=== PATIENT | female | born 1975 | race Caucasian/White ===

== ENCOUNTER 2017-11-01 13:59 | Emergency (ER) | payer SELFPAY ==
[2017-11-01 14:00] VITALS: BP 200/95; PULSE 78; RESP 16; TEMP 36.8; O2SAT 96; BMI 42.5
--- NOTE | 2017-11-01 14:14 | CT_ITS ---
STUDY: CT ABDOMEN AND PELVIS WITHOUT CONTRAST REASON FOR EXAM: Female, 42 years old. Right flank pain RADIATION DOSAGE (If Supplied By Facility): CTDIvol = ( 24.18 ) mGy, DLP = ( 1135.14 ) mGycm TECHNIQUE: Transaxial images were obtained from the dome of the diaphragm to the symphysis pubis without oral contrast, and without intravenous contrast. Sagittal and coronal images were reconstructed. Individualized dose optimization techniques were used for this CT. COMPARISON: None. FINDINGS: The visualized lung bases are unremarkable. The visualized portions of the heart are within normal limits. Normal liver. There is non-visualization of the gallbladder, which may be secondary to either contraction or a prior cholecystectomy. Normal spleen. Normal pancreas. Normal bilateral adrenal glands. Normal left kidney. Right kidney shows hydronephrosis and hydroureter with a minimal amount of periureteral inflammatory stranding. Findings are due to a 8 mm stone in the proximal right ureter just below the UPJ best seen on axial image 91. Normal visualized stomach. Normal small intestine. Normal colon. The appendix is visualized and appears normal. Appendix best seen on coronal recon image 74 Normal abdominal aorta. Normal inferior vena cava. Normal retroperitoneum. Normal urinary bladder. Normal visualized uterus. Normal abdominal wall. Normal osseous structures. CT/Abdomen/Pelvis without Cont IMPRESSION: There is an 8 mm stone in the proximal right ureter causing hydronephrosis and hydroureter. Electronically Signed: Diomedes Jacobs MD at 15:50 EDT , Service support ,
[2017-11-01] MEDS: Ketorolac 30 MG/ML Syringe IV (14:31)
[2017-11-01] MEDS: 0.9% Normal Saline 1,000 ML 250 ML IV (14:31)
[2017-11-01] MEDS: Ondansetron 4 MG/2 ML Vial IV (14:31)
[2017-11-01 14:41] LABS: Bacteria 0 SEEN /hpf (None Seen); Mucous, Urine 0 SEEN /hpf (<or=2+)
[2017-11-01 14:44] LABS: Color, Urine Yellow (Yellow); Glucose, Dipstick Normal (Normal); Ketone-Dipstick Negative (Negative); Leukocyte Esterase-Dipstick 100 /ul (Negative); Nitrite-Dipstick Negative (Negative); Occult Blood-Urine 150 /ul (Negative); Protein-Dipstick 30 mg/dl (Negative); Urine Bilirubin Dipstick Negative (Negative); Urine Clarity Sl. Cloudy (Clear); Urine Urobilinogen Normal (Normal)
[2017-11-01 14:55] LABS: White Blood Cells 0-5 SEEN /hpf (0-5)
[2017-11-01 14:56] LABS: Red Blood Cells-Urine 0-5 SEEN /hpf (0-5); Squamous Epithelial Cells - UA 5-10 SEEN /hpf (5-10)
[2017-11-01 15:05] LABS: Anion Gap 6 (5-15); BUN 11 mg/dL (7-18); BUN/Creat Ratio 13.6 RATIO (10-20); Calcium,Total 9.2 mg/dL (8.5-10.1); Chloride 105 mmol/L (98-107); Creatinine, Serum 0.81 mg/dL (0.55-1.02); EST Glomerular Filtration Rate 82 mL/min (>60); Est Glom Filt Rate - Afr Amer 100 mL/min (>60); Estimated Creatinine Clearance 74.84 ml/min; Glucose 137 mg/dL (74-106); Potassium 3.9 mmol/L (3.5-5.1); Sodium Level 138 mmol/L (136-145)
--- NOTE | 2017-11-01 15:49 | ED.DCSUM_ITS ---
- ER Visit Summary Date of Service: 11/01/17 Chief Complaint: Acute right flank pain radiating anteriorly History of Present Illness: The patient is a 42 F dense with several hour history of acute right flank pain radiating anteriorly. She denies dysuria, frequency, urgency or hematuria. She denies history of renal ureterolithiasis. She is status post cholecystectomy. She states she cannot find a position of comfort. She denies fever, chills or night sweats. She denies any respiratory cardiac symptoms. She has history of depression. She has no medical problems. Please read written note for complete detail. Physical Examination: Patient's blood pressure is 200/95. She appears uncomfortable. She is also heavyset with a BMI of 42.5. Head is atraumatic normocephalic. Pupils are equal round reactive. Extraocular muscles are intact. TMs are pearly white with landmarks noted. Nares patent with no drainage. Posterior pharynx without erythema or exudate. Uvula is midline. There is no dysphonia or dysphasia. Trachea is midline. There is no stridor with auscultation of the neck. Heart is regular without murmur, gallop or rub. S1 and S2 are normal. Lungs are clear to auscultation with good movement of air bilaterally. Abdomen is soft and nontender. There is no guarding or peritoneal findings. There is no palpable pulsatile mass. There is no abdominal bruit. Gomez sign is negative. Negative Rovsing sign. There is no evidence of inguinal or umbilical hernia. There are well-healed scars secondary to and cholecystectomy noted. There is no CVA tenderness noted. She is alert and oriented ?3. Test Results: BMP is marked for glucose 137. Urine is remarkable for leukoesterase and blood but no nitrites. Microscopic reveals 0-5 WBCs, 0-5 RBCs with 5-10 epithelial cells and no bacteria. CT of the abdomen and pelvis without contrast reveals a proximal right ureteral stone with hydronephrosis. Stone measures 7.8 x 4.0 mm. Emergency Department Course and Treatment: Patient's history and physical is consistent with ureterolithiasis. Doubt urinary tract infection or other pathology. Pain urine to evaluate for infection. BMP to assess kidney function. She was medicated with Toradol and Zofran. Treatment Plan: Reevaluated and states her pain is minimal. She was informed of her results. Refer to Dr. Ang Martinez. Disposition: Discharged home in stable improved condition Impression: Right proximal ureteral lithiasis with hydronephrosis This note was generated with [employer] dictation software. It may contain incorrect words, spelling, and punctuation that were not noted in review of the chart prior to signing ED Disposition - Plan for ED Patient: Disposition: Home or Assisted Living Chief Complaint: Flank Pain Instructions: ED Stone Renal W Colic Prescriptions: Oxycodone HCl/Acetaminophen [Percocet 5/325] 1 tab PO Q6H PRN PRN 5 Days #20 tab PRN Reason: flank pain Naproxen [Naprosyn] 500 mg PO BID #14 tab Referrals: Florentin Garay DO [Primary Care Provider] - Rene Martinez MD [STAFF PHYSICIAN] - 1 Week
[2017-11-01 16:00] VITALS: BP 147/70; PULSE 79; RESP 16; O2SAT 95
== END 2017-11-01 16:01 | disposition home or self-care (01) ==
PROVIDERS: Emergency Provider Emergency Medicine; Family Provider Family Medicine; PCP Family Medicine
DX: N13.2 Hydronephrosis with renal and ureteral calculous obstruction (principal); E66.9 Obesity, unspecified; Z68.41 Body mass index [BMI] 40.0-44.9, adult; F32.9 Major depressive disorder, single episode, unspecified; Z90.49 Acquired absence of other specified parts of digestive tract
CPT/HCPCS: 74176; 80048; 81001; 96361; 96374; 96375; 99282; J7030; J2405

== ENCOUNTER 2017-11-14 07:34 | Day surgery (SDC) | payer SELFPAY ==
--- NOTE | 2017-11-14 07:30 | RAD_ITS ---
STUDY: X-RAY - ABDOMEN/PELVIS REASON FOR EXAM: Female, 42 years old. History of right renal calculus. TECHNIQUE: Two AP supine views of the abdomen and pelvis. COMPARISON: None. FINDINGS: There is a moderate amount of colonic fecal material. There is a 7.5 mm calculus in the mid lower pole calyx of the right kidney. Normal soft tissue structures. Normal visualized osseous structures. RAD/Abdomen Single View IMPRESSION: 7.5 mm calculus in the mid lower portion of the right kidney. Electronically Signed: Patrick Mcneill MD at 8:05 EDT Tel [phone], Service support ,
[2017-11-14 08:10] VITALS: BP 145/79; PULSE 72; RESP 14; TEMP 36.5; O2SAT 98; BMI 42.5
[2017-11-14] MEDS: Cefazolin 2 GM in 0.9% Normal Saline 100 ML IV (09:33)
--- NOTE | 2017-11-14 10:22 | PCM.IMDPSTOP ---
Immediate Post-Op Note Date of Procedure: 11/14/17 Primary Surgeon/Physician: Floyd Manuel screw cutter: None Pre-Operative Diagnosis: Right renal lithiasis 8mm Post-Operative Diagnosis: same Surgery/Procedure Performed:: Rt ESWL 3000 @ 5-6 Description of Surgical Findings:: as above Estimated Blood Loss: none Specimen's removed: none Type of Anesthesia:: General - LMA Ila Sandhutershasha - Admit VTE Documentation VTE Present on Admission: No VTE Mechan Device Prophylaxis: SCD's VTE Pharm Prophylaxis ordered?: No
--- NOTE | 2017-11-14 10:24 | PCM.DC.URO ---
Discharge Diet: No Restrictions - ENCOURAGE FLUIDS Discharge Activity: Return to Normal Activity, May Not Drive - UNTIL TOMORROW, May not drive while taking narcotic pain medications., May Shower, - - EXPECT BLOOD IN URINE Call your doctor if you observe: Fever of 101 or Higher, Inability to urinate Allergies/Adverse Reactions: Allergies hydrogen peroxide Allergy (Verified 11/10/17 10:36) Rash Medications to take at Discharge Fluoxetine [Prozac] 60 mg PO DAILY 03/13/15 Naproxen [Naprosyn] 500 mg PO BID #14 tab 11/01/17 Oxycodone HCl/Acetaminophen [Percocet 5/325] 1 tab PO Q6H PRN PRN 5 Days #20 tab 11/01/17 Ascorbic Acid [Vitamin C] 1,000 mg PO DAILY 11/10/17 Primary Care Physician: Florentin Garay DO [Primary Care Provider] - Please Follow Up With: Rene Martinez MD - 3-4 WKS When: CALL [phone] SOON FOR AN APPT IN FEW WKS
--- NOTE | 2017-11-14 10:27 | DCINST_ITS ---
Discharge Diet: No Restrictions - ENCOURAGE FLUIDS Discharge Activity: Return to Normal Activity, May Not Drive - UNTIL TOMORROW, May not drive while taking narcotic pain medications., May Shower, - - EXPECT BLOOD IN URINE Call your doctor if you observe: Fever of 101 or Higher, Inability to urinate Allergies/Adverse Reactions: Allergies hydrogen peroxide Allergy (Verified 11/10/17 10:36) Rash Medications to take at Discharge Fluoxetine [Prozac] 60 mg PO DAILY 03/13/15 Naproxen [Naprosyn] 500 mg PO BID #14 tab 11/01/17 Oxycodone HCl/Acetaminophen [Percocet 5/325] 1 tab PO Q6H PRN PRN 5 Days #20 tab 11/01/17 Ascorbic Acid [Vitamin C] 1,000 mg PO DAILY 11/10/17 Primary Care Physician: Florentin Garay DO [Primary Care Provider] - Please Follow Up With: Rene Martinez MD - 3-4 WKS When: CALL [phone] SOON FOR AN APPT IN FEW WKS
[2017-11-14 10:33] VITALS: BP 131/84; BP 145/79; PULSE 79; RESP 16; TEMP 36.2; O2SAT 96
[2017-11-14 10:45] VITALS: BP 130/71; BP 145/79; PULSE 78; RESP 16; O2SAT 92
[2017-11-14 10:53] VITALS: BP 145/79; BP 154/81; PULSE 71; RESP 16; TEMP 36.8; O2SAT 94
--- NOTE | 2017-11-14 11:17 | PCM.OP.BLANK ---
Operative Report Date of Procedure: 11/14/17 42-year-old female who presented with a proximal 8 mm stone at the right UPJ. 3 times. At this point she has been intermittently pain free and is brought in for ESWL Seizure patient was taken to the operating room and placed under general anesthesia per LMA by Rasta robles and Dr. Sandhu. She had SCUDs in place was preloaded with antibiotics. She was positioned on the table with a stone was easily visible. It appeared to be in the renal pelvis. Subsequently no stent was placed. ESWL was performed patient had 3000 shocks most between 4-5 6. At 2500 shocks the stone was essentially absent a little saul pattern but went to 3000 shocks total. She was awakened and taken to recovery in good condition. That is on this dictation
[2017-11-14 11:50] VITALS: BP 145/79
== END 2017-11-14 11:53 | disposition home or self-care (01) ==
LOC: SDC 07:34 → AC 07:46
PROVIDERS: Family Provider Family Medicine; PCP Family Medicine; Visit Provider Urology
PROC: (CPT 50590; principal; 2017-11-14 09:20)
DX: N20.0 Calculus of kidney (principal); F32.9 Major depressive disorder, single episode, unspecified; G47.30 Sleep apnea, unspecified; E66.9 Obesity, unspecified; Z68.41 Body mass index [BMI] 40.0-44.9, adult
CPT/HCPCS: 74018; J7120; J2405

== ENCOUNTER → 2018-07-23 12:52 | Outpatient (CLI) | payer SELFPAY ==
--- NOTE | 2018-07-23 12:57 | VDLE_ITS ---
Reason For Study: csalf tenderness RIGHT LEFT GSV is normal. CFV is compressible, spontaneous, phasic, CFV is compressible, spontaneous, phasic, competent, and demonstrates normal competent and demonstrates normal augmentation. augmentation. FV is compressible, spontaneous, phasic, competent and demonstrates normal augmentation. POP V is compressible, spontaneous, phasic, competent and demonstrates normal augmentation. T/P Trunk is compressible. PTV is compressible. RT PerV is compressible. Procedure Exam performed in department. The exam was diagnostic. A preliminary report was called and/or faxed to Dr. Garay. Interpretation Summary Deep veins of the right lower extremity are patent and compressible segmentally. There is no evidence of right lower extremity deep vein thrombosis. Valvular competence appears intact within the proximal deep venous system on the right . The right greater saphenous vein appears patent and compressible segmentally. Ordering Physician: Florentin Garay Performed By: Av Howard RVT
--- OUTSIDE RECORDS SUMMARY | 2018-09-08 08:26 | XMS RPT_ITS ---
:1975 Author Organization OHIP Care Team Providers Name Role Phone Tanisha Florentin Attending Unavailable Florentin Garay Referring Unavailable Florentin Garay Primary Care Unavailable Florentin Garay Attending Unavailable Florentin Garay Referring Unavailable Florentin Garay Primary Care Unavailable Florentin Garay Primary Care Unavailable Jarred Zeng Attending Unavailable Flody Manuel Attending Unavailable Florentin Garay Primary Care Unavailable Floyd Manuel Referring Unavailable PROBLEMS PROBLEMS DATE TYPE CONDITION / CODE ATTENDING STATUS SOURCE 07/24/2018 Unknown M79.661 - Pain Florentin Garay Active [facility] M79.661(ICD-10) Repository 07/24/2018 Unknown M79.89 - Other Florentin Garay Active [facility] specified [facility] / M79.89(ICD-10) Repository 11/01/2017 Unknown N20.1 - Calculus Zeng, Jarred Active [facility] Community N20.1(ICD-10) Hospital Repository PROCEDURES PROCEDURES No Procedure Records FoundRESULTS RESULTS VENOUS DUPLEX LOWER Observed: 07/25/2018 Status: F Source: [place] EXTREMITY 1:43 PM [facility] REPOSITORY [facility] Cardiovascular Services [address] [place] [address] Venous Duplex US, Unilateral 07/23/18 1303 MR#: [id number] Acct: [id number] Name: CHARISMA JUDGE Rep #: [id number] : 1975 43 From: Edinson Orantes MD Attending Dr: Florentin Garay DO Status: REG CLI Ordering Dr: Florentin Garay DO Date: 07/23/18 Location: CVS Sex: F C Admitted: Reason For Study: csalf tenderness RIGHT LEFT GSV is normal. CFV is compressible, spontaneous, phasic, CFV is compressible, spontaneous, phasic, competent, and demonstrates normal competent and demonstrates normal augmentation. augmentation. FV is compressible, spontaneous, phasic, competent and demonstrates normal augmentation. POP V is compressible, spontaneous, phasic, competent and demonstrates normal augmentation. T/P Trunk is compressible. PTV is compressible. RT PerV is compressible. Procedure Exam performed in department. The exam was diagnostic. A preliminary report was called and/or faxed to Dr. Garay. Interpretation Summary Deep veins of the right lower extremity are patent and compressible segmentally. There is no evidence of right lower extremity deep vein thrombosis. Valvular competence appears intact within the proximal deep venous system on the right . The right greater saphenous vein appears patent and compressible segmentally. Ordering Physician: Florentin Garay Performed By: Av Howard RVT 07/25/18 1342 Date Edinson Orantes MD CC: Florentin Garay DO Date Dictated: 07/23/18 1303 Date Transcribed: 07/25/18 1342 Gear Tester: Signed EXT NON VASC Observed: 07/24/2018 Status: F Source: [place] LIMITED/SOFT TISS 1:46 PM [facility] REPOSITORY [facility] Imaging Services [address] [place] [address] Ext Non Vasc Limited/Soft Tiss MR#: [id number] Acct: [id number] Name: CHARISMA JUDGE Rep #: [id number] : 1975 F 43 From: Rajendra Preston MD PCP: Florentin Garay DO Status: REG CLI Study: Ext Non Vasc Limited/Soft Tiss Date of Exam: 07/24/18 Exam# [id number] Ordering Dr: Florentin Garay DO STUDY: SUPERFICIAL ULTRASOUND - RIGHT CALF REASON FOR EXAM: Female, 43 years old. PAIN AND SWELLING OF THE RIGHT CALF TECHNIQUE: A superficial ultrasound was performed with real- time and static flores-scale imaging. COMPARISON: None. FINDINGS: Soft tissue planes are preserved without evidence of focal fluid collection or solid mass. There is slight thickening of the right subcutaneous tissues as compared to the left compatible with history of right calf swelling. US/Ext Non Vasc Limited/Soft Tiss IMPRESSION: 1. No focal fluid collection or solid mass. 2. Mild, nonspecific right subcutaneous thickening. Electronically Signed: Rajendra Preston MD at 23:10 EST , Service support , CC: Florentin Garay DO Gear Tester: Signed GROUP A STREP BY Collected: 06/09/2018 Status: F Source: [place] PCR 11:10 AM [facility] REPOSITORY TYPE CODE TESTS RESULT OUT OF RANGE REFERENCE UNITS LAB GASSRC Throat Swab GAS Specimen Source LAB PCRGAS Positive for Abnormal Group A Strep Group A Alert PCR Streptococcus by PCR. Result Comment: This test was developed and its performance characteristics determined by [facility] [place] ([facility]). It has not been cleared or approved by the FDA. [facility] is regulated under CLIA as qualified to perform high-complexity testing. This test is used for clinical purposes. It should not be regarded as inv estigational or for research. Performed By: #### GASPCR #### [facility] [address] [place], [place] [address] PROGRESS Observed: 06/09/2018 Status: COMPLETED Source: [place] 10:57 AM [facility] REPOSITORY HNO ID: [id number] Author: Mesha (Chitra) Service: (none) Author Type: Nurse Practitioner Type: Progress Notes Filed: 06/09/2018 11:10 AM Note Text: Subjective HPI HPI Charisma Judge is a 43 year old female who presents today for CC of sore throat, runny nose. This started 2 days ago. Has tried otc medication. Symptoms are worsened by nothing. Risk factors sick exposures at home. .Patient presents with: ST, runny nose, congestion: x 2 days PAST MEDICAL HISTORY Diagnosis Date - Abdominal pain, epigastric - Absence of menstruation - Adjustment disorder with depressed mood 04/17/2005 - Alopecia, unspecified - Anxiety - Calculus of gallbladder without mention of cholecystitis or obstruction - Depression - Family history of diabetes mellitus - WITH CHRONIC HEP C 07/28/2007 LFT's, Hep Panel negative 07/17 - Irregular menstrual cycle Irregular periods - Obesity - OCD (obsessive compulsive disorder) - Oligomenorrhea 10/30/2011 PAST SURGICAL HISTORY Procedure Laterality Date - DELIVERY ONLY 1992 , low cervical - COLONOSCOP W/ OR W/O [facility] SPEC 12/22/2013 Colonoscopy - EGD W/O [facility] SPECIMEN W/BX 05/11/10 - ENDOMETRIAL BIOPSY 09/10/2013 - PAST SURGICAL HISTORY OF 06/15/10 Lap [facility], intra-op cholangiogram -- Dr. Chin - PAST SURGICAL HISTORY OF lumbar injections - REDUCTION OF LARGE BREAST [place] - REMOVAL OF HEEL SPUR LIGAMENT CUT; [facility] ALLERGIES Patient has no known allergies. MEDICATIONS FLUoxetine (PROZAC) 20 mg capsule 20mg + 40mg =60mg daily FLUoxetine HCl (PROZAC) 40 mg capsule 20mg + 40mg =60mg daily CPAP UTO CPAP DEVICE, chin strap, humidity. Lifetime supplies.Please Autopap 4-20 cmH2O with download in 2 weeks faxed to [phone] /Pt without insurance FAMILY HISTORY Problem Relation Age of Onset - Diabetes Maternal Grandfather - Stroke Maternal Grandmother CVA - Stroke Paternal Grandfather CVA - Heart Maternal Grandfather age 60's - Heart Paternal Grandfather age 60's - None Father - Breast Cancer Other Mat Great Grandmother only - None Mother - Colon Cancer Other none - Diabetes Maternal Aunt - Diabetes Maternal Aunt - Diabetes Paternal Grandfather - Arthritis Maternal Grandmother - other (molina [Other]) Paternal Aunt Social History Substance Use Topics - Smoking status: Never Smoker - Smokeless tobacco: Never Used - Alcohol use No Review of Systems Constitutional: Negative for chills, fever and weight loss. HENT: Positive for congestion and sore throat. Negative for ear pain and nosebleeds. Respiratory: Negative for cough, shortness of breath and wheezing. Musculoskeletal: Negative for neck pain. Skin: Negative for itching and rash. Objective Blood pressure 148/90, pulse 72, temperature 36.8 ?C (98.3 ?F), temperature source Tympanic, resp. rate 16, weight 109.8 kg (242 lb), SpO2 98 %. Physical Exam Constitutional: She is oriented to person, place, and time and well-developed, well-nourished, and in no distress. Non-toxic appearance. She does not have a sickly appearance. No distress. HENT: Head: Normocephalic and atraumatic. Right Ear: Hearing, tympanic membrane, external ear and ear canal normal. Left Ear: Hearing, tympanic membrane, external ear and ear canal normal. Nose: Nose normal. Mouth/Throat: Uvula is midline and mucous membranes are normal. Posterior oropharyngeal erythema present. No oropharyngeal exudate, posterior oropharyngeal edema or tonsillar abscesses. Eyes: Pupils are equal, round, and reactive to light. Conjunctivae and lids are normal. Right eye exhibits no discharge. Left eye exhibits no discharge. No scleral icterus. Neck: Trachea normal and normal range of motion. Neck supple. Cardiovascular: Normal rate, regular rhythm and normal heart sounds. Pulmonary/Chest: Effort normal and breath sounds normal. Lymphadenopathy: She has no cervical adenopathy. Neurological: She is alert and oriented to person, place, and time. Skin: No rash noted. She is not diaphoretic. ASSESSMENT/PLAN: 1. URI, acute - ICD9: 465.9, ICD10: J06.9 (primary diagnosis) - Discussed viral etiology and rationale for treatment. - Rapid strep negative in office today - Symptomatic treatment with prn analgesia - Supportive care with fluids and rest - Follow up in 3-5 days if symptoms persist or sooner if worsening of symptoms 2. Sore throat - ICD9: 462, ICD10: J02.9 - suspect viral - Rapid Strep negative in the office today and Throat culture pending - Discussed supportive care treatment with fluids, rest and analgesia. - The patient should follow up in 3-5 days if symptoms persist or worsen - Call back if drooling, increased temperature, symptoms of dehydration and/or still sick in one week - RAPID STREP TEST B/O - GROUP A STREPTOCOCCUS BY PCR Prescription instructions reviewed with patient as applicable. Patient advised if symptoms do not improve or if symptoms worsen sooner, to contact the office for further evaluation by their primary care physician. Potential red flag symptoms discussed with the patient. Reviewed appropriate action plan to take if red flag symptoms occur. Patient agreeable to treatment plan. Mesha Munson APRN.CHITRA CNOV Observed: 06/09/2018 Status: COMPLETED Source: [place] 10:45 AM [facility] REPOSITORY Office Visit ([facility]STR) CHARISMA JUDGE ([id number]) 1975 F Date Time Provider Department 06/09/18 10:45 AM MESHA MUNSON (CHITRA) [facility] During your visit today, we recorded the following information about you: Temperature Pulse Respiration Blood pressure 98.3 degrees 72/minute 16/minute 148/90 Weight 109.8 kg Mesha Munson APRN.CNP 06/09/2018 11:10 AM Signed Subjective HPI HPI Charisma Judge is a 43 year old female who presents today for CC of sore throat, runny nose. This started 2 days ago. Has tried otc medication. Symptoms are worsened by nothing. Risk factors sick exposures at home. .Patient presents with: ST, runny nose, congestion: x 2 days PAST MEDICAL HISTORY Diagnosis Date - Abdominal pain, epigastric - Absence of menstruation - Adjustment disorder with depressed mood 04/17/2005 - Alopecia, unspecified - Anxiety - Calculus of gallbladder without mention of cholecystitis or obstruction - Depression - Family history of diabetes mellitus - WITH CHRONIC HEP C 07/28/2007 LFT's, Hep Panel negative 07/17 - Irregular menstrual cycle Irregular periods - Obesity - OCD (obsessive compulsive disorder) - Oligomenorrhea 10/30/2011 PAST SURGICAL HISTORY Procedure Laterality Date - DELIVERY ONLY 1992 , low cervical - COLONOSCOP W/ OR W/O [facility] SPEC 12/22/2013 Colonoscopy - EGD W/O [facility] SPECIMEN W/BX 05/11/10 - ENDOMETRIAL BIOPSY 09/10/2013 - PAST SURGICAL HISTORY OF 06/15/10 Lap [facility]ra, intra-op cholangiogram -- Dr. Chin - PAST SURGICAL HISTORY OF lumbar injections - REDUCTION OF LARGE BREAST 2001 [place] - REMOVAL OF HEEL SPUR LIGAMENT CUT; Foot/Ankle Clinic ALLERGIES Patient has no known allergies. MEDICATIONS FLUoxetine (PROZAC) 20 mg capsule 20mg + 40mg =60mg daily FLUoxetine HCl (PROZAC) 40 mg capsule 20mg + 40mg =60mg daily CPAP UTO CPAP DEVICE, chin strap, humidity. Lifetime supplies.Please Autopap 4-20 cmH2O with download in 2 weeks faxed to [phone] /Pt without insurance FAMILY HISTORY Problem Relation Age of Onset - Diabetes Maternal Grandfather - Stroke Maternal Grandmother CVA - Stroke Paternal Grandfather CVA - Heart Maternal Grandfather age 60's - Heart Paternal Grandfather age 60's - None Father - Breast Cancer Other Mat Great Grandmother only - None Mother - Colon Cancer Other none - Diabetes Maternal Aunt - Diabetes Maternal Aunt - Diabetes Paternal Grandfather - Arthritis Maternal Grandmother - other (molina [Other]) Paternal Aunt Social History Substance Use Topics - Smoking status: Never Smoker - Smokeless tobacco: Never Used - Alcohol use No Review of Systems Constitutional: Negative for chills, fever and weight loss. HENT: Positive for congestion and sore throat. Negative for ear pain and nosebleeds. Respiratory: Negative for cough, shortness of breath and wheezing. Musculoskeletal: Negative for neck pain. Skin: Negative for itching and rash. Objective Blood pressure 148/90, pulse 72, temperature 36.8 ?C (98.3 ?F), temperature source Tympanic, resp. rate 16, weight 109.8 kg (242 lb), SpO2 98 %. Physical Exam Constitutional: She is oriented to person, place, and time and well-developed, well-nourished, and in no distress. Non-toxic appearance. She does not have a sickly appearance. No distress. HENT: Head: Normocephalic and atraumatic. Right Ear: Hearing, tympanic membrane, external ear and ear canal normal. Left Ear: Hearing, tympanic membrane, external ear and ear canal normal. Nose: Nose normal. Mouth/Throat: Uvula is midline and mucous membranes are normal. Posterior oropharyngeal erythema present. No oropharyngeal exudate, posterior oropharyngeal edema or tonsillar abscesses. Eyes: Pupils are equal, round, and reactive to light. Conjunctivae and lids are normal. Right eye exhibits no discharge. Left eye exhibits no discharge. No scleral icterus. Neck: Trachea normal and normal range of motion. Neck supple. Cardiovascular: Normal rate, regular rhythm and normal heart sounds. Pulmonary/Chest: Effort normal and breath sounds normal. Lymphadenopathy: She has no cervical adenopathy. Neurological: She is alert and oriented to person, place, and time. Skin: No rash noted. She is not diaphoretic. ASSESSMENT/PLAN: 1. URI, acute - ICD9: 465.9, ICD10: J06.9 (primary diagnosis) - Discussed viral etiology and rationale for treatment. - Rapid strep negative in office today - Symptomatic treatment with prn analgesia - Supportive care with fluids and rest - Follow up in 3-5 days if symptoms persist or sooner if worsening of symptoms 2. Sore throat - ICD9: 462, ICD10: J02.9 - suspect viral - Rapid Strep negative in the office today and Throat culture pending - Discussed supportive care treatment with fluids, rest and analgesia. - The patient should follow up in 3-5 days if symptoms persist or worsen - Call back if drooling, increased temperature, symptoms of dehydration and/or still sick in one week - RAPID STREP TEST B/O - GROUP A STREPTOCOCCUS BY PCR Prescription instructions reviewed with patient as applicable. Patient advised if symptoms do not improve or if symptoms worsen sooner, to contact the office for further evaluation by their primary care physician. Potential red flag symptoms discussed with the patient. Reviewed appropriate action plan to take if red flag symptoms occur. Patient agreeable to treatment plan. Mesha Munson APRN.CHITRA Munson APRN.CNP 06/09/2018 11:03 AM Signed RESPIRATORY INFECTION GENERAL INFORMATION: An upper respiratory tract infection, or cold, is a viral infection of the airway passages. It can be caused by any one of almost 200 different viruses. Common symptoms include a runny or stuffy nose, sneezing, watery eyes, sore throat, cough, and slight fever. Colds are contagious, especially during the first 3 or 4 days and cannot be cured by antibiotics. They are spread by coughs, sneezes, and direct contact, especially [id number]. A respiratory tract infection usually clears up in a few days, but some people may be sick for a week or two. INSTRUCTIONS: 1. Be careful not to blow your nose too hard because this may cause a nosebleed. 2. Use a cool-mist humidifier (vaporizer) to increase air moisture. This will make it easier for you to breathe. Do not use hot steam. 3. Rest as much as possible and get plenty of sleep. 4. Wash your hands often, especially after you blow your nose. Cover your mouth and nose with a tissue when you sneeze or cough. 5. Drink plenty of clear fluids (8 glasses a day) such as water, fruit juice, tea, clear soups, and carbonated beverages. CONTACT YOUR DOCTOR IF : 1. Your fever lasts more than 3 days. 2. You have a sore throat that gets worse or you see white or yellow spots in your throat. 3. Your cough gets worse or lasts more than 10 days. 4. You develop a rash anywhere on your skin. 5. You have an earache or a headache. 6. You have thick greenish or yellowish discharge from your nose. RETURN IMMEDIATELY IF: 1. You cough up thick yellow, green, flores, or bloody sputum. 2. You have difficulty breathing, pain in your chest, or your skin or nails look flores or blue. 3. You have shaking chills or a temperature over 102 F (39 C). ASSESSMENT/PLAN: 1. Sore throat - ICD9: 462, ICD10: J02.9 - suspect viral - Rapid Strep negative in the office today and Throat culture pending - Discussed supportive care treatment with fluids, rest and analgesia. - The patient should follow up in 3-5 days if symptoms persist or worsen - Call back if drooling, increased temperature, symptoms of dehydration and/or still sick in one week - RAPID STREP TEST B/O - GROUP A STREPTOCOCCUS BY PCR Referring Provider: SELF [200] Allergies As of Date: 06/09/2018 (No Known Allergies) Date Reviewed: 06/09/2018 Reviewed by: Mesha ([facility]) - Fully Assessed Reason for Visit: ST, runny nose, congestion [Other] Cmt: x 2 days Primary Visit Diagnosis:URI, acute [J06.9] Other Visit Diagnosis:Sore throat [J02.9] Order(s):RAPID STREP TEST B/O [0390731] Order #: [id number] GROUP A STREPTOCOCCUS BY PCR [SQGASPCR] Order #: [id number] Prescriptions as of 06/09/2018 Sig: FLUOXETINE 20 MG CAPSULE 20mg + 40mg =60mg daily FLUOXETINE 40 MG CAPSULE 20mg + 40mg =60mg daily CPAP UTO CPAP DEVICE, chin strap, * More... Problem List As Of Date 06/09/2018 Noted Resolved Adjustment disorder with depressed mood [F43.21]INVALID FOR* Priority: A Other and unspecified ovarian cyst [N83.209] INVALID FOR*10/30/2011 WITH CHRONIC HEP C [Z77.21] INVALID FOR* Priority: C More... Abdominal pain, epigastric [R10.13] INVALID FOR*10/30/2011 Menometrorrhagia [N92.1] INVALID FOR*09/10/2013 Oligomenorrhea [N91.5] INVALID FOR* Priority: C Lumbar disc herniation with radiculopathy [M51.*INVALID FOR* Priority: D Alopecia, unspecified [L65.9] Priority: B Morbid (severe) obesity due to excess calories * Priority: C More... Depression [F32.9] Priority: A OCD (obsessive compulsive disorder) [F42.9] Priority: A Seborrheic dermatitis [L21.9] INVALID FOR* Priority: D Irregular periods [N92.6] INVALID FOR*09/10/2013 Simple endometrial hyperplasia without atypia [*INVALID FOR* Priority: C Right kidney stone [N20.0] INVALID FOR* Right flank pain [R10.9] INVALID FOR* Hematuria [R31.9] INVALID FOR* Routine gynecological examination [Z01.419] INVALID FOR* More... Other instructions from your clinician: RESPIRATORY INFECTION GENERAL INFORMATION: An upper respiratory tract infection, or cold, is a viral infection of the airway passages. It can be caused by any one of almost 200 different viruses. Common symptoms include a runny or stuffy nose, sneezing, watery eyes, sore throat, cough, and slight fever. Colds are contagious, especially during the first 3 or 4 days and cannot be cured by antibiotics. They are spread by coughs, sneezes, and direct contact, especially [id number]. A respiratory tract infection usually clears up in a few days, but some people may be sick for a week or two. INSTRUCTIONS: 1. Be careful not to blow your nose too hard because this may cause a nosebleed. 2. Use a cool-mist humidifier (vaporizer) to increase air moisture. This will make it easier for you to breathe. Do not use hot steam. 3. Rest as much as possible and get plenty of sleep. 4. Wash your hands often, especially after you blow your nose. Cover your mouth and nose with a tissue when you sneeze or cough. 5. Drink plenty of clear fluids (8 glasses a day) such as water, fruit juice, tea, clear soups, and carbonated beverages. CONTACT YOUR DOCTOR IF : 1. Your fever lasts more than 3 days. 2. You have a sore throat that gets worse or you see white or yellow spots in your throat. 3. Your cough gets worse or lasts more than 10 days. 4. You develop a rash anywhere on your skin. 5. You have an earache or a headache. 6. You have thick greenish or yellowish discharge from your nose. RETURN IMMEDIATELY IF: 1. You cough up thick yellow, green, flores, or bloody sputum. 2. You have difficulty breathing, pain in your chest, or your skin or nails look flores or blue. 3. You have shaking chills or a temperature over 102 F (39 C). ASSESSMENT/PLAN: 1. Sore throat - ICD9: 462, ICD10: J02.9 - suspect viral - Rapid Strep negative in the office today and Throat culture pending - Discussed supportive care treatment with fluids, rest and analgesia. - The patient should follow up in 3-5 days if symptoms persist or worsen - Call back if drooling, increased temperature, symptoms of dehydration and/or still sick in one week - RAPID STREP TEST B/O - GROUP A STREPTOCOCCUS BY PCR Letter Text [facility] Department of Urgent Care Mesha Munson CNP [address], [place] [address] 06/09/2018 Charisma Judge [facility]# [id number] [address] [place], [place] [id number] TO WHOM IT MAY CONCERN: This is to confirm that Charisma Judge had an appointment and was seen at the [facility] in the Department of Urgent Care by Mesha Munson CNP on 06/09/2018. Sincerely yours, Mesha Munson CNP Encounter Status:Closed by MESHA MUNSON CNP on 06/09/18 OPERATIVE REPORT Observed: 11/14/2017 Status: F Source: [place] 11:19 AM [facility] REPOSITORY [facility] Medical Records Department [address] [place], [place] [id number] Operative Report 11/14/17 1117 MR#: [id number] Acct: [id number] Name: CHARISMA JUDGE JO Rep #: [id number] : 1975 42 From: Floyd Manuel MD PCP: Florentin Garay DO Status: REG [facility] Y Location: [place] [address] Operative Report Date of Procedure: 11/14/17 42-year-old female who presented with a proximal 8 mm stone at the right UPJ. 3 times. At this point she has been intermittently pain free and is brought in for ESWL Seizure patient was taken to the operating room and placed under general anesthesia per LMA by Rasta robles and Dr. Sandhu. She had SCUDs in place was preloaded with antibiotics. She was positioned on the table with a stone was easily visible. It appeared to be in the renal pelvis. Subsequently no stent was placed. ESWL was performed patient had 3000 shocks most between 4-5 6. At 2500 shocks the stone was essentially absent a little saul pattern but went to 3000 shocks total. She was awakened and taken to recovery in good condition. That is on this dictation 11/14/17 1119 <Electronically signed by Floyd Manuel MD> Date Floyd Manuel MD CC: Florentin Garay DO; Floyd Manuel MD Signed DISCHARGE INSTRUCTION Observed: 11/14/2017 Status: F Source: [place] 10:27 AM [facility] REPOSITORY [facility] Medical Records Department [address] [place] [id number] Instructions for Home/Discharge Instructions 11/14/17 1024 MR#: [id number] Acct: [id number] Name: CHARISMA JUDGE Rep #: [id number] : 1975 42 From: Floyd Manuel MD PCP: Florentin Garay DO Status: REG [facility] Discharge Diet: No Restrictions - ENCOURAGE FLUIDS Discharge Activity: Return to Normal Activity, May Not Drive - UNTIL TOMORROW, May not drive while taking narcotic pain medications., May Shower, - - EXPECT BLOOD IN URINE Call your doctor if you observe: Fever of 101 or Higher, Inability to urinate Allergies/Adverse Reactions: Allergies hydrogen peroxide Allergy (Verified 11/10/17 10:36) Rash Medications to take at Discharge Fluoxetine [Prozac] 60 mg PO DAILY 03/13/15 Naproxen [Naprosyn] 500 mg PO BID #14 tab 11/01/17 Oxycodone HCl/Acetaminophen [Percocet 5/325] 1 tab PO Q6H PRN PRN 5 Days #20 tab 11/01/17 Ascorbic Acid [Vitamin C] 1,000 mg PO DAILY 11/10/17 Primary Care Physician: Florentin Garay DO [Primary Care Provider] - Please Follow Up With: Rene Martinez MD - 3-4 WKS When: CALL [phone] SOON FOR AN APPT IN FEW WKS 11/14/17 1027 <Electronically signed by Floyd Manuel MD> Date Floyd Manuel MD CC: Florentin Garay DO ABDOMEN SINGLE VIEW Observed: 11/14/2017 Status: F Source: BAGGS 12:00 AM [facility] Imaging Services [address] [place] [id number] Abdomen Single View MR#: [id number] Acct: [id number] Name: CHARISMA JUDGE JO Rep #: [id number] : 1975 F 42 From: Patrick Mcneill MD PCP: Florentin Garay DO Status: REG [facility] [place] Study: Abdomen Single View Date of Exam: 11/14/17 Exam# [id number] Ordering Dr: Floyd Manuel MD STUDY: X-RAY - ABDOMEN/PELVIS REASON FOR EXAM: Female, 42 years old. History of right renal calculus. TECHNIQUE: Two AP supine views of the abdomen and pelvis. COMPARISON: None. FINDINGS: There is a moderate amount of colonic fecal material. There is a 7.5 mm calculus in the mid lower pole calyx of the right kidney. Normal soft tissue structures. Normal visualized osseous structures. RAD/Abdomen Single View IMPRESSION: 7.5 mm calculus in the mid lower portion of the right kidney. Electronically Signed: Patrick Mcneill MD at 8:05 EDT Tel [phone], Service support , CC: Florentin Garay DO; Floyd Manuel MD Gear Tester: Signed EMERGENCY DEPARTMENT Observed: 11/01/2017 Status: F Source: BAGGS SUMMARY 3:49 PM [facility] Medical Records Department [address] [place] [address] Emergency Department Summary 11/01/17 1543 MR#: [id number] Acct: [id number] Name: CHARISMA JUDGE Rep #: [id number] : 1975 42 From: Jarred Zeng MD PCP: Florentin Garay DO Status: REG ER - ER Visit Summary Date of Service: 11/01/17 Chief Complaint: Acute right flank pain radiating anteriorly History of Present Illness: The patient is a 42 F dense with several hour history of acute right flank pain radiating anteriorly. She denies dysuria, frequency, urgency or hematuria. She denies history of renal ureterolithiasis. She is status post cholecystectomy. She states she cannot find a position of comfort. She denies fever, chills or night sweats. She denies any respiratory cardiac symptoms. She has history of depression. She has no medical problems. Please read written note for complete detail. Physical Examination: Patient's blood pressure is 200/95. She appears uncomfortable. She is also heavyset with a BMI of 42.5. Head is atraumatic normocephalic. Pupils are equal round reactive. Extraocular muscles are intact. TMs are pearly white with landmarks noted. Nares patent with no drainage. Posterior pharynx without erythema or exudate. Uvula is midline. There is no dysphonia or dysphasia. Trachea is midline. There is no stridor with auscultation of the neck. Heart is regular without murmur, gallop or rub. S1 and S2 are normal. Lungs are clear to auscultation with good movement of air bilaterally. Abdomen is soft and nontender. There is no guarding or peritoneal findings. There is no palpable pulsatile mass. There is no abdominal bruit. Gomez sign is negative. Negative Rovsing sign. There is no evidence of inguinal or umbilical hernia. There are well-healed scars secondary to and cholecystectomy noted. There is no CVA tenderness noted. She is alert and oriented 3. Test Results: BMP is marked for glucose 137. Urine is remarkable for leukoesterase and blood but no nitrites. Microscopic reveals 0-5 WBCs, 0-5 RBCs with 5-10 epithelial cells and no bacteria. CT of the abdomen and pelvis without contrast reveals a proximal right ureteral stone with hydronephrosis. Stone measures 7.8 x 4.0 mm. Emergency Department Course and Treatment: Patient's history and physical is consistent with ureterolithiasis. Doubt urinary tract infection or other pathology. Pain urine to evaluate for infection. BMP to assess kidney function. She was medicated with Toradol and Zofran. Treatment Plan: Reevaluated and states her pain is minimal. She was informed of her results. Refer to Dr. Ang Martinez. Disposition: Discharged home in stable improved condition Impression: Right proximal ureteral lithiasis with hydronephrosis This note was generated with [employer] dictation software. It may contain incorrect words, spelling, and punctuation that were not noted in review of the chart prior to signing ED Disposition - Plan for ED Patient: Disposition: Home or Assisted Living Chief Complaint: Flank Pain Instructions: ED Stone Renal W Colic Prescriptions: Oxycodone HCl/Acetaminophen [Percocet 5/325] 1 tab PO Q6H PRN PRN 5 Days #20 tab PRN Reason: flank pain Naproxen [Naprosyn] 500 mg PO BID #14 tab Referrals: Florentin Garay DO [Primary Care Provider] - Rene Martinez MD [STAFF PHYSICIAN] - 1 Week What to do if you have Problems For any increased pain, shortness of breath, bleeding, nausea or vomiting, chest pain, or any unexpected problems, contact your Primary Care Provider. Call [facility] ([phone]) or report to the closest Emergency Room. Call 911 if necessary. 11/01/17 9523 <Electronically signed by Jarred Zeng MD> Date Jarred Zeng MD Cosigner Signature (If Indicated): Date CC: Rene Martinez MD; Florentin Garay DO URINALYSIS, COMPLETE Collected: 11/01/2017 Status: F Source: LOGAN 2:35 PM [facility] Order Comment: Order Date: 11/01/17 Has pt arrived? Y How was Urine Obtained? CLEAN CATCH TYPE CODE TESTS RESULT OUT OF RANGE REFERENCE UNITS LAB L400.3000 Yellow COLOR Normal Yellow LAB L400.3050 Clear Normal CLARITY Sl. Cloudy LAB L400.3200 Normal mg/dl Normal GLUCOSE, UR Normal LAB L400.3300 Negative mg/dL Normal BILIRUBIN URINE Negative LAB L400.3400 Negative mg/dl Normal KETONE UR Negative LAB L400.3465 1.002-1.030 Normal SP.GR. DIPSTX 1.020 LAB L400.3550 5.0 - 8.0 pH UR Normal 6.0 LAB L400.3600 Negative mg/dl High PROT 30 DIPSTX LAB L400.3700 Normal mg/dl Normal UROBILI Normal LAB L400.3750 Negative Normal NITRITE UR Negative LAB L400.3780 Negative /ul High OCCULT BLOOD-UR 150 LAB L400.3800 Negative /ul High LEUK ESTERASE 100 LAB L400.4050 0-5 /hpf WBC Normal 0-5 SEEN LAB L400.4100 0-5 /hpf Normal RBC-UA 0-5 SEEN LAB L400.4150 5-10 /hpf SQUAM Normal EPI 5-10 SEEN LAB L400.4300 None Seen /hpf 0 Normal BACTERIA SEEN LAB L400.4350 <or=2+ /hpf 0 Normal MUCUS, URINE SEEN Performed By: #### L400.0001 #### [facility] [address] [place], [address] BASIC METABOLIC Collected: 11/01/2017 Status: F Source: LOGAN PROFILE (BMP) 2:30 PM [facility] TYPE CODE TESTS RESULT OUT OF RANGE REFERENCE UNITS LAB L501.0100 74-106 mg/dL High GLU 137 Result Comment: Fasting Glucose result greater than or equal to 126 mg/dL suggests DIABETES MELLITUS per A.D.A. criteria. Please note revised GLUCOSE reference range effective 2017. LAB L501.1000 7-18 mg/dL Normal BUN 11 LAB L501.1100 0.55-1.02 mg/dL Normal CREAT,SERUM 0.81 Result Comment: The validity of the calculated GFR AND GFRAA in patients over 70 years has not been determined. Clinical correlation is essential. LAB L501.1110 >60 mL/min Normal EST GFR 82 Result Comment: Non- GFR Calc LAB L501.1115 >60 mL/min Normal EST GFR - AA 100 Result Comment: GFR Calc LAB L501.1255 ml/min Normal Estimated CRCL 74.84 LAB L501.1300 10-20 RATIO Normal BUN/CRE 13.6 LAB L501.2200 8.5-10 mg/dL Normal .1 CA 9.2 LAB L501.5300 136-14 mmol/L Normal 5 NA 138 LAB L501.5600 3.5-5. mmol/L Normal 1 K 3.9 LAB L501.5900 98-107 mmol/L Normal CL 105 LAB L501.6100 21.0-3 mmol/L Normal 2.0 CO2 27.0 LAB L501.6200 5-15 Normal GAP 6 Performed By: #### L500.2500 #### [facility] [address] [facility] [place], [address] ABDOMEN/PELVIS WITHOUT Observed: 11/01/2017 Status: F Source: BAGGS CONT 2:15 PM [facility] Imaging Services [address] [place] [address] Abdomen/Pelvis without Cont MR#: [id number] Acct: [id number] Name: CHARISMA JUDGE JO Rep #: [id number] : 1975 F 42 From: Michael Jacobs MD PCP: Florentin Garay DO Status: REG ER Study: Abdomen/Pelvis without Cont Date of Exam: 11/01/17 Exam# [id number] Ordering Dr: Jarred Zeng MD STUDY: CT ABDOMEN AND PELVIS WITHOUT CONTRAST REASON FOR EXAM: Female, 42 years old. Right flank pain RADIATION DOSAGE (If Supplied By Facility): CTDIvol = ( 24.18 ) mGy, DLP = ( 1135.14 ) mGycm TECHNIQUE: Transaxial images were obtained from the dome of the diaphragm to the symphysis pubis without oral contrast, and without intravenous contrast. Sagittal and coronal images were reconstructed. Individualized dose optimization techniques were used for this CT. COMPARISON: None. FINDINGS: The visualized lung bases are unremarkable. The visualized portions of the heart are within normal limits. Normal liver. There is non-visualization of the gallbladder, which may be secondary to either contraction or a prior cholecystectomy. Normal spleen. Normal pancreas. Normal bilateral adrenal glands. Normal left kidney. Right kidney shows hydronephrosis and hydroureter with a minimal amount of periureteral inflammatory stranding. Findings are due to a 8 mm stone in the proximal right ureter just below the UPJ best seen on axial image 91. Normal visualized stomach. Normal small intestine. Normal colon. The appendix is visualized and appears normal. Appendix best seen on coronal recon image 74 Normal abdominal aorta. Normal inferior vena cava. Normal retroperitoneum. Normal urinary bladder. Normal visualized uterus. Normal abdominal wall. Normal osseous structures. CT/Abdomen/Pelvis without Cont IMPRESSION: There is an 8 mm stone in the proximal right ureter causing hydronephrosis and hydroureter. Electronically Signed: Diomedes Jacobs MD at 15:50 EDT , Service support , CC: Florentin Zeng MD Gear Tester: Signed ALLERGIES ALLERGIES DATE TYPE / CODE NAME / CODE REACTION SEVERITY SOURCE 11/10/2017 Drug hydrogen Rash Unknown [facility] Allergy/416 peroxide/[id number] [facility] 453118(SNOM 157(RXNORM) Repository ED CT) Drug NO KNOWN [facility] Class/24817 ALLERGIES [facility] [place] 1003(SNOMED Repository CT) ENCOUNTERS ENCOUNTERS ADMIT/DISCHARGE ACCOUNT ADMITTING ENCOUNTER LOCATION SOURCE NUMBER CLASS 07/24/2018 [id number] Ambulatory [facility] ing:US Repository 07/23/2018 [id number] Ambulatory [facility] ing:[facility] Repository 06/09/2018/06/10/20 [id number] Ambulatory [address] Repository 11/14/2017/11/15/19 [id number] Ambulatory [address] ing:[facility]C Repository 11/01/2017/11/02/19 [id number] Emergency [address] ing:ED Repository PAYERS PAYERS ENCOUNTER GUARANTOR PAYER SUBSCRIBER SOURCE 07/24/2018 OLEG [id number] Primary NOT GIVENUNK [place] [employer] [employer] Insurance:SELF PAY [facility] [address]Yek: ([phone]) Number: Effective Repository [phone] () Date:2018-07-24 07/23/2018 OLEG [id number] Primary Insurance:[facility] LOVE [place] [employer] PACKAGE PLANPolicy BALASDOB: [place], [place] Number: [id number] [address]Xli: (129) [id number] Repository [phone] () Date:2018-07-23 07/23/2018 Secondary NOT GIVENUNK [facility] Insurance:SELF PAY [facility] Number: Effective Repository Date:2018-07-23 11/14/2017 Oleg [id number] Primary NOT GIVENUNK [place] Insurance:SELF PAY [facility] [address]Wid: [phone]) Number: Effective Repository [phone] () Date:2017-11-04 11/01/2017 Oleg [id number] Primary NOT GIVENUNK [place] Insurance:SELF PAY [facility] [id number]: (304) Number: Effective Repository [phone] () Date:2017-11-01
== END ==
PROVIDERS: Family Provider Family Medicine; PCP Family Medicine; Referring Provider Family Medicine; Visit Provider Family Medicine
DX: M79.661 Pain in right lower leg (principal); M79.89 Other specified soft tissue disorders
CPT/HCPCS: 93971

== ENCOUNTER → 2018-07-24 13:39 | Outpatient (CLI) | payer SELFPAY ==
--- NOTE | 2018-07-24 13:46 | US_ITS ---
STUDY: SUPERFICIAL ULTRASOUND - RIGHT CALF REASON FOR EXAM: Female, 43 years old. PAIN AND SWELLING OF THE RIGHT CALF TECHNIQUE: A superficial ultrasound was performed with real-time and static flores-scale imaging. COMPARISON: None. FINDINGS: Soft tissue planes are preserved without evidence of focal fluid collection or solid mass. There is slight thickening of the right subcutaneous tissues as compared to the left compatible with history of right calf swelling. US/Ext Non Vasc Limited/Soft Tiss IMPRESSION: 1. No focal fluid collection or solid mass. 2. Mild, nonspecific right subcutaneous thickening. Electronically Signed: Rajendra Preston MD at 23:10 EST , Service support ,
--- OUTSIDE RECORDS SUMMARY | 2018-10-28 04:12 | XMS RPT_ITS ---
:1975 Author Organization OHIP Care Team Providers Name Role Phone Florentin Garay Attending Unavailable Florentin Garay Referring Unavailable Florentin Garay Primary Care Unavailable Floyd Manuel Attending Unavailable Florentin Garay Primary Care Unavailable Floyd Manuel Referring Unavailable Florentin Garay Primary Care Unavailable Jarred Zeng Attending Unavailable Florentin Garay Attending Unavailable Florentin Garay Referring Unavailable Florentin Garay Primary Care Unavailable PROBLEMS PROBLEMS DATE TYPE CONDITION / CODE ATTENDING STATUS SOURCE 07/24/2018 Unknown M79.661 - Pain Florentin Garay Active [facility] lower [facility] leg [facility] M79.661(ICD-10) Repository 07/24/2018 Unknown M79.89 - Other Florentin Garay Active [facility] specified soft [facility] tissue disorders [facility] / M79.89(ICD-10) Repository 11/01/2017 Unknown N20.1 - Calculus Zeng, Jarred Active [facility] N20.1(ICD-10) Hospital Repository PROCEDURES PROCEDURES No Procedure Records FoundRESULTS RESULTS VENOUS DUPLEX LOWER Observed: 07/25/2018 Status: F Source: [place] EXTREMITY 1:43 PM [facility] HOSPITAL REPOSITORY [facility] Cardiovascular Services [address] [place] [address] Venous Duplex US, Unilateral 07/23/18 1303 MR#: [id number] Acct: [id number] Name: CHARISMA JUDGE Rep #: [id number] : 1975 43 From: Edinson Orantes MD [...] segmentally. Ordering Physician: Florentin Garay Performed By: vA Howard RVT 07/25/18 1342 Date Edinson Orantes MD CC: Florentin Garay DO Date Dictated: 07/23/18 1303 Date Transcribed: 07/25/18 1342 Associate Research Scientist: Signed EXT NON VASC Observed: 07/24/2018 Status: F Source: [place] LIMITED/SOFT TISS 1:46 PM [facility] REPOSITORY [facility] Imaging Services [address] [place] [address] Ext Non Vasc Limited/Soft Tiss MR#: [id number] Acct: [id number] Name: CHARISMA JUDGE Rep #: [id number] : 1975 F 43 From: Rajendra Preston MD PCP: Florentin Garay DO Status: REG CLI Study: Ext Non Vasc Limited/Soft Tiss Date of Exam: 07/24/18 Exam# [id number] Ordering Dr: Florentin Garay DO STUDY: SUPERFICIAL [...] Service support , CC: Florentin Garay DO Associate Research Scientist: Signed GROUP A STREP BY Collected: 06/09/2018 Status: F Source: [place] PCR 11:10 AM [facility] REPOSITORY TYPE CODE TESTS RESULT OUT OF RANGE REFERENCE UNITS LAB GASSRC Throat Swab GAS Specimen Source LAB PCRGAS Positive for Abnormal Group A Strep Group A Alert PCR Streptococcus by PCR. Result Comment: This test was developed and its performance characteristics determined by [facility]'s [facility] ([facility]). It has not been cleared or approved by the FDA. [facility] is regulated under CLIA as qualified to perform high-complexity testing. This test is used for clinical purposes. It should not be regarded as inv estigational or for research. Performed By: #### GASPCR #### [facility] [address] [place], [place] [address] PROGRESS Observed: 06/09/2018 Status: COMPLETED Source: [place] 10:57 AM [facility] REPOSITORY HNO ID: [id number] Author: Mesha (Chitra) Service: (none) Author Type: [...] injections - REDUCTION OF LARGE BREAST [address] - REMOVAL OF HEEL SPUR LIGAMENT CUT; Foot/Ankle Clinic ALLERGIES Patient has no known allergies. MEDICATIONS FLUoxetine (PROZAC) 20 mg capsule 20mg + 40mg =60mg daily FLUoxetine HCl (PROZAC) 40 mg capsule 20mg + 40mg =60mg daily CPAP UTO CPAP DEVICE, chin strap, humidity. Lifetime supplies.Please Autopap 4-20 cmH2O with download in 2 weeks faxed to [phone] /Pt without insurance FAMILY HISTORY Problem Relation [...] APRN.CHITRA CNOV Observed: 06/09/2018 Status: COMPLETED Source: [place] 10:45 AM [facility] REPOSITORY Office Visit (WSTR) CHARISMA JUDGE ([id number]) 1975 F Date Time Provider Department 06/09/18 [...] low cervical - COLONOSCOP W/ OR W/O [facility] SPEC 12/22/2013 Colonoscopy - EGD W/O [facility] SPECIMEN W/BX 05/11/10 - ENDOMETRIAL BIOPSY 09/10/2013 - PAST SURGICAL HISTORY OF 06/15/10 Lap [facility], intra-op cholangiogram -- Dr. Chin - PAST SURGICAL HISTORY OF lumbar injections - REDUCTION OF LARGE BREAST [address] - REMOVAL OF HEEL SPUR LIGAMENT CUT; Foot/Ankle Clinic ALLERGIES Patient has no known allergies. MEDICATIONS FLUoxetine (PROZAC) 20 mg capsule 20mg + 40mg =60mg daily FLUoxetine HCl (PROZAC) 40 mg capsule 20mg + 40mg =60mg daily CPAP UTO CPAP DEVICE, chin strap, humidity. Lifetime supplies.Please Autopap 4-20 cmH2O with download in 2 weeks faxed to [phone] /Pt without insurance FAMILY HISTORY Problem Relation [...] by coughs, sneezes, and direct contact, especially [id number]. A respiratory tract infection usually clears up [...] Allergies) Date Reviewed: 06/09/2018 Reviewed by: Mesha ([facility]) - Fully Assessed Reason for Visit: ST, runny nose, congestion [Other] Cmt: x 2 days Primary Visit Diagnosis:URI, acute [J06.9] Other Visit Diagnosis:Sore throat [J02.9] Order(s):RAPID STREP TEST B/O [1744051] Order #: [id number] GROUP A STREPTOCOCCUS BY PCR [SQGASPCR] Order #: [id number] Prescriptions as of 06/09/2018 Sig: FLUOXETINE 20 [...] by coughs, sneezes, and direct contact, especially [id number]. A respiratory tract infection usually clears up [...] GROUP A STREPTOCOCCUS BY PCR Letter Text [facility] Department of Urgent Care Mesha Munson CNP [address] [place], [place] [address] 06/09/2018 Charisma Judge CCF# [id number] [address] [place], [place] [id number] TO WHOM IT MAY CONCERN: This is to confirm that Charisma Judge had an appointment and was seen at the [facility] in the Department of Urgent Care by Mesha Munson CNP on 06/09/2018. Sincerely yours, Mesha Munson CNP Encounter Status:Closed by MESHA MUNSON CNP on 06/09/18 OPERATIVE REPORT Observed: 11/14/2017 Status: F Source: [place] 11:19 AM [facility] REPOSITORY [facility] Medical Records Department [address] [place], [place] [id number] Operative Report 11/14/17 1117 MR#: [id number] Acct: [id number] Name: CHARISMA JUDGE JO Rep #: [id number] : 1975 42 From: Floyd Manuel MD PCP: Florentin Garay DO Status: REG [facility] Y Location: [place] [address] Operative Report Date of Procedure: 11/14/17 42-year-old [...] DISCHARGE INSTRUCTION Observed: 11/14/2017 Status: F Source: [place] 10:27 AM [facility] REPOSITORY [facility] Medical Records Department [address] [place] [address] Instructions for Home/Discharge Instructions 11/14/17 1024 MR#: [id number] Acct: [id number] Name: CHARISMA JUDGE Rep #: [id number] : 1975 42 From: Floyd Manuel MD PCP: Florentin Garay DO Status: REG HIC Discharge Diet: No Restrictions - ENCOURAGE FLUIDS [...] Martinez MD - 3-4 WKS When: CALL [phone] SOON FOR AN APPT IN FEW WKS 11/14/17 1027 <Electronically signed by Flyod Manuel MD> Date Floyd Manuel MD CC: Florentin Garay DO ABDOMEN SINGLE VIEW Observed: 11/14/2017 Status: F Source: [place] 12:00 AM [facility] REPOSITORY [facility] Imaging Services [address] [place] [address] Abdomen Single View MR#: [id number] Acct: [id number] Name: CHARISMA JUDGE JO Rep #: [id number] : 1975 F 42 From: Patrick Mcneill MD PCP: Florentin Garay DO Status: REG [facility] Study: Abdomen Single View Date of Exam: 11/14/17 Exam# [id number] Ordering Dr: Floyd Manuel MD STUDY: X-RAY [...] Patrick Mcneill MD at 8:05 EDT Tel [phone], Service support , CC: Florentin Garay DO; Floyd Manuel MD Associate Research Scientist: Signed EMERGENCY DEPARTMENT Observed: 11/01/2017 Status: F Source: [place] SUMMARY 3:49 PM [facility] REPOSITORY [facility] Medical Records Department [address] [place] [address] Emergency Department Summary 11/01/17 1543 MR#: [id number] Acct: [id number] Name: CHARISMA JUDGE Rep #: [id number] : 1975 42 From: Jarred Zeng MD [...] with hydronephrosis This note was generated with [employer] dictation software. It may contain incorrect words, [...] your Primary Care Provider. Call [facility] ([phone]) or report to the closest Emergency Room. Call 911 if necessary. 11/01/17 8032 <Electronically signed by Jarred Zeng MD> Date Jarred Zeng MD Cosigner Signature (If Indicated): Date CC: Rene Martinez MD; Florentin Garay DO URINALYSIS, COMPLETE Collected: 11/01/2017 Status: F Source: [place] 2:35 PM [facility] REPOSITORY Order Comment: Order Date: 11/01/17 Has [...] URINE SEEN Performed By: #### L400.0001 #### [facility] [address] [place], [address] BASIC METABOLIC Collected: 11/01/2017 Status: F Source: [place] PROFILE (BMP) 2:30 PM [facility] REPOSITORY TYPE CODE TESTS RESULT OUT OF [...] GAP 6 Performed By: #### L500.2500 #### [facility] [address] [facility] [place], [address] ABDOMEN/PELVIS WITHOUT Observed: 11/01/2017 Status: F Source: [place] CONT 2:15 PM [facility] REPOSITORY [facility] Imaging Services [address] [place] [address] Abdomen/Pelvis without Cont MR#: [id number] Acct: [id number] Name: CHARISMA JUDGE JO Rep #: [id number] : 1975 F 42 From: Michael Jacobs MD PCP: Florentin Garay DO Status: REG ER Study: Abdomen/Pelvis without Cont Date of Exam: 11/01/17 Exam# [id number] Ordering Dr: Jarred Zeng MD STUDY: CT [...] Service support , CC: Florentin Zeng MD Associate Research Scientist: Signed ALLERGIES ALLERGIES DATE TYPE / CODE NAME / CODE REACTION SEVERITY SOURCE 11/10/2017 Drug hydrogen Rash Unknown [facility] Allergy/416 peroxide/[id number] Hospital 902338(SNOM 157(RXNORM) Repository ED CT) Drug NO KNOWN [facility] Class/[address]2319 ALLERGIES [place] 1003(SNOMED Repository CT) ENCOUNTERS ENCOUNTERS ADMIT/DISCHARGE ACCOUNT ADMITTING ENCOUNTER LOCATION SOURCE NUMBER CLASS 07/24/[id number] [facility] ing:US Repository 07/23/[id number] [facility] ing:[facility] Repository 06/09/2018/06/10/20 [id number] Ambulatory [address] Repository 11/14/2017/11/15/19 [id number] Ambulatory [address] ing:[facility]C Repository 11/01/2017/11/02/19 [id number] Emergency [address] ing:ED Repository PAYERS PAYERS ENCOUNTER GUARANTOR PAYER SUBSCRIBER SOURCE 07/24/2018 OLEG [id number] Primary NOT GIVENUNK [facility] [place] Insurance:SELF PAY [facility] [address]Cby: (330) Number: Effective Repository [phone] () Date:2018-07-24 07/23/2018 OLEG [id number] Primary Insurance:[employer] [facility] [employer] PACKAGE PLANPolicy [place]ASDOB: [place], [place] Number: [id number] [address]Eny: (679) [id number] Repository [phone] () Date:2018-07-23 07/23/2018 Secondary NOT GIVENUNK [facility] Insurance:SELF PAY [facility] Number: Effective Repository Date:2018-07-23 11/14/2017 Oleg [id number] Primary NOT GIVENUNK [facility] [place] Insurance:SELF PAY [facility] [id number]: [phone]) Number: Effective Repository [phone] () Date:2017-11-04 11/01/2017 Oleg [id number] Primary NOT GIVENUNK [facility] [place] Insurance:SELF PAY [facility] [address]Kwv: (668) Number: Effective Repository [phone] () Date:2017-11-01
== END ==
PROVIDERS: Family Provider Family Medicine; PCP Family Medicine; Referring Provider Family Medicine; Visit Provider Family Medicine
DX: M79.661 Pain in right lower leg (principal); M79.89 Other specified soft tissue disorders
CPT/HCPCS: 76882

== ENCOUNTER → 2018-09-09 11:55 | Outpatient (CLI) | payer SELFPAY ==
--- NOTE | 2018-09-09 12:07 | RAD_ITS ---
STUDY: X-RAY - LUMBOSACRAL SPINE REASON FOR EXAM: Female, 43 years old. Fall. Lower back pain. TECHNIQUE: 7 view(s) of the lumbosacral spine were obtained. COMPARISON: None FINDINGS: 6 lumbar type vertebral bodies. 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 Normal lumbar lordosis. There is no substantial scoliosis. There is normal alignment of the vertebrae. Normal vertebral bodies and endplates. Moderately pronounced L5-S1 disc space height narrowing. The remaining lumbar disc space heights are normal. Normal bilateral sacral ala, sacroiliac joints, and visualized sacrum. Normal visualized soft tissue structures. RAD/L/S Spine Comp/w Bending Views IMPRESSION: 1. No acute fracture or malalignment of the lumbar spine. 2. 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 3. Moderately pronounced L5-S1 disc space height narrowing with degenerative vacuum phenomenon. 4. No subluxation following lateral flexion and extension positioning. Electronically Signed: Terrance Pool MD at 10:55 EST , Service support ,
== END ==
PROVIDERS: Family Provider Family Medicine; PCP Family Medicine; Referring Provider Family Medicine; Visit Provider Family Medicine
DX: M54.9 Dorsalgia, unspecified (principal)
CPT/HCPCS: 72114

== ENCOUNTER 2019-09-08 15:28 | Emergency (ER) | payer SELFPAY ==
[2019-09-08 15:29] VITALS: BP 194/80; PULSE 89; RESP 19; TEMP 36.8; O2SAT 99; BMI 41.7
--- NOTE | 2019-09-08 15:39 | EKG12_ITS ---
Test Reason : CP Blood Pressure : / mmHG Vent. Rate : 084 BPM Atrial Rate : 084 BPM P-R Int : 134 ms QRS Dur : 110 ms QT Int : 386 ms P-R-T Axes : 096 008 023 degrees QTc Int : 456 ms Normal sinus rhythm Moderate voltage criteria for LVH, may be normal variant Borderline ECG Confirmed by TIKA SANCHEZ, PATTI ([id number]), social media editor SELENE ENGEL ([id number]) on 09/10/2019 1:14:07 PM Referred By: CASE Confirmed By:DIANE VILLELA MD
--- NOTE | 2019-09-08 15:41 | ED.VIS.GEN ---
History of Present Illness Chief Complaint: Chest Pain Informant: Patient Onset: Today Context: Sudden Onset Timing: Intermittent Quality: Sharp stabbing twisting Location: Central chest Current Severity: - - Resolved Maximum Severity: Severe Worsened by: Nothing Relieved by: Nothing Associated Symptoms: Hurts to breathe when asked to clarify she states the pain took her breath Narrative: Patient is a 44-year-old woman who presents because of severe stabbing twisting midsternal chest pain that lasted 8 minutes. Onset during rest. This has occurred in the past. She never sought medical attention. She sought medical attention today because her mother made her come to the emergency department. She has no history of GERD or peptic ulcer disease. She denies black or maroon stool. She denies radiation or associated symptoms. There is family history of coronary disease maternal grandfather at the age of 63 and paternal side greater than the age of 55. She does not smoke or drink. She has no history of PE or DVT. She has no risk factors. Presently she has no pain. Mother asked if this could represent a panic attack. The patient has no history of panic attack. - Past Medical History (1) History of OCD (obsessive compulsive disorder) Status: Acute (2) History of depression Status: Acute Past Medical History - Allergies and Home Meds Allergies/Adverse Reactions: Allergies hydrogen peroxide Allergy (Verified 09/08/19 15:31) Rash Primary Care Physician: Florentin Garay DO [Primary Care Provider] - Prior records reviewed: Yes Surgical History: cholecystectomy Lives: Alone Smoking Status: Never smoker Alcohol: None Drugs: None Review of Systems General: Denies: Chills, Fever, Sweats Eyes: Denies: Visual changes - bilaterally, Blurred Vision - bilaterally ENT: Denies: Rhinorrhea, Sore throat Cardiovascular: Reports: Chest pain. Denies: Palpitations, Heart racing Respiratory: Denies: Dyspnea, Cough, Dyspnea on exertion Gastrointestinal: Denies: Abdominal pain, Nausea, Vomiting, Diarrhea, Melena, Hematochezia Genitourinary: Denies: Dysuria, Hematuria, Frequency Musculoskeletal: Denies: Myalgias, Arthralgias, Neck pain, Back pain, Swelling, Extremity Pain Skin: Denies: Rash, Wounds Neurological: Denies: Headache, Weakness, Numbness Hematologic: Denies: Easy bruising, Easy bleeding Physical Exam Vital Signs/Narrative: Vital Signs Temp Pulse Resp BP Pulse Ox 01/29/20 15:29 98.3 F 89 19 H 194/80 H 99 Inital Vital Signs reviewed: Yes General: Well nourished, Well developed, Obese, No Acute Distress Head: Normocephalic, Atraumatic Eyes: Perrl, EOMI. Negative for: Pale conjunctiva ENT: Moist mucous membranes, No rhinorrhea, TM's clear Neck: Supple, Nontender Cardiovascular: Regular rate, Regular rhythm, No murmurs, Normal S1, Normal S2 Respiratory: No distress, CTA bilaterally, Chest nontender Abdomen: Soft, Nontender, Nondistended, Normal bowel sounds Back: Nontender, Normal Inspection Extremities: Nontender, No edema Skin: Normal color, No rash Neurological: Alert, Oriented x3, Cranial nerves II-XII grossly intact, Normal Strength, Normal Sensation Psychological: Normal affect, Normal Mood Diagnostic/Tx/Re-eval Chest X-Ray - ED: 2 View, Read by ED Physician, Normal, Heart, Lungs, Mediastinum, Bony Structures, No Acute Disease, - - The x-ray was unremarkable per my interpretation at 1635. 09/08/19 16:15 Chest PA and Lateral [RAD] Stat Laboratory Results 09/08/19 09/08/19 09/08/19 15:33 15:33 15:49 WBC 9.4 RBC 4.08 L Hgb 12.1 Hct 36.8 L MCV 90.2 MCH 29.7 MCHC 32.9 RDW Std Deviation 40.6 RDW Coeff of Noel 12.4 Plt Count 288 MPV 9.7 Sodium 140 Potassium 3.4 L Chloride 107 Carbon Dioxide 28.0 Anion Gap 5 BUN 18 Creatinine 1.04 H Estim Creat Clear Calc 57.10 Est GFR (MDRD) Af Amer 74 Est GFR (MDRD) Non-Af 61 BUN/Creatinine Ratio 17.3 Glucose 115 H Calcium 9.2 Troponin I < 0.015 Urine Color Yellow Urine Clarity Sl. Cloudy Urine pH 6.0 Ur Specific [place] 1.025 Urine Protein Negative Urine Glucose (UA) Normal Urine Ketones 5 H Urine Occult Blood 50 H Urine Nitrite Negative Urine Bilirubin Negative Urine Urobilinogen Normal Ur Leukocyte Esterase Negative Urine RBC 0-5 SEEN Urine WBC 0-5 SEEN Ur Squamous Epith Cells 0-5 SEEN Urine Bacteria 0 SEEN Urine Mucus 0 SEEN Laboratory work-up reveals no evidence of endorgan injury. Recent blood pressure is 168/89. Will start patient on lisinopril. - EKG Initial EKG Interpretation: Sinus Rhythm - Sinus rhythm with a ventricular rate 84. MO interval is 134 ms. QS duration 110 ms. QT duration 386 ms. [place] is normal. QRS prominent in lead I and aVL suggestive of LVH. - Medical Decision Making Presents with atypical chest pain. What is of concern is that her blood pressure is elevated. She denies history of hypertension. She has not seen her primary care physician in 8 to 9 months. EKG was obtained per protocol. Blood work was obtained to assess for endorgan injury. ED Disposition - Plan for ED Patient: Disposition: Home or Assisted Living Diagnosis: Chest pain, Hypertension Instructions: CHEST PAIN, NonCardiac, HYPERTENSION, New (Begin Treatment) Prescriptions: Lisinopril 5 mg PO DAILY #30 tab Transmission Status: Pending to [id number] Referrals: Florentin Garay DO [Primary Care Provider] - 1-2 Weeks
--- NOTE | 2019-09-08 15:41 | ED.RN ---
pt denies pain at this time. states that it last 7-8 minutes, sternal pain.
[2019-09-08 15:54] LABS: Bacteria 0 SEEN /hpf (None Seen); Mucous, Urine 0 SEEN /hpf (<or=2+)
[2019-09-08 15:56] LABS: Hematocrit 36.8 % (37-47); Hemoglobin 12.1 g/dL (12.0-15.0); Mean Corp Hgb Conc 32.9 g/dL (32-36); Mean Corpuscular Hgb 29.7 pg (27.0-32.0); Mean Corpuscular Volume 90.2 fL (81-99); Mean Platelet Vol. 9.7 fl (6.2-12.0); Platelet Count 288 K/mm3 (150-450); RBC Distribution Width CV 12.4 % (11.6-14.6); RBC Distribution Width SD 40.6 fl (35.1-43.9); Red Blood Count 4.08 M/mm3 (4.2-5.4); White Blood Count 9.4 K/mm3 (4.4-11.0)
[2019-09-08 16:04] LABS: Anion Gap 5 (5-15); BUN 18 mg/dL (7-18); BUN/Creat Ratio 17.3 RATIO (10-20); Calcium,Total 9.2 mg/dL (8.5-10.1); Chloride 107 mmol/L (98-107); Creatinine, Serum 1.04 mg/dL (0.55-1.02); EST Glomerular Filtration Rate 61 mL/min (>60); Est Glom Filt Rate - Afr Amer 74 mL/min (>60); Glucose 115 mg/dL (74-106); Potassium 3.4 mmol/L (3.5-5.1); Sodium Level 140 mmol/L (136-145)
[2019-09-08 16:09] LABS: Color, Urine Yellow (Yellow); Glucose, Dipstick Normal (Normal); Ketone-Dipstick 5 mg/dl (Negative); Leukocyte Esterase-Dipstick Negative /ul (Negative); Nitrite-Dipstick Negative (Negative); Occult Blood-Urine 50 /ul (Negative); Protein-Dipstick Negative (Negative); Specific Gravity, Urine 1.025 (1.002-1.030); Urine Bilirubin Dipstick Negative (Negative); Urine Clarity Sl. Cloudy (Clear); Urine Urobilinogen Normal (Normal)
--- NOTE | 2019-09-08 16:15 | RAD_ITS ---
STUDY: X-RAY CHEST REASON FOR EXAM: Female, 44 years old. chest pain, felt like she was having a heart attack TECHNIQUE: PA and lateral views of the chest. COMPARISON: September 04, 2015 FINDINGS: There are monitoring devices. The lungs are clear and expanded. There is no demonstrated pleural abnormality. Normal size heart. Normal mediastinum and keri. Normal visualized pulmonary arteries. Normal visualized aortic arch and descending thoracic aorta. There are degenerative changes of the thoracic spine. Normal visualized ribs, clavicles, and shoulders. There is no demonstrated abnormality of the visualized soft tissue structures of the upper abdomen. RAD/Chest PA and Lateral IMPRESSION: No acute cardiopulmonary disease. Electronically Signed: Didier Leroy MD at 16:41 EST , Service support ,
[2019-09-08 16:20] LABS: Red Blood Cells-Urine 0-5 SEEN /hpf (0-5); Squamous Epithelial Cells - UA 0-5 SEEN /hpf (5-10); White Blood Cells 0-5 SEEN /hpf (0-5)
[2019-09-08 17:02] VITALS: BP 161/83; PULSE 76; RESP 14; O2SAT 97
== END 2019-09-08 17:04 | disposition home or self-care (01) ==
PROVIDERS: Emergency Provider Emergency Medicine; PCP Family Medicine
DX: R07.89 Other chest pain (principal); I10 Essential (primary) hypertension; F32.9 Major depressive disorder, single episode, unspecified; F42.9 Obsessive-compulsive disorder, unspecified; Z82.49 Family history of ischemic heart disease and other diseases of the circulatory system; Z90.49 Acquired absence of other specified parts of digestive tract
CPT/HCPCS: 71046; 80048; 81001; 84484; 85027; 93005; 99284; A4216

== ENCOUNTER → 2019-10-28 20:05 | Outpatient (CLI) | payer MEDICAID, SELFPAY | PROVIDERS: PCP Family Medicine; Referring Provider Family Medicine; Visit Provider Family Medicine | DX: G47.33 Obstructive sleep apnea (adult) (pediatric) (principal); G47.10 Hypersomnia, unspecified | CPT/HCPCS: 95811 ==

== ENCOUNTER → 2020-03-02 15:21 | Outpatient (CLI) | payer MEDICAID, SELFPAY ==
[2020-03-02 17:10] LABS: Erythrocyte Sedimentation Rate 13 mm/hr (0-20)
[2020-03-02 17:45] LABS: CRP 4.54 mg/L (0.0-3.0); Rheumatoid Factor < 10.0 IU/mL (<15)
[2020-03-06 11:34] LABS: CCP IgG Antibodies 5 units (0-19)
[2020-03-06 15:26] LABS: ANTINUCLEAR ANTIBODIES DIRECT Negative (Negative)
== END ==
PROVIDERS: PCP Family Medicine; Visit Provider Family Medicine
DX: M25.50 Pain in unspecified joint (principal); M79.10 Myalgia, unspecified site
CPT/HCPCS: 36415; 85652; 86038; 86140; 86200; 86431

== ENCOUNTER → 2020-03-10 12:39 | Outpatient (CLI) | payer MEDICAID, SELFPAY ==
--- NOTE | 2020-03-10 12:43 | RAD_ITS ---
STUDY: X-RAY - LEFT KNEE REASON FOR EXAM: Female, 44 years old. Knee pain TECHNIQUE: 4 view(s) of the knee. COMPARISON: None. FINDINGS: Normal visualized distal femur. Normal visualized proximal tibia and fibula. Normal proximal tibiofibular articulation. Normal medial femorotibial compartment. Normal lateral femorotibial compartment. Normal patellofemoral articulation. The soft tissue structures are unremarkable. RAD/Knee 4 or More Views IMPRESSION: Normal x-ray examination of the knee. Electronically Signed: Patrick Mcneill, at 15:23 EDT , Service support ,
--- NOTE | 2020-03-10 12:43 | RAD_ITS ---
STUDY: X-RAY - LUMBAR SPINE REASON FOR EXAM: Female, 44 years old. Chronic low back pain TECHNIQUE: 3 view(s) of the lumbar spine were obtained. COMPARISON: None FINDINGS: There is straightening of the normal lumbar lordosis. There is no substantial scoliosis. There is a normal alignment of the vertebrae. Anterior spondylosis with disc space narrowing at the L2-L3 and L5-S1 levels. The soft tissue structures are unremarkable. RAD/Lumbar Spine 2 or 3 Views IMPRESSION: Degenerative changes of the spine, as detailed above. Electronically Signed: Patrick Mcneill, at 15:24 EDT , Service support ,
--- NOTE | 2020-03-10 12:43 | RAD_ITS ---
STUDY: X-RAY - RIGHT KNEE REASON FOR EXAM: Female, 44 years old. Knee pain TECHNIQUE: 4 view(s) of the knee. COMPARISON: None. FINDINGS: Normal visualized distal femur. Normal visualized proximal tibia and fibula. Normal proximal tibiofibular articulation. Normal medial femorotibial compartment. Normal lateral femorotibial compartment. Normal patellofemoral articulation. The soft tissue structures are unremarkable. RAD/Knee 4 or More Views IMPRESSION: Normal x-ray examination of the knee. Electronically Signed: Patrick Mcneill, at 15:25 EDT , Service support ,
== END ==
PROVIDERS: PCP Family Medicine; Referring Provider Family Medicine; Visit Provider Family Medicine
DX: M51.37 Other intervertebral disc degeneration, lumbosacral region (principal); M25.551 Pain in right hip; M25.562 Pain in left knee
CPT/HCPCS: 72100; 73564

== ENCOUNTER → 2021-06-15 07:41 | Outpatient (CLI) | payer MEDICAID, SELFPAY ==
--- NOTE | 2021-06-15 08:01 | BI_ITS ---
MAMMOGRAPHY - BILATERAL SCREENING REASON FOR EXAM: Female, 46 years old. Routine annual screening examination. PERTINENT HISTORY: Non-contributory. History of prior bilateral breast reduction surgery. TECHNIQUE: Digital bilateral breast alicia (3D mammographic acquisition) in the CC and MLO projections. 2-D mediolateral oblique (MLO) and craniocaudad (CC) views of both breasts were obtained. CAD: Full Field Digital Mammography with Computer Added Detection was performed. COMPARISON: None. Baseline examination. FINDINGS: Breast Composition: The breasts are heterogeneously dense, which may obscure small masses. There are no dominant masses or suspicious calcifications. No other significant abnormalities are identified. BI/SCRN MAMM (CAD)W/ALICIA BILAT IMPRESSION: Negative screening mammogram. Yearly followup mammogram recommended. (A) ASSESSMENT CATEGORY: BIRADS Category 1: Negative. A letter regarding these results will be sent to the patient by the facility within 30 days. Approximately 10% of breast cancers are not detected by mammography. A normal mammogram should not delay biopsy of a clinically suspicious abnormality. [id number] Electronically Signed: Patrick Mcneill MD at 8:53 EDT , Service support ,
== END ==
PROVIDERS: PCP Family Medicine; Referring Provider Family Medicine; Visit Provider Family Medicine
DX: Z12.31 Encounter for screening mammogram for malignant neoplasm of breast (principal)
CPT/HCPCS: 77063; 77067

== ENCOUNTER → 2021-06-18 20:04 | Outpatient (CLI) | payer MEDICAID, SELFPAY | PROVIDERS: PCP Family Medicine; Referring Provider Family Medicine; Visit Provider Family Medicine | DX: G47.33 Obstructive sleep apnea (adult) (pediatric) (principal); Z98.84 Bariatric surgery status | CPT/HCPCS: 95810 ==

== ENCOUNTER → 2022-01-11 | Outpatient (CLI) | payer MEDICAID, SELFPAY ==
--- NOTE | 2022-01-11 10:35 | RAD_ITS ---
STUDY: X-RAY - RIGHT KNEE REASON FOR EXAM: Female, 46 years old. Knee pain. TECHNIQUE: 4 view(s) of the knee. COMPARISON: 03/10/2020. FINDINGS: Normal visualized distal femur. Ossification of the tibial tubercle. Normal proximal tibiofibular articulation. Mild medial compartmental arthrosis. Normal lateral femorotibial compartment. Normal patellofemoral articulation. The soft tissue structures are unremarkable. RAD/Knee 4 or More Views IMPRESSION: Stable mild medial compartmental arthrosis. No acute abnormality, chondrocalcinosis, erosive changes or periostitis. Electronically Signed: Mariano Mendes MD at 10:57 EDT ,
--- NOTE | 2022-01-11 10:35 | RAD_ITS ---
STUDY: X-RAY - LEFT KNEE REASON FOR EXAM: Female, 46 years old. Knee pain. TECHNIQUE: 4 view(s) of the knee. COMPARISON: 03/10/2020. FINDINGS: Normal visualized distal femur. Normal visualized proximal tibia and fibula. Normal proximal tibiofibular articulation. Normal medial femorotibial compartment. Normal lateral femorotibial compartment. Slight lateral tilt of the patella on the sunrise view. The soft tissue structures are unremarkable. RAD/Knee 4 or More Views IMPRESSION: Slight lateral tilt of the patella on the sunrise view. No other abnormality present. Electronically Signed: Mariano Mendes MD at 10:56 EDT ,
== END | disposition home or self-care (01) ==
LOC: MTRAD 10:33
PROVIDERS: PCP Family Medicine; Referring Provider Family Medicine; Visit Provider Family Medicine
DX: M25.561 Pain in right knee (principal); M25.562 Pain in left knee
CPT/HCPCS: 73564

== ENCOUNTER 2022-02-16 17:29 | Emergency (ER) | payer MEDICAID, SELFPAY ==
[2022-02-16 17:29] VITALS: BP 165/70; PULSE 77; RESP 14; TEMP 36.6; O2SAT 99; BMI 25.8
--- NOTE | 2022-02-16 17:41 | CT_ITS ---
EXAM: CT ABDOMEN AND PELVIS WITHOUT INTRAVENOUS CONTRAST CLINICAL INDICATION: Kidney Stone TECHNIQUE: Helically acquired images were obtained of the abdomen and pelvis without intravenous contrast. This CT exam was performed using one or more of the following dose reduction techniques: automated exposure control, adjustment of the mA and/or kV according to patient size, and/or use of iterative reconstruction technique. This report was created using [employer] report generation technology. RADIATION DOSE: CTDIvol = 6.43 mGy, DLP = 318.13 mGy-cm COMPARISON: None. FINDINGS: LOWER THORAX: Unremarkable. Lung bases are clear. No cardiomegaly. No significant pericardial effusion. ABDOMEN: LIVER: Unremarkable. Homogeneous. GALLBLADDER AND BILE DUCTS: Cholecystectomy. No intra- or extrahepatic biliary ductal dilation. PANCREAS: Unremarkable. No focal cystic mass. SPLEEN: Unremarkable. Normal size without focal cystic or solid mass. ADRENALS: Unremarkable. No nodules. KIDNEYS AND URETERS: 3 mm calculus of the distal right ureter adjacent to the UVJ with mild right hydronephrosis and hydroureter. Punctate calculi of the right kidney. Mild right perinephric stranding. Normal renal size and position. STOMACH AND BOWEL: Gastric bypass/bariatric surgery. No stomach or bowel distention. No focal inflammatory change. PELVIS: APPENDIX: Nonvisualized appendix but no secondary signs of appendicitis. BLADDER: Poorly distended. REPRODUCTIVE: Unremarkable as visualized. No mass. ABDOMEN and PELVIS: INTRAPERITONEAL SPACE: Unremarkable. No ascites or other fluid collection. No free air. BONES/JOINTS: Degenerative changes at L5-S1 with acquired canal and foraminal stenosis. No suspicious lytic or blastic abnormality. SOFT TISSUES: Unremarkable. No discrete abdominal or pelvic wall hernia. VASCULATURE: Unremarkable. Abdominal aorta is non-dilated. LYMPH NODES: Unremarkable. No enlarged lymph nodes. CT/Abdomen/Pelvis without Cont IMPRESSION: 3 mm calculus of the distal right ureter adjacent to the UVJ with mild right hydronephrosis and hydroureter. Electronically Signed: Rajendra Preston MD ([place]) at 18:36 EDT Reading Location ID and State: [facility] / [place] , Service support ,
[2022-02-16 17:47] LABS: Mucous, Urine 0 SEEN /hpf (<or=2+)
[2022-02-16] MEDS: Morphine 4 MG/ML Syringe IV ×2 (17:47→18:54)
[2022-02-16] MEDS: Ondansetron 4 MG/2 ML Vial IV (17:47)
[2022-02-16] MEDS: Ketorolac 30 MG/ML Syringe IV (17:47)
[2022-02-16] MEDS: 0.9% Normal Saline 1,000 ML 250 ML IV (17:47)
[2022-02-16 17:48] LABS: Absolute Lymphocyte Count 1.21 X10^3/uL (0.83-4.51); Absolute Neutrophil Count 15.1 X10^3/uL (2.0-7.7); Basophil# 0.04 X10^3/uL; Basophil% 0.2 % (0-1); Eosinophil# 0.05 X10^3/uL; Eosinophils% 0.3 % (0-5); Hematocrit 35.6 % (37-47); Hemoglobin 11.2 g/dL (12.0-15.0); Lymphocyte # 1.21 X10^3/ul (0.83-4.51); Mean Corp Hgb Conc 31.5 g/dL (32-36); Mean Corpuscular Hgb 28.1 pg (27.0-32.0); Mean Corpuscular Volume 89.4 fL (81-99); Monocyte# 0.81 X10^3/uL; Monocyte% 4.7 % (0-10); NRBC Flagged by Analyzer 0 % (0-5); Neutrophil # 15.06 X10^3/uL (2.7-7.7); Neutrophil % 87.4 % (47-70); Platelet Count 230 K/mm3 (150-450); RBC Distribution Width CV 12.9 % (11.6-14.6); RBC Distribution Width SD 42.4 fl (35.1-43.9); Red Blood Count 3.98 M/mm3 (4.2-5.4); White Blood Count 17.2 K/mm3 (4.4-11.0)
[2022-02-16 17:51] LABS: Glucose, Dipstick Normal (Normal); Ketone-Dipstick 50 mg/dl (Negative); Leukocyte Esterase-Dipstick 25 /ul (Negative); Nitrite-Dipstick Negative (Negative); Occult Blood-Urine 25 /ul (Negative); Protein-Dipstick Negative (Negative); Specific Gravity, Urine 1.025 (1.002-1.030); Urine Bilirubin Dipstick Negative (Negative); Urine Urobilinogen Normal (Normal)
[2022-02-16 17:52] LABS: Color, Urine Yellow (Yellow); Urine Clarity Clear (Clear)
[2022-02-16 18:01] LABS: Anion Gap 6 (5-15); BUN 16 mg/dL (7-18); BUN/Creat Ratio 17.4 RATIO (10-20); Bacteria RARE /hpf (None Seen); Calcium Oxalate Crystals Ur 1+ /hpf (<or=2+); Calcium,Total 8.9 mg/dL (8.5-10.1); Chloride 106 mmol/L (98-107); Creatinine, Serum 0.92 mg/dL (0.55-1.02); EST Glomerular Filtration Rate 70 mL/min (>60); Est Glom Filt Rate - Afr Amer 84 mL/min (>60); Estimated Creatinine Clearance 63.21 ml/min; Glucose 135 mg/dL (74-106); Potassium 3.4 mmol/L (3.5-5.1); Red Blood Cells-Urine 0-5 SEEN /hpf (0-5); Sodium Level 139 mmol/L (136-145); Squamous Epithelial Cells - UA 0-5 SEEN /hpf (5-10); White Blood Cells 0-5 SEEN /hpf (0-5)
[2022-02-16 18:02] LABS: Internal QC Validated? YES +Cl - CLEAR BKGD; Pregnancy, Serum, hCG Quali. NEGATIVE Negative
--- NOTE | 2022-02-16 18:51 | EX.ED.DYSGE1 ---
HPI History of Present Illness Chief Complaint: Flank Pain Informant: patient and spouse/S.O. Narrative Narrative: 46-year-old female presenting to the emergency room with right flank pain. Symptoms began last night and have been constant. She notes now she is feeling it towards the front of her abdomen. She has had prior kidney stones and states that this feels similar. No fever. No dysuria or hematuria noted. Normal bowel movements. She has required lithotripsy once in the past. Patient has tried Tylenol and Percocet at home without relief [facility] Medical History (Updated 02/16/22 @ 18:[address] Korey Pollock DO) Hypertension Ureterolithiasis Home Medications fluoxetine 20 mg capsule 60 mg PO DAILY 03/13/15 [History Last Taken Unknown] naproxen 500 mg tablet 500 mg PO BID #14 tabs 11/01/17 [Rx Last Taken Unknown] ascorbic acid (vitamin C) 1,000 mg tablet (Vitamin C) 1,000 mg PO DAILY SUPPLEMENT 11/10/17 [History Last Taken Unknown] lisinopril 5 mg tablet 5 mg PO DAILY #30 tabs 09/08/19 [Rx Last Taken Unknown] oxycodone-acetaminophen 5 mg-325 mg tablet 1 tab PO Q6H PRN PRN pain 5 days #20 TABLETS 02/16/22 [Rx Last Taken Unknown] tamsulosin 0.4 mg capsule 0.4 mg PO QHS #7 CAPSULES 02/16/22 [Rx Last Taken Unknown] Allergy/AdvReac Type Severity Reaction Status Date / Time hydrogen peroxide Allergy Rash Verified 02/16/22 17:31 Surgical History (Updated 02/16/22 @ 17:50 by Esther Jacob) H/O gastric bypass History of Social History (Updated 02/16/22 @ 18:[address] Korey Pollock DO) current gender identity: female Smoking Status: Never smoker ROS ROS ED Constitutional Constitutional ED: Denies chills or weight loss Eyes Eyes: Denies change in vision or diplopia ENT ENT ED: Denies ear pain, rhinorrhea or sore throat Cardiovascular Cardiovascular: Denies chest pain, orthopnea, palpitations or racing heartbeat Respiratory/Chest Respiratory/Chest: Denies cough, dyspnea or orthopnea Gastrointestinal Gastrointestinal: Reports abdominal pain; Denies diarrhea, nausea or vomiting Genitourinary Genitourinary ED: Reports other Details: Right flank pain ; Denies dysuria, hematuria or urinary frequency Musculoskeletal Musculoskeletal: Denies arthralgias or myalgias Integumentary Denies abscess or rash Neurologic Neurologic: Denies headache(s) or weakness Psychiatric Psychiatric: Denies anxiety, depression, suicidal ideation or suicidal thoughts Endocrine Endocrinology: Denies polydipsia, polyphagia or polyuria Allergic/Immunologic Allergic/Immunologic ED: Denies mouth swelling, tongue swelling or urticaria EXAM Physical Exam Narrative Exam Narrative: Patient appears in pain writhing on the bed holding her flank and abdomen Const Vital Signs: 02/16/22 17:29 Temperature 97.9 F Temperature Source Temporal Pulse Rate 77 Respiratory Rate 14 Blood Pressure 165/70 H Blood Pressure Mean 101 Pulse Ox 99 Oxygen Delivery Method Room Air Positive well nourished and well developed General Appearance ED: well developed HEENT Reports normocephalic, head/scalp atraumatic and moist mucous membranes Eyes PERRL and EOMs intact bilaterally Neck no lymphadenopathy, supple and no JVD Resp normal respiratory effort and clear to auscultation bilaterally Cardio regular rate, regular rhythm and no murmurs GI normal to inspection, nondistended, normoactive bowel sounds and non-tender Palpation: soft Back/Spine no CVA tenderness and normal ROM Extremity normal to inspection General Extremety ED: Negative for edema General Extremity: Negative for edema Neuro oriented x3 and CN's II-XII intact bilaterally Sensorium / Orientation: alert Motor Exam: strength 5/5 throughout Psych mental status grossly normal Mood & Affect: Negative for depressed or tearful Skin no rashes or lesions noted and no wounds MDM MDM MDM Narrative Medical decision making narrative: Patient has a leukocytosis at 17 which I believe is reactive. Hemoglobin is 11.2. Creatinine normal at 0.92 urinalysis shows calcium oxalate crystals but no hematuria or infection. CT of the abdomen pelvis with kidney stone protocol shows a distal 3 mm ureteral stone. Patient received morphine Toradol and fluids as well as Zofran. I will write for her to have Percocet at home. Return if worsening or concerns Lab Data Attestation: I reviewed the patient's lab results. Labs: Laboratory Results - last 24 hr 02/16/22 02/16/22 02/16/22 17:42 17:42 17:42 WBC 17.2 H RBC 3.98 L Hgb 11.2 L Hct 35.6 L MCV 89.4 MCH 28.1 MCHC 31.5 L RDW Std Deviation 42.4 RDW Coeff of Noel 12.9 Plt Count 230 MPV 10.0 Immature Gran % (Auto) 0.400 Neut % (Auto) 87.4 H Lymph % (Auto) 7.0 L [place] % (Auto) 4.7 Eos % (Auto) 0.3 Baso % (Auto) 0.2 Absolute Neuts (auto) 15.1 H Absolute Lymphs (auto) 1.21 Nucleated RBC % 0 Sodium 139 Potassium 3.4 L Chloride 106 Carbon Dioxide 27.0 Anion Gap 6 BUN 16 Creatinine 0.92 Estim Creat Clear Calc 63.21 Est GFR (MDRD) Af Amer 84 Est GFR (MDRD) Non-Af 70 BUN/Creatinine Ratio 17.4 Glucose 135 H Calcium 8.9 Serum , Qual Urine Color Yellow Urine Clarity Clear Urine pH 5.0 Ur Specific [place] 1.025 Urine Protein Negative Urine Glucose (UA) Normal Urine Ketones 50 H Urine Occult Blood 25 H Urine Nitrite Negative Urine Bilirubin Negative Urine Urobilinogen Normal Ur Leukocyte Esterase 25 H Urine RBC 0-5 SEEN Urine WBC 0-5 SEEN Ur Squamous Epith Cells 0-5 SEEN Calcium Oxalate Crystal 1+ Urine Bacteria RARE Urine Mucus 0 SEEN 02/16/22 17:45 WBC RBC Hgb Hct MCV MCH MCHC RDW Std Deviation RDW Coeff of Noel Plt Count MPV Immature Gran % (Auto) Neut % (Auto) Lymph % (Auto) [place] % (Auto) Eos % (Auto) Baso % (Auto) Absolute Neuts (auto) Absolute Lymphs (auto) Nucleated RBC % Sodium Potassium Chloride Carbon Dioxide Anion Gap BUN Creatinine Estim Creat Clear Calc Est GFR (MDRD) Af Amer Est GFR (MDRD) Non-Af BUN/Creatinine Ratio Glucose Calcium Serum , Qual NEGATIVE Urine Color Urine Clarity Urine pH Ur Specific [place] Urine Protein Urine Glucose (UA) Urine Ketones Urine Occult Blood Urine Nitrite Urine Bilirubin Urine Urobilinogen Ur Leukocyte Esterase Urine RBC Urine WBC Ur Squamous Epith Cells Calcium Oxalate Crystal Urine Bacteria Urine Mucus Radiography Diagnostic Testing: Clinical Impression(s) from Imaging Studies Abdomen/Pelvis CT 02/16/22 17:41 IMPRESSION: 3 mm calculus of the distal right ureter adjacent to the UVJ with mild right hydronephrosis and hydroureter. Electronically Signed: Rajendra Preston MD ([place]) at 18:36 EDT , Discharge Plan Triage Chief Complaint: Flank Pain ED Provider: Korey Pollock Dx/Rx/DC Orders Clinical Impression: Renal colic on right side, Ureterolithiasis Instructions: ED Kidney Stone w/ Colic Prescriptions: New oxycodone-acetaminophen [oxycodone-acetaminophen] 5-325 mg tablet 1 tab PO Q6H PRN PRN (Reason: pain) 5 Days Qty: 20 0RF tamsulosin [tamsulosin] 0.4 mg capsule 0.4 mg PO QHS Qty: 7 0RF No Action fluoxetine 20 MG capsule 60 mg PO DAILY Label Comments: OCD naproxen 500 MG tablet 500 mg PO BID Qty: 14 0RF ascorbic acid (vitamin C) [Vitamin C] 1,000 MG tablet 1,000 mg PO DAILY lisinopril 5 MG tablet 5 mg PO DAILY Qty: 30 0RF Primary Care Provider: Florentin Garay Referrals: Teodora Simons MD [STAFF PHYSICIAN] - As Needed (For urology) Florentin Garay DO [Primary Care Provider] - As Needed Disposition Disposition: Home, Self Care
[2022-02-16 18:56] VITALS: BP 130/82; PULSE 80; RESP 17
== END 2022-02-16 18:57 | disposition home or self-care (01) ==
PROVIDERS: Emergency Provider Emergency Medicine; PCP Family Medicine; Visit Provider Emergency Medicine
DX: N13.6 Pyonephrosis (principal); I10 Essential (primary) hypertension; Z79.899 Other long term (current) drug therapy
CPT/HCPCS: 74176; 80048; 81001; 84703; 85025; 96361; 96374; 96375; 96376; 99283; J7030; A4216; J2405

== ENCOUNTER 2022-02-18 10:10 | Observation (INO) | payer MEDICAID, SELFPAY ==
[2022-02-18] VITALS (10 sets, daily range): BP systolic 96–136; BP diastolic 65–81; PULSE 64–114; RESP 14–16; TEMP 36.2–37.2; O2SAT 98–100; BMI 25.8
--- NOTE | 2022-02-18 10:37 | EDS_ITS ---
HPI HPI - GI History of Present Illness Chief Complaint: Flank Pain Informant: patient Abdominal Pain/Flank Pain Onset: Days (3) Context: Gradual Onset Timing: Continuous Quality: Aching Location: Right Flank (Radiating into right groin) Current Severity: Severe Maximum Severity: Severe Worsened by: Nothing Relieved by: - (Medications temporarily) Nausea/Vomiting/Emesis GI Symptom: Positive for Nausea and Vomiting Diarrhea/Melena/Hematochezia GI Symptom: Negative for Diarrhea, Melena or Hematochezia Associated Symptoms Associated Symptoms: Negative for Dysuria, Frequency, Hematuria or Urgency Narrative Narrative: Patient diagnosed with a kidney stone that was 3 mm at the right UVJ several days ago here at this ER, prescribed Percocet which she has been taking as prescribed every 6 hours, it only helps for 1.5 hours, she has been in a lot of pain and states she has developed fevers that she is treating with additional Tylenol every so often. She has no other new symptoms, no urinary symptoms, the pain is in the same location that it has been, her right low back and into the right groin, she has not yet called urology or anyone else. [facility] Medical History Hypertension Ureterolithiasis Home Medications ascorbic acid (vitamin C) 1,000 mg tablet (Vitamin C) 1,000 mg PO DAILY SUPPLEMENT 11/10/17 [History Last Taken Unknown] oxycodone-acetaminophen 5 mg-325 mg tablet 1 tab PO Q6H PRN PRN pain 5 days #20 TABLETS 02/16/22 [Rx Last Taken Unknown] tamsulosin 0.4 mg capsule 0.4 mg PO QHS #7 CAPSULES 02/16/22 [Rx Last Taken Unknown] duloxetine 30 mg capsule,delayed release 1 cap PO DAILY 02/18/22 [History Last Taken Unknown] Allergy/AdvReac Type Severity Reaction Status Date / Time hydrogen peroxide Allergy Rash Verified 02/18/22 10:12 Surgical History H/O gastric bypass History of Social History Smoking Status: Never smoker ROS ROS ED Constitutional Constitutional ED: Reports chills and fever(s) Eyes Eyes: Denies change in vision or diplopia ENT ENT ED: Denies rhinorrhea or sore throat Cardiovascular Cardiovascular: Denies chest pain or palpitations Respiratory/Chest Respiratory/Chest: Denies cough or dyspnea Gastrointestinal Gastrointestinal: Reports abdominal pain, nausea and vomiting; Denies diarrhea Genitourinary Genitourinary ED: Reports flank pain; Denies dysuria or hematuria Musculoskeletal Musculoskeletal: Reports back pain; Denies neck pain Integumentary Denies abscess or rash Neurologic Neurologic: Denies headache(s), paresthesias or weakness Psychiatric Psychiatric: Denies anxiety or suicidal thoughts EXAM Physical Exam Const Vital Signs: 02/18/22 10:10 Temperature 97.7 F L Temperature Source Temporal Pulse Rate 114 H Respiratory Rate 16 Blood Pressure 113/74 Blood Pressure Mean 87 Pulse Ox 99 Oxygen Delivery Method Room Air Positive well nourished and well developed General Appearance ED: well developed and NAD HEENT Reports moist mucous membranes normocephalic and atraumatic Eyes PERRL and EOMs intact bilaterally Neck full ROM and supple Resp normal respiratory effort and clear to auscultation bilaterally Cardio regular rate, regular rhythm and no murmurs GI non-tender and non-distended Auscultation: normoactive bowel sounds Palpation: soft Back/Spine General Back: CVA tenderness right and other FROM Extremity normal to inspection General Extremety ED: Negative for edema, pulses abnormal or tenderness General Extremity: Negative for edema or pulses abnormal Neuro oriented x3, CN's II-XII intact bilaterally and no sensory deficits noted Sensorium / Orientation: awake and alert Motor Exam: strength 5/5 throughout Skin no rashes or lesions noted and no wounds MDM MDM MDM Narrative Medical decision making narrative: I redid the patient's labs and obtained a new urinalysis, it appears to show signs of infection, and she has a 19.8 white blood count with a leftward shift including 8% bands, as well as FANI which is new compared with several days ago. Given all of this, she was cultured and given Rocephin and I discussed with urology Dr. Simons who agrees to admit her with plans for stenting today. After giving the patient morphine, Toradol, Zofran she is feeling much better and clinically appears very well, her vital signs are normal. Lab Data Attestation: I reviewed the patient's lab results. Labs: Laboratory Results - last 24 hr 02/18/22 02/18/22 02/18/22 10:40 10:40 11:05 WBC 19.8 H RBC 4.01 L Hgb 11.3 L Hct 34.4 L MCV 85.8 MCH 28.2 MCHC 32.8 RDW Std Deviation 41.5 RDW Coeff of Noel 13.4 Plt Count MPV 12.1 H Neut % (Auto) Not Reportable Absolute Neuts (auto) 17.8 H Absolute Lymphs (auto) 0.91 Total Counted 100 Neutrophils % (Manual) 82 H Band Neutrophils % 8 H Lymphocytes % (Manual) 1 L Monocytes % (Manual) 5 Metamyelocytes % 4 H Myelocytes % 4 H Diff Path Review May foll Platelet Estimate SLT DEC RBC Morphology NORM C+C Sodium 133 L Potassium 4.2 Chloride 101 Carbon Dioxide 25.0 Anion Gap 7 BUN 28 H Creatinine 1.73 H Estim Creat Clear Calc 33.61 Est GFR (MDRD) Af Amer 41 L Est GFR (MDRD) Non-Af 34 L BUN/Creatinine Ratio 16.2 Glucose 140 H Calcium 8.9 Urine Color Yellow Urine Clarity Sl. Cloudy Urine pH 6.0 Ur Specific [place] 1.020 Urine Protein 500 H Urine Glucose (UA) Normal Urine Ketones 5 H Urine Occult Blood 150 H Urine Nitrite Negative Urine Bilirubin Negative Urine Urobilinogen Normal Ur Leukocyte Esterase 100 H Urine RBC 10-25 SEEN Urine WBC 10-25 SEEN Ur Squamous Epith Cells 0-5 SEEN Urine Bacteria 2+ Urine Mucus 0 SEEN Discharge Plan Triage Chief Complaint: Flank Pain ED Provider: Didier Garcia Dx/Rx/DC Orders Clinical Impression: Ureterolithiasis, Complicated UTI (urinary tract infection), FANI (acute kidney injury) Prescriptions: No Action ascorbic acid (vitamin C) [Vitamin C] 1,000 MG tablet 1,000 mg PO DAILY oxycodone-acetaminophen [oxycodone-acetaminophen] 5-325 mg tablet 1 tab PO Q6H PRN PRN (Reason: pain) 5 Days Qty: 20 0RF tamsulosin [tamsulosin] 0.4 mg capsule 0.4 mg PO QHS Qty: 7 0RF duloxetine 30 mg capsule,delayed release(DR/EC) 1 cap PO DAILY Primary Care Provider: Florentin Garay Referrals: Florentin Garay DO [Primary Care Provider] - Disposition Disposition: Acute Care Hospital [facility]
[2022-02-18] MEDS: Morphine 4 MG/ML Syringe IV (10:47)
[2022-02-18] MEDS: Ketorolac 30 MG/ML Syringe IV (10:47)
[2022-02-18] MEDS: Ondansetron 4 MG/2 ML Vial IV (10:47)
[2022-02-18 10:49] LABS: Hematocrit 34.4 % (37-47); Hemoglobin 11.3 g/dL (12.0-15.0); Mean Corp Hgb Conc 32.8 g/dL (32-36); Mean Corpuscular Hgb 28.2 pg (27.0-32.0); Mean Corpuscular Volume 85.8 fL (81-99); Mean Platelet Vol. 12.1 fl (6.2-12.0); POSITIVE COUNT YES; POSITIVE DIFFERENTIAL YES; POSITIVE MORPHOLOGY YES; RBC Distribution Width CV 13.4 % (11.6-14.6); RBC Distribution Width SD 41.5 fl (35.1-43.9); Red Blood Count 4.01 M/mm3 (4.2-5.4); White Blood Count 19.8 K/mm3 (4.4-11.0)
[2022-02-18 10:53] LABS: Differential Indicated MANUAL DIFF
[2022-02-18 11:02] LABS: Anion Gap 7 (5-15); BUN 28 mg/dL (7-18); BUN/Creat Ratio 16.2 RATIO (10-20); Calcium,Total 8.9 mg/dL (8.5-10.1); Chloride 101 mmol/L (98-107); Creatinine, Serum 1.73 mg/dL (0.55-1.02); EST Glomerular Filtration Rate 34 mL/min (>60); Est Glom Filt Rate - Afr Amer 41 mL/min (>60); Estimated Creatinine Clearance 33.61 ml/min; Glucose 140 mg/dL (74-106); Potassium 4.2 mmol/L (3.5-5.1); Sodium Level 133 mmol/L (136-145)
[2022-02-18 11:11] LABS: Mucous, Urine 0 SEEN /hpf (<or=2+)
[2022-02-18 11:13] LABS: Color, Urine Yellow (Yellow); Glucose, Dipstick Normal (Normal); Ketone-Dipstick 5 mg/dl (Negative); Leukocyte Esterase-Dipstick 100 /ul (Negative); Nitrite-Dipstick Negative (Negative); Occult Blood-Urine 150 /ul (Negative); Protein-Dipstick 500 mg/dl (Negative); Urine Bilirubin Dipstick Negative (Negative); Urine Clarity Sl. Cloudy (Clear); Urine Urobilinogen Normal (Normal)
[2022-02-18 11:16] LABS: Lymphocyte 1 % (19-41); Metamyelocyte 4 % (0-1); Monocyte 5 % (0-10); Neutrophil-Band 8 % (0-5); Neutrophil-Segmented 82 % (47-70); Total Cells Counted 100 (MANUAL DIFF)
[2022-02-18 11:17] LABS: Platelet Estimate SLT DEC (ADEQ)
[2022-02-18 11:18] LABS: Red Cell Morphology NORM C+C NORMAL (NORM C&C)
[2022-02-18 11:19] LABS: Absolute Lymphocyte Count 0.91 X10^3/uL (0.83-4.51); Absolute Neutrophil Count 17.8 X10^3/uL (2.0-7.7); Lymphocyte # 0.91 X10^3/ul (0.83-4.51); Myelocyte 4 % (0-0); Neutrophil # 17.82 X10^3/uL (2.7-7.7)
[2022-02-18 11:20] LABS: Bacteria 2+ /hpf (None Seen); Red Blood Cells-Urine 10-25 SEEN /hpf (0-5); Squamous Epithelial Cells - UA 0-5 SEEN /hpf (5-10); White Blood Cells 10-25 SEEN /hpf (0-5)
[2022-02-18] MEDS: Ceftriaxone 1 GM/50 ML BAG IV (12:21)
--- NOTE | 2022-02-18 12:33 | PCM.HP.STD ---
[facility] - General General Date of Admission: 02/18/22 Chief Complaint: flank pain, nausea and vomiting HPI Narrative GALI PEGUERO, is a 46 F who presents as a bounce back to the ER for uncontrolled flank pain, nausea and vomiting due to a right ureteral calculus with obstruction. For 2 days at home she has had a fever to 103 ?F. Her pain is right lower quadrant and right flank pain. She has no urgency, frequency, dysuria or hematuria. She had a gastric bypass procedure 1 year ago. We discussed that she is going to need aggressive prevention and evaluation with 24-hour urinalysis after the stone is managed. [facility] Medical History (Updated 02/18/22 @ 13:[address] Teodora Simons MD) Hydronephrosis Hypertension Ureterolithiasis Home Medications ascorbic acid (vitamin C) 1,000 mg tablet (Vitamin C) 1,000 mg PO DAILY SUPPLEMENT 11/10/17 [History Last Taken Unknown] oxycodone-acetaminophen 5 mg-325 mg tablet 1 tab PO Q6H PRN PRN pain 5 days #20 TABLETS 02/16/22 [Rx Last Taken Unknown] tamsulosin 0.4 mg capsule 0.4 mg PO QHS #7 CAPSULES 02/16/22 [Rx Last Taken Unknown] duloxetine 30 mg capsule,delayed release 1 cap PO DAILY 02/18/22 [History Last Taken Unknown] Allergy/AdvReac Type Severity Reaction Status Date / Time hydrogen peroxide Allergy Rash Verified 02/18/22 10:12 Surgical History H/O gastric bypass History of Social History Smoking Status: Never smoker ROS Constitutional Constitutional: Reports fever(s) and poor appetite Eyes Eyes: Reports systems reviewed and no addt'l complaints, except as documented ENT HEENT: Reports systems reviewed and no addt'l complaints, except as documented Cardiovascular Cardiovascular: Reports abdominal pain and fatigue; Denies chest pain or dyspnea Respiratory/Chest Respiratory/Chest: Denies cough, dyspnea or hoarseness Gastrointestinal Gastrointestinal: Reports abdominal pain, nausea and vomiting Genitourinary Genitourinary: Reports abdominal discomfort and flank pain Musculoskeletal Musculoskeletal: Reports systems reviewed and no addt'l complaints, except as documented Integumentary Integumentary: Reports systems reviewed and no addt'l complaints, except as documented Neurologic Neurologic: Reports systems reviewed and no addt'l complaints, except as documented Psychiatric Psychiatric: Reports systems reviewed and no addt'l complaints, except as documented Endocrine Endocrinology: Reports systems reviewed and no addt'l complaints, except as documented Hematologic/Lymphatic Hematologic/Lymphatic: Reports systems reviewed and no addt'l complaints, except as documented Allergic/Immunologic Allergic/Immunologic: Reports systems reviewed and no addt'l complaints, except as documented Vital Signs Vital Signs Vital Signs: 02/18/22 10:10 02/18/22 12:23 02/18/22 12:23 Temperature 97.7 F L 97.6 F L 97.6 F L Temperature Source Temporal Oral Oral Pulse Rate 114 H 81 81 Respiratory Rate 16 16 Blood Pressure 113/74 124/68 H 124/68 H Blood Pressure Mean 87 86 86 Pulse Ox 99 Oxygen Delivery Method Room Air Weight Weight: 66.224 kg Body Mass Index (BMI) 25.8 Physical Exam Const alert, oriented x3 and no apparent distress General Appearance: cooperative and comfortable HEENT normocephalic, head/scalp atraumatic, hearing grossly normal bilaterally, external ears normal and external nose normal Eyes conjunctivae normal General Eye: normal appearance of both eyes Neck supple General: trachea midline Lymph Lymphatic: no lymphedema noted Chest Chest: symmetrical chest wall rise Resp normal respiratory effort, normal air movement, no retractions and no use of accessory muscles Effort and Inspection: able to speak in complete sentences Cardio regular rate and regular rhythm GI soft to palpation and non-distended Bladder / Kidney Exam: CVA tenderness right Back/Spine General Back: CVA tenderness right Extremity normal to inspection Skin no rashes or lesions noted, no wounds, skin turgor normal, no jaundice, no petechiae and no mottling Neuro oriented x3, CN's II-XII intact bilaterally and moves all extremities Psych mental status grossly normal, thought process normal, cooperative and affect normal Results Lab / Micro Data Result Diagrams: 02/18/22 10:40 02/18/22 10:40 Labs: Laboratory Results - last 24 hr 02/18/22 10:40: WBC 19.8 H, RBC 4.01 L, Hgb 11.3 L, Hct 34.4 L, MCV 85.8, MCH 28.2, MCHC 32.8, RDW Std Deviation 41.5, RDW Coeff of Noel 13.4, Plt Count , MPV 12.1 H, Neut % (Auto) Not Reportable, Absolute Neuts (auto) 17.8 H, Absolute Lymphs (auto) 0.91, Total Counted 100, Neutrophils % (Manual) 82 H, Band Neutrophils % 8 H, Lymphocytes % (Manual) 1 L, Monocytes % (Manual) 5, Metamyelocytes % 4 H, Myelocytes % 4 H, Diff Path Review December, Platelet Estimate SLT DEC, RBC Morphology NORM C+C 02/18/22 10:40: Sodium 133 L, Potassium 4.2, Chloride 101, Carbon Dioxide 25.0, Anion Gap 7, BUN 28 H, Creatinine 1.73 H, Estim Creat Clear Calc 33.61, Est GFR (MDRD) Af Amer 41 L, Est GFR (MDRD) Non-Af 34 L, BUN/Creatinine Ratio 16.2, Glucose 140 H, Calcium 8.9 02/18/22 11:05: Urine Color Yellow, Urine Clarity Sl. Cloudy, Urine pH 6.0, Ur Specific [place] 1.020, Urine Protein 500 H, Urine Glucose (UA) Normal, Urine Ketones 5 H, Urine Occult Blood 150 H, Urine Nitrite Negative, Urine Bilirubin Negative, Urine Urobilinogen Normal, Ur Leukocyte Esterase 100 H, Urine RBC 10-25 SEEN, Urine WBC 10-25 SEEN, Ur Squamous Epith Cells 0-5 SEEN, Urine Bacteria 2+, Urine Mucus 0 SEEN Assessment & Plan Assessment/Plan (1) Ureterolithiasis: (2) FANI (acute kidney injury): (3) Complicated UTI (urinary tract infection): (4) Hydronephrosis: PLAN: Plan to the operating room for cystoscopy and ureteral stent insertion antibiotics, fluids, pain control urine culture informed consent was obtained
--- NOTE | 2022-02-18 13:06 | OP.PCM_ITS ---
Problems Associated Problem List Diagnoses (1) Ureterolithiasis: (2) Hydronephrosis: (3) Complicated UTI (urinary tract infection): (4) FANI (acute kidney injury): Report of Operation Date of Procedure: 02/18/22 Pre-Operative Diagnosis: right ureteral calculus with infection, hydronephrosis and renal insufficiency Post-Operative Diagnosis: Same Surgery/Procedure Performed:: Cystoscopy with right ureteral stent insertion Surgeon: Teodora Simons Type of Anesthesia: MAC Specimen's removed: Urine for culture Description of Procedure: The patient is a 46-year-old female with a right distal ureteral calculus with obstruction, infection and renal insufficiency who presents for surgical intervention. Informed consent has been obtained. The patient was taken the operating room placed on the operating room table. Anesthesia monitored the head, neck, airway, IV access and vital signs throughout the case. Once an esthesia was appropriate ministered the patient was placed into dorsal lithotomy position was prepped and draped in usual sterile fashion. Under direct visualization, the cystoscope was inserted through the urethra into the urinary bladder. The bladder mucosa was visualized and found to be without any mass. The right ureteral orifice was gently intubated with a 0.035 Glidewire and was seen under fluoroscopy in the right renal pelvis. A 6 x 24 JJ stent was then inserted over the wire into the renal pelvis with good curling in the kidney as well as the urinary bladder. The patient's bladder was emptied and the urine was sent for culture. She was awakened and taken to the recovery room in good condition. There were no complications during this procedure. Grafts/Implants Used: 6 x 24 JJ stent Complications None Admit VTE Documentation VTE Present on Admission: Yes VTE Mechan Device Prophylaxis: SCD's VTE Pharm Prophylaxis ordered?: No Reason prophylaxis not ordered:: Treatment Not Indicated
[2022-02-18 13:36] LABS: Internal QC Validated? YES +Cl - CLEAR BKGD; Pregnancy, Urine Negative Negative
[2022-02-18] MEDS: Lactated Ringers 1,000 ML 30 ML IV (14:00)
[2022-02-18] MEDS: Cefazolin 1 GM/50 ML BAG IV ×2 (15:04→22:50)
[2022-02-18] MEDS: Dextrose 5%-Lactated Ringers 1,000 ML 125 ML IV (15:10)
[2022-02-18] MEDS: HYDROcodone Bitartrate/Apap 5/325 Tablet PO (21:12)
[2022-02-18] MEDS: Docusate Sodium 100 MG Capsule PO (21:12)
[2022-02-18] MEDS: Tamsulosin HCl 0.4 MG Capsule PO (21:13)
[2022-02-18] MEDS: 0.9% Saline Lock 10 ML Syringe IV (22:50)
[2022-02-19 01:19] VITALS: BP 132/76; PULSE 69; RESP 18; TEMP 36.5; O2SAT 100
[2022-02-19] MEDS: Dextrose 5%-Lactated Ringers 1,000 ML 125 ML IV ×2 (01:23→10:30)
[2022-02-19] MEDS: Morphine 4 MG/ML Syringe 2 MG IV ×2 (03:08→08:20)
[2022-02-19] MEDS: 0.9% Saline Lock 10 ML Syringe IV ×2 (03:14→10:31)
[2022-02-19] MEDS: HYDROcodone Bitartrate/Apap 5/325 Tablet PO ×2 (04:40→14:19)
[2022-02-19 04:48] VITALS: BP 114/74; PULSE 82; RESP 20; TEMP 36.4; O2SAT 98
[2022-02-19] MEDS: Cefazolin 1 GM/50 ML BAG IV ×2 (06:47→14:19)
[2022-02-19 08:14] VITALS: BP 144/94; PULSE 101; RESP 18; TEMP 37.2; O2SAT 100
[2022-02-19] MEDS: DULoxetine Hcl 30 MG Capsule PO (08:18)
[2022-02-19] MEDS: Docusate Sodium 100 MG Capsule PO (08:18)
[2022-02-19 09:34] LABS: Hematocrit 31.3 % (37-47); Hemoglobin 9.8 g/dL (12.0-15.0); Mean Corp Hgb Conc 31.3 g/dL (32-36); Mean Corpuscular Hgb 27.9 pg (27.0-32.0); Mean Corpuscular Volume 89.2 fL (81-99); Mean Platelet Vol. 10.9 fl (6.2-12.0); POSITIVE COUNT YES; POSITIVE DIFFERENTIAL YES; POSITIVE MORPHOLOGY YES; Platelet Count 136 K/mm3 (150-450); RBC Distribution Width CV 13.7 % (11.6-14.6); RBC Distribution Width SD 44.3 fl (35.1-43.9); Red Blood Count 3.51 M/mm3 (4.2-5.4); White Blood Count 11.3 K/mm3 (4.4-11.0)
[2022-02-19 09:36] LABS: Differential Indicated MANUAL DIFF
[2022-02-19 10:04] LABS: Anion Gap 9 (5-15); BUN 26 mg/dL (7-18); BUN/Creat Ratio 18.2 RATIO (10-20); Calcium,Total 8.7 mg/dL (8.5-10.1); Chloride 106 mmol/L (98-107); Creatinine, Serum 1.43 mg/dL (0.55-1.02); EST Glomerular Filtration Rate 42 mL/min (>60); Est Glom Filt Rate - Afr Amer 51 mL/min (>60); Estimated Creatinine Clearance 40.66 ml/min; Glucose 199 mg/dL (74-106); Potassium 3.8 mmol/L (3.5-5.1); Sodium Level 135 mmol/L (136-145)
[2022-02-19] MEDS: Ketorolac 15 MG/ML Vial IV (10:30)
[2022-02-19 10:33] LABS: Lymphocyte 7 % (19-41); Monocyte 3 % (0-10); Neutrophil-Segmented 90 % (47-70)
[2022-02-19 10:34] LABS: Hypochromasia 2+; Platelet Estimate ADEQUATE (ADEQ); Red Cell Morphology N CYTIC NORMAL (NORM C&C); Total Cells Counted 100 (MANUAL DIFF)
[2022-02-19 10:35] LABS: Absolute Lymphocyte Count 0.79 X10^3/uL (0.83-4.51); Absolute Neutrophil Count 10.2 X10^3/uL (2.0-7.7); Lymphocyte # 0.79 X10^3/ul (0.83-4.51); Neutrophil # 10.16 X10^3/uL (2.7-7.7)
[2022-02-19 14:24] VITALS: BP 134/80; PULSE 110; RESP 18; TEMP 37.3; O2SAT 97
--- NOTE | 2022-02-19 15:44 | CHAPLAIN ---
Type of Pastoral Visit _x__ Initial Visit ___ Follow-up Visit ___ On-call Visit ___ General Patient Visit ___ Spiritual Assessment ___ Family Conference ___ Bereavement ___ Rapid Response ___ Code Blue ___ Other (describe below) Pastoral Care Referral From _x__ Patient ___ Family ___ Nurse ___ Physician ___ Merchandise Flow Associate ___ Enrolled Agent ___ Other (describe below) Sacrament/Intervention _x__ Active listening ___ Anointing ___ Samaritan ___ Bereavement ___ Communion _x__ Roxana exploration ___ _x__ Life review _x__ Prayer ___ Reconciliation ___ Sacrament of Sick _x__ Supportive presence ___ Wedding ___ Other (describe below) Pastoral Comments patient is very welcoming of spiritual support, very willing to talk about self, health, and family, and eager for prayer; pt reports what needs to happen about her health; pt gives details about her personal roxana; pt seeks prayer for her healing and better days ahead;
--- NOTE | 2022-02-19 15:58 | DCINST_ITS ---
Discharge Instructions Diet Discharge Diet: No restrictions Activity Discharge Activity: May Drive (when not taking narcotics) and May Shower Dressing / Incision Call your doctor if you observe: Fever of 101 or Higher, Inability to urinate and Inability to have a bowel movement Follow Up Care Please Follow Up With: Teodora Simons MD When: call office for appt. Test Results: Test results from this visit will be discussed in further detail at your follow- up appointment, if applicable. Discharge Plan Admission Admit Date/Time: 02/18/22 13:09 Attending Provider: Teodora Simons Primary Care Provider: Florentin Garay Discharge Orders/Prescriptions Prescriptions: New ondansetron HCl [ondansetron HCl] 8 mg tablet 8 mg PO Q8H PRN PRN (Reason: Nausea) 7 Days Qty: 20 0RF phenazopyridine [Pyridium] 200 mg tablet 200 mg PO TID PRN PRN (Reason: Bladder Spasms) 7 Days Qty: 30 0RF amoxicillin-pot clavulanate [Augmentin] 500-125 mg tablet 1 tab PO BID 7 Days Qty: 14 0RF Continued ascorbic acid (vitamin C) [Vitamin C] 1,000 MG tablet 1,000 mg PO DAILY duloxetine 30 mg capsule,delayed release(DR/EC) 1 cap PO DAILY oxycodone-acetaminophen [oxycodone-acetaminophen] 5-325 mg tablet 1 tab PO Q6H PRN PRN (Reason: pain) 5 Days Qty: 20 0RF No Action tamsulosin [tamsulosin] 0.4 mg capsule 0.4 mg PO QHS Qty: 7 0RF Referrals / Follow Up: Florentin Garay DO [Primary Care Provider] - Disposition Disposition (needs filled in before D/C Order can be placed): Home, Self Care
[2022-02-19] MEDS: Phenazopyridine 95 MG Tablet 190 MG PO (16:26)
[2022-02-20 07:24] LABS: Pathologist Review Reviewed
[2022-02-20 12:41] LABS: Pathologist Review Reviewed
== END 2022-02-19 17:13 | disposition home or self-care (01) ==
LOC: ED 12:26 → MS3 21:55
PROVIDERS: Admitting Provider Urology; Emergency Provider Emergency Medicine; PCP Family Medicine; Visit Provider Urology
PROC: (CPT 52332; principal; 2022-02-18 12:40)
DX: N13.6 Pyonephrosis (principal); N17.9 Acute kidney failure, unspecified; I10 Essential (primary) hypertension; Z79.899 Other long term (current) drug therapy; Z98.84 Bariatric surgery status
CPT/HCPCS: 52332; 00910; C2617; 76000; 80048; 81001; 81025; 85025; 87086; 87088; 96361; 96365; 96366; 96375; 96376; 99218; 99285; J7030; J7040; J7120; A4216; G0378; J2405

== ENCOUNTER 2022-02-21 04:22 | Emergency (ER) | payer MEDICAID, SELFPAY ==
[2022-02-21 04:23] VITALS: BP 152/88; PULSE 107; RESP 18; TEMP 37.1; O2SAT 97; BMI 28.5
[2022-02-21 04:27] VITALS: BP 152/88; PULSE 104; RESP 18; TEMP 37.1; O2SAT 96
--- NOTE | 2022-02-21 04:38 | EKG12_ITS ---
Test Reason : FEVER Blood Pressure : / mmHG Vent. Rate : 099 BPM Atrial Rate : 099 BPM P-R Int : 138 ms QRS Dur : 100 ms QT Int : 330 ms P-R-T Axes : 037 -04 015 degrees QTc Int : 423 ms Sinus rhythm with occasional Premature ventricular complexes Otherwise normal ECG Confirmed by TIKA SANCHEZ, PATTI ([id number]), dictionary editor WENDY LAZO ([id number]) on 02/22/2022 10:33:44 A M Referred By: ALEXSANDRA Confirmed By:DIANE VILLELA MD
[2022-02-21 05:00] VITALS: BP 163/92; PULSE 102
[2022-02-21 05:04] LABS: Absolute Lymphocyte Count 0.91 X10^3/uL (0.83-4.51); Basophil# 0.02 X10^3/uL; Basophil% 0.2 % (0-1); Eosinophil# 0.07 X10^3/uL; Eosinophils% 0.8 % (0-5); Hematocrit 29.2 % (37-47); Hemoglobin 9.6 g/dL (12.0-15.0); Lymphocyte # 0.91 X10^3/ul (0.83-4.51); Lymphocyte % 10.9 % (19-41); Mean Corp Hgb Conc 32.9 g/dL (32-36); Mean Corpuscular Hgb 27.7 pg (27.0-32.0); Mean Corpuscular Volume 84.4 fL (81-99); Mean Platelet Vol. 10.5 fl (6.2-12.0); Monocyte# 1.27 X10^3/uL; Monocyte% 15.3 % (0-10); NRBC Flagged by Analyzer 0 % (0-5); Neutrophil # 5.99 X10^3/uL (2.7-7.7); Neutrophil % 72.1 % (47-70); POSITIVE MORPHOLOGY YES; Platelet Count 153 K/mm3 (150-450); RBC Distribution Width CV 13.8 % (11.6-14.6); RBC Distribution Width SD 42.3 fl (35.1-43.9); Red Blood Count 3.46 M/mm3 (4.2-5.4); White Blood Count 8.3 K/mm3 (4.4-11.0)
[2022-02-21 05:05] LABS: Mucous, Urine 0 SEEN /hpf (<or=2+)
[2022-02-21 05:07] LABS: Color, Urine Yellow (Yellow); Glucose, Dipstick Normal (Normal); Ketone-Dipstick Negative (Negative); Leukocyte Esterase-Dipstick 500 /ul (Negative); Nitrite-Dipstick Positive (Negative); Occult Blood-Urine 250 /ul (Negative); Protein-Dipstick 100 mg/dl (Negative); Urine Clarity Clear (Clear); Urine Urobilinogen 4 mg/dl (Normal); Urine pH 6.5 (5.0 - 8.0)
[2022-02-21 05:09] LABS: Urine Bilirubin Dipstick 3 mg/dL (Negative)
[2022-02-21 05:13] LABS: Differential Indicated SCAN CRITERIA MET
[2022-02-21 05:16] LABS: Amorphous Sediment 1+; Bacteria 3+ /hpf (None Seen); Red Blood Cells-Urine 10-25 SEEN /hpf (0-5); Squamous Epithelial Cells - UA 0-5 SEEN /hpf (5-10); White Blood Cells 5-10 SEEN /hpf (0-5)
[2022-02-21 05:20] LABS: International Normalized Ratio 1.2; Prothrombin Time (Protime)PT. 15.3 SECONDS (11.7-14.9)
[2022-02-21 05:21] LABS: Partial Thromboplast Time 27.7 Seconds (24.1-36.2)
[2022-02-21 05:25] LABS: ALB/GLOB Ratio 0.6 RATIO (0.9-2.4); AST(SGOT) 13 U/L (15-37); Alanine Aminotransfer ALT/SGPT 19 U/L (13-56); Albumin, Serum 2.4 g/dL (3.2-5.0); Alkaline Phosphatase 79 U/L (45-117); Anion Gap 6 (5-15); BUN 14 mg/dL (7-18); BUN/Creat Ratio 12.1 RATIO (10-20); Calcium,Total 8.9 mg/dL (8.5-10.1); Chloride 103 mmol/L (98-107); Creatinine, Serum 1.16 mg/dL (0.55-1.02); EST Glomerular Filtration Rate 53 mL/min (>60); Est Glom Filt Rate - Afr Amer 64 mL/min (>60); Estimated Creatinine Clearance 50.13 ml/min; Globulin 4.2 g/dL (2.2-4.2); Glucose 114 mg/dL (74-106); Potassium 3.3 mmol/L (3.5-5.1); Protein, Total 6.6 g/dL (6.4-8.2); Sodium Level 135 mmol/L (136-145)
[2022-02-21 05:33] LABS: Lactic Acid 0.6 mmol/L (0.4-1.9)
[2022-02-21] MEDS: 0.9% Normal Saline 1,000 ML 999 ML IV (05:49)
--- NOTE | 2022-02-21 05:53 | EDS_ITS ---
HPI History of Present Illness Chief Complaint: Fever Narrative Narrative: Patient presenting with reported fever of 101.9 at home. Patient recently admitted to the hospital for right-sided ureteral stone. She had a UTI and was treated for this. She had acute kidney injury and was given IV fluids. Dr. Quiroz put in a ureteral stent on the right. Patient previously had a leukocytosis and some bands as well as a left shift. After being treated in the hospital her lab work was improving. Patient states that her pain is about the same. She has had some intermittent low-grade fevers. She reports that she was told to come to the emergency room if her temperature went over 101. Tonight it did and she took Tylenol for this. She is afebrile on arrival. She does not have any nausea currently. She does not feel systemically ill at the moment. [facility] Medical History Hydronephrosis Hypertension Ureterolithiasis Home Medications ascorbic acid (vitamin C) 1,000 mg tablet (Vitamin C) 1,000 mg PO DAILY SUPPLEMENT 11/10/17 [History Last Taken Unknown] tamsulosin 0.4 mg capsule 0.4 mg PO QHS #7 CAPSULES 02/16/22 [Rx Last Taken Unknown] duloxetine 30 mg capsule,delayed release 1 cap PO DAILY 02/18/22 [History Last Taken Unknown] amoxicillin 500 mg-potassium clavulanate 125 mg tablet (Augmentin) 1 tab PO BID 7 days #14 tabs 02/19/22 [Rx Last Taken Unknown] ondansetron HCl 8 mg tablet 8 mg PO Q8H PRN PRN Nausea 7 days #20 TABLETS 02/19/22 [Rx Last Taken Unknown] oxycodone-acetaminophen 5 mg-325 mg tablet 1 tab PO Q6H PRN PRN pain 5 days #20 TABLETS 02/19/22 [Rx Last Taken Unknown] phenazopyridine 200 mg tablet (Pyridium) 200 mg PO TID PRN PRN Bladder Spasms 7 days #30 tabs 02/19/22 [Rx Last Taken Unknown] Allergy/AdvReac Type Severity Reaction Status Date / Time hydrogen peroxide Allergy Rash Verified 02/18/22 10:12 Surgical History H/O gastric bypass History of History of cholecystectomy Hx of breast reduction, elective Social History Smoking Status: Never smoker ROS ROS ED Constitutional Constitutional ED: Reports chills and fever(s) Eyes Eyes: Denies change in vision or diplopia ENT ENT ED: Denies rhinorrhea or sore throat Cardiovascular Cardiovascular: Denies chest pain Respiratory/Chest Respiratory/Chest: Denies cough or dyspnea Gastrointestinal Gastrointestinal: Reports abdominal pain, constipation and nausea Genitourinary Genitourinary ED: Reports dysuria and hematuria Musculoskeletal Musculoskeletal: Reports myalgias; Denies arthralgias Integumentary Denies abscess Neurologic Neurologic: Denies headache(s) or paresthesias Psychiatric Psychiatric: Denies anxiety or depression EXAM Physical Exam Const Vital Signs: 02/21/22 04:23 02/21/22 04:27 02/21/22 05:00 Temperature 98.8 F 98.8 F Temperature Source Oral Oral Pulse Rate 107 H 104 H 102 H Respiratory Rate 18 18 Blood Pressure 152/88 H 152/88 H 163/92 H Blood Pressure Mean 109 109 115 Pulse Ox 97 96 Oxygen Delivery Method Room Air Room Air 02/21/22 05:00 02/21/22 05:56 02/21/22 06:08 Temperature 98.2 F Temperature Source Oral Pulse Rate 98 Respiratory Rate 17 Blood Pressure 172/85 H Blood Pressure Mean 114 Pulse Ox 98 Oxygen Delivery Method Room Air Room Air Positive well nourished General Appearance ED: NAD; Negative for pallor HEENT Reports moist mucous membranes Eyes PERRL and EOMs intact bilaterally General Eye ED: Negative for pale conjunctiva or scleral icterus Chest Wall inspection of chest normal and palpation of chest normal Resp normal respiratory effort and clear to auscultation bilaterally Cardio regular rhythm Rate: tachycardic Back/Spine General Back: CVA tenderness right Neuro oriented x3 and CN's II-XII intact bilaterally Sensorium / Orientation: alert Psych mental status grossly normal Skin no rashes or lesions noted General Skin Exam: Negative for jaundice or pallor MDM MDM MDM Narrative Medical decision making narrative: Patient presenting after having a fever. Her temperature is now improved. She feels okay at the moment but does request something for pain. She is given morphine and Zofran. She was also given IV fluids. EKG was performed which shows a sinus rhythm with a ventricular rate of 99 bpm on my interpretation. There is occasional PVCs. Her CBC does not show a leukocytosis and her white count is 8.3. Hemoglobin is stable at 9.6 which is similar to what it was on her last lab draw. Coagulation studies are unremarkable. Creatinine is improved from 1.73-1.16. GFR is now 53. Potassium slightly low at 3.3. Lactic acid is 0.6. Urinalysis consistent with infection with positive nitrites, 500 leukocyte esterase, 3+ bacteria. Given patient's previous work-up I did get blood cultures and urine culture. These are pending. I spoke with Dr. Simons who wanted to get a KUB to make sure that the stent was in good position and she also wanted to change the patient to Cipro and continue to wait for the urine culture. Patient was amenable to this. She also did state that the patient may have some intermittent fevers throughout having pyelonephritis and she should treat these appropriately. She is to call the office if her fever gets above 101 Fahrenheit. I did obtain a KUB and on my interpretation this shows appropriate placement of the ureteral stent there is no other acute findings. Radiologist does agree. Impression 1. 3 mm right ureteral stone 2. Febrile illness 3. Pyelonephritis Lab Data Attestation: I reviewed the patient's lab results. Labs: Laboratory Results - last 24 hr 02/21/22 02/21/22 02/21/22 04:30 04:50 04:50 WBC 8.3 RBC 3.46 L Hgb 9.6 L Hct 29.2 L MCV 84.4 D MCH 27.7 MCHC 32.9 D RDW Std Deviation 42.3 RDW Coeff of Noel 13.8 Plt Count 153 MPV 10.5 Immature Gran % (Auto) 0.700 Neut % (Auto) 72.1 H Lymph % (Auto) 10.9 L Emanuel % (Auto) 15.3 H Eos % (Auto) 0.8 Baso % (Auto) 0.2 Absolute Neuts (auto) 6.0 Absolute Lymphs (auto) 0.91 Nucleated RBC % 0 PT 15.3 H INR 1.2 APTT 27.7 Sodium Potassium Chloride Carbon Dioxide Anion Gap BUN Creatinine Estim Creat Clear Calc Est GFR (MDRD) Af Amer Est GFR (MDRD) Non-Af BUN/Creatinine Ratio Glucose Lactic Acid Calcium Total Bilirubin AST ALT Alkaline Phosphatase Total Protein Albumin Globulin Albumin/Globulin Ratio Urine Color Yellow Urine Clarity Clear Urine pH 6.5 Ur Specific [place] 1.010 Urine Protein 100 H Urine Glucose (UA) Normal Urine Ketones Negative Urine Occult Blood 250 H Urine Nitrite Positive H Urine Bilirubin 3 H Urine Urobilinogen 4 H Ur Leukocyte Esterase 500 H Urine RBC 10-25 SEEN Urine WBC 5-10 SEEN Ur Squamous Epith Cells 0-5 SEEN Amorphous Sediment 1+ Urine Bacteria 3+ Urine Mucus 0 SEEN 02/21/22 02/21/22 04:50 04:50 WBC RBC Hgb Hct MCV MCH MCHC RDW Std Deviation RDW Coeff of Noel Plt Count MPV Immature Gran % (Auto) Neut % (Auto) Lymph % (Auto) Emanuel % (Auto) Eos % (Auto) Baso % (Auto) Absolute Neuts (auto) Absolute Lymphs (auto) Nucleated RBC % PT INR APTT Sodium 135 L Potassium 3.3 L Chloride 103 Carbon Dioxide 26.0 Anion Gap 6 BUN 14 Creatinine 1.16 H Estim Creat Clear Calc 50.13 Est GFR (MDRD) Af Amer 64 Est GFR (MDRD) Non-Af 53 L BUN/Creatinine Ratio 12.1 Glucose 114 H Lactic Acid 0.6 Calcium 8.9 Total Bilirubin 0.70 AST 13 L ALT 19 Alkaline Phosphatase 79 Total Protein 6.6 Albumin 2.4 L Globulin 4.2 Albumin/Globulin Ratio 0.6 L Urine Color Urine Clarity Urine pH Ur Specific [place] Urine Protein Urine Glucose (UA) Urine Ketones Urine Occult Blood Urine Nitrite Urine Bilirubin Urine Urobilinogen Ur Leukocyte Esterase Urine RBC Urine WBC Ur Squamous Epith Cells Amorphous Sediment Urine Bacteria Urine Mucus Radiography Diagnostic Testing: Clinical Impression(s) from Imaging Studies KUB X-Ray 02/21/22 05:59 IMPRESSION: Right ureteral stent. Electronically Signed: Yu Brothers MD at 6:30 EDT , Discharge Plan Triage Chief Complaint: Fever Other Complaint: Complaint ED Provider: Eleazar Magana Dx/Rx/DC Orders Prescriptions: No Action ascorbic acid (vitamin C) [Vitamin C] 1,000 MG tablet 1,000 mg PO DAILY tamsulosin [tamsulosin] 0.4 mg capsule 0.4 mg PO QHS Qty: 7 0RF duloxetine 30 mg capsule,delayed release(DR/EC) 1 cap PO DAILY ondansetron HCl [ondansetron HCl] 8 mg tablet 8 mg PO Q8H PRN PRN (Reason: Nausea) 7 Days Qty: 20 0RF phenazopyridine [Pyridium] 200 mg tablet 200 mg PO TID PRN PRN (Reason: Bladder Spasms) 7 Days Qty: 30 0RF amoxicillin-pot clavulanate [Augmentin] 500-125 mg tablet 1 tab PO BID 7 Days Qty: 14 0RF oxycodone-acetaminophen [oxycodone-acetaminophen] 5-325 mg tablet 1 tab PO Q6H PRN PRN (Reason: pain) 5 Days Qty: 20 0RF Primary Care Provider: Florentin Garay Referrals: Florentin Garay DO [Primary Care Provider] -
[2022-02-21 05:56] VITALS: TEMP 36.8
--- NOTE | 2022-02-21 05:59 | RAD_ITS ---
STUDY: X-RAY - ABDOMEN/PELVIS REASON FOR EXAM: Female, 46 years old. renal stent TECHNIQUE: AP portable supine view. COMPARISON: CT abdomen pelvis 02/16/2022. FINDINGS: Right ureteral stent proximal end overlying the expected region of the right renal pelvis, distal end over the bladder. This was not present on the prior CT. Surgical clips in the left mid abdomen. The bowel gas pattern is normal. Moderate stool in the colon. No bowel obstruction. The lung bases were not included. RAD/Abdomen Single View (Portable) IMPRESSION: Right ureteral stent. Electronically Signed: Yu Brothers MD at 6:30 EDT ,
[2022-02-21] MEDS: Ondansetron 4 MG/2 ML Vial IV (06:00)
[2022-02-21] MEDS: Morphine 4 MG/ML Syringe IV (06:01)
[2022-02-21] MEDS: Ciprofloxacin 500 MG Tablet PO (06:06)
[2022-02-21 06:08] VITALS: BP 172/85; PULSE 98; RESP 17; O2SAT 98
[2022-02-21 06:48] VITALS: BP 172/85; PULSE 93; RESP 16; TEMP 37.2; O2SAT 94
== END 2022-02-21 07:04 | disposition home or self-care (01) ==
PROVIDERS: Emergency Provider Student in an Organized Health Care Education/Training Program; PCP Family Medicine; Visit Provider Student in an Organized Health Care Education/Training Program
DX: N12 Tubulo-interstitial nephritis, not specified as acute or chronic (principal); I10 Essential (primary) hypertension; I49.3 Ventricular premature depolarization; N20.1 Calculus of ureter; R50.9 Fever, unspecified
CPT/HCPCS: 74018; 80053; 81001; 83605; 85025; 85610; 85730; 87040; 87077; 87086; 87186; 87811; 93005; 96361; 96374; 96375; 99285; J7030; A4216; J2405

== ENCOUNTER 2022-03-07 10:45 | Day surgery (SDC) | payer MEDICAID, SELFPAY ==
[2022-03-07] VITALS (9 sets, daily range): BP systolic 114–124; BP diastolic 62–84; PULSE 69–82; RESP 16–18; TEMP 36.4–37.6; O2SAT 97–100; BMI 25.0
[2022-03-07] MEDS: Lactated Ringers 1,000 ML 15 ML IV (11:00)
[2022-03-07 11:15] LABS: Internal QC Validated? YES +Cl - CLEAR BKGD; Pregnancy, Urine Negative Negative
--- NOTE | 2022-03-07 12:17 | PCM.OPRPT ---
Problems Associated Problem List Diagnoses (1) Ureterolithiasis: Report of Operation Date of Procedure: 03/07/22 Pre-Operative Diagnosis: right Ureteral calculus Post-Operative Diagnosis: Same Surgery/Procedure Performed:: Cystoscopy, right ureteral stent removal, right retrograde pyelogram, right diagnostic ureteroscopy Surgeon: Teodora Simons Type of Anesthesia: General Description of Procedure: The patient is a 46-year-old female who was admitted and had a right ureteral stent insertion approximately 2 weeks ago for a distal right obstructing stone with pyelonephritis. She now presents for ureteroscopy and stone management. Informed consent has been obtained. The patient was taken to the operating room and placed on the operating room table. Anesthesia monitored the head, neck, airway, IV access and vital signs throughout the case. Once anesthesia was appropriately administered, the patient was placed into dorsal lithotomy position was prepped and draped in usual sterile fashion. The cystoscope was inserted through the urethra under direct visualization into the urinary bladder. The right ureteral stent was observed, grasped and removed without difficulty. Two 0.035 Glidewires were passed through the ureter and into the renal pelvis without difficulty. The flexible ureteroscope was then placed over the Glidewire and advanced into the right renal pelvis without difficulty. Each calyx in the renal pelvis was directly visualized and there were no stones identified. The proximal and mid ureter were visualized directly and once into the distal ureter there was significant peristalsis. The ureter was directly visualized but just to ensure that I did not miss anything, 5 cc of contrast was injected in retrograde fashion through the ureteroscope and confirmed that there were no filling defects. At this time the Glidewire's were removed and the patient was awakened and taken to the recovery room in good condition. There were no complications during this procedure. Grafts/Implants Used: none Complications None Admit VTE Documentation VTE Present on Admission: Yes VTE Mechan Device Prophylaxis: SCD's VTE Pharm Prophylaxis ordered?: No Reason prophylaxis not ordered:: Treatment Not Indicated
--- NOTE | 2022-03-07 12:19 | DCINST_ITS ---
Discharge Instructions Diet Discharge Diet: No restrictions Activity Discharge Activity: Return to Normal Activity and May Drive (When not taking narcotics) May resume sexual activity in: No Restrictions Dressing / Incision Call your doctor if you observe: Fever of 101 or Higher, Inability to urinate and Inability to have a bowel movement Follow Up Care Please Follow Up With: Teodora Simons MD When: Call the office for appointment Test Results: Test results from this visit will be discussed in further detail at your follow- up appointment, if applicable. Discharge Plan Admission Attending Provider: Teodora Simons Primary Care Provider: Florentin Garay Discharge Orders/Prescriptions Prescriptions: New oxycodone-acetaminophen [Percocet] 5-325 mg tablet 1 tab PO Q8H PRN (Reason: pain) 2 Days Qty: 6 0RF cephalexin [cephalexin] 500 mg capsule 500 mg PO Q12 3 Days Qty: 6 0RF phenazopyridine [Pyridium] 200 mg tablet 200 mg PO TID PRN PRN (Reason: Bladder Spasms) 7 Days Qty: 30 0RF Continued ascorbic acid (vitamin C) [Vitamin C] 1,000 MG tablet 1,000 mg PO DAILY tamsulosin 0.4 mg capsule 0.4 mg PO QHS Qty: 7 0RF duloxetine 30 mg capsule,delayed release(DR/EC) 1 cap PO DAILY phenazopyridine [Pyridium] 200 mg tablet 200 mg PO TID PRN PRN (Reason: Bladder Spasms) 7 Days Qty: 30 0RF oxycodone-acetaminophen 5-325 mg tablet 1 tab PO Q6H PRN PRN (Reason: pain) 5 Days Qty: 20 0RF ciprofloxacin HCl [Cipro] 500 mg tablet 500 mg PO BID Qty: 24 0RF Referrals / Follow Up: Florentin Garay DO [Primary Care Provider] - Disposition Disposition (needs filled in before D/C Order can be placed): Home, Self Care
[2022-03-07] MEDS: Cefazolin 2 GM in 0.9% Normal Saline 100 ML IV (12:40)
== END 2022-03-07 15:03 | disposition home or self-care (01) ==
LOC: SDC 10:46 → AC 10:47
PROVIDERS: Anesthesiology; PCP Family Medicine; Referring Provider Urology; Visit Provider Urology
PROC: 0TJ98ZZ Inspection of Ureter, Via Natural or Artificial Opening Endoscopic (ICD-10-PCS; CPT 52352; principal; 2022-03-07 14:55)
DX: N20.1 Calculus of ureter (principal); I10 Essential (primary) hypertension; Z79.899 Other long term (current) drug therapy; Z98.84 Bariatric surgery status
CPT/HCPCS: 52310; 76000; 81025; J7120; J2405

== ENCOUNTER → 2022-11-18 | Outpatient (CLI) | payer MEDICAID, SELFPAY ==
--- NOTE | 2022-11-18 07:22 | BI_ITS ---
MAMMOGRAPHY - BILATERAL SCREENING 3-D TOMOSYNTHESIS REASON FOR EXAM: Female, 47 years old. Routine screening PERTINENT HISTORY: No significant family history. History of previous reduction surgery TECHNIQUE: 2-D mammograms and 3-D Tomosynthesis of the breast (s) were performed. CAD was performed. COMPARISON: 06/15/2021 FINDINGS: The breast composition is composed of scattered fibroglandular density. Scattered benign calcifications are seen. No dense spiculated masses or suspicious microcalcifications are identified. No architectural distortion is identified. There is no skin thickening or retraction. There has been no significant change since the prior study. BI/SCRN MAMM (CAD)W/ALICIA BILAT IMPRESSION: No mammographic signs of malignancy. Routine yearly mammograms recommended. ASSESSMENT CATEGORY: BIRADS Category 2: Benign. A letter regarding these results will be sent to the patient by the facility within 30 days. FOLLOW UP RECOMMENDATION: Yearly follow up mammogram recommended. (A) Approximately 10% of breast cancers are not detected by mammography. A normal mammogram should not delay biopsy of a clinically suspicious abnormality. Electronically Signed: Diomedes Jacobs MD at 8:02 EDT ,
== END | disposition home or self-care (01) ==
LOC: OPBI 07:20
PROVIDERS: PCP Family Medicine; Visit Provider Family Medicine
DX: Z12.31 Encounter for screening mammogram for malignant neoplasm of breast (principal)
CPT/HCPCS: 77063; 77067

== ENCOUNTER → 2022-11-28 | Outpatient (CLI) | payer MEDICAID, SELFPAY ==
[2022-11-28 17:48] LABS: Absolute Lymphocyte Count 3.25 X10^3/uL (0.83-4.51); Absolute Neutrophil Count 5.8 X10^3/uL (2.0-7.7); Basophil# 0.05 X10^3/uL; Basophil% 0.5 % (0-1); Eosinophil# 0.22 X10^3/uL; Eosinophils% 2.2 % (0-5); Hemoglobin 8.1 g/dL (12.0-15.0); Lymphocyte # 3.25 X10^3/ul (0.83-4.51); Lymphocyte % 32.8 % (19-41); Mean Corp Hgb Conc 28.9 g/dL (32-36); Mean Corpuscular Hgb 22.2 pg (27.0-32.0); Mean Corpuscular Volume 76.7 fL (81-99); Mean Platelet Vol. 10.3 fl (6.2-12.0); Monocyte# 0.55 X10^3/uL; Monocyte% 5.5 % (0-10); NRBC Flagged by Analyzer 0 % (0-5); Neutrophil # 5.82 X10^3/uL (2.7-7.7); Neutrophil % 58.7 % (47-70); Platelet Count 357 K/mm3 (150-450); RBC Distribution Width CV 16.6 % (11.6-14.6); RBC Distribution Width SD 45.9 fl (35.1-43.9); Red Blood Count 3.65 M/mm3 (4.2-5.4); White Blood Count 9.9 K/mm3 (4.4-11.0)
[2022-11-28 17:59] LABS: Ferritin 3 ng/mL (8-252); Iron 11 ug/dL (50-170)
== END | disposition home or self-care (01) ==
LOC: MFPLAB 16:17
PROVIDERS: PCP Family Medicine; Referring Provider Family Medicine; Visit Provider Family Medicine
DX: D64.9 Anemia, unspecified (principal)
CPT/HCPCS: 36415; 82728; 83540; 85025

== ENCOUNTER 2022-12-16 12:53 | Outpatient (CLI) | payer MEDICAID, SELFPAY ==
[2022-12-16 13:15] VITALS: BP 168/82; PULSE 71; RESP 16; TEMP 36.4; O2SAT 100; BMI 28.0
[2022-12-16] MEDS: 0.9% NaCl Peripheral Flush Adult/Peds IV (13:26)
[2022-12-16] MEDS: 0.9% NaCl IVPB Med Flush (250 mL) 15 ML IV (13:26)
[2022-12-16 16:13] VITALS: BP 167/83; PULSE 90; RESP 16; TEMP 36.5; O2SAT 100
== END 2022-12-16 12:54 | disposition home or self-care (01) ==
LOC: MEDOUTP 12:54
PROVIDERS: PCP Family Medicine; Referring Provider Family Medicine; Visit Provider Family Medicine
DX: D50.9 Iron deficiency anemia, unspecified (principal)
CPT/HCPCS: 96365; 96366; J7050; A4216; J2916

== ENCOUNTER 2022-12-30 13:15 | Outpatient (CLI) | payer MEDICAID, SELFPAY ==
[2022-12-30] MEDS: 0.9% NaCl Peripheral Flush Adult/Peds IV (13:38)
[2022-12-30 13:49] VITALS: BP 160/75; PULSE 91; RESP 14; TEMP 35.3; O2SAT 99; BMI 28.0
[2022-12-30] MEDS: 0.9% NaCl IVPB Med Flush (250 mL) 15 ML IV (13:53)
[2022-12-30 16:30] VITALS: BP 155/87; PULSE 76; RESP 16; TEMP 36.2; O2SAT 100
== END 2022-12-30 13:16 | disposition home or self-care (01) ==
LOC: MEDOUTP 13:15
PROVIDERS: PCP Family Medicine; Referring Provider Family Medicine; Visit Provider Family Medicine
DX: D50.9 Iron deficiency anemia, unspecified (principal)
CPT/HCPCS: 96365; 96366; J7050; A4216; J2916

== ENCOUNTER 2023-01-13 12:50 | Outpatient (CLI) | payer MEDICAID, SELFPAY ==
[2023-01-13 13:02] VITALS: BP 189/83; PULSE 62; RESP 16; O2SAT 100; BMI 28.0
[2023-01-13] MEDS: 0.9% NaCl Peripheral Flush Adult/Peds IV (13:48)
[2023-01-13] MEDS: 0.9% NaCl IVPB Med Flush (250 mL) 15 ML IV (13:48)
[2023-01-13 16:07] VITALS: BP 153/90; RESP 16
== END 2023-01-13 12:51 | disposition home or self-care (01) ==
PROVIDERS: PCP Family Medicine; Referring Provider Family Medicine; Visit Provider Family Medicine
DX: D50.9 Iron deficiency anemia, unspecified (principal)
CPT/HCPCS: 96365; 96366; J7050; A4216; J2916

== ENCOUNTER 2023-01-27 12:48 | Outpatient (CLI) | payer MEDICAID, SELFPAY ==
[2023-01-27] MEDS: 0.9% NaCl IVPB Med Flush (250 mL) 15 ML IV (13:04)
[2023-01-27] MEDS: 0.9% NaCl Peripheral Flush Adult/Peds IV (13:04)
[2023-01-27 13:12] VITALS: BP 149/76; PULSE 69; RESP 16; TEMP 36.4; O2SAT 100; BMI 28.0
[2023-01-27 15:31] VITALS: BP 156/77; PULSE 64
== END 2023-01-27 12:49 | disposition home or self-care (01) ==
PROVIDERS: PCP Family Medicine; Referring Provider Family Medicine; Visit Provider Family Medicine
DX: D50.9 Iron deficiency anemia, unspecified (principal)
CPT/HCPCS: 96365; 96366 ×2; J7050; A4216; J2916

== ENCOUNTER 2023-02-10 12:46 | Outpatient (CLI) | payer MEDICAID, SELFPAY ==
[2023-02-10 13:07] VITALS: BP 163/87; PULSE 72; RESP 16; O2SAT 99
[2023-02-10] MEDS: 0.9% NaCl Peripheral Flush Adult/Peds IV ×2 (13:11→13:44)
[2023-02-10] MEDS: 0.9% NaCl IVPB Med Flush (250 mL) 15 ML IV (13:45)
[2023-02-10 16:14] VITALS: BP 163/84; PULSE 75; RESP 16
== END 2023-02-10 12:47 | disposition home or self-care (01) ==
PROVIDERS: PCP Family Medicine; Referring Provider Internal Medicine Gastroenterology; Visit Provider Internal Medicine Gastroenterology
DX: D50.9 Iron deficiency anemia, unspecified (principal)
CPT/HCPCS: 96365; 96366; J7050; A4216; J2916

== ENCOUNTER → 2023-03-11 | Outpatient (CLI) | payer MEDICAID, SELFPAY ==
[2023-03-11 10:02] LABS: Absolute Lymphocyte Count 2.62 X10^3/uL (0.83-4.51); Basophil# 0.04 X10^3/uL; Basophil% 0.6 % (0-1); Eosinophil# 0.21 X10^3/uL; Eosinophils% 2.9 % (0-5); Hematocrit 39.2 % (37-47); Hemoglobin 12.4 g/dL (12.0-15.0); Lymphocyte # 2.62 X10^3/ul (0.83-4.51); Lymphocyte % 36.7 % (19-41); Mean Corp Hgb Conc 31.6 g/dL (32-36); Mean Corpuscular Volume 91.8 fL (81-99); Mean Platelet Vol. 9.8 fl (6.2-12.0); Monocyte# 0.28 X10^3/uL; Monocyte% 3.9 % (0-10); NRBC Flagged by Analyzer 0 % (0-5); Neutrophil # 3.96 X10^3/uL (2.7-7.7); Neutrophil % 55.5 % (47-70); Platelet Count 287 K/mm3 (150-450); RBC Distribution Width CV 16.7 % (11.6-14.6); RBC Distribution Width SD 56.2 fl (35.1-43.9); Red Blood Count 4.27 M/mm3 (4.2-5.4); White Blood Count 7.1 K/mm3 (4.4-11.0)
[2023-03-11 10:27] LABS: Ferritin 56 ng/mL (8-252); Iron 85 ug/dL (50-170)
== END | disposition home or self-care (01) ==
LOC: MFPLAB 08:40
PROVIDERS: PCP Family Medicine; Visit Provider Family Medicine
DX: D50.9 Iron deficiency anemia, unspecified (principal)
CPT/HCPCS: 36415; 82728; 83540; 85025

== ENCOUNTER → 2023-10-28 | Outpatient (CLI) | payer OTHER, SELFPAY ==
[2023-10-28 10:09] LABS: COTININE Drug Screen Negative (<200 ng/mL)
[2023-10-28 10:19] LABS: Absolute Lymphocyte Count 1.82 X10^3/uL (0.83-4.51); Absolute Neutrophil Count 3.7 X10^3/uL (2.0-7.7); Basophil# 0.03 X10^3/uL; Basophil% 0.5 % (0-1); Eosinophil# 0.14 X10^3/uL; Eosinophils% 2.3 % (0-5); Hematocrit 35.8 % (37-47); Hemoglobin 11.7 g/dL (12.0-15.0); Lymphocyte # 1.82 X10^3/ul (0.83-4.51); Mean Corp Hgb Conc 32.7 g/dL (32-36); Mean Corpuscular Volume 91.8 fL (81-99); Mean Platelet Vol. 10.2 fl (6.2-12.0); Monocyte# 0.41 X10^3/uL; Monocyte% 6.8 % (0-10); NRBC Flagged by Analyzer 0 % (0-5); Neutrophil # 3.65 X10^3/uL (2.7-7.7); Neutrophil % 60.2 % (47-70); Platelet Count 302 K/mm3 (150-450); RBC Distribution Width CV 12.5 % (11.6-14.6); RBC Distribution Width SD 41.7 fl (35.1-43.9); White Blood Count 6.1 K/mm3 (4.4-11.0)
[2023-10-28 10:31] LABS: ALB/GLOB Ratio 1.1 RATIO (0.9-2.4); AST(SGOT) 19 U/L (15-37); Alanine Aminotransfer ALT/SGPT 19 U/L (13-56); Albumin, Serum 3.7 g/dL (3.2-5.0); Alkaline Phosphatase 66 U/L (45-117); Anion Gap 6 (5-15); BUN 11 mg/dL (7-18); BUN/Creat Ratio 11.5 RATIO (10-20); Calcium,Total 8.7 mg/dL (8.5-10.1); Chloride 109 mmol/L (98-107); Cholesterol 129 mg/dL (200); Creatinine, Serum 0.96 mg/dL (0.55-1.02); EST Glomerular Filtration Rate 66 mL/min (>60); Est Glom Filt Rate - Afr Amer 80 mL/min (>60); Ferritin 12 ng/mL (8-252); Globulin 3.3 g/dL (2.2-4.2); Glucose 87 mg/dL (74-106); High Density Lipoprotein 44 mg/dL; Iron 85 ug/dL (50-170); Potassium 3.4 mmol/L (3.5-5.1); Sodium Level 140 mmol/L (136-145); Triglycerides 85 mg/dL; Very Low Density Lipoprotein 17 mg/dL (5-40)
== END | disposition home or self-care (01) ==
PROVIDERS: PCP Family Medicine; Referring Provider Family Medicine; Visit Provider Family Medicine
DX: Z00.00 Encounter for general adult medical examination without abnormal findings (principal); Z98.84 Bariatric surgery status
CPT/HCPCS: 36415; 80053; 80061; 80307; 82728; 83540; 85025

== ENCOUNTER → 2023-11-21 | Outpatient (CLI) | payer OTHER, SELFPAY ==
--- NOTE | 2023-11-21 10:20 | BI_ITS ---
MAMMOGRAPHY - BILATERAL SCREENING REASON FOR EXAM: Female, 48 years old. Routine annual screening examination. PERTINENT HISTORY: Grandmother with breast cancer. History of prior bilateral breast reduction surgery. TECHNIQUE: Digital bilateral breast ailcia (3D mammographic acquisition) in the CC and MLO projections. 2-D mediolateral oblique (MLO) and craniocaudad (CC) views of both breasts were obtained. CAD: Full Field Digital Mammography with Computer Added Detection was performed. COMPARISON: Comparison is made with prior study of November 18, 2022 and June 15, 2021. FINDINGS: Breast Composition: There are scattered areas of fibroglandular density. There are no dominant masses or suspicious calcifications. No other significant abnormalities are identified. There has been no significant change since the prior study. BI/SCRN MAMM (CAD)W/ALICIA BILAT IMPRESSION: Stable bilateral screening mammogram. Yearly follow-up mammogram recommended. (A) ASSESSMENT CATEGORY: BIRADS Category 1: Negative. A letter regarding these results will be sent to the patient by the facility within 30 days. Approximately 10% of breast cancers are not detected by mammography. A normal mammogram should not delay biopsy of a clinically suspicious abnormality. [id number] Electronically Signed: Patrick Mcneill MD at 11:11 EDT ,
== END | disposition home or self-care (01) ==
PROVIDERS: PCP Family Medicine; Referring Provider Family Medicine; Visit Provider Family Medicine
DX: Z12.31 Encounter for screening mammogram for malignant neoplasm of breast (principal)
CPT/HCPCS: 77063; 77067

== ENCOUNTER → 2024-02-24 | Outpatient (CLI) | payer OTHER, SELFPAY | END | disposition home or self-care (01) | LOC: BFHLAB 13:51 → LABSPEC 13:52 | PROVIDERS: PCP Family Medicine; Referring Provider Family Medicine; Visit Provider Family Medicine | DX: R82.90 Unspecified abnormal findings in urine (principal) | CPT/HCPCS: 87086; 87088; 87186 ==

== ENCOUNTER → 2024-05-07 | Outpatient (CLI) | payer OTHER, SELFPAY ==
[2024-05-11 19:07] LABS: QNTFERON TB Mitogen Value > 10.00 IU/mL (.); QNTFERON TB Nil Value 0.01 IU/mL (.); QNTFERON TB1+ Ag Value 0.01 IU/mL (.); QNTFERON TB2+ Ag Value 0.01 IU/mL (.); QNTIFERON TB Positive Criteria Negative (Negative)
== END | disposition home or self-care (01) ==
LOC: MTLAB 14:09
PROVIDERS: PCP Family Medicine; Referring Provider Physician Assistant; Visit Provider Physician Assistant
DX: L40.0 Psoriasis vulgaris (principal)
CPT/HCPCS: 36415; 86480

== ENCOUNTER → 2025-01-21 | Outpatient (CLI) | payer OTHER, SELFPAY ==
[2025-01-21 10:42] LABS: Absolute Lymphocyte Count 1.93 X10^3/uL (0.83-4.51); Absolute Neutrophil Count 6.3 X10^3/uL (2.0-7.7); Basophil# 0.03 X10^3/uL; Basophil% 0.3 % (0-1); Eosinophils% 1.1 % (0-5); Hematocrit 37.6 % (37-47); Hemoglobin 12.6 g/dL (12.0-15.0); Lymphocyte # 1.93 X10^3/ul (0.83-4.51); Lymphocyte % 21.8 % (19-41); Mean Corp Hgb Conc 33.5 g/dL (32-36); Mean Corpuscular Volume 92.4 fL (81-99); Monocyte# 0.48 X10^3/uL; Monocyte% 5.4 % (0-10); NRBC Flagged by Analyzer 0 % (0-5); Neutrophil # 6.25 X10^3/uL (2.7-7.7); Neutrophil % 70.8 % (47-70); Platelet Count 327 K/mm3 (150-450); RBC Distribution Width CV 12.2 % (11.6-14.6); RBC Distribution Width SD 41.1 fl (35.1-43.9); Red Blood Count 4.07 M/mm3 (4.2-5.4); White Blood Count 8.8 K/mm3 (4.4-11.0)
[2025-01-21 10:50] LABS: Hemoglobin A1c 5.6 % (<=5.6)
[2025-01-21 14:44] LABS: Cholesterol 114 mg/dL (<=200); Ferritin 37 ng/mL (22-378); High Density Lipoprotein 52 mg/dL; Low Density Lipoprotein Calc. 51 mg/dL; Triglycerides 54 mg/dL; Very Low Density Lipoprotein 11 mg/dL (5-40); Vitamin B12 308 pg/mL (180-914); cholesterol:hdl ratio screen 2.19
[2025-01-21 15:12] LABS: Iron 127 ug/dL (50-170)
[2025-01-21 15:54] LABS: ALB/GLOB Ratio 1.6 RATIO (0.9-2.4); AST(SGOT) 22 U/L (<=31); Alanine Aminotransfer ALT/SGPT 18 U/L (<=34); Albumin, Serum 4.4 g/dL (3.5-5.0); Alkaline Phosphatase 78 U/L (35-104); Anion Gap 12 (5-15); BUN 13 mg/dL (4-19); BUN/Creat Ratio 14.8 RATIO (10-20); Calcium,Total 9.2 mg/dL (7.6-11.0); Carbon Dioxide 25.8 mmol/L (21.0-32.0); Chloride 100 mmol/L (98-108); Creatinine, Serum 0.89 mg/dL (0.70-1.20); EST Glomerular Filtration Rate 80 (>60); Globulin 2.7 g/dL (2.2-4.2); Glucose 170 mg/dL (70-99); Potassium 4.2 mmol/L (3.3-5.1); Protein, Total 7.1 g/dL (5.9-8.4); Sodium Level 137 mmol/L (133-145); Total Bilirubin 0.32 mg/dL (0.00-1.30)
[2025-01-27 13:08] LABS: Cotinine Screen Blood <1.0 ng/mL (.); Nicotine Blood <1.0 ng/mL (.)
== END | disposition home or self-care (01) ==
LOC: LAB 09:18
PROVIDERS: PCP Family Medicine; Referring Provider Family Medicine; Visit Provider Family Medicine
DX: Z00.00 Encounter for general adult medical examination without abnormal findings (principal); D50.9 Iron deficiency anemia, unspecified; Z98.84 Bariatric surgery status
CPT/HCPCS: 36415; 80053; 80061; 80323; 82607; 82728; 83036; 83540; 84443; 85025; G0480

== ENCOUNTER 2025-04-08 07:02 | Day surgery (SDC) | payer OTHER, SELFPAY ==
[2025-04-08] VITALS (9 sets, daily range): BP systolic 93–134; BP diastolic 60–112; PULSE 57–67; RESP 16–18; TEMP 36.2–36.5; O2SAT 99–100; BMI 29.3
--- NOTE | 2025-04-08 07:19 | PRE.ANES_ITS ---
ASA Classification* ASA Classification ASA Classification: 2 Assessment & Plan Anesthesia* Anesthesia Assessment Anesthesia Assessment: Discussed sedation and/or anesthesia options, risks, benefits, and alternatives with patient/parents/legal guardian/POA. Questions invited. The patient/parents/legal guardian/POA seems to understand and agrees to proceed with anesthesia plan. Reviewed the physical assessment, medical history, allergy history and patient home medications list prior to surgery/procedure/anesthetic and documented any changes. Performed airway and anesthesia risk assessments. Anesthesia Type Anesthesia Type: MAC Anesthesia Focused Assessment* Airway Assessment Mouth opens: >3 cm Mallampati Score: II Labs Anesthesia Preop lab: CBC WBC 8.8 K/mm3 (4.4-11.0) 01/21/25 09:01/21/25 RBC 4.07 M/mm3 (4.2-5.4) L 01/21/25 09:23 01/21/25 Hgb 12.6 g/dL (12.0-15.0) 01/21/25 09:01/21/25 Hct 37.6 % (37-47) 01/21/25 09:23 01/21/25 Plt Count 327 K/mm3 (150-450) 01/21/25 09:23 01/21/25 CHEMISTRY Potassium 4.2 mmol/L (3.3-5.1) 01/21/25 09:23 01/21/25 Sodium 137 mmol/L (133-145) 01/21/25 09:23 01/21/25 BUN 13 mg/dL (4-19) 01/21/25 09:01/21/25 Creatinine 0.89 mg/dL (0.70-1.20) 01/21/25 09:23 01/21/25 Glucose 170 mg/dL (70-99) H 01/21/25 09:23 01/21/25 TSH 3.080 uIU/mL (0.300-4.200) 01/21/25 09:23 01/09 11/02 COAG PT 15.3 SECONDS (11.7-14.9) H 02/21/22 04:50 02/08 11/30 Urine Test Negative Negative 03/07/22 11:00 03/07/22 Pre-Assessment Diagnosis/Proposed Procedure Planned Operative Procedure(s): COLONOSCOPY-OA Anesthesia History 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 When Was Last Pacemaker Check QUESTION #4 FULL TEXT: You/Your Family Experience fever (hyperthermia) with Anesthesia Last Oral Intake Last Oral intake: Last Oral Intake NPO since Meds taken in AM with sips of water? Meds patient instructed to take am of surgery PONV PONV - junior mechanical engineer: PONV - junior mechanical engineer Female Yes 04/04/25 15:59 HX of Motion Sickness No 04/04/25 15:59 HX of N/V After Surgery No 04/04/25 15:59 Non-Smoker Yes 04/04/25 15:59 Duration of Surgery greater No 04/04/25 15:59 than 60 minutes Number of Risk Factors 2 04/04/25 15:59 PONV Score Moderate Risk 04/04/25 15:59 Height & Weight Height & Weight: Anesthesia: Height & Weight Height 5 ft 3 in 02/10/23 13:07 Respiratory Assessment Respiratory Assessment - junior mechanical engineer: Respiratory Tract Infection Hx - junior mechanical engineer Hx Respiratory Tract Infection No 04/04/25 15:59 STOP Sleep Apnea STOP Sleep Apnea - junior mechanical engineer: STOP Sleep Apnea - junior mechanical engineer Hx Hypertension No 04/04/25 15:59 Hx Sleep Apnea No 04/04/25 15:59 CPAP No 04/04/25 15:59 BIPAP No 04/04/25 15:59 Do you snore loudly (louder No 04/04/25 15:59 than talking or can be heard Do you often feel tired/ No 04/04/25 15:59 fatigued/ sleepy during daytime? Has anyone observed you stop No 04/04/25 15:59 breathing during sleep? STOP Results Negative 04/04/25 15:59 QUESTION #5 FULL TEXT : Do you snore loudly (louder than talking or can be heard through closed doors)? Tobacco Use History Tobacco Use History - junior mechanical engineer: Tobacco Use History - junior mechanical engineer Tobacco Use Smoking Status Never smoker 04/04/25 15:59 Hx Tobacco Use No 04/04/25 15:59 Years Smoking Packs Smoked per Day Smoking Cessation Date was within the last 15 years Hx Smoking Cessation Date Hx Smoking Cessation Counseling Hematologic Medial History Hematologic Hx - junior mechanical engineer: Hematologic Medical Hx - opto mechanical technician Hx of Blood Transfusion No 04/04/25 15:59 Hx of Transfusion in last 3 No 04/04/25 15:59 Months Date of Last Transfusion (if within last 3 months) Ever experience any problems No 04/04/25 15:59 with transfusion(s)? Specify any problems Hx of Preganancy in last 3 No 04/04/25 15:59 Months Nurse Filling Out Transfusion VCHRISTIN 04/04/25 15:59 & Questions: Date: 04/04/25 04/04/25 15:59 Time: 16:01 04/04/25 15:59 Patient unable to answer at this time (ie. confused, unrespo /Reproduction History /Reproductive History - junior mechanical engineer: /Reproductive Hx- junior mechanical engineer Hx Now No 04/04/25 15:59 Gestational Age (in weeks): EDC: Hx Hx Para Hx Section SAB No 04/04/25 15:59 Active Medications Active Medications: Current Medications Generic Name Dose Route Start Last Admin Trade Name Freq PRN Reason Stop Dose Admin Lactated Ringer's 1,000 mls @ 15 mls/hr 04/08/25 07:15 IV .Q48H MALACHI PFSH Medical History Rheumatoid arthritis Kidney stones Back pain Wears contact lenses Wears glasses Arthritis Non-smoker Leg cramps History of edema Cardiology follow-up encounter Hydronephrosis Hypertension Ureterolithiasis Home Medications ?Medication ?Instructions ?Recorded ?Last Taken ?Type ascorbic acid (vitamin C) 1,000 mg 1,000 mg PO DAILY S UPPLEMENT 11/10/17 Unknown History tablet (Vitamin C) duloxetine 30 mg capsule,delayed 1 cap PO DAILY Unknown History release amlodipine 10 mg tablet 10 mg PO DAILY 04/04/25 Unkn own History [id number] 320 mg/2 mL 320 mg subcut .Q4 WEEKS 0 04/04/25 Unknown History subcutaneous auto-injector (Bimzelx Autoinjector) cholecalciferol (vitamin D3) 25 25 mcg PO DAILY Unknown History mcg (1,000 unit) capsule (Vitamin D3) cyanocobalamin (vitamin B-12) 1,000 mcg PO DAILY 04/04 Unknown History 1,000 mcg tablet (Vitamin B-12) ferrous gluconate 324 mg (38 mg 324 mg PO BID 04/04/25 03/30/25 History iron) tablet levonorgestrel 0.15 mg-ethinyl 1 tab PO DAILY 04/04/25 Unknown History estradiol 0.03 mg tablet (Mitzio (28)) losartan 50 mg-hydrochlorothiazide 1 tab PO BID Unknown History 12.5 mg tablet phentermine 37.5 mg tablet 37.5 mg PO DAILY 04/04/25 0 03/30/25 History topiramate 25 mg tablet 25 mg PO DAILY 04/04/25 08/2 History tramadol 50 mg tablet 50 - 100 mg PO Q8H PRN PRN p ain 04/04/25 Unknown History Allergy/AdvReac Type Severity Reaction Status Date / Time hydrogen peroxide Allergy Rash Verified 04/04/25 15:44 Surgical History (Updated 04/04/25 @ 15:59 by Ella Couch) History of cystoscopy Hx of breast reduction, elective History of cholecystectomy History of H/O gastric bypass Social History Smoking Status: Never smoker Review of Systems (Anesthesia) ROS Narrative System reviewed and no additional complaints, except as documented.
--- OUTSIDE RECORDS SUMMARY | 2025-04-08 07:24 | XMS RPT_ITS | CCD ---
Author Organization [facility] Care Team Providers Care Bookmobile Clerk Name Role Phone Scooby Garay Primary Care Provider SCOOBY GARAY Primary Care Unavailable VERONICA CAMPOS Attending Unavailable Dr. Scooby Garay DO Primary Care Provider Dr. Scooby Gaary DO Attending Provider Dr. Scooby Garay DO Referring Provider Scooby Garay Referring Unavailable Bowen Cramer Attending Unavailable Scooby Garay Primary Care Unavailable Scooby Garay Primary Care Unavailable Catrina Palm Attending Unavailable Catrina Palm Referring Unavailable Scooby Garay Primary Care Unavailable Scooby Garay Attending Unavailable Scooby Garay Referring Unavailable Allergies Allergy Classification Reported Allergen(s) Allergy Type Date of Onset Reaction(s) Facility Hydrogen Peroxide (4 sources) Hydrogen Peroxide Drug Allergy 03-22-2020 Dermatitis [facility] (20 sources) Hydrogen Peroxide Drug Allergy 09-08-2019 Dermatitis [place], [place] (1 source) Hydrogen Peroxide Drug Allergy 04-04-2025 [facility] Repository Medications Current Medications Medication Drug Class(es) Dates Sig (Normalized) Sig (Original) acetaminophen 325 mg / oxyCODONE hydrochloride 5 mg oral tablet (18 sources) Opioid Agonist Start: 03-07-2022 take 1 tablet by mouth every eight hours Oxycodone-Acetami nophen (Percocet) 5-325 mg tablet Active 1 TABLET PO Q8H 6 2 March 07, 2022 Start: 02-16-2022 End: 02-19-2022 Oxycodone-Acetaminophen 5-32 5 mg tablet Discontinued 1 {tbl} PO EVERY 6 HOURS NEEDED as needed for pain 28 12February 16, 2022 February 19, 2022 4:09pm Start: 02-16-2022 End: 02-19-2022 take 1 tablet by mouth every six hours as needed Oxycodone-Acetaminophen Discontinued 1 TABLET PO EVERY 6 HOURS NEEDED 28 12February 16, 2022 February 19, 2022 4:09pm Start: 11-29-2020 oxyCODONE-acet aminophen (PERCOCET) 5-325 MG per tablet 1 tablet Start: 11-28-2020 End: 12-05-2020 oxyCODONE-acetaminophen (PER COCET) 5-325 MG per tablet Indications: S/P gastric bypass Take 1 tablet by mouth every 6 hours as needed for Pain for up to 7 days. Intended supply: 7 days. Take lowest dose possible to manage pain 28 tablet 0 11/28/2020 12/05/2020 Active 0.8 ml adalimumab 50 mg/ml prefilled syringe (8 sources) Tumor Necrosis Factor Lucy Start: 12-16-2022 adalimumab (Humira) 40 MG/0.8ML Prefilled Syringe Kit prefilled syringe 40 mg. 0 12/16/2022 Active Start: 12-16-2022 Adalimumab (Hu alex) 40 mg/0.8 mL Syringe Kit Active 40 mg SC EVERY WEEK December 16, 2022 12:00am albuterol 0.83 mg/ml inhalation solution (2 sources) beta2-Adrenergic Agonist Start: 11-30-2020 albut lady (PROVENTIL) nebulizer solution 2.5 mg Start: 11-28-2020 End: 11-30-2020 2.5 mg, Nebulization, EVERY 4 HOURS WHILE AWAKE, First dose on Fri11/28/20 at 1600, Post-op amLODIPine 10 mg oral tablet (20 sources) Dihydropyridine Calcium Channel Lucy Start: 11-29-2020 amLODIPine (NORVASC) tablet 10 mg amoxicillin 500 mg / clavulanate 125 mg oral tablet (1 source) Penicillin-class Antibacterial Start: 02-19-2022 take 1 tablet by mouth twice daily Amoxicillin-Pot Clavulanate (Augmentin) 500-125 mg tablet Active 1 TABLET PO TWICE A DAY 14 February 19, 2022 4:15pm ascorbic acid 1000 mg oral tablet (16 sources) Vitamin C Start: 11-10-2017 take 1 tablet by mouth once daily Ascorbic Acid (Vitamin C) (Vitamin C) 1,000 MG tablet Active 1000 mg PO DAILY November 10, 2017 12:00am take 3 doses by mouth once daily Ascorbic Acid (VITAMIN C ADULT GUMMIES PO) Take 3 each by mouth daily 0 Active biotin 5 mg oral capsule (12 sources) biotin 5 MG caps ule Take 1 capsule by mouth. 0 Active take 1 capsule by mouth once ryan ly Biotin 5000 MCG CAPS Take 1 capsule by mouth daily supplement 0 Active calcium carbonate 500 mg chewable tablet (4 sources) Start: 12-06-2020 take 1 tablet by mouth three times daily calcium carbonate (TUMS) 500 MG chewable tablet Take 1 tablet by mouth 3 times daily supplement 0 12/06/2020 Active calcium citrate 500 mg oral tablet (2 sources) Start: 06-05-2021 take 500 mg by mouth three times daily CALCIUM CITRATE PO Take 500 mg by mouth 3 times daily 0 06/05/2021 Active Calcium Citrate / Vitamin D (2 sources) Start: 06-05-2021 take 500 mg by mouth once Calcium Citrate-Vitamin D (CALCIUM CITRATE + PO) Take 500 mg by mouth. 0 06/05/2021 Active cephalexin 500 mg oral capsule (2 sources) Cephalosporin Antibacterial Start: 03-07-2022 take 500 mg by mouth every twelve hours Cephalexin Active 500 MG PO EVERY 12 HOURS 6 March 07, 2022 12:00am Cholecalciferol (4 sources) Vitamin D take 3 doses by mouth once daily Cholecalciferol (VITAMIN D3 GUMMIES PO) Take 3 each by mouth daily 0 Active ciprofloxacin 500 mg oral tablet (3 sources) Quinolone Antimicrobial Start: 02-21-2022 take 1 tablet by mouth twice daily Ciprofloxacin Hcl (Cipro) 500 mg tablet Active 500 MG PO TWICE A DAY February 21, 2022 12:00am CPAP Machine MISC (20 sources) CPAP Machine MIS C Indications: Sleep Apnea 10 cm by Does not apply route nightly Indications: Sleep Apnea DORA 0 Active CPAP Machine MIS C Indications: Sleep Apnea by Does not apply route Indications: Sleep Apnea 10cm DORA 0 Active CPAP Machine MIS C Indications: Sleep Apnea by Does not apply route Indications: Sleep Apnea 0 Active DULoxetine 30 mg delayed release oral capsule (12 sources) Serotonin and Norepinephrine Reuptake Inhibitor Start: 02-18-2022 DULoxetine (Cymbalta) [address] capsule Take by mouth. 0 02/18/2022 Active Start: 02-18-2022 Duloxetine 30 mg capsule,delayed release(DR/EC) Active 1 NMA PO DAILY February 18, 2022 12:00am 0.3 ml enoxaparin sodium 100 mg/ml prefilled syringe (1 source) Low Molecular Weight Heparin Start: 11-28-2020 inject 1 dose by subcutaneous injection twice daily 30 mg, Subcutaneous, EVERY 12 HOURS SCHEDULED (2 times per day), First dose on Fri11/28/20 at 2100 40mg every 12 hours, subcutaneous, if 300 - 400 lbs. Post-op ethinyl estradiol 0.03 mg / levonorgestrel 0.15 mg oral tablet (2 sources) Progestin, Estrogen, Progestin-contai alejandro Intrauterine Device Start: 02-07-2023 Clara-28 0.15-30 MG-MCG tablet famotidine 20 mg oral tablet (2 sources) Histamine-2 Receptor Antagonist Start: 11-29-2020 famotidine (PEPCID) tablet 20 mg Start: 11-28-2020 End: 11-28-2020 famotidine (PEPCID) tablet 2 0 mg ferrous gluconate 324 mg oral tablet (2 sources) Start: 01-29-2023 ferrous glucon ate (Fergon) 324 (38 Fe) MG tablet FLUoxetine 20 mg oral capsule (20 sources) Serotonin Reuptake Inhibitor Start: 11-29-2020 FLUoxetine (PROZAC) capsule 40 mg Start: 03-13-2015 take 60 mg by mouth once daily Fluoxetine Active 60 MG PO DAILY March 13, 2015 7:23pm take 1 capsule by [facility] once daily FLUoxetine (PROZAC) 40 MG capsule Take 40 mg by mouth daily 0 Active gabapentin 600 mg oral tablet (20 sources) Anti-epileptic Agent Start: 12-16-2022 take 1 tablet by mouth at bedtime Gabapentin 600 mg Tablet Active 600 mg PO AT BEDTIME December 16, 2022 12:00am Start: 11-29-2020 gabapentin (NE URONTIN) capsule 300 mg Start: 11-28-2020 gabapentin (NE URONTIN) capsule 100 mg glucagon (rdna) 1 mg injection (1 source) Antihypoglycemic Agent Start: 11-29-2020 glucago n (rDNA) injection 1 mg 150 ml glucose 50 mg/ml injection (3 sources) Start: 11-29-2020 dextrose 5 % s olution Start: 11-29-2020 glucose (GLUTO SE) 40 % oral gel 15 g Start: 11-29-2020 dextrose 50 % IV solution hydroCHLOROthiazide 25 mg oral tablet (19 sources) Thiazide Diuretic take 1 tablet by mouth once daily hydroCHLOROthiazide (HYDRODIURIL) 25 MG tablet Indications: BP/water retention Take 25 mg by mouth daily Indications: BP/water retention 0 Active HYDROmorphone (DILAUDID) injection 0.25 mg (1 source) Start : 11-28 HYDROmorphone (DILAUDID) injection 0.25 mg 1 ml ketorolac tromethamine 15 mg/ml cartridge (1 source) Nonsteroidal Anti-inflammatory Drug, Cyclooxygenase Inhibitor Start : 11-28 End: 12-03 15 mg, Intravenous, EVERY 6 HOURS, First dose on Fri11/28/20 at 1300, For 5 days Do not administer for more than 5 days. lisinopril 5 mg oral tablet (2 sources) Angiotensin Converting Enzyme Inhibitor Start : 09-08 take 5 mg by mouth once daily Lisinopril Active 5 MG PO DAILY September 08, 2019 5:41pm Multiple Vitamins-Iron (MULTIVITAMIN PLUS IRON ADULT PO) (2 sources) Start : 11-27 Multiple Vitamins-Iron (MULTIVITAMIN PLUS IRON ADULT PO) Take 2 Doses by mouth daily 0 11/27/2021 Active Start: 06-05-2021 take 1 dose by mouth once daily Multiple Vitamins-Iron (MULTIVITAMIN PLUS IRON ADULT PO) Take 1 Dose by mouth daily 0 06/05/2021 Active multivitamin with minerals (Cerovite) 18-400 mg-mcg tablet tablet (2 sources) Start: 11-27-2021 multivitamin with minerals (Cerovite) 18-400 mg-mcg tablet tablet Take 2 Doses by mouth. 0 11/27/2021 Active naproxen 500 mg oral tablet (2 sources) Nonsteroidal Anti-inflammatory Drug Start: 11-01-2017 take 500 mg by mouth twice daily Naproxen Active 500 MG PO TWICE A DAY November 01, 2017 3:46pm omeprazole 20 mg delayed release oral capsule (8 sources) Proton Pump Inhibitor Start: 11-15-2020 End: 05-14-2021 take 1 capsule by mouth once daily omeprazole (PRILOSEC) 20 MG delayed release capsule Take 1 capsule by mouth daily 30 capsule 5 11/15/2020 Active ondansetron 8 mg oral tablet (4 sources) Serotonin-3 Receptor Antagonist Start: 02-19-2022 take 8 mg by mouth every eight hours as needed Ondansetron Hcl Active 8 MG PO EVERY 8 HOURS NEEDED 27 02February 19, 2022 12:00am Start: 11-28-2020 take 1 tablet by davey th once daily as needed for nausea ondansetron (ZOFRAN) 4 MG tablet Take 1 tablet by mouth daily as needed for Nausea or Vomiting 30 tablet 0 11/28/2020 Active Start: 11-28-2020 4 mg, Intraven ous, EVERY 6 HOURS PRN, Nausea, Starting Fri11/28/20 at 1236, Post-op Pediatric Multivitamins-Iron (CHILDRENS MULTIVITAMIN/IRON PO) (4 sources) Start: 12-06-2020 Pediatric Mult ivitamins-Iron (CHILDRENS MULTIVITAMIN/IRON PO) Take 2 Doses by mouth daily Supplement 0 12/06/2020 Active Start: 12-06-2020 Pediatric Mult ivitamins-Iron (CHILDRENS MULTIVITAMIN/IRON PO) Take 2 Doses by mouth daily 0 12/06/2020 Active perflutren lipid microspheres (DEFINITY) injection 1.65 mg (1 source) Start: 08-21-2020 End: 08-24-2020 perflutren lipid microspheres (DEFINITY) injection 1.65 mg phenazopyridine hydrochloride 200 mg oral tablet (5 sources) Start: 02-19-2022 take 1 tablet by mouth three times daily as needed Phenazopyridine (Pyridium) 200 mg tablet Active 200 MG PO 3 TIMES DAILY NEEDED 09 03March 07, 2022 12:00am 1000 ml potassium chloride 0.02 meq/ml / sodium chloride 4.5 mg/ml injection (1 source) Start: 11-29-2020 0.45 % NaCl wi th KCl 20 mEq infusion Semaglutide-Weight Management (Wegovy) 0.25 MG/0.5ML solution auto-injector (2 sources) Start: 02-26-2023 End: 03-28-2023 Semaglutide-Weight Management (Wegovy) 0.25 MG/0.5ML solution auto-injector Indications: Overweight (BMI 25.0-29.9) , BMI 29.0-29.9,adult Inject 0.5 mL (0.25 mg) under the skin every 7 days. 2 mL 0 02/26/2023 03/28/2023 Active 3 ml sodium chloride 9 mg/ml injection (5 sources) Start: 11-28-2020 10 mL, Intrave nous, EVERY 12 HOURS SCHEDULED (2 times per day), First dose on Fri11/28/20 at 2100, Post-op Start: 11-28-2020 take 10 mL intravenously once 10 mL, Intravenous, PRN, Line Care, Starting Fri11/28/20 at 1236 After every IV line use Post-op Start: 11-28-2020 take 25 mL intraveno usly every hour as needed 25 mL, Intravenous, at 100 mL/hr, PRN, If patient receiving piggyback infusions without ordered maintenance IV fluids or with frequent/long duration piggyback infusions, Starting Fri11/28/20 at 1236 Administer at the same rate as the piggyback being infused. Post-op Start: 08-21-2020 End: 08-24-2020 sodium chloride flush 0.9 % injection 10 mL Start: 07-03-2020 0.9 % sodium c hloride infusion tamsulosin hydrochloride 0.4 mg oral capsule (5 sources) alpha-Adrenergic Lucy Start: 02-16-2022 take 0.4 mg by mouth at bedtime Tamsulosin Active 0.4 MG PO AT BEDTIME February 16, 2022 12:00am topiramate 25 mg oral tablet (8 sources) take 1 tablet by mouth twice daily topiramate (TOPAMAX) 25 MG tablet Take 25 mg by mouth 2 times daily Weight loss 0 Active vitamin b12 0.5 mg sublingual tablet (6 sources) Vitamin B12 Start: 12-06-2020 Cyanocobalamin (VITAMIN B-12) [address] 1 Dose under the tongue daily Supplement 0 12/06/2020 Active VITAMIN D, CHOLECALCIFEROL, PO (6 sources) Start: 12-06-2020 VITAMIN D, CHOLECALCIFEROL, PO Take 4,000 Int'l Units by mouth daily Supplement 0 12/06/2020 Active Start: 12-06-2020 VITAMIN D, CHO LECALCIFEROL, PO Take 4,000 Int'l Units by mouth daily 0 12/06/2020 Active Completed/Discontinued Medications Medication Drug Class(es) Dates Sig (Normalized) Sig (Original) acetaminophen 500 mg oral tablet (7 sources) Start: 11-28-2020 End: 11-28-2020 acetaminophen (TYLENOL) tablet 1,000 mg acetaminophen (T YLENOL) 500 MG tablet Take 1,000 mg by mouth as needed for Pain 0 Active ALPRAZolam 0.25 mg disintegrating oral tablet (1 source) Benzodiazepine Start: 11-28-2020 End: 11-28-2020 ALPRAZolam (NIRAVAM) dissolvable tablet 0.25 mg calcium chloride 0.0014 meq/ml / potassium chloride 0.004 meq/ml / sodium chloride 0.103 meq/ml / sodium lactate 0.028 meq/ml injectable solution (1 source) Start: 11-28-2020 End: 11-28-2020 lactated ringers infusion ceFAZolin 2000 mg injection (1 source) Cephalosporin Antibacterial Start: 11-28-2020 End: 11-28-2020 ceFAZolin (ANCEF) 2000 mg in dextrose 4 % 100 mL IVPB (premix) celecoxib 400 mg oral capsule (1 source) Nonsteroidal Anti-inflammatory Drug Start: 11-28-2020 End: 11-28-2020 celecoxib (CELEBREX) capsule 400 mg Start: 11-28-2020 End: 11-28-2020 celecoxib (CELEBREX) capsule 400 mg 500 ml glucose 50 mg/ml / potassium chloride 0.02 meq/ml / sodium chloride 4.5 mg/ml injection (1 source) Start: 11-28-2020 End: 11-29-2020 Intravenous, at 100 mL/hr, CONTINUOUS, Starting Fri11/28/20 at 1300, Post-op 1 ml heparin sodium, porcine 5000 unt/ml prefilled syringe (1 source) Unfractionated Heparin, Anti-coagulant Start: 11-28-2020 End: 11-28-2020 heparin (porcine) injection 5,000 Units Start: 11-28-2020 End: 11-28-2020 heparin (porcine) injection 5,000 Units 1 ml HYDROmorphone hydrochloride 1 mg/ml cartridge (1 source) Opioid Agonist Start: 11-28-2020 End: 11-28-2020 HYDROmorphone (DILAUDID) injection 0.5 mg insulin lispro 100 unt/ml injectable solution (1 source) Insulin Analog Start: 11-29-2020 End: 11-30-2020 insulin lispro (HUMALOG) injection vial 0-6 Units 1 ml LORazepam 2 mg/ml injection (2 sources) Benzodiazepine Start: 11-28-2020 End: 11-28-2020 LORazepam (ATIVAN) 2 MG/ML injection Start: 11-28-2020 End: 11-28-2020 LORazepam (ATIVAN) injection 0.5 mg 100 ml potassium chloride 0. 1 meq/ml injection (1 source) Start: 11-30-2020 End: 11-30-2020 potassium chloride 10 mEq/10 0 mL IVPB (Peripheral Line) Problems Active Problems Problem Classification Problem Date Documented Da te Episodic/Chronic Acute and unspecified renal failure (13 sources) Injury of kidney; Translations: [Acute kidney failure, unspecified] Episodic Calculus of urinary tract (20 sources) Ureteric stone; Translations: [Calculus of ureter] Episodic Diabetes mellitus without complication (1 source) Prediabetes; Translations: [Prediabetes] Episodic Essential hypertension (20 sources) Hypertensive disorder; Translations: [Essential hypertension] Onset: 11-28-2020 03-22-2020 Chronic Nonspecific chest pain (12 sources) Chest pain; Translations: [Chest pain, unspecified] 09-09-2019 Episodic Nutritional deficiencies (15 sources) Deficiency of multiple nutrient elements; Translations: [Deficiency of multiple nutrient elements] Onset: 12-04-2020 Episodic Other diseases of kidney and ureters (9 sources) Hydronephrosis; Translations: [Unspecified hydronephrosis] 02-24-2022 Episodic Other diseases of kidney and ureters (2 sources) Unspecified hydronephrosis; Translations: [Hydronephrosis] Episodic Other gastrointestinal disorders (11 sources) Intestinal malabsorption; Translations: [Intestinal malabsorption, unspecified] Onset: 12-04-2020 Chronic Other gastrointestinal disorders (2 sources) Malabsorption syndrome; Translations: [Other intestinal malabsorption] 02-26-2023 Chronic Other gastrointestinal disorders (2 sources) Other intestinal malabsorption; Translations: [Other intestinal malabsorption] Onset: 05-23-2022 Chronic Other gastrointestinal disorders (2 sources) History of bariatric surgical procedure; Translations: [Bariatric surgery status] 02-26-2023 Episodic Other gastrointestinal disorders (2 sources) Bariatric surgery status; Translations: [Bariatric surgery status] Onset: 02-26-2023 Episodic Other inflammatory condition of skin (1 source) Psoriasis vulgaris; Translations: [Psoriasis vulgaris] Onset: 06-04-2024 Chronic Other nutritional; endocrine; and metabolic disorders (20 sources) Morbid obesity; Translations: [Morbid (severe) obesity due to excess calories] Onset: 03-21-2020 03-21-2020 Chronic Other nutritional; endocrine; and metabolic disorders (3 sources) Obesity; Translations: [Morbid (severe) obesity due to excess calories] Chronic Other nutritional; endocrine; and metabolic disorders (2 sources) Body mass index 25-29 - overweight; Translations: [Overweight] 02-26-2023 Episodic Other nutritional; endocrine; and metabolic disorders (2 sources) Overweight in adulthood with body mass index of 25 or more but less than 30; Translations: [Body mass index (BMI) 29.0-29.9, adult] 02-26-2023 Episodic Other nutritional; endocrine; and metabolic disorders (2 sources) Weight gain; Translations: [Abnormal weight gain] 02-26-2023 Episodic Other screening for suspected conditions (not mental disorders or infectious disease) (1 source) Viral screening status; Translations: [Screening for viral disease] Episodic Residual codes; unclassified (5 sources) Obstructive sleep apnea syndrome; Translations: [Obstructive sleep apnea (adult) (pediatric)] Chronic Residual codes; unclassified (1 source) Difficult venous access; Translations: [Other specified health status] Episodic Screening and history of mental health and substance abuse codes (20 sources) H/O: psychiatric disorder; Translations: [Personal history of other mental and behavioral disorders] 09-08-2019 Episodic Unclassified (1 source) Patient encounter status; Translations: [Preop cardiovascular exam] Unclassified (3 sources) Delayed recovery from general anesthesia; Translations: [Delayed emergence from anesthesia] 11-15-2020 Unclassified (1 source) Preprocedural examination done; Translations: [Pre-operative exam] Urinary tract infections (13 sources) Urinary tract infectious disease; Translations: [Urinary tract infection, site not specified] Episodic Past or Other Problems Problem Classification Problem Date Documented Da te Episodic/Chronic Complications of surgical procedures or medical care (10 sources) Delayed recovery from general anesthesia; Translations: [Other complications of anesthesia, initial encounter] Onset: 11-28-2020 Episodic Other disorders of stomach and duodenum (18 sources) Indigestion; Translations: [Epigastric pain] Onset: 11-28-2020 07-03-2020 Episodic Other gastrointestinal disorders (10 sources) History of bypass of stomach; Translations: [Bariatric surgery status] Onset: 11-28-2020 Episodic Spondylosis; intervertebral disc disorders; other back problems (20 sources) Backache; Translations: [Dorsalgia, unspecified] Onset: 11-28-2020 03-22-2020 Episodic Results Test Name Value Interpretation Reference Range Facility Nicotine Screen Bloodon 01-09 COTININE BLOOD <1.0 Normal . [facility] Comment on above: Result Comment: This test was developed and its performance characteristics determined by [employer]. It has not been cleared or approved by the Food and Drug Administration. Cotinine levels greater than 20.0 are consistent with the use of tobacco or tobacco cessation products. Performed at: [address] [id number] Quantitative Associate: Francheska Lorenzo MD, Phone: [phone] Performed By: #### L [id number], [id number], L500.4100, L100.0100, L500.4050, L3600.3400, L503.6150, L503.0106, L503.6550 #### [facility] [address] [place], [place], [address] NICOTINE BLOOD <1.0 Normal . [facility] Comment on above: Result Comment: This test was developed and its performance characteristics determined by [employer]. It has not been cleared or approved by the Food and Drug Administration. Nicotine levels greater than 2.0 are consistent with the use of tobacco or tobacco cessation products. Performed By: #### L [id number], [id number], L500.4100, L100.0100, L500.4050, L3600.3400, L503.6150, L503.0106, L503.6550 #### [facility] [address] [place], [place], [id number] Absolute lymphocyte countOrd ered By: Scooby Garay on 01-21-2025 Lymphocytes Auto (Unsp spec) [#/Vol] 1.93 10*3/uL 0.83-4.51 [facility] Absolute neutrophil countOrd ered By: Scooby Garay on 01-21-2025 Neutrophils (Bld) [#/Vol] 6.3 10*3/uL 2.0-7.7 [facility] Anion gap in Serum or Plasma Ordered By: Scooby Garay on 01-21-2025 Anion gap [Moles/Vol] 12 mmol/L 5-15 [facility] Automated lymphocyte count a s percentage of total leukocytesOrdered By: Scooby Garay on 01-21-2025 Lymphocytes/100 WBC Auto (Unsp spec) 21.8 % - [facility] BUN/creatinine ratioOrdered By: Scooby Garay on 01-21-2025 Urea nitrogen/Creatinine [Mass ratio] 14.8 mg/mg 10- [facility] Basophil percentageOrdered B y: Scooby Garay on 01-21-2025 Basophils/100 WBC (Bld) 0.3 % 0- [facility] Bilirubin, totalOrdered By: Scooby Garay on 01-21-2025 Bilirubin [Mass/Vol] 0.32 mg/dL 0.00-1.30 [facility] CBC W/Diff, Automatedon 01-09 Absolute Lymph 1.93 X10 3/uL Normal 0.83-4.51 [facility] Comment on above: Performed By: #### L [id number], [id number], L500.4100, L100.0100, L500.4050, L3600.3400, L503.6150, L503.0106, L503.6550 #### [facility] [address] [place], [address] Absolute Neut 6.3 X10 3/uL Normal 2.0-7.7 [facility] Comment on above: Performed By: #### L [id number], [id number], L500.4100, L100.0100, L500.4050, L3600.3400, L503.6150, L503.0106, L503.6550 #### [facility] [address] [place], [address] Basophils/100 WBC (Bld) 0.3 % Normal 0-1 [facility] Comment on above: Performed By: #### L [id number], [id number], L500.4100, L100.0100, L500.4050, L3600.3400, L503.6150, L503.0106, L503.6550 #### [facility] [address] [place], [address] Eosinophils/100 WBC (Bld) 1.1 % Normal 0-5 [facility] Comment on above: Performed By: #### L [id number], [id number], L500.4100, L100.0100, L500.4050, L3600.3400, L503.6150, L503.0106, L503.6550 #### [facility] [address] [facility] [place], [address] Erythrocyte distribution width (RBC) [Ratio] 12.2 % Normal 11.6-14.6 [facility] Comment on above: Performed By: #### L [id number], [id number], L500.4100, L100.0100, L500.4050, L3600.3400, L503.6150, L503.0106, L503.6550 #### [facility] [address] [facility] [place], [address] Hematocrit (Bld) [Volume fraction] 37.6 % Normal 37-47 [facility] Comment on above: Performed By: #### L [id number], [id number], L500.4100, L100.0100, L500.4050, L3600.3400, L503.6150, L503.0106, L503.6550 #### [facility] [address] [place], [address] Hemoglobin (Bld) [Mass/Vol] 12.6 g/dL Normal 12.0-15.0 [facility] Comment on above: Performed By: #### L [id number], L501.9985, L500.4100, L100.0100, L500.4050, L3600.3400, L503.6150, L503.0106, L503.6550 #### [facility] [address] [place], [address] IG% 0.600 Normal 0.0-0.9 [facility] Comment on above: Result Comment: IG% - Immature Granulocytes (promyelocytes, myelocytes and metamyelocytes) > 1% indicates that a LEFT SHIFT is Present. Performed By: #### L 501.9520, L501.9985, L500.4100, L100.0100, L500.4050, L3600.3400, L503.6150, L503.0106, L503.6550 #### [facility] [address] [place], [address] Lymphocytes/100 WBC (Bld) 21.8 % Normal 19-41 [facility] Comment on above: Performed By: #### L 501.9520, L501.9985, L500.4100, L100.0100, L500.4050, L3600.3400, L503.6150, L503.0106, L503.6550 #### [facility] [address] [place], [address] MCH (RBC) [Entitic mass] 31.0 pg Normal 27.0-32.0 [facility] Comment on above: Performed By: #### L 501.9520, L501.9985, L500.4100, L100.0100, L500.4050, L3600.3400, L503.6150, L503.0106, L503.6550 #### [facility] [address] [place], [address] MCHC (RBC) [Mass/Vol] 33.5 g/dL Normal 32-36 [facility] Comment on above: Performed By: #### L 501.9520, L501.9985, L500.4100, L100.0100, L500.4050, L3600.3400, L503.6150, L503.0106, L503.6550 #### [facility] [address] [place], [address] MCV (RBC) [Entitic vol] 92.4 fL Normal 81-99 [facility] Comment on above: Performed By: #### L 501.9520, L501.9985, L500.4100, L100.0100, L500.4050, L3600.3400, L503.6150, L503.0106, L503.6550 #### [facility] [address] [place], [address] Monocytes/100 WBC (Bld) 5.4 % Normal 0-10 [facility] Comment on above: Performed By: #### L 501.9520, L501.9985, L500.4100, L100.0100, L500.4050, L3600.3400, L503.6150, L503.0106, L503.6550 #### [facility] [address] [place], [address] Neutrophils/100 WBC (Bld) 70.8 % High 47-70 [facility] Comment on above: Performed By: #### L 501.9520, L501.9985, L500.4100, L100.0100, L500.4050, L3600.3400, L503.6150, L503.0106, L503.6550 #### [facility] [address] [place], [address] Nucleated RBC (Bld) [#/Vol] 0 10*3/uL Normal 0-5 [facility] Comment on above: Performed By: #### L 501.9520, L501.9985, L500.4100, L100.0100, L500.4050, L3600.3400, L503.6150, L503.0106, L503.6550 #### [facility] [address] [place], [address] Platelet mean volume (Bld) [Entitic vol] 10.0 fL Normal 6.2-12.0 [facility] Comment on above: Performed By: #### L 501.9520, L501.9985, L500.4100, L100.0100, L500.4050, L3600.3400, L503.6150, L503.0106, L503.6550 #### [facility] [address] [place], [address] Platelets (Bld) [#/Vol] 327 10*3/uL Normal 150-450 [facility] Comment on above: Performed By: #### L 501.9520, L501.9985, L500.4100, L100.0100, L500.4050, L3600.3400, L503.6150, L503.0106, L503.6550 #### [facility] [address] [place], [address] RBC (Bld) [#/Vol] 4.07 10*6/uL Low 4.2-5.4 [facility] Comment on above: Performed By: #### L 501.9520, L501.9985, L500.4100, L100.0100, L500.4050, L3600.3400, L503.6150, L503.0106, L503.6550 #### [facility] [address] [place], [place], [phone] RDW SD 41.1 fl Normal 35.1-43.9 [facility] Comment on above: Performed By: #### L 501.9520, L501.9985, L500.4100, L100.0100, L500.4050, L3600.3400, L503.6150, L503.0106, L503.6550 #### [facility] [address] [place], [place], [phone] WBC (Bld) [#/Vol] 8.8 10*3/uL Normal 4.4-11.0 [facility] Comment on above: Performed By: #### L 501.9520, L501.9985, L500.4100, L100.0100, L500.4050, L3600.3400, L503.6150, L503.0106, L503.6550 #### [facility] [address] [place], [place], [phone] Calculated very low density lipoprotein (VLDL) cholesterol measurementOrdered By: Scooby Garay on 01-21-2025 Calculated very low density lipoprotein (VLDL) cholesterol measurement 11 mg/dL 5-40 [facility] Carbon dioxide, total [Moles /volume] in Central venous bloodOrdered By: Scooby Garay on 01-21-2025 CO2 [Moles/Vol] 25.8 mmol/L 21.0-32.0 [facility] Chloride assayOrdered By: Penelope Garay on 01-21-2025 Chloride [Moles/Vol] 100 mmol/L 98-108 [facility] Comprehensive Metabolic Prof ilon 01-21-2025 Albumin [Mass/Vol] 4.4 g/dL Normal 3.5-5.0 [facility] Comment on above: Performed By: #### L 501.9520, L501.9985, L500.4100, L100.0100, L500.4050, L3600.3400, L503.6150, L503.0106, L503.6550 #### [facility] [address] [place], [place], [phone] Albumin/Globulin [Mass ratio] 1.6 {ratio} Normal 0.9-2.4 [facility] Comment on above: Performed By: #### L 501.9520, L501.9985, L500.4100, L100.0100, L500.4050, L3600.3400, L503.6150, L503.0106, L503.6550 #### [facility] [address] [place], [place], [phone] ALK PHOS 78 U/L Normal 35-104 [facility] Comment on above: Performed By: #### L 501.9520, L501.9985, L500.4100, L100.0100, L500.4050, L3600.3400, L503.6150, L503.0106, L503.6550 #### [facility] [address] [place], [place], [phone]) ALT [Catalytic activity/Vol] 18 U/L Normal <=34 [facility] Comment on above: Performed By: #### L 501.9520, L501.9985, L500.4100, L100.0100, L500.4050, L3600.3400, L503.6150, L503.0106, L503.6550 #### [facility] [address] [place], [place], [phone] ([phone]) AST [Catalytic activity/Vol] 22 U/L Normal <=31 [facility] Comment on above: Performed By: #### L 501.9520, L501.9985, L500.4100, L100.0100, L500.4050, L3600.3400, L503.6150, L503.0106, L503.6550 #### [facility] [address] [place], [place], [phone] ([phone]) Bilirubin [Mass/Vol] 0.32 mg/dL Normal 0.00-1.30 [facility] Comment on above: Performed By: #### L 501.9520, L501.9985, L500.4100, L100.0100, L500.4050, L3600.3400, L503.6150, L503.0106, L503.6550 #### [facility] [address] [place], [address] BUN/CRE 14.8 RATIO Normal 10-20 [facility] Comment on above: Performed By: #### L 501.9520, L501.9985, L500.4100, L100.0100, L500.4050, L3600.3400, L503.6150, L503.0106, L503.6550 #### [facility] [address] [place], [address] Calcium [Mass/Vol] 9.2 mg/dL Normal 7.6-11.0 [facility] Comment on above: Performed By: #### L 501.9520, L501.9985, L500.4100, L100.0100, L500.4050, L3600.3400, L503.6150, L503.0106, L503.6550 #### [facility] [address] [place], [address] Chloride [Moles/Vol] 100 mmol/L Normal 98-108 [facility] Comment on above: Performed By: #### L 501.9520, L501.9985, L500.4100, L100.0100, L500.4050, L3600.3400, L503.6150, L503.0106, L503.6550 #### [facility] [address] [place], [address] CO2 [Moles/Vol] 25.8 mmol/L Normal 21.0-32.0 [facility] Comment on above: Performed By: #### L 501.9520, L501.9985, L500.4100, L100.0100, L500.4050, L3600.3400, L503.6150, L503.0106, L503.6550 #### [facility] [address] [place], [place], [phone] ([phone] Creatinine [Mass/Vol] 0.89 mg/dL Normal 0.70-1.20 [facility] Comment on above: Performed By: #### L 501.9520, L501.9985, L500.4100, L100.0100, L500.4050, L3600.3400, L503.6150, L503.0106, L503.6550 #### [facility] [address] [place], [address] GAP 12 Normal 5-15 [facility] Comment on above: Performed By: #### L 501.9520, L501.9985, L500.4100, L100.0100, L500.4050, L3600.3400, L503.6150, L503.0106, L503.6550 #### [facility] [address] [place], [address] GFR/1.73 sq M.predicted among non-blacks MDRD (S/P/Bld) [Vol rate/Area] 80 mL/min/{1.73_m2} Normal >60 [facility] Comment on above: Result Comment: mL/m in/1.73m2 CKD-EPI Creatinine Equation (2020) Performed By: #### L 501.9520, L501.9985, L500.4100, L100.0100, L500.4050, L3600.3400, L503.6150, L503.0106, L503.6550 #### [facility] [address] [place], [place], [phone] ([phone]) Globulin (S) [Mass/Vol] 2.7 g/dL Normal 2.2-4.2 [facility] Comment on above: Performed By: #### L 501.9520, L501.9985, L500.4100, L100.0100, L500.4050, L3600.3400, L503.6150, L503.0106, L503.6550 #### [facility] [address] [place], [address] Glucose [Mass/Vol] 170 mg/dL High 70-99 [facility] Comment on above: Performed By: #### L 501.9520, L501.9985, L500.4100, L100.0100, L500.4050, L3600.3400, L503.6150, L503.0106, L503.6550 #### [facility] [address] [place], [address] Potassium [Moles/Vol] 4.2 mmol/L Normal 3.3-5.1 [facility] Comment on above: Result Comment: Hemo lysis present, Results??could be affected. ?? Performed By: #### L 501.9520, L501.9985, L500.4100, L100.0100, L500.4050, L3600.3400, L503.6150, L503.0106, L503.6550 #### [facility] [address] [place], [address] Sodium [Moles/Vol] 137 mmol/L Normal 133-145 [facility] Comment on above: Performed By: #### L 501.9520, L501.9985, L500.4100, L100.0100, L500.4050, L3600.3400, L503.6150, L503.0106, L503.6550 #### [facility] [address] [place], [address] T PROT 7.1 g/dL Normal 5.9-8.4 [facility] Comment on above: Performed By: #### L 501.9520, L501.9985, L500.4100, L100.0100, L500.4050, L3600.3400, L503.6150, L503.0106, L503.6550 #### [facility] [address] [place], [address] Urea nitrogen [Mass/Vol] 13 mg/dL Normal 4-19 [facility] Comment on above: Performed By: #### L 501.9520, L501.9985, L500.4100, L100.0100, L500.4050, L3600.3400, L503.6150, L503.0106, L503.6550 #### [facility] [address] [place], [address] Eosinophil percentageOrdered By: Scooby Garay on 01-21-2025 Eosinophils/100 WBC (Bld) 1.1 % 0-5 [facility] Erythrocyte distribution wid th ratioOrdered By: Scooby Garay on 01-21-2025 Erythrocyte distribution width (RBC) [Ratio] 12.2 % 11.6-14.6 [facility] Erythrocyte distribution wid th standard deviationOrdered By: Scooby Garay on 01-21-2025 Erythrocyte distribution width (RBC) [Ratio] 41.1 fl 35.1-43.9 [facility] Ferritinon 01-21-2025 Ferritin [Mass/Vol] 37 ng/mL Normal 22-378 [facility] Comment on above: Performed By: #### L 501.9520, L501.9985, L500.4100, L100.0100, L500.4050, L3600.3400, L503.6150, L503.0106, L503.6550 #### [facility] [address] [place], [address] Glomerular filtration rate ( GFR) estimation/1.73 sq m using serum, plasma, or whole bOrdered By: Scooby Garay on 01-21-2025 GFR/1.73 sq M.predicted among non-blacks MDRD (S/P/Bld) [Vol rate/Area] 80 mL/min/{1.73_m2} >60 [facility] Comment on above: mL/min/1.73m2 CKD-EP I Creatinine Equation (2020) Hematocrit Auto (Bld) [Volum e fraction]Ordered By: Scooby Garay on 01-21-2025 Hematocrit (Bld) [Volume fraction] 37.6 % 37-47 [facility] Hemoglobin A1con 01-21-2025 HbA1c (Bld) [Mass fraction] 5.6 % Normal <=5.6 [facility] Comment on above: Result Comment: Norm al < 5.7 % Prediabetic 5.7 - 6.4 % Diabetic >or= 6.5 % Please note range changes. Performed By: #### L 501.9520, L501.9985, L500.4100, L100.0100, L500.4050, L3600.3400, L503.6150, L503.0106, L503.6550 #### [facility] Laboratory [address] [place] [address]. [place], [place], [phone] Hemoglobin A1c percentageOrd ered By: Scooby Garay on 01-21-2025 HbA1c (Bld) [Mass fraction] 5.6 % <5.7 [facility] Comment on above: Normal < 5.7 % Predi abetic 5.7 - 6.4 % Diabetic >or= 6.5 % Please note range changes. Hemoglobin measurementOrdere d By: Scooby Garay on 01-21-2025 Hemoglobin (Bld) [Mass/Vol] 12.6 g/dL 12.0-15.0 [facility] Immature granulocytes/100 WB C Auto (Bld)Ordered By: Scooby Garay on 01-21-2025 Immature granulocytes/100 WBC (Bld) 0.600 % 0.0-0.9 [facility] Comment on above: IG% - Immature Granu locytes (promyelocytes, myelocytes and metamyelocytes) > 1% indicates that a LEFT SHIFT is Present. Ironon 01-21-2025 Iron [Mass/Vol] 127 ug/dL Normal 50-170 [facility] Comment on above: Performed By: #### L 501.9520, L501.9985, L500.4100, L100.0100, L500.4050, L3600.3400, L503.6150, L503.0106, L503.6550 #### [facility] [address] [place], [place], [phone] Iron measurement (mass/mass) Ordered By: Scooby Garay on 01-21-2025 Iron (Unsp spec) [Mass/Mass] 127 ug/dL 50-170 [facility] LDL calc ser/plasOrdered By: Scooby Garay on 01-21-2025 Cholesterol in LDL [Mass/Vol] 51 mg/dL [facility] Comment on above: Oredkgtnup=907-481 m g/dL & Higher Wofn=403 mg/dL or greater Laboratory - Chemistry and C hemistry - challengeOrdered By: Scooby Garay on 01-21-2025 AST [Catalytic activity/Vol] 22 U/L <32 [facility] Lipid Profileon 01-21-2025 CHOL:HDL 2.19 Normal [facility] Comment on above: Performed By: #### L 501.9520, L501.9985, L500.4100, L100.0100, L500.4050, L3600.3400, L503.6150, L503.0106, L503.6550 #### [facility] [address] [place], [address] Cholesterol [Mass/Vol] 114 mg/dL Normal <=200 [facility] Comment on above: Result Comment: Chol esterol level, Desirable <200 mg/dL Borderline high cholesterol 200-239 mg/dL High cholesterol >=240 mg/dL Recommendations of the NCEP Adult Treatment Panel for the following risk-cutoff thresholds for the [place] population. Performed By: #### L 501.9520, L501.9985, L500.4100, L100.0100, L500.4050, L3600.3400, L503.6150, L503.0106, L503.6550 #### [facility] [address] [place], [address] ( Cholesterol in HDL [Mass/Vol] 52 mg/dL Normal [facility] Comment on above: Result Comment: Autumn onal Cholesterol Education Program (NCEP) guidelines: <40 mg/dL: Low HDL-cholesterol (major risk factor for CHD) >= 60 mg/dL: High HDL-cholesterol (negative risk factor for CHD) HDL-cholesterol is affected by a number of factors, e.g. smoking, exercise, hormones, sex and age. Performed By: #### L 501.9520, L501.9985, L500.4100, L100.0100, L500.4050, L3600.3400, L503.6150, L503.0106, L503.6550 #### [facility] [address] [place], [address] Cholesterol in LDL [Mass/Vol] 51 mg/dL Normal [facility] Comment on above: Result Comment: Bord yldbxg=701-873 mg/dL Higher Jzuy=512 mg/dL or greater Performed By: #### L 501.9520, L501.9985, L500.4100, L100.0100, L500.4050, L3600.3400, L503.6150, L503.0106, L503.6550 #### [facility] [address] [place], [address] Cholesterol in VLDL [Mass/Vol] 11 mg/dL Normal 5-40 [facility] Comment on above: Performed By: #### L 501.9520, L501.9985, L500.4100, L100.0100, L500.4050, L3600.3400, L503.6150, L503.0106, L503.6550 #### [facility] [address] [place], [address] Triglyceride [Mass/Vol] 54 mg/dL Normal [facility] Comment on above: Result Comment: The drugs N-Acetylcysteine and Metamizole may falsely depress this assay. Normal range: <150 mg/dL Borderline High: 150-199 mg/dL High: 200-499 mg/dL Very High: >500 mg/dL Performed By: #### L 501.9520, L501.9985, L500.4100, L100.0100, L500.4050, L3600.3400, L503.6150, L503.0106, L503.6550 #### [facility] [place], [address] MCV (mean corpuscular volume ) determinationOrdered By: Scooby Garay on 01-21-2025 MCV (RBC) [Entitic vol] 92.4 fL 81-99 [facility] Mean corpuscular hemoglobin (MCH) determinationOrdered By: Scooby Garay on 01-21-2025 MCH (RBC) [Entitic mass] 31.0 pg 27.0-32.0 [facility] Mean corpuscular hemoglobin concentration (MCHC) determinationOrdered By: Scooby Garay on 01-21-2025 MCHC (RBC) [Mass/Vol] 33.5 g/dL 32-36 [facility] Mean platelet volume determi nationOrdered By: Scooby Garay on 01-21-2025 Platelet mean volume (Bld) [Entitic vol] 10.0 fL 6.2-12.0 [facility] Monocyte percentageOrdered B y: Scooby Garay on 01-21-2025 Monocytes/100 WBC (Bld) 5.4 % 0-10 [facility] Neutrophil percentageOrdered By: Scooby Garay on 01-21-2025 Neutrophils/100 WBC (Bld) 70.8 % High 47-70 [facility] Nucleated red blood cell per centageOrdered By: Scooby Garay on 01-21-2025 Nucleated RBC/100 WBC (Bld) [Ratio] 0 % 0-5 [facility] Platelet countOrdered By: Penelope Garay on 01-21-2025 Platelets (Bld) [#/Vol] 327 10*3/uL 150-450 [facility] Potassium measurement (mass/ volume)Ordered By: Scooby Garay on 01-21-2025 Potassium (Unsp spec) [Mass/Vol] 4.2 mmol/L 3.3-5.1 [facility] Comment on above: Hemolysis present, R esults could be affected. RBC Auto (Bld) [#/Vol]Ordere d By: Scooby Garay on 01-21-2025 RBC (Bld) [#/Vol] 4.07 10*6/uL Low 4.2-5.4 [facility] Screening total cholesterol/ high density lipoprotein (HDL) cholesterol ratioOrdered By: Scooby Garay on 01-21-2025 Cholesterol.total/Choles terol in HDL [Mass ratio] 2.19 {ratio} [facility] Serum creatinine measurement (mass/volume)Ordered By: Scooby Garay on 01-21-2025 Creatinine [Mass/Vol] 0.89 mg/dL 0.70-1.20 [facility] Serum globulin measurementOr dered By: Scooby Garay on 01-21-2025 Globulin (S) [Mass/Vol] 2.7 g/dL 2.2-4.2 [facility] Serum glucose measurement (m ass/volume)Ordered By: Scooby Garay on 01-21-2025 Glucose [Mass/Vol] 170 mg/dL High 70-99 [facility] Serum or plasma alanine nunez otransferase (ALT) measurementOrdered By: Scooby Garay on 01-21-2025 ALT [Catalytic activity/Vol] 18 U/L <35 [facility] Serum or plasma albumin naa urement (mass/volume)Ordered By: Scooby Garay on 01-21-2025 Albumin [Mass/Vol] 4.4 g/dL 3.5-5.0 [facility] Serum or plasma albumin/glob ulin mass ratioOrdered By: Scooby Garay on 01-21-2025 Albumin/Globulin [Mass ratio] 1.6 {ratio} 0.9-2.4 [facility] Serum or plasma alkaline castillo sphatase measurementOrdered By: Scooby Garay on 01-21-2025 ALP [Catalytic activity/Vol] 78 U/L 35-104 [facility] Serum or plasma calcium naa urement (mass/volume)Ordered By: Scooby Garay on 01-21-2025 Calcium [Mass/Vol] 9.2 mg/dL 7.6-11.0 [facility] Serum or plasma cholesterol in HDL measurement (mass/volume)Ordered By: Scooby Garay on 01-21-2025 Cholesterol in HDL [Mass/Vol] 52 mg/dL >40 [facility] Comment on above: National Cholesterol Education Program (NCEP) guidelines:<40 mg/dL: Low HDL-cholesterol (major risk factor for CHD)>= 60 mg/dL: High HDL-cholesterol (negative risk factor for CHD)HDL-cholesterol is affected by a number of factors, e.g. smoking, exercise, hormones, sex and age. Serum or plasma cholesterol measurement (mass/volume)Ordered By: Scooby Garay on 01-21-2025 Cholesterol [Mass/Vol] 114 mg/dL <201 [facility] Comment on above: Cholesterol level, D esirable <200 mg/dLBorderline high cholesterol 200-239 mg/dLHigh cholesterol >=240 mg/dLRecommendations of the NCEP Adult Treatment Panel for the following risk-cutoff thresholds for the [place] population. Serum or plasma ferritin jerel surement (mass/volume)Ordered By: Scooby Garay on 01-21-2025 Ferritin [Mass/Vol] 37 ng/mL 22-378 [facility] Serum or plasma urea nitroge n measurement (mass/volume)Ordered By: Scooby Garay on 01-21-2025 Urea nitrogen [Mass/Vol] 13 mg/dL 4-19 [facility] Sodium levelOrdered By: Scooby Garay on 01-21-2025 Sodium [Moles/Vol] 137 mmol/L 133-145 [facility] TSH DL <= 0.005 mIU/L QnOrde red By: Scooby Garay on 01-21-2025 TSH Qn 3.080 uIU/mL 0.300-4.200 [facility] Thyroid Stim Hormone (TSH)on 01-21-2025 TSH 3.080 uIU/mL Normal 0.300-4.200 [facility] Comment on above: Performed By: #### L 501.9520, L501.9985, L500.4100, L100.0100, L500.4050, L3600.3400, L503.6150, L503.0106, L503.6550 #### [facility] [employer] [place], [place], [phone] Total proteinOrdered By: Katya Garay on 01-21-2025 Protein [Mass/Vol] 7.1 g/dL 5.9-8.4 [facility] Triglycerides measurementOrd ered By: Scooby Garay on 01-21-2025 Triglyceride [Mass/Vol] 54 mg/dL <199 [facility] Comment on above: The drugs N-Acetylcy steine and Metamizole may falsely depress this assay. Normal range: <150 mg/dLBorderline High: 150-199 mg/dLHigh: 200-499 mg/dLVery High: >500 mg/dL Vitamin B12on 01-21-2025 Cobalamin (Vitamin B12) [Mass/Vol] 308 pg/mL Normal 180- [facility] Comment on above: Performed By: #### L 501.9520, L501.9985, L500.4100, L100.0100, L500.4050, L3600.3400, L503.6150, L503.0106, L503.6550 #### [facility] [address] [place], [address] Vitamin B12 ser/plasOrdered By: Scooby Garay on 01-21-2025 Cobalamin (Vitamin B12) [Mass/Vol] 308 pg/mL 180 [facility] White blood cell (WBC) count Ordered By: Scooby Garay on 01-21-2025 WBC (Bld) [#/Vol] 8.8 10*3/uL 4.4-11.0 [facility] Quantiferon TB-Gold+on 05-11 QFT MITOGEN LOTUS > 10.00 Normal . [facility] Comment on above: Performed By: #### L 3400.8000 #### [facility] [address] [place], [address] QFT NIL VALUE 0.01 IU/mL Normal . [facility] Comment on above: Performed By: #### L 3400.8000 #### [facility] [address] [place], [place], [id number] QFT TB GOLD+ Comment Normal . [facility] Comment on above: Result Comment: Yariel tiFERON-TB Gold Plus is a qualitative indirect test for M tuberculosis infection (including disease) and is intended for use in conjunction with risk assessment, radiography, and other medical and diagnostic evaluations. The QuantiFERON-TB Gold Plus result is determined by subtracting the Nil value from either TB antigen (Ag) value. The Mitogen tube serves as a control for the test. Performed By: #### L 3400.8000 #### [facility] [address] [place], [place], [id number] QFT TB POS CRIT Negative Normal Negative [facility] Comment on above: Result Comment: No r esponse to M tuberculosis antigens detected. Infection with M tuberculosis is unlikely, but high risk individuals should be considered for additional testing (ATS/IDSA/CDC Clinical Practice Guidelines, 2017). The reference range is an Antigen minus Nil result of <0.35 IU/mL. The specimen received for QuantiFERON testing was incubated by the ordering institution. Specific procedures outlined in our Directory of Services and in the package insert for the QuantiFERON Gold (In Tube) test must be followed to enable for proper stimulation of cells for the production of interferon gamma. Chemiluminescence immunoassay methodology Performed at: [employer] [id number] Quantitative Associate: Justo Olivas PhD, Phone: [phone] Performed By: #### L 3400.8000 #### [facility] [address] [place], [address] QFT TB1+ AG LOTUS 0.01 IU/mL Normal . [facility] Comment on above: Performed By: #### L 3400.8000 #### [facility] [address] [place], [address] QFT TB2+ AG LOTUS 0.01 IU/mL Normal . [facility] Comment on above: Performed By: #### L 3400.8000 #### [facility] [address] [place], [address] Absolute lymphocyte countOrd ered By: Scooby Garay on 10-28-2023 Lymphocytes Auto (Unsp spec) [#/Vol] 1.82 10*3/uL 0.83-4.51 [facility] Automated lymphocyte count a s percentage of total leukocytesOrdered By: Scooby Garay on 10-28-2023 Lymphocytes/100 WBC Auto (Unsp spec) 30.0 % 19-41 [facility] Basophil percentageOrdered B y: Scooby Garay on 10-28-2023 Basophils/100 WBC (Bld) 0.5 % 0-1 [facility] Bilirubin [Mass/Vol] 0.40 mg/dL 0.20-1.00 [facility] Comment on above: For patients on eltr ombopag therapy, use of Dimension [place] TBIL is not recommended. Chloride [Moles/Vol] 109 mmol/L 98-107 [facility] Cholesterol [Mass/Vol] 129 mg/dL <200 [facility] Comment on above: <200 mg/dL Desirable 200-240 mg/dL Borderline >240 mg/dL High Risk Eosinophils/100 WBC (Bld) 2.3 % 0-5 [facility] Glucose [Mass/Vol] 87 mg/dL 74-106 [facility] Hemoglobin (Bld) [Mass/Vol] 11.7 g/dL 12.0-15.0 [facility] Monocytes/100 WBC (Bld) 6.8 % 0-10 [facility] Neutrophils (Bld) [#/Vol] 3.7 10*3/uL 2.0-7.7 [facility] Neutrophils/100 WBC (Bld) 60.2 % 47-70 [facility] Potassium [Moles/Vol] 3.4 mmol/L 3.5-5.1 [facility] Protein [Mass/Vol] 7.0 g/dL 6.4-8.2 [facility] Sodium [Moles/Vol] 140 mmol/L 136-145 [facility] Triglyceride [Mass/Vol] 85 mg/dL <199 [facility] Comment on above: The drugs N-Acetylcy steine and Metamizole may falsely depress this assay.Serum Triglycerides Reference Interval Normal <150 mg/dL Borderline high 150 - 199 mg/dL High 200 - 499 mg/dL Very High > or = 500 mg/dL WBC (Bld) [#/Vol] 6.1 10*3/uL 4.4-11.0 [facility] Determination of erythrocyte mean corpuscular volume (MCV)Ordered By: Scooby Garay on 10-28-2023 MCV (RBC) [Entitic vol] 91.8 fL 81-99 [facility] Erythrocyte distribution wid th ratioOrdered By: Scooby Gaary on 10-28-2023 Erythrocyte distribution width (RBC) [Ratio] 12.5 % 11.6-14.6 [facility] Erythrocyte distribution wid th standard deviationOrdered By: Scooby Garay on 10-28-2023 Erythrocyte distribution width (RBC) [Entitic vol] 41.7 fL 35.1-43.9 [facility] Hematocrit Auto (Bld) [Volum e fraction]Ordered By: Scooby Garay on 10-28-2023 Hematocrit (Bld) [Volume fraction] 35.8 % 37-47 [facility] Immature granulocytes/100 WB C Auto (Bld)Ordered By: Scooby Garay on 10-28-2023 Immature granulocytes/100 WBC (Bld) 0.200 % 0.0-0.9 [facility] Comment on above: IG% - Immature Granu locytes (promyelocytes, myelocytes and metamyelocytes) > 1% indicates that a LEFT SHIFT is Present. Iron measurement (mass/mass) Ordered By: Scooby Garay on 10-28-2023 Iron (Unsp spec) [Mass/Mass] 85 ug/dL 50-170 [facility] - Chemistry and C hemistry - challengeOrdered By: Scooby Garay on 10-28-2023 Albumin/Globulin [Mass ratio] 1.1 {ratio} 0.9-2.4 [facility] ALP [Catalytic activity/Vol] 66 U/L 45-117 [facility] ALT [Catalytic activity/Vol] 19 U/L 13-56 [facility] Cholesterol in HDL [Mass/Vol] 44 mg/dL >40 [facility] Comment on above: The drugs N-Acetylcy steine and Metamizole may falsely depress this assay. Reference Range HDL <40 mg/dL Low HDL Cholesterol HDL >or= 60 mg/dL High HDL Cholesterol Cholesterol in LDL [Mass/Vol] 68 mg/dL 0-130 [facility] CO2 [Moles/Vol] 25.0 mmol/L 21.0-32.0 [facility] Ferritin [Mass/Vol] 12 ng/mL 8-252 [facility] Globulin (S) [Mass/Vol] 3.3 g/dL 2.2-4.2 [facility] Urea nitrogen/Creatinine [Mass ratio] 11.5 mg/mg 10-20 [facility] - Hematology and Cell countsOrdered By: Scooby Garay on 10-28-2023 MCH (RBC) [Entitic mass] 30.0 pg 27.0-32.0 [facility] MCHC (RBC) [Mass/Vol] 32.7 g/dL 32-36 [facility] Nucleated RBC/100 WBC (Bld) [Ratio] 0 % 0-5 [facility] Platelet mean volume (Bld) [Entitic vol] 10.2 fL 6.2-12.0 [facility] Platelets (Bld) [#/Vol] 302 10*3/uL 150-450 [facility] No Panel InformationOrdered By: Scooby Garay on 10-28-2023 Estimated GFR (MDRD) Amer 80 mL/min >60 [facility] Comment on above: GFR Calc Estimated GFR (MDRD) Non-Af Amer 66 mL/min >60 [facility] Comment on above: Non- GFR Calc Urine Cotinine Screen Negative <200 ng/mL [facility] Comment on above: Cotinine is the firs t-stage metabolite of Nicotine. VLDL Cholesterol 17 mg/dL 5-40 [facility] RBC Auto (Bld) [#/Vol]Ordere d By: Scooby Garay on 10-28-2023 RBC (Bld) [#/Vol] 3.90 10*6/uL 4.2-5.4 [facility] Serum or plasma calcium naa urement (mass/volume)Ordered By: Scooby Garay on 10-28-2023 Calcium [Mass/Vol] 8.7 mg/dL 8.5-10.1 [facility] Serum or plasma creatinine m easurement (mass/volume)Ordered By: Scooby Garay on 10-28-2023 Creatinine [Mass/Vol] 0.96 mg/dL 0.55-1.02 [facility] Comment on above: The validity of the calculated GFR & GFRAA in patients over 70 years has not been determined. Clinical correlation is essential. Serum or plasma urea nitroge n measurement (mass/volume)Ordered By: Scooby Garay on 10-28-2023 Urea nitrogen [Mass/Vol] 11 mg/dL 7-18 [facility] Thin prep Papanicolaou smear with manual screeningOrdered By: Scooby Garay on 10-28-2023 Thin prep Papanicolaou smear with manual screening 3.7 g/dL 3.2-5.0 [facility] Thin prep Papanicolaou smear with manual screening 19 U/L 15-37 [facility] Thin prep Papanicolaou smear with manual screening 6 5-15 [facility] 36on 03-27-2023 36 LVM for pt that Saxenda was called into her pharmacy and PA started in CMM Normal [facility] 36on 03-14-2023 36 Pt notified that PA was denied. Normal [facility] Absolute lymphocyte countOrd ered By: Scooby Garay on 03-11-2023 Lymphocytes Auto (Unsp spec) [#/Vol] 2.62 10*3/uL 0.83-4.51 [facility] Basophil percentageOrdered B y: Scooby Garay on 03-11-2023 Basophils/100 WBC (Bld) 0.6 % 0-1 [facility] Eosinophils/100 WBC (Bld) 2.9 % 0-5 [facility] Neutrophils (Bld) [#/Vol] 4.0 10*3/uL 2.0-7.7 [facility] Neutrophils/100 WBC (Bld) 55.5 % 47-70 [facility] WBC (Bld) [#/Vol] 7.1 10*3/uL 4.4-11.0 [facility] Blood erythrocytes count (nu mber/volume)Ordered By: Scooby Garay on 03-11-2023 RBC (Bld) [#/Vol] 4.27 10*6/uL 4.2-5.4 [facility] Blood hemoglobin measurement (mass/volume)Ordered By: Scooby Garay on 08-01-2023 Hemoglobin (Bld) [Mass/Vol] 12.4 g/dL 12.0-15.0 [facility] Blood lymphocytes/100 leukoc ytesOrdered By: Scooby Garay on 03-11-2023 Lymphocytes/100 WBC (Bld) 36.7 % 19-41 [facility] Blood monocytes/100 leukocyt esOrdered By: Scooby Garay on 03-11-2023 Monocytes/100 WBC (Bld) 3.9 % 0-10 [facility] Blood platelet mean volumeOr dered By: Scooby Garay on 03-11-2023 Platelet mean volume (Bld) [Entitic vol] 9.8 fL 6.2-12.0 [facility] Determination of erythrocyte mean corpuscular volume (MCV)Ordered By: Scooby Garay on 03-11-2023 MCV (RBC) [Entitic vol] 91.8 fL 81-99 [facility] Hematocrit Auto (Bld) [Volum e fraction]Ordered By: Scooby Garay on 03-11-2023 Hematocrit (Bld) [Volume fraction] 39.2 % 37-47 [facility] Iron measurement (mass/mass) Ordered By: Scooby Garay on 03-11-2023 Iron (Unsp spec) [Mass/Mass] 85 ug/dL 50-170 [facility] - Hematology and Cell countsOrdered By: Scooby Garay on 03-11-2023 Erythrocyte distribution width (RBC) [Entitic vol] 56.2 fL 35.1-43.9 [facility] Erythrocyte distribution width (RBC) [Ratio] 16.7 % 11.6-14.6 [facility] Immature granulocytes/100 WBC (Bld) 0.400 % 0.0-0.9 [facility] Comment on above: IG% - Immature Granu locytes (promyelocytes, myelocytes and metamyelocytes) > 1% indicates that a LEFT SHIFT is Present. MCH (RBC) [Entitic mass] 29.0 pg 27.0-32.0 [facility] Nucleated RBC/100 WBC (Bld) [Ratio] 0 % 0-5 [facility] MCHC Auto (RBC) [Mass/Vol]Or dered By: Scooby Garay on 03-11-2023 MCHC (RBC) [Mass/Vol] 31.6 g/dL 32-36 [facility] Platelets bldOrdered By: Katya Garay on 03-11-2023 Platelets (Bld) [#/Vol] 287 10*3/uL 150-450 [facility] Serum or plasma ferritin jerel surement (mass/volume)Ordered By: Scooby Garay on 03-11-2023 Ferritin [Mass/Vol] 56 ng/mL 8-252 [facility] 36on 02-27-2023 36 PRIOR AUTH SENT THROUGH [employer] [facility] 36 ----- Message from Veronica Campos MD sent at 02/26/2023 4:16 PM EDT ----- Please alexis for wegovy Thank you [facility] Office Visiton 02-26-2023 Follow-up visit [id number] Charisma Judge 1975 F Date Provider Department Center 02/26/2023 [id number] CAMPOS [facility] None Family History Problem Relation Age of Onset Diabetes Mother's Sister Diabetes Mother's Sister Dementia Maternal Grandmother Depression Neg Hx Multiple sclerosis Mother's Sister Other Mother Comments: Fibromyalgia Heart disease Maternal Grandfather Other Father Comments: ALS Diabetes Maternal Grandfather Heart disease Paternal Grandfather Dementia Paternal Grandmother Family Status - Relation Status Age at Mother's Sister Mother's Sister Maternal Grandmother Neg Hx Mother Alive Maternal Grandfather Father Paternal Grandfather Paternal Grandmother Level of Service:05857 [place] OFFICE/OUTPATIENT ESTABLISHED MOD MDM 30-39 MIN Reason for Visit and Comments: Weight Loss [622570] - 18m POP [facility] 36on 02-21-2023 36 I called patient wit h no answer. I left a voicemail and call back number to schedule with DR. Campos [facility] Absolute lymphocyte countOrd ered By: Dr. Garay on 11-28-2022 Lymphocytes Auto (Unsp spec) [#/Vol] 3.25 10*3/uL 0.83-4.51 [facility] Basophil percentageOrdered B y: Dr. Garay on 11-28-2022 Basophils/100 WBC (Bld) 0.5 % 0-1 [facility] Eosinophils/100 WBC (Bld) 2.2 % 0-5 [facility] Neutrophils (Bld) [#/Vol] 5.8 10*3/uL 2.0-7.7 [facility] Neutrophils/100 WBC (Bld) 58.7 % 47-70 [facility] WBC (Bld) [#/Vol] 9.9 10*3/uL 4.4-11.0 [facility] Blood erythrocytes count (nu mber/volume)Ordered By: Dr. Garay on 11-28-2022 RBC (Bld) [#/Vol] 3.65 10*6/uL 4.2-5.4 [facility] Blood hemoglobin measurement (mass/volume)Ordered By: Dr. Garay on 11-28-2022 Hemoglobin (Bld) [Mass/Vol] 8.1 g/dL 12.0-15.0 [facility] Blood lymphocytes/100 leukoc ytesOrdered By: Dr. Garay on 11-28-2022 Lymphocytes/100 WBC (Bld) 32.8 % 19-41 [facility] Blood monocytes/100 leukocyt esOrdered By: Dr. Garay on 11-28-2022 Monocytes/100 WBC (Bld) 5.5 % 0-10 [facility] Blood platelet mean volumeOr dered By: Dr. Garay on 11-28-2022 Platelet mean volume (Bld) [Entitic vol] 10.3 fL 6.2-12.0 [facility] Determination of erythrocyte mean corpuscular volume (MCV)Ordered By: Dr. Garay on 11-28-2022 MCV (RBC) [Entitic vol] 76.7 fL 81-99 [facility] Hematocrit Auto (Bld) [Volum e fraction]Ordered By: Dr. Garay on 11-28-2022 Hematocrit (Bld) [Volume fraction] 28.0 % 37-47 [facility] Iron measurement (mass/mass) Ordered By: Dr. Garay on 11-28-2022 Iron (Unsp spec) [Mass/Mass] 11 ug/dL 50-170 [facility] - Hematology and Cell countsOrdered By: Dr. Garay on 11-28-2022 Erythrocyte distribution width (RBC) [Entitic vol] 45.9 fL 35.1-43.9 [facility] Erythrocyte distribution width (RBC) [Ratio] 16.6 % 11.6-14.6 [facility] Immature granulocytes/100 WBC (Bld) 0.300 % 0.0-0.9 [facility] Comment on above: IG% - Immature Granu locytes (promyelocytes, myelocytes and metamyelocytes) > 1% indicates that a LEFT SHIFT is Present. MCH (RBC) [Entitic mass] 22.2 pg 27.0-32.0 [facility] Nucleated RBC/100 WBC (Bld) [Ratio] 0 % 0-5 [facility] MCHC Auto (RBC) [Mass/Vol]Or dered By: Dr. Garay on 11-28-2022 MCHC (RBC) [Mass/Vol] 28.9 g/dL 32-36 [facility] Platelets bldOrdered By: Dr. Garay on 11-28-2022 Platelets (Bld) [#/Vol] 357 10*3/uL 150-450 [facility] Serum or plasma ferritin jerel surement (mass/volume)Ordered By: Dr. Garay on 11-28-2022 Ferritin [Mass/Vol] 3 ng/mL 8-252 [facility] 36on 09-17-2022 36 OV note faxed to number provided. Normal [facility] 36 Printed Normal [facility] 36 Pt last seen November 2021 I dont have updated medical history, but she may take the Otela as relates to her Rodo en y. Ok to just send this note, no letter. Normal [facility] 36 LRYGB 11/28/20 AD. Last OV-11/28/21 with AD. Pt was to have appt with NK on 06/12/22 and cancelled with no r/s noted. Will route to PROGRAM EVALUATION CONSULTANT for review of med. Normal [facility] 36 Post op patient of Kennedy Carter states she has psoriasis on the scalp. Patient states the hygiene coordinator prescribed a pill called Otezla which she will take once a day. Patient states hygiene coordinator thinks its fine for her to take, but said to be safe and get cleared by us as well since she had gastric bypass surgery which will be 2 years ago in November. The hygiene coordinator is asking for something in writing from us that it's ok for her to take this medication. Catrina Alaniz, [place] in [place], . Patient is asking for a call back when this is completed. Normal [facility] - Chemistry and C hemistry - challengeon 03-07-2022 HCG ( test) Ql (U) Negative [facility] Work Phone: Comment on above: Very dilute urine sp ecimens, as indicated by a low specificgravity, may not contain b2b outside sales representative levels of hCG. If is still suspected, a first morning urinespecimen should be collected 48 hours later and tested. Absolute lymphocyte counton 02-21-2022 Lymphocytes Auto (Unsp spec) [#/Vol] 0.91 10*3/uL 0.83-4.51 [facility] Work Phone: Amorphous sediment detection in urine sediment by light microscopyon 02-21-2022 Amorphous sediment LM Ql (Urine sed) 1+ [facility] Work Phone: Basophil percentageon 2021 Basophils/100 WBC (Bld) 0.2 % 0-1 [facility] Work Phone: Bilirubin [Mass/Vol] 0.70 mg/dL 0.20-1.00 [facility] Work Phone: Comment on above: For patients on eltr ombopag therapy, use of Dimension [place] TBIL is not recommended. Chloride [Moles/Vol] 103 mmol/L 98-107 [facility] Work Phone: Eosinophils/100 WBC (Bld) 0.8 % 0-5 [facility] Work Phone: Glucose [Mass/Vol] 114 mg/dL 74-106 [facility] Work Phone: Comment on above: Fasting Glucose resu lt from 100 to 125 mg/dL suggests IMPAIRED HOMEOSTASIS per A.D.A. criteria. Lactate [Moles/Vol] 0.6 mmol/L 0.4-2.0 [facility] Work Phone: Neutrophils (Bld) [#/Vol] 6.0 10*3/uL 2.0-7.7 [facility] Work Phone: Neutrophils/100 WBC (Bld) 72.1 % 47-70 [facility] Work Phone: Potassium [Moles/Vol] 3.3 mmol/L 3.5-5.1 [facility]: Protein [Mass/Vol] 6.6 g/dL 6.4-8.2 [facility] Work Phone: Sodium [Moles/Vol] 135 mmol/L 136-145 [facility] Work Phone: WBC (Bld) [#/Vol] 8.3 10*3/uL 4.4-11.0 [facility] Work Phone: Basophil percentage 5-10 SEEN /hpf 0-5 [facility] Work Phone: Bilirubin Test strip Ql (U)o n 02-21-2022 Bilirubin Ql (U) 3 mg/dL Negative [facility] Work Phone: Comment on above: COLOR OF URINE MAY A FFECT DIPSTICK RESULTS. Blood erythrocytes count (nu mber/volume)on 02-21-2022 RBC (Bld) [#/Vol] 3.46 10*6/uL 4.2-5.4 [facility]: Blood hemoglobin measurement (mass/volume)on 02-21-2022 Hemoglobin (Bld) [Mass/Vol] 9.6 g/dL 12.0-15.0 [facility] Work Phone: Blood lymphocytes/100 leukoc yteson 02-21-2022 Lymphocytes/100 WBC (Bld) 10.9 % 19-41 [facility] Work Phone: Blood monocytes/100 leukocyt eson 02-21-2022 Monocytes/100 WBC (Bld) 15.3 % 0-10 [facility] Work Phone: Blood platelet mean volumeon 02-21-2022 Platelet mean volume (Bld) [Entitic vol] 10.5 fL 6.2-12.0 [facility] Work Phone: Determination of erythrocyte mean corpuscular volume (MCV)on 02-21-2022 MCV (RBC) [Entitic vol] 84.4 fL 81-99 [facility] Work Phone: Comment on above: Delta: 89.2 on 02/19 Hematocrit Auto (Bld) [Volum e fraction]on 02-21-2022 Hematocrit (Bld) [Volume fraction] 29.2 % 37-47 [facility] Work Phone: INR in Blood by Coagulation assayon 02-21-2022 INR Coag (Bld) [Relative time] 1.2 {INR} [facility] Work Phone: Ketones Test strip Ql (U)on 02-21-2022 Ketones Ql (U) Negative Negative [facility] Work Phone: Laboratory - Chemistry and C hemistry - challengeon 02-21-2022 ALP [Catalytic activity/Vol] 79 U/L 45-117 [facility] Work Phone: ALT [Catalytic activity/Vol] 19 U/L 13-56 [facility] Work Phone: CO2 [Moles/Vol] 26.0 mmol/L 21.0-32.0 [facility] Work Phone: Globulin (S) [Mass/Vol] 4.2 g/dL 2.2-4.2 [facility] Work Phone: Urea nitrogen/Creatinine [Mass ratio] 12.1 mg/mg 10-20 [facility] Work Phone: Laboratory - Coagulationon 0 02-21-2022 aPTT Coag (Bld) [Time] 27.7 s 24.1-36.2 [facility] Work Phone: PT Coag (PPP) [Time] 15.3 s 11.7-14.9 [facility] Work Phone: [phone] Laboratory - Hematology and Cell countson 02-21-2022 Erythrocyte distribution width (RBC) [Entitic vol] 42.3 fL 35.1-43.9 [facility] Work Phone: [phone] Erythrocyte distribution width (RBC) [Ratio] 13.8 % 11.6-14.6 [facility] Work Phone: [phone] Immature granulocytes/100 WBC (Bld) 0.700 % 0.0-0.9 [facility] Work Phone: [phone] Comment on above: IG% - Immature Granu locytes (promyelocytes, myelocytes and metamyelocytes) > 1% indicates that a LEFT SHIFT is Present. MCH (RBC) [Entitic mass] 27.7 pg 27.0-32.0 [facility] Work Phone: Nucleated RBC/100 WBC (Bld) [Ratio] 0 % 0-5 [facility] Work Phone: [phone] MCHC Auto (RBC) [Mass/Vol]on 02-21-2022 MCHC (RBC) [Mass/Vol] 32.9 g/dL 32-36 [facility] Work Phone: [phone] Comment on above: Delta: 31.3 on 02/19 Mucus LM Ql (Urine sed)on Mucus Ql (Urine sed) 0 SEEN /hpf [facility] Work Phone: [phone] Nitrite Test strip Ql (U)on 02-21-2022 Nitrite Ql (U) Positive Negative [facility] Work Phone: [phone] No Panel Informationon 02-21 Estimated Creatinine Clearance Calc 50.13 ml/min [facility] Work Phone: [phone] Estimated GFR (MDRD) Amer 64 mL/min >60 [facility] Work Phone: [phone] Comment on above: GFR Calc Estimated GFR (MDRD) Non-Af Amer 53 mL/min >60 [facility] Work Phone: [phone] Comment on above: Non- GFR Calc Platelets bldon 02-21-2022 Platelets (Bld) [#/Vol] 153 10*3/uL 150-450 [facility] Work Phone: Protein Test strip Ql (U)on 02-21-2022 Protein Ql (U) 100 mg/dl Negative [facility] Work Phone: [phone] Serum or plasma albumin naa urement (mass/volume)on 02-21-2022 Albumin [Mass/Vol] 2.4 g/dL 3.2-5.0 [facility] Work Phone: Serum or plasma albumin/glob ulin mass ratioon 02-21-2022 Albumin/Globulin [Mass ratio] 0.6 {ratio} 0.9-2.4 [facility] Work Phone: [phone] Serum or plasma calcium naa urement (mass/volume)on 02-21-2022 Calcium [Mass/Vol] 8.9 mg/dL 8.5-10.1 [facility] Work Phone: [phone] Serum or plasma creatinine m easurement (mass/volume)on 02-21-2022 Creatinine [Mass/Vol] 1.16 mg/dL 0.55-1.02 [facility] Work Phone: Comment on above: The validity of the calculated GFR & GFRAA in patients over 70 years has not been determined. Clinical correlation is essential. Serum or plasma urea nitroge n measurement (mass/volume)on 02-21-2022 Urea nitrogen [Mass/Vol] 14 mg/dL 7-18 [facility] Work Phone: [phone] Squamous epithelial cells de tection in urine sediment by light microscopyon 02-21-2022 Epithelial cells.squamous LM Ql (Urine sed) 0-5 SEEN /hpf 5-10 [facility] Work Phone: [phone] Thin prep Papanicolaou smear with manual screeningon 02-21-2022 Thin prep Papanicolaou smear with manual screening 13 U/L 15-37 [facility] Work Phone: [phone] Thin prep Papanicolaou smear with manual screening 6 5-15 [facility] Work Phone: Urine blood detectionon 02-08 RBC Ql (U) 250 /ul Negative [facility] Work Phone: RBC Ql (U) 10-25 SEEN /hpf 0-5 [facility] Work Phone: Urine clarityon 02-21-2022 Clarity (U) Clear Clear [facility] Work Phone: Urine color determinationon 02-21-2022 Color (U) Yellow Yellow [facility] Work Phone: Urine glucose detectionon Glucose Ql (U) Normal mg/dl Normal [facility] Work Phone: Urine leukocyte esterase det ection by dipstickon 02-21-2022 Leukocyte esterase Test strip Ql (U) 500 /ul Negative [facility] Work Phone: Urine pHon 02-21-2022 pH (U) 6.5 [pH] 5.0 - 8.0 [facility] Work Phone: Urine sediment bacteria coun t by microscopy (number/high power field)on 02-21-2022 Bacteria LM.HPF (Urine sed) [#/Area] 3 /[HPF] None Seen [facility] Work Phone: Urine specific gravity measu rementon 02-21-2022 Specific gravity (U) [Rel density] 1.010 1.002-1.030 [facility] Work Phone: Urobilinogen Auto test strip Ql (U)on 02-21-2022 Urobilinogen Ql (U) 4 mg/dl Normal [facility] Work Phone: Absolute lymphocyte counton 02-19-2022 Lymphocytes Auto (Unsp spec) [#/Vol] 0.79 10*3/uL 0.83-4.51 [facility] Work Phone: Basophil percentageon 2021 Basophil percentage Not Reportable [facility] Work Phone: Chloride [Moles/Vol] 106 mmol/L 98-107 [facility] Work Phone: Glucose [Mass/Vol] 199 mg/dL 74-106 [facility] Work Phone: Comment on above: Fasting Glucose resu lt greater than or equal to 126 mg/dL suggests DIABETES MELLITUS per A.D.A. criteria. Neutrophils (Bld) [#/Vol] 10.2 10*3/uL 2.0-7.7 [facility] Work Phone: Potassium [Moles/Vol] 3.8 mmol/L 3.5-5.1 [facility] Work Phone: Sodium [Moles/Vol] 135 mmol/L 136-145 [facility] Work Phone: WBC (Bld) [#/Vol] 11.3 10*3/uL 4.4-11.0 [facility] Work Phone: Blood erythrocytes count (nu mber/volume)on 02-19-2022 RBC (Bld) [#/Vol] 3.51 10*6/uL 4.2-5.4 [facility] Work Phone: Blood hemoglobin measurement (mass/volume)on 02-19-2022 Hemoglobin (Bld) [Mass/Vol] 9.8 g/dL 12.0-15.0 [facility] Work Phone: Blood lymphocytes/100 leukoc yteson 02-19-2022 Lymphocytes/100 WBC (Bld) 7 % 19-41 [facility] Work Phone: Blood monocytes/100 leukocyt eson 02-19-2022 Monocytes/100 WBC (Bld) 3 % 0-10 [facility] Work Phone: Blood platelet adequacy dete ction by light microscopyon 02-19-2022 Platelets LM Ql (Bld) ADEQUATE ADEQ [facility] Work Phone: Blood platelet mean volumeon 02-19-2022 Platelet mean volume (Bld) [Entitic vol] 10.9 fL 6.2-12.0 [facility] Work Phone: Blood segmented neutrophils/ 100 leukocyteson 02-19-2022 Segmented neutrophils/100 WBC (Bld) 90 % 47-70 [facility] Work Phone: Determination of erythrocyte mean corpuscular volume (MCV)on 02-19-2022 MCV (RBC) [Entitic vol] 89.2 fL 81-99 [facility] Work Phone: Hematocrit Auto (Bld) [Volum e fraction]on 02-19-2022 Hematocrit (Bld) [Volume fraction] 31.3 % 37-47 [facility] Work Phone: Hypochromatic red blood cell detectionon 02-19-2022 [facility]ochromia [facility]l (Bld) [facility] - Chemistry and C hemistry - challengeon 02-19-2022 CO2 [Moles/Vol] 20.0 mmol/L 21.0-32.0 [facility] Work Phone: Urea nitrogen/Creatinine [Mass ratio] 18.2 mg/mg 10-20 [facility] Work Phone: Laboratory - Hematology and Cell countson 02-19-2022 Erythrocyte distribution width (RBC) [Entitic vol] 44.3 fL 35.1-43.9 [facility] Work Phone: Erythrocyte distribution width (RBC) [Ratio] 13.7 % 11.6-14.6 [facility] Work Phone: MCH (RBC) [Entitic mass] 27.9 pg 27.0-32.0 [facility] Work Phone: MCHC Auto (RBC) [Mass/Vol]on 02-19-2022 MCHC (RBC) [Mass/Vol] 31.3 g/dL 32-36 [facility] Work Phone: No Panel Informationon 02-19 Estimated Creatinine Clearance Calc 40.66 ml/min [facility] Work Phone: Estimated GFR (MDRD) Amer 51 mL/min >60 [facility] Work Phone: Comment on above: GFR Calc Estimated GFR (MDRD) Non-Af Amer 42 mL/min >60 [facility] Work Phone: Comment on above: Non- GFR Calc Platelets bldon 02-19-2022 Platelets (Bld) [#/Vol] 136 10*3/uL 150-450 [facility] Work Phone: RBC morphologyon 02-19-2022 RBC morphology finding Nom (Bld) N CYTIC NORMAL NORM C&C [facility] Work Phone: Review by pathologiston 02-08 Pathologist review Benoit (Unsp spec) [Interp] Reviewed [facility] Work Phone: Comment on above: Previous reported re sult: Flory hernandez Edited by: RGOJASON on 02/20/22:1241Neutrophilic leukocytosis.Normocytic anemia.Mild Thrombocytopenia.Clinical correlation necessary.Devaughn Denney M.D. 02/20/22 AMENDED REPORT 02/20/22 1241 PATH REV previously reported as: Flory hernandez Serum or plasma calcium naa urement (mass/volume)on 02-19-2022 Calcium [Mass/Vol] 8.7 mg/dL 8.5-10.1 [facility] Work Phone: Serum or plasma creatinine m easurement (mass/volume)on 02-19-2022 Creatinine [Mass/Vol] 1.43 mg/dL 0.55-1.02 [facility] Work Phone: Comment on above: The validity of the calculated GFR & GFRAA in patients over 70 years has not been determined. Clinical correlation is essential. Serum or plasma urea nitroge n measurement (mass/volume)on 02-19-2022 Urea nitrogen [Mass/Vol] 26 mg/dL 7-18 [facility] Work Phone: Thin prep Papanicolaou smear with manual screeningon 02-19-2022 Thin prep Papanicolaou smear with manual screening 9 5-15 [facility] Work Phone: Total cell counton 2 Cells counted Molgen (Bld/Tiss) [#] 100 MANUAL DIFF [facility] Work Phone: Comment on above: Previous reported re sult: 100 Edited by: ALLAN on 02/19/22:1034 AMENDED REPORT 02/19/22 1034 CELLS COUNTED previously reported as: 100 Absolute lymphocyte counton 02-18-2022 Lymphocytes Auto (Unsp spec) [#/Vol] 0.91 10*3/uL 0.83-4.51 [facility] Work Phone: Basophil percentageon 2021 Basophil percentage 10-25 SEEN /hpf 0-5 [facility] Work Phone: Basophil percentage Not Reportable [facility] Work Phone: Chloride [Moles/Vol] 101 mmol/L 98-107 [facility] Work Phone: Glucose [Mass/Vol] 140 mg/dL 74-106 [facility] Work Phone: Comment on above: Fasting Glucose resu lt greater than or equal to 126 mg/dL suggests DIABETES MELLITUS per A.D.A. criteria. Neutrophils (Bld) [#/Vol] 17.8 10*3/uL 2.0-7.7 [facility] Work Phone: Potassium [Moles/Vol] 4.2 mmol/L 3.5-5.1 [facility] Work Phone: Comment on above: Moderate Hemolysis, Result may be falsely increased. Sodium [Moles/Vol] 133 mmol/L 136-145 [facility] Work Phone: WBC (Bld) [#/Vol] 19.8 10*3/uL 4.4-11.0 [facility] Work Phone: Bilirubin Test strip Ql (U)o n 02-18-2022 Bilirubin Ql (U) Negative Negative [facility] Work Phone: Blood band neutrophil count as percentage of total leukocyteson 02-18-2022 Band form neutrophils/100 WBC (Bld) 8 % 0-5 [facility] Work Phone: Blood erythrocytes count (nu mber/volume)on 02-18-2022 RBC (Bld) [#/Vol] 4.01 10*6/uL 4.2-5.4 [facility] Work Phone: Blood hemoglobin measurement (mass/volume)on 02-18-2022 Hemoglobin (Bld) [Mass/Vol] 11.3 g/dL 12.0-15.0 [facility] Work Phone: Blood lymphocytes/100 leukoc yteson 02-18-2022 Lymphocytes/100 WBC (Bld) 1 % 19-41 [facility] Work Phone: Blood metamyelocytes/100 ying kocyteson 02-18-2022 Metamyelocytes/100 WBC (Bld) 4 % 0-1 [facility] Work Phone: Blood monocytes/100 leukocyt eson 02-18-2022 Monocytes/100 WBC (Bld) 5 % 0-10 [facility] Work Phone: Blood platelet adequacy dete ction by light microscopyon 02-18-2022 Platelets LM Ql (Bld) SLT DEC ADEQ [facility] Work Phone: Blood platelet mean volumeon 02-18-2022 Platelet mean volume (Bld) [Entitic vol] 12.1 fL 6.2-12.0 [facility] Work Phone: Blood segmented neutrophils/ 100 leukocyteson 02-18-2022 Segmented neutrophils/100 WBC (Bld) 82 % 47-70 [facility] Work Phone: Determination of erythrocyte mean corpuscular volume (MCV)on 02-18-2022 MCV (RBC) [Entitic vol] 85.8 fL 81-99 [facility] Work Phone: Hematocrit Auto (Bld) [Volum e fraction]on 02-18-2022 Hematocrit (Bld) [Volume fraction] 34.4 % 37-47 [facility] Work Phone: Ketones Test strip Ql (U)on 02-18-2022 Ketones Ql (U) 5 mg/dl Negative [facility] Work Phone: [phone] Laboratory - Chemistry and C hemistry - challengeon 02-18-2022 HCG ( test) Ql (U) Negative [facility] Work Phone: Comment on above: Very dilute urine sp ecimens, as indicated by a low specificgravity, may not contain b2b outside sales representative levels of hCG. If is still suspected, a first morning urinespecimen should be collected 48 hours later and tested. CO2 [Moles/Vol] 25.0 mmol/L 21.0-32.0 [facility] Work Phone: Urea nitrogen/Creatinine [Mass ratio] 16.2 mg/mg 10-20 [facility] Work Phone: [phone] Laboratory - Hematology and Cell countson 02-18-2022 Erythrocyte distribution width (RBC) [Entitic vol] 41.5 fL 35.1-43.9 [facility] Work Phone: [phone] Erythrocyte distribution width (RBC) [Ratio] 13.4 % 11.6-14.6 [facility] Work Phone: [phone] MCH (RBC) [Entitic mass] 28.2 pg 27.0-32.0 [facility] Work Phone: Myelocytes/100 WBC (Bld) 4 % 0-0 [facility] Work Phone: MCHC Auto (RBC) [Mass/Vol]on 02-18-2022 MCHC (RBC) [Mass/Vol] 32.8 g/dL 32-36 [facility] Work Phone: Mucus LM Ql (Urine sed)on Mucus Ql (Urine sed) 0 SEEN /hpf [facility] Work Phone: [phone] Nitrite Test strip Ql (U)on 02-18-2022 Nitrite Ql (U) Negative Negative [facility] Work Phone: [phone] No Panel Informationon 02-18 Estimated Creatinine Clearance Calc 33.61 ml/min [facility] Work Phone: Estimated GFR (MDRD) Amer 41 mL/min >60 [facility] Work Phone: Comment on above: GFR Calc Estimated GFR (MDRD) Non-Af Amer 34 mL/min >60 [facility] Work Phone: Comment on above: Non- GFR Calc Platelets bldon 02-18-2022 Platelets (Bld) [#/Vol] See comment 150-450 [facility] Work Phone: Comment on above: Please note: For thi s sample, a platelet estimate is provided rather than a platelet count due to platelet clumping. Other parameters associated with this sample are not affected by platelet clumping. If a more accurate platelet count is required, a redraw of the patient will be necessary.Previous reported result: 127 [id number] by: JASON on 02/18/22:1117 AMENDED REPORT 02/18/22 1117 PLT previously reported as: 127 L K/mm3 Protein Test strip Ql (U)on 02-18-2022 Protein Ql (U) 500 mg/dl Negative [facility] Work Phone: RBC morphologyon 02-18-2022 RBC morphology finding Nom (Bld) NORM C+C NORMAL NORM C&C [facility] Work Phone: Review by pathologiston 02-08 Pathologist review Benoit (Unsp spec) [Interp] Flory hernandez [facility] Work Phone: Serum or plasma calcium naa urement (mass/volume)on 02-18-2022 Calcium [Mass/Vol] 8.9 mg/dL 8.5-10.1 [facility] Work Phone: [phone] Serum or plasma creatinine m easurement (mass/volume)on 02-18-2022 Creatinine [Mass/Vol] 1.73 mg/dL 0.55-1.02 [facility]: Comment on above: The validity of the calculated GFR & GFRAA in patients over 70 years has not been determined. Clinical correlation is essential. Serum or plasma urea nitroge n measurement (mass/volume)on 02-18-2022 Urea nitrogen [Mass/Vol] 28 mg/dL 7-18 [facility] Work Phone: Squamous epithelial cells de tection in urine sediment by light microscopyon 02-18-2022 Epithelial cells.squamous LM Ql (Urine sed) 0-5 SEEN /hpf 5-10 [facility] Work Phone: [phone] Thin prep Papanicolaou smear with manual screeningon 02-18-2022 Thin prep Papanicolaou smear with manual screening 7 5-15 [facility] Work Phone: [phone] Total cell counton 2 Cells counted Molgen (Bld/Tiss) [#] 100 MANUAL DIFF [facility] Work Phone: Urine blood detectionon 02-08 RBC Ql (U) 150 /ul Negative [facility] Work Phone: RBC Ql (U) 10-25 SEEN /hpf 0-5 [facility] Work Phone: Urine clarityon 02-18-2022 Clarity (U) Sl. Cloudy Clear [facility] Work Phone: Urine color determinationon 02-18-2022 Color (U) Yellow Yellow [facility] Work Phone: Urine glucose detectionon Glucose Ql (U) Normal mg/dl Normal [facility] Work Phone: Urine leukocyte esterase det ection by dipstickon 02-18-2022 Leukocyte esterase Test strip Ql (U) 100 /ul Negative [facility] Work Phone: Urine pHon 02-18-2022 pH (U) 6.0 [pH] 5.0 - 8.0 [facility] Work Phone: Urine sediment bacteria coun t by microscopy (number/high power field)on 02-18-2022 Bacteria LM.HPF (Urine sed) [#/Area] 2 /[HPF] None Seen [facility] Work Phone: Urine specific gravity measu rementon 02-18-2022 Specific gravity (U) [Rel density] 1.020 1.002-1.030 [facility] Work Phone: Urobilinogen Auto test strip Ql (U)on 02-18-2022 Urobilinogen Ql (U) Normal mg/dl Normal [facility] Work Phone: Absolute lymphocyte counton 02-16-2022 Lymphocytes Auto (Unsp spec) [#/Vol] 1.21 10*3/uL 0.83-4.51 [facility] Work Phone: Basophil percentageon 2021 Basophil percentage 0-5 SEEN /hpf 0-5 [facility] Work Phone: Basophils/100 WBC (Bld) 0.2 % 0-1 [facility] Work Phone: Chloride [Moles/Vol] 106 mmol/L 98-107 [facility] Work Phone: Eosinophils/100 WBC (Bld) 0.3 % 0-5 [facility] Work Phone: Glucose [Mass/Vol] 135 mg/dL 74-106 [facility] Work Phone: Comment on above: Fasting Glucose resu lt greater than or equal to 126 mg/dL suggests DIABETES MELLITUS per A.D.A. criteria. Neutrophils (Bld) [#/Vol] 15.1 10*3/uL 2.0-7.7 [facility] Work Phone: Neutrophils/100 WBC (Bld) 87.4 % 47-70 [facility] Work Phone: Potassium [Moles/Vol] 3.4 mmol/L 3.5-5.1 [facility] Work Phone: Sodium [Moles/Vol] 139 mmol/L 136-145 [facility] Work Phone: WBC (Bld) [#/Vol] 17.2 10*3/uL 4.4-11.0 [facility] Work Phone: Beta hCG serum qualon 2021 Beta HCG ( test) Ql Negative [facility] Work Phone: Bilirubin Test strip Ql (U)o n 02-16-2022 Bilirubin Ql (U) Negative Negative [facility] Work Phone: Blood erythrocytes count (nu mber/volume)on 02-16-2022 RBC (Bld) [#/Vol] 3.98 10*6/uL 4.2-5.4 [facility] Work Phone: Blood hemoglobin measurement (mass/volume)on 02-16-2022 Hemoglobin (Bld) [Mass/Vol] 11.2 g/dL 12.0-15.0 [facility] Work Phone: Blood lymphocytes/100 leukoc yteson 02-16-2022 Lymphocytes/100 WBC (Bld) 7.0 % 19-41 [facility] Work Phone: Blood monocytes/100 leukocyt eson 02-16-2022 Monocytes/100 WBC (Bld) 4.7 % 0-10 [facility] Work Phone: Blood platelet mean volumeon 02-16-2022 Platelet mean volume (Bld) [Entitic vol] 10.0 fL 6.2-12.0 [facility] Work Phone: Calcium oxalate crystals det ection in urine sediment by light microscopyon 02-16-2022 Calcium oxalate crystals LM Ql (Urine sed) 1+ /hpf [facility] Work Phone: Determination of erythrocyte mean corpuscular volume (MCV)on 02-16-2022 MCV (RBC) [Entitic vol] 89.4 fL 81-99 [facility] Work Phone: Hematocrit Auto (Bld) [Volum e fraction]on 02-16-2022 Hematocrit (Bld) [Volume fraction] 35.6 % 37-47 [facility] Work Phone: Ketones Test strip Ql (U)on 02-16-2022 Ketones Ql (U) 50 mg/dl Negative [facility] Work Phone: [phone] Laboratory - Chemistry and C hemistry - challengeon 02-16-2022 CO2 [Moles/Vol] 27.0 mmol/L 21.0-32.0 [facility] Work Phone: [phone] Urea nitrogen/Creatinine [Mass ratio] 17.4 mg/mg 10-20 [facility] Work Phone: [phone] Laboratory - Hematology and Cell countson 02-16-2022 Erythrocyte distribution width (RBC) [Entitic vol] 42.4 fL 35.1-43.9 [facility] Work Phone: [phone] Erythrocyte distribution width (RBC) [Ratio] 12.9 % 11.6-14.6 [facility] Work Phone: [phone] Immature granulocytes/100 WBC (Bld) 0.400 % 0.0-0.9 [facility] Work Phone: [phone] Comment on above: IG% - Immature Granu locytes (promyelocytes, myelocytes and metamyelocytes) > 1% indicates that a LEFT SHIFT is Present. MCH (RBC) [Entitic mass] 28.1 pg 27.0-32.0 [facility] Work Phone: [phone] Nucleated RBC/100 WBC (Bld) [Ratio] 0 % 0-5 [facility] Work Phone: [phone] MCHC Auto (RBC) [Mass/Vol]on 02-16-2022 MCHC (RBC) [Mass/Vol] 31.5 g/dL 32-36 [facility] Work Phone: [phone] Mucus LM Ql (Urine sed)on Mucus Ql (Urine sed) 0 SEEN /hpf [facility] Work Phone: [phone] Nitrite Test strip Ql (U)on 02-16-2022 Nitrite Ql (U) Negative Negative [facility] Work Phone: [phone] No Panel Informationon 02-16 Estimated Creatinine Clearance Calc 63.21 ml/min [facility] Work Phone: [phone] Estimated GFR (MDRD) Amer 84 mL/min >60 [facility] Work Phone: Comment on above: GFR Calc Estimated GFR (MDRD) Non-Af Amer 70 mL/min >60 [facility] Work Phone: Comment on above: Non- GFR Calc Platelets bldon 02-16-2022 Platelets (Bld) [#/Vol] 230 10*3/uL 150-450 [facility] Work Phone: Protein Test strip Ql (U)on 02-16-2022 Protein Ql (U) Negative Negative [facility] Work Phone: Serum or plasma calcium naa urement (mass/volume)on 02-16-2022 Calcium [Mass/Vol] 8.9 mg/dL 8.5-10.1 [facility] Work Phone: Serum or plasma creatinine m easurement (mass/volume)on 02-16-2022 Creatinine [Mass/Vol] 0.92 mg/dL 0.55-1.02 [facility] Work Phone: Comment on above: The validity of the calculated GFR & GFRAA in patients over 70 years has not been determined. Clinical correlation is essential. Serum or plasma urea nitroge n measurement (mass/volume)on 02-16-2022 Urea nitrogen [Mass/Vol] 16 mg/dL 7-18 [facility] Work Phone: Squamous epithelial cells de tection in urine sediment by light microscopyon 02-16-2022 Epithelial cells.squamous LM Ql (Urine sed) 0-5 SEEN /hpf 5-10 [facility] Work Phone: Thin prep Papanicolaou smear with manual screeningon 02-16-2022 Thin prep Papanicolaou smear with manual screening 6 5-15 [facility] Work Phone: Urine blood detectionon RBC Ql (U) 25 /ul Negative [facility] Work Phone: [phone] RBC Ql (U) 0-5 SEEN /hpf 0-5 [facility] Work Phone: [phone] Urine clarityon 02-16-2022 Clarity (U) Clear Clear [facility] Work Phone: Urine color determinationon 02-16-2022 Color (U) Yellow Yellow [facility] Work Phone: Urine glucose detectionon Glucose Ql (U) Normal mg/dl Normal [facility] Work Phone: Urine leukocyte esterase det ection by dipstickon 02-16-2022 Leukocyte esterase Test strip Ql (U) 25 /ul Negative [facility] Work Phone: Urine pHon 02-16-2022 pH (U) 5.0 [pH] 5.0 - 8.0 [facility] Work Phone: Urine sediment bacteria coun t by microscopy (number/high power field)on 02-16-2022 Bacteria LM.HPF (Urine sed) [#/Area] RARE /hpf None Seen [facility] Work Phone: Urine specific gravity measu rementon 02-16-2022 Specific gravity (U) [Rel density] 1.025 1.002-1.030 [facility] [facility] Work Phone: Urobilinogen Auto test strip Ql (U)on 02-16-2022 Urobilinogen Ql (U) Normal mg/dl Normal [facility] Work Phone: Zinc, Serumon 11-27-2021 Zinc, Serum 53.3 ug/dL Low 60.0-120.0 [facility] Comment on above: Result Comment: INTE RPRETIVE INFORMATION: Zinc, Serum or Plasma Elevated results may be due to skin or collection-related contamination, including the use of a noncertified metal-free collection/transport tube. If contamination concerns exist due to elevated levels of serum/plasma zinc, confirmation with a second specimen collected in a certified metal-free tube is recommended. Circulating zinc concentrations are dependent on albumin status and are depressed with malnutrition. Zinc may also be lowered with infection, inflammation, stress, oral contraceptives, and . Zinc may be elevated with zinc supplementation or fasting. Elevated zinc concentrations may interfere with copper absorption. This test was developed and its performance characteristics determined by [facility]. It has not been cleared or approved by the US Food and Drug Administration. This test was performed in a CLIA certified laboratory and is intended for clinical purposes. Performed By: [facility] [address] [place] [id number] Account Development Specialist: Briseyda Meier MD Performed By: #### B 12, HEMOG, FOLT3, FERR3, MG3, IRON3, CMP3 #### [facility] [address] [place] [address] #### ZINC2 #### The performing lab is in the report. Vitamin B1,Whole Bloodon Vitamin B1,Whole Blood 102 nmol/L Normal 70-180 [facility] Comment on above: Result Comment: INTE RPRETIVE INFORMATION: Vitamin B1, Whole Blood This assay measures the concentration of thiamine diphosphate (TDP), the primary active form of vitamin B1. Approximately 90 percent of vitamin B1 present in whole blood is TDP. Thiamine and thiamine monophosphate, which comprise the remaining 10 percent, are not measured. This test was developed and its performance characteristics determined by [facility]. It has not been cleared or approved by the US Food and Drug Administration. This test was performed in a CLIA certified laboratory and is intended for clinical purposes. Performed By: [facility] [address] [place] [id number] Account Development Specialist: Briseyda Meier MD Performed By: #### B 12, HEMOG, FOLT3, FERR3, MG3, IRON3, CMP3 #### [facility] [address] [place] [address] #### ZINC2 #### The performing lab is in the report. Vit D 25-OH, Totalon 022 Vit D 25-OH, Total 72 ng/mL Normal 30-100 [facility] Comment on above: Result Comment: Ther apy is based on measurement of Total 25-OHD with the following classification levels: Less than 20 ng/mL: Indicative of Vit D deficiency 20-30 ng/mL: Suggests Vit D insufficiency Optimal: Greater than or equal to 30 ng/mL Test performed by [employer] Immunoassay, measuring Total Vitamin D, not individual fractions. Performed By: #### B 12, HEMOG, FOLT3, FERR3, MG3, IRON3, CMP3 #### [facility] [address] [place] [address] #### ZINC2 #### The performing lab is in the report. Comp Metabolic Panelon 11-22 ALP [Catalytic activity/Vol] 94 U/L Normal 38-126 [facility] Comment on above: Performed By: #### B 12, HEMOG, FOLT3, FERR3, MG3, IRON3, CMP3 #### [address] [place] [address] #### ZINC2 #### The performing lab is in the report. ALT [Catalytic activity/Vol] 27 U/L Normal 0-34 [facility] Comment on above: Result Comment: The ALT test is performed by an updated assay method. Please note that the reference intervals have been changed and are now sex specific. Performed By: #### B 12, HEMOG, FOLT3, FERR3, MG3, IRON3, CMP3 #### [address] [place] [address] #### ZINC2 #### The performing lab is in the report. Calcium [Mass/Vol] 9.4 mg/dL Normal 8.4-10.4 [facility] Comment on above: Performed By: #### B 12, HEMOG, FOLT3, FERR3, MG3, IRON3, CMP3 #### [address] [place] [address] #### ZINC2 #### The performing lab is in the report. Glucose [Mass/Vol] 90 mg/dL Normal 70-100 [facility] Comment on above: Performed By: #### B 12, HEMOG, FOLT3, FERR3, MG3, IRON3, CMP3 #### [address] [place] [address] #### ZINC2 #### The performing lab is in the report. Anion gap [Moles/Vol] 10 mmol/L Normal 3-13 [facility] Comment on above: Performed By: #### B 12, HEMOG, FOLT3, FERR3, MG3, IRON3, CMP3 #### [address] [place] [address] #### ZINC2 #### The performing lab is in the report. AST [Catalytic activity/Vol] 32 U/L Normal 15-46 [facility] Comment on above: Performed By: #### B 12, HEMOG, FOLT3, FERR3, MG3, IRON3, CMP3 #### [address] [place] [address] #### ZINC2 #### The performing lab is in the report. Bilirubin [Mass/Vol] 0.5 mg/dL Normal 0.2-1.3 [facility] Comment on above: Performed By: #### B 12, HEMOG, FOLT3, FERR3, MG3, IRON3, CMP3 #### [address] [place] [address] #### ZINC2 #### The performing lab is in the report. CO2 [Moles/Vol] 26 mmol/L Normal 22-30 [facility] Comment on above: Performed By: #### B 12, HEMOG, FOLT3, FERR3, MG3, IRON3, CMP3 #### [address] [place] [address] #### ZINC2 #### The performing lab is in the report. Creatinine [Mass/Vol] 0.60 mg/dL Normal 0.52-1.25 [facility] Comment on above: Performed By: #### B 12, HEMOG, FOLT3, FERR3, MG3, IRON3, CMP3 #### [address] [place] [address] #### ZINC2 #### The performing lab is in the report. eGFR OTHER > 90.0 Normal >60 [facility] Comment on above: Result Comment: KDIG O guidelines provide the following GFR categories: Stage GFR(ml/min/1.73 m2) Terms G1 >=90 Normal or high G2 60-89 Mildly decreased* G3a 45-59 Mildly to moderately decreased G3b 30-44 Moderately to severely decreased G4 15-29 Severely decreased G5 <15 Kidney failure *Relative to young adult level. In the absence of evidence of kidney damage, neither GFR category G1 nor G2 fulfill the criteria for CKD. The CKD-EPI equation is validated in individuals 18 years of age and older. Currently the best equation for estimating glomerular filtration rate (GFR) from serum creatinine in children is the Bedside Bean equation. It is less accurate in patients with extremes of muscle mass, restriction of dietary protein, ingestion of creatine, extra-renal metabolism of creatinine, or treatment with medications that affect renal tubular creatinine secretion. Performed By: #### B 12, HEMOG, FOLT3, FERR3, MG3, IRON3, CMP3 #### [address] [place] [address] #### ZINC2 #### The performing lab is in the report. GFR/1.73 sq M.predicted among blacks MDRD (S/P/Bld) [Vol rate/Area] mL/min/{1.73_m2} Normal >60 [facility] Comment on above: Performed By: #### B 12, HEMOG, FOLT3, FERR3, MG3, IRON3, CMP3 #### [address] [place] [address] #### ZINC2 #### The performing lab is in the report. Protein [Mass/Vol] 7.4 g/dL Normal 6.3-8.2 [facility] Comment on above: Performed By: #### B 12, HEMOG, FOLT3, FERR3, MG3, IRON3, CMP3 #### [address] [place] [address] #### ZINC2 #### The performing lab is in the report. Urea nitrogen [Mass/Vol] 16 mg/dL Normal 9-20 [facility] Comment on above: Performed By: #### B 12, HEMOG, FOLT3, FERR3, MG3, IRON3, CMP3 #### [place] [address] #### ZINC2 #### The performing lab is in the report. Potassium [Moles/Vol] 3.7 mmol/L Normal 3.5-5.1 [facility] Comment on above: Performed By: #### B 12, HEMOG, FOLT3, FERR3, MG3, IRON3, CMP3 #### [address] [place] [address] #### ZINC2 #### The performing lab is in the report. Sodium [Moles/Vol] 138 mmol/L Normal 135-145 [facility] Comment on above: Performed By: #### B 12, HEMOG, FOLT3, FERR3, MG3, IRON3, CMP3 #### [facility] [address] [place] [address] #### ZINC2 #### The performing lab is in the report. Albumin [Mass/Vol] 4.5 g/dL Normal 3.5-5.0 [facility] Comment on above: Performed By: #### B 12, HEMOG, FOLT3, FERR3, MG3, IRON3, CMP3 #### [address] [place] [address] #### ZINC2 #### The performing lab is in the report. Chloride [Moles/Vol] 103 mmol/L Normal 98-107 [facility] Comment on above: Performed By: #### B 12, HEMOG, FOLT3, FERR3, MG3, IRON3, CMP3 #### [address] [place] [address] #### ZINC2 #### The performing lab is in the report. Ferritinon 11-22-2021 Ferritin [Mass/Vol] 9 ng/mL Normal 6-137 [facility] Comment on above: Performed By: #### B 12, HEMOG, FOLT3, FERR3, MG3, IRON3, CMP3 #### [address] [place] [address] #### ZINC2 #### The performing lab is in the report. Folateon 11-22-2021 Folate 18.9 ng/mL Normal [facility] Comment on above: Result Comment: >2.8 Performed By: #### B 12, HEMOG, FOLT3, FERR3, MG3, IRON3, CMP3 #### [address] [place] [address] #### ZINC2 #### The performing lab is in the report. Hemogramon 11-22-2021 Erythrocyte distribution width (RBC) [Ratio] 12.4 % Normal 11.5-14.5 [facility] Comment on above: Performed By: #### B 12, HEMOG, FOLT3, FERR3, MG3, IRON3, CMP3 #### [facility] [address] [place] [address] #### ZINC2 #### The performing lab is in the report. Hematocrit (Bld) [Volume fraction] 32.9 % Low 35.0-47.0 [facility] Comment on above: Performed By: #### B 12, HEMOG, FOLT3, FERR3, MG3, IRON3, CMP3 #### [address] [place] [address] #### ZINC2 #### The performing lab is in the report. Hemoglobin (Bld) [Mass/Vol] 11.1 g/dL Low 11.7-16.0 [facility] Comment on above: Performed By: #### B 12, HEMOG, FOLT3, FERR3, MG3, IRON3, CMP3 #### [address] [place] [address] #### ZINC2 #### The performing lab is in the report. MCH (RBC) [Entitic mass] 29.2 pg Normal 26.0-34.0 [facility] Comment on above: Performed By: #### B 12, HEMOG, FOLT3, FERR3, MG3, IRON3, CMP3 #### [address] [place] [address] #### ZINC2 #### The performing lab is in the report. MCHC 33.6 % Normal 32.0-36.0 [facility] Comment on above: Performed By: #### B 12, HEMOG, FOLT3, FERR3, MG3, IRON3, CMP3 #### [address] [place] [address] #### ZINC2 #### The performing lab is in the report. MCV (RBC) [Entitic vol] 87.0 fL Normal 79.0-98.0 [facility] Comment on above: Performed By: #### B 12, HEMOG, FOLT3, FERR3, MG3, IRON3, CMP3 #### [facility] [address] [place] [address] #### ZINC2 #### The performing lab is in the report. Platelet mean volume (Bld) [Entitic vol] 7.9 fL Normal 7.4-10.4 [facility] Comment on above: Performed By: #### B 12, HEMOG, FOLT3, FERR3, MG3, IRON3, CMP3 #### [address] [place] [address] #### ZINC2 #### The performing lab is in the report. Platelets (Bld) [#/Vol] 281 10*3/uL Normal 140-440 [facility] Comment on above: Performed By: #### B 12, HEMOG, FOLT3, FERR3, MG3, IRON3, CMP3 #### [address] [place] [address] #### ZINC2 #### The performing lab is in the report. RBC (Bld) [#/Vol] 3.79 10*6/uL Low 3.80-5.20 [facility] Comment on above: Performed By: #### B 12, HEMOG, FOLT3, FERR3, MG3, IRON3, CMP3 #### [facility] [address] [place] [address] #### ZINC2 #### The performing lab is in the report. WBC (Bld) [#/Vol] 8.1 10*3/uL Normal 3.6-10.7 [facility] Comment on above: Performed By: #### B 12, HEMOG, FOLT3, FERR3, MG3, IRON3, CMP3 #### [facility] [address] [place] [address] #### ZINC2 #### The performing lab is in the report. Iron, Totalon 11-22-2021 Iron, Total 54 ug/dL Normal 37-170 [facility] Comment on above: Performed By: #### B 12, HEMOG, FOLT3, FERR3, MG3, IRON3, CMP3 #### [facility] [address] [place] [address] #### ZINC2 #### The performing lab is in the report. Lipid Panelon 11-22-2021 Chol/HDL 2 Normal [facility] Comment on above: Result Comment: Ref Range: < 3 Low Risk for CHD 3-6 Mod Risk for CHD > 6 High Risk for CHD Performed By: #### B 12, HEMOG, FOLT3, FERR3, MG3, IRON3, CMP3 #### [address] [place] [address] #### ZINC2 #### The performing lab is in the report. Cholesterol in HDL [Mass/Vol] 51 mg/dL Normal 40-60 [facility] Comment on above: Performed By: #### B 12, HEMOG, FOLT3, FERR3, MG3, IRON3, CMP3 #### [address] [place] [address] #### ZINC2 #### The performing lab is in the report. Low Density Lipoprotein 44 mg/dL Normal <100 [facility] Comment on above: Performed By: #### B 12, HEMOG, FOLT3, FERR3, MG3, IRON3, CMP3 #### [address] [place] [address] #### ZINC2 #### The performing lab is in the report. Triglyceride [Mass/Vol] 84 mg/dL Normal <150 [facility] Comment on above: Performed By: #### B 12, HEMOG, FOLT3, FERR3, MG3, IRON3, CMP3 #### [address] [place] [address] #### ZINC2 #### The performing lab is in the report. Cholesterol [Mass/Vol] 112 mg/dL Normal < 200 [facility] Comment on above: Performed By: #### B 12, HEMOG, FOLT3, FERR3, MG3, IRON3, CMP3 #### [facility] [address] [place] [address] #### ZINC2 #### The performing lab is in the report. Magnesiumon 11-22-2021 Magnesium [Mass/Vol] 1.7 mg/dL Normal 1.6-2.3 [facility] Comment on above: Performed By: #### B 12, HEMOG, FOLT3, FERR3, MG3, IRON3, CMP3 #### [facility] [address] [place] [address] #### ZINC2 #### The performing lab is in the report. Vitamin B12on 11-22-2021 Cobalamin (Vitamin B12) [Mass/Vol] 839 pg/mL Normal 239-931 [facility] Comment on above: Performed By: #### B 12, HEMOG, FOLT3, FERR3, MG3, IRON3, CMP3 #### [address] [place] [address] #### ZINC2 #### The performing lab is in the report. CNOVon 11-18-2021 CNOV Office Visit (UCTR ) CHARISMA JUDGE ([id number]) 1975 F Date Time Provider Department 11/18/21 3:15 PM NETTIE LANG [facility] During your visit today, we recorded the following information about you: Temperature Pulse Respiration Blood pressure 99.8 degrees 85/minute 16/minute 122/82 Weight 69.4 kg Nettie Lang APRN.CNP 11/20/2021 5:56 PM Signed This note was created using NoteWriter. Subjective Charisma Braun Nu is a 46 year old female. 46 year old female with PMH gastric bypass (1 year ago) presents with complaints of possible strep throat. Acute onset 2 days ago +sore throat +cough Denies accompanying URI sx. Denies fever or chills. Denies cough. Denies SOB or CP. Utilized x2 tylenol and cold She works at [employer]. The history is provided by the patient. No educational sign language interpreter was used. Sore Throat This is a new problem. Episode onset: 2 days ago. The problem has been unchanged. Neither side of throat is experiencing more pain than the other. There has been no fever. The pain is at a severity of 5/10. The pain is moderate. Associated symptoms include coughing. Pertinent negatives include no abdominal pain, congestion, diarrhea, drooling, ear discharge, ear pain, headaches, hoarse voice, plugged ear sensation, neck pain, shortness of breath, stridor, swollen glands, trouble swallowing or vomiting. She has had no exposure to strep or mono. She has tried acetaminophen for the symptoms. The treatment provided no relief. PAST MEDICAL HISTORY Diagnosis Date - Abdominal [...] low cervical - COLONOSCOP W/ OR W/O [facility] SPEC 12/22/2013 Colonoscopy - EGD W/O [facility] SPECIMEN W/BX 05/11/10 - ENDOMETRIAL BIOPSY 09/10/2013 - PAST SURGICAL HISTORY OF 06/15/10 Lap [facility], intra-op cholangiogram -- Dr. Chin - PAST SURGICAL HISTORY OF lumbar injections - REDUCTION OF LARGE BREAST 2001 [place] - REMOVAL OF HEEL SPUR LIGAMENT CUT; Foot/Ankle Clinic ALLERGIES Patient has no known allergies. MEDICATIONS FLUoxetine (PROZAC) 20 mg capsule 20mg + 40mg =60mg daily FLUoxetine HCl (PROZAC) 40 mg capsule 20mg + 40mg =60mg daily CPAP UTO CPAP DEVICE, chin strap, humidity. Lifetime supplies.Please Autopap 4-20 cmH2O with download in 2 weeks faxed to [phone] /Pt without insurance FAMILY HISTORY Problem Relation [...] Grandfather - Arthritis Maternal Grandmother - other (dora [Other]) Paternal Aunt Social History Tobacco Use - Smoking status: Never Smoker - Smokeless tobacco: Never Used Substance Use Topics - Alcohol use: No - Drug use: No Review of Systems Constitutional: Negative for chills, diaphoresis, fatigue and fever. HENT: Positive for sore throat. Negative for congestion, drooling, ear discharge, ear pain, hoarse voice, postnasal drip, rhinorrhea, sinus pain and trouble swallowing. Eyes: Negative for photophobia, pain, discharge, redness, itching and visual disturbance. Respiratory: Positive for cough. Negative for apnea, choking, chest tightness, shortness of breath and stridor. Cardiovascular: Negative for chest pain, palpitations and leg swelling. Gastrointestinal: Negative for abdominal pain, diarrhea, nausea and vomiting. Musculoskeletal: Negative for arthralgias, back pain, gait problem and neck pain. Skin: Negative for color change, pallor, rash and wound. Allergic/Immunologic: Negative for environmental allergies, food allergies and immunocompromised state. Neurological: Negative for dizziness, facial asymmetry, light-headedness, numbness and headaches. Hematological: Negative for adenopathy. Does not bruise/bleed easily. Psychiatric/Behavioral : Negative for agitation and behavioral problems. Objective BP 122/82 Pulse 85 Temp 37.7 ?C (99.8 ?F) Resp 16 Wt 69.4 kg (153 lb) LMP 09/27/2014 SpO2 98% BMI 27.10 kg/m? Physical Exam Vitals and nursing note reviewed. Constitutional: General: She is not in ac (more content not included)... Normal [facility] Zinc, Serumon 06-04-2021 Zinc, Serum 78.9 ug/dL Normal 60.0-120.0 [facility] Comment on above: Result Comment: INTE RPRETIVE INFORMATION: Zinc, Serum or Plasma Elevated results may be due to skin or collection-related contamination, including the use of a noncertified metal-free collection/transport tube. If contamination concerns exist due to elevated levels of serum/plasma zinc, confirmation with a second specimen collected in a certified metal-free tube is recommended. Circulating zinc concentrations are dependent on albumin status and are depressed with malnutrition. Zinc may also be lowered with infection, inflammation, stress, oral contraceptives, and . Zinc may be elevated with zinc supplementation or fasting. Elevated zinc concentrations may interfere with copper absorption. This test was developed and its performance characteristics determined by [employer]. It has not been cleared or approved by the US Food and Drug Administration. This test was performed in a CLIA certified laboratory and is intended for clinical purposes. Performed By: [facility] [address] [place] [address] Account Development Specialist: Briseyda Meier MD Performed By: #### B 12, HEMOG, FOLT3, FERR3, MG3, IRON3, CMP3 #### [facility] [employer] [facility] [address] [place] [address] #### ZINC2 #### The performing lab is in the report. CBCOrdered By: Nicky Marr on 05-31-2021 Hematocrit (Bld) [Volume fraction] 37.5 % 35.0 - 47.0 % [facility] Work Phone: [phone] Hemoglobin.gastrointesti nal spec 1 Ql (Stl) 12.5 g/dL 11.7 - 16.0 g/dL [facility] Work Phone: [phone] MCH (RBC) [Entitic mass] 30.2 pg 26. 0 - 34.0 pg [facility] Work Phone: [phone] MCHC (RBC) [Mass/Vol] 33.3 % 32.0 - 36.0 % [facility] Work Phone: [phone] MCV (RBC) [Entitic vol] 90.8 fL 79.0 - 98.0 fL [facility] Work Phone: [phone] Platelet distribution width (Bld) [Ratio] 13.5 % 11.5 - 14.5 % [facility] Work Phone: [phone] Platelet mean volume (Bld) [Entitic vol] 8.3 fL 7.4 - 10.4 fL [facility] Work Phone: 1 Platelets (Bld) [#/Vol] 245 10*3/uL 140 - 440 10*3/uL [facility] Work Phone: 1 RBC (Bld) [#/Vol] 4.13 10*6/uL 3.80 - 5.2 0 10*6/uL [facility] Work Phone: 1 WBC (Bld) [#/Vol] 7.8 10*3/uL 3.6 - 10.7 10*3/uL [facility] Work Phone: 1 Test Performed by [facility], [address] [address] [facility] Work Phone: 1 [facility] Work Phone: 1 Comp Metabolic Panelon 05-31 ALT [Catalytic activity/Vol] 17 U/L Normal 0-34 [facility] Comment on above: Result Comment: The ALT test is performed by an updated assay method. Please note that the reference intervals have been changed and are now sex specific. Performed By: #### B 12, MG3, CMP3, HEMOG, FOLT3, FERR3, IRON3, LIPD2 #### [facility] [address] [place] [address] #### ZINC2 #### The performing lab is in the report. #### VD25H #### [facility] [address] [place] [address] Calcium [Mass/Vol] 9.5 mg/dL Normal 8.4-10.4 [facility] Comment on above: Performed By: #### B 12, MG3, CMP3, HEMOG, FOLT3, FERR3, IRON3, LIPD2 #### [facility] [address] [place] [address] #### ZINC2 #### The performing lab is in the report. #### VD25H #### [facility] [address] [place] [address] ALP [Catalytic activity/Vol] 80 U/L Normal 38-126 [facility] Comment on above: Performed By: #### B 12, MG3, CMP3, HEMOG, FOLT3, FERR3, IRON3, LIPD2 #### [facility] [address] [place] [address] #### ZINC2 #### The performing lab is in the report. #### VD25H #### [facility] [address] [place] [address] Anion gap [Moles/Vol] 3 mmol/L Normal 3-13 [facility] Comment on above: Performed By: #### B 12, MG3, CMP3, HEMOG, FOLT3, FERR3, IRON3, LIPD2 #### [facility] [address] [place] [address] #### ZINC2 #### The performing lab is in the report. #### VD25H #### [facility] [address] [facility] [place] [address] AST [Catalytic activity/Vol] 24 U/L Normal 15-46 [facility] Comment on above: Performed By: #### B 12, MG3, CMP3, HEMOG, FOLT3, FERR3, IRON3, LIPD2 #### [facility] [address] [place] [address] #### ZINC2 #### The performing lab is in the report. #### VD25H #### [facility] [address] [place] [address] Bilirubin [Mass/Vol] 0.4 mg/dL Normal 0.2-1.3 [facility] Comment on above: Performed By: #### B 12, MG3, CMP3, HEMOG, FOLT3, FERR3, IRON3, LIPD2 #### [facility] [address] [place] [address] #### ZINC2 #### The performing lab is in the report. #### VD25H #### [facility] [address] [place] [address] CO2 [Moles/Vol] 28 mmol/L Normal 22-30 [facility] Comment on above: Performed By: #### B 12, MG3, CMP3, HEMOG, FOLT3, FERR3, IRON3, LIPD2 #### [facility] [address] [place] [address] #### ZINC2 #### The performing lab is in the report. #### VD25H #### [facility] [address] [place] [address] Creatinine [Mass/Vol] 0.64 mg/dL Normal 0.52-1.25 [facility] Comment on above: Performed By: #### B 12, MG3, CMP3, HEMOG, FOLT3, FERR3, IRON3, LIPD2 #### [facility] [address] [place] [address] #### ZINC2 #### The performing lab is in the report. #### VD25H #### [facility] [address] [place] [address] eGFR OTHER > 90.0 Normal >60 [facility] Comment on above: Result Comment: KDIG O guidelines provide the following GFR categories: Stage GFR(ml/min/1.73 m2) Terms G1 >=90 Normal or high G2 60-89 Mildly decreased* G3a 45-59 Mildly to moderately decreased G3b 30-44 Moderately to severely decreased G4 15-29 Severely decreased G5 <15 Kidney failure *Relative to young adult level. In the absence of evidence of kidney damage, neither GFR category G1 nor G2 fulfill the criteria for CKD. The CKD-EPI equation is validated in individuals 18 years of age and older. Currently the best equation for estimating glomerular filtration rate (GFR) from serum creatinine in children is the Bedside Bean equation. It is less accurate in patients with extremes of muscle mass, restriction of dietary protein, ingestion of creatine, extra-renal metabolism of creatinine, or treatment with medications that affect renal tubular creatinine secretion. Performed By: #### B 12, MG3, CMP3, HEMOG, FOLT3, FERR3, IRON3, LIPD2 #### [facility] [address] [place] [address] #### ZINC2 #### The performing lab is in the report. #### VD25H #### [facility] [address] [place] [address] GFR/1.73 sq M.predicted among blacks MDRD (S/P/Bld) [Vol rate/Area] mL/min/{1.73_m2} Normal >60 [facility] Comment on above: Performed By: #### B 12, MG3, CMP3, HEMOG, FOLT3, FERR3, IRON3, LIPD2 #### [facility] [address] [place] [address] #### ZINC2 #### The performing lab is in the report. #### VD25H #### [facility] [address] [place] [address] Glucose [Mass/Vol] 92 mg/dL Normal 70-100 [facility] Comment on above: Performed By: #### B 12, MG3, CMP3, HEMOG, FOLT3, FERR3, IRON3, LIPD2 #### [facility] [address] [place] [address] #### ZINC2 #### The performing lab is in the report. #### VD25H #### [facility] [address] [place] [address] Protein [Mass/Vol] 7.1 g/dL Normal 6.3-8.2 [facility] Comment on above: Performed By: #### B 12, MG3, CMP3, HEMOG, FOLT3, FERR3, IRON3, LIPD2 #### [facility] [address] [place] [address] #### ZINC2 #### The performing lab is in the report. #### VD25H #### [facility] [address] [place] [address] Urea nitrogen [Mass/Vol] 12 mg/dL Normal 9-20 [facility] Comment on above: Performed By: #### B 12, MG3, CMP3, HEMOG, FOLT3, FERR3, IRON3, LIPD2 #### [facility] [address] [facility] [place] [address] #### ZINC2 #### The performing lab is in the report. #### VD25H #### [facility] [address] [place] [address] Potassium [Moles/Vol] 4.9 mmol/L Normal 3.5-5.1 [facility] Comment on above: Performed By: #### B 12, MG3, CMP3, HEMOG, FOLT3, FERR3, IRON3, LIPD2 #### [facility] [address] [place] [address] #### ZINC2 #### The performing lab is in the report. #### VD25H #### [facility] [address] [place] [address] Albumin [Mass/Vol] 4.2 g/dL Normal 3.5-5.0 [facility] Comment on above: Performed By: #### B 12, MG3, CMP3, HEMOG, FOLT3, FERR3, IRON3, LIPD2 #### [facility] [address] [place] [address] #### ZINC2 #### The performing lab is in the report. #### VD25H #### [facility] [address] [place] [address] Chloride [Moles/Vol] 108 mmol/L High 98-107 [facility] Comment on above: Performed By: #### B 12, MG3, CMP3, HEMOG, FOLT3, FERR3, IRON3, LIPD2 #### [facility] [address] [place] [address] #### ZINC2 #### The performing lab is in the report. #### VD25H #### [facility] [address] [place] [address] Sodium [Moles/Vol] 139 mmol/L Normal 135-145 [facility] Comment on above: Performed By: #### B 12, MG3, CMP3, HEMOG, FOLT3, FERR3, IRON3, LIPD2 #### [facility] [address] [place] [address] #### ZINC2 #### The performing lab is in the report. #### VD25H #### [facility] [address] [place] [address] Comprehensive Metabolic Pane lOrdered By: Nicky Marr on 05-31-2021 Albumin [Mass/Vol] 4.2 g/dL 3.5 - 5.0 g/dL [facility] Work Phone: [phone] ALP (Bld) [Catalytic activity/Vol] 80 U/L 38 - 126 U/L [facility] Work Phone: [phone] ALT [Catalytic activity/Vol] 17 U/L 0 - 34 U/L [employer] Work Phone: [phone] Comment on above: The ALT test is perf ormed by an updated assay method. Please note that the reference intervals have been changed and are now sex specific. Anion gap [Moles/Vol] 3 mmol/L 3 - 13 mmol/L [employer] Work Phone: [phone] AST [Catalytic activity/Vol] 24 U/L 15 - 46 U/L [employer] Work Phone: [phone] Bilirubin [Mass/Vol] 0.4 mg/dL 0.2 - 1 .3 mg/dL [employer] Work Phone: [phone] Calcium [Mass/Vol] 9.5 mg/dL 8.4 - 10. 4 mg/dL [employer] Work Phone: [phone] Chloride [Moles/Vol] 108 mmol/L High 98 - 10 7 mmol/L [employer] Work Phone: [phone] CO2 [Moles/Vol] 28 mmol/L 22 - 30 mmol/L [employer] Work Phone: [phone] Creatinine [Mass/Vol] 0.64 mg/dL 0.52 - 1.25 mg/dL [employer] Work Phone: [phone] EGFR IF NonAfrican Swedish >90.0 >60 mL/min [facility] Work Phone: [phone] Comment on above: KDIGO guidelines pro vide the following GFR categories: Stage GFR(ml/min/1.73 m2) Terms G1 >=90 Normal or high G2 60-89 Mildly decreased* G3a 45-59 Mildly to moderately decreased G3b 30-44 Moderately to severely decreased G4 15-29 Severely decreased G5 <15 Kidney failure *Relative to young adult level. In the absence of evidence of kidney damage, neither GFR category G1 nor G2 fulfill the criteria for CKD. The CKD-EPI equation is validated in individuals 18 years of age and older. Currently the best equation for estimating glomerular filtration rate (GFR) from serum creatinine in children is the Bedside Bean equation. It is less accurate in patients with extremes of muscle mass, restriction of dietary protein, ingestion of creatine, extra-renal metabolism of creatinine, or treatment with medications that affect renal tubular creatinine secretion. Free PSA/Total PSA [Mass fraction] 7.1 g/dL 6.3 - 8.2 g/dL [facility] Work Phone: [phone] GFR/1.73 sq M.predicted among blacks MDRD (S/P/Bld) [Vol rate/Area] mL/min/{1.73_m2} >60 mL/min [facility] Work Phone: [phone] Glucose [Mass/Vol] 92 mg/dL 70 - 100 mg/dL [facility] Work Phone: [phone] Interpretation and review of laboratory results Abnormal [facility] Work Phone: Potassium [Moles/Vol] 4.9 mmol/L 3.5 - 5.1 mmol/L [facility] Work Phone: [phone] Sodium [Moles/Vol] 139 mmol/L 135 - 145 mmol/L [facility] Work Phone: [phone] Urea nitrogen (BldV) [Mass/Vol] 12 mg/dL 9 - 20 mg/dL [facility] Work Phone: [phone] Ferritinon 05-31-2021 Ferritin [Mass/Vol] 21 ng/mL Normal 6-137 [facility] Comment on above: Performed By: #### B 12, HEMOG, FOLT3, FERR3, MG3, IRON3, CMP3 #### [facility] [place] [address] #### ZINC2 #### The performing lab is in the report. FerritinOrdered By: Nicky ordonez on 05-31-2021 Ferritin [Mass/Vol] 21 ng/mL 6 - 137 ng/mL [facility] Work Phone: [phone] Test Performed by [facility], [address] Work Phone: [facility] Work Phone: FolateOrdered By: Nicky miranda on 05-31-2021 Folate 11.9 ng/mL Normal [facility] Work Phone: Comment on above: >2.8 Result Comment: >2.8 Performed By: #### B 12, HEMOG, FOLT3, FERR3, MG3, IRON3, CMP3 #### [facility] [address] [place] [address] #### ZINC2 #### The performing lab is in the report. Hemogramon 05-31-2021 Erythrocyte distribution width (RBC) [Ratio] 13.5 % Normal 11.5-14.5 [facility] Comment on above: Performed By: #### B 12, MG3, CMP3, HEMOG, FOLT3, FERR3, IRON3, LIPD2 #### [facility] [address] [place] [address] #### ZINC2 #### The performing lab is in the report. #### VD25H #### [facility] [address] [place] [address] Hematocrit (Bld) [Volume fraction] 37.5 % Normal 35.0-47.0 [facility] Comment on above: Performed By: #### B 12, MG3, CMP3, HEMOG, FOLT3, FERR3, IRON3, LIPD2 #### [facility] [address] [place] [address] #### ZINC2 #### The performing lab is in the report. #### VD25H #### [facility] [address] [place] [address] Hemoglobin (Bld) [Mass/Vol] 12.5 g/dL Normal 11.7-16.0 [facility] Comment on above: Performed By: #### B 12, MG3, CMP3, HEMOG, FOLT3, FERR3, IRON3, LIPD2 #### [facility] [address] [place] [address] #### ZINC2 #### The performing lab is in the report. #### VD25H #### [facility] [address] [place] [address] MCH (RBC) [Entitic mass] 30.2 pg Normal 26.0-34.0 [facility] Comment on above: Performed By: #### B 12, MG3, CMP3, HEMOG, FOLT3, FERR3, IRON3, LIPD2 #### [facility] [address] [place] [address] #### ZINC2 #### The performing lab is in the report. #### VD25H #### [facility] [address] [place] [address] MCHC 33.3 % Normal 32.0-36.0 [facility] Comment on above: Performed By: #### B 12, MG3, CMP3, HEMOG, FOLT3, FERR3, IRON3, LIPD2 #### [facility] [address] [place] [address] #### ZINC2 #### The performing lab is in the report. #### VD25H #### [facility] [address] [place] [address] MCV (RBC) [Entitic vol] 90.8 fL Normal 79.0-98.0 [facility] Comment on above: Performed By: #### B 12, MG3, CMP3, HEMOG, FOLT3, FERR3, IRON3, LIPD2 #### [facility] [address] [place] [address] #### ZINC2 #### The performing lab is in the report. #### VD25H #### [facility] [address] [place] [address] Platelet mean volume (Bld) [Entitic vol] 8.3 fL Normal 7.4-10.4 [facility] Comment on above: Performed By: #### B 12, MG3, CMP3, HEMOG, FOLT3, FERR3, IRON3, LIPD2 #### [facility] [address] [place] [address] #### ZINC2 #### The performing lab is in the report. #### VD25H #### [facility] [address] [place] [address] Platelets (Bld) [#/Vol] 245 10*3/uL Normal 140-440 [facility] Comment on above: Performed By: #### B 12, MG3, CMP3, HEMOG, FOLT3, FERR3, IRON3, LIPD2 #### [facility] [address] [place] [address] #### ZINC2 #### The performing lab is in the report. #### VD25H #### [facility] [address] [place] [address] RBC (Bld) [#/Vol] 4.13 10*6/uL Normal 3.80-5.20 [facility] Comment on above: Performed By: #### B 12, MG3, CMP3, HEMOG, FOLT3, FERR3, IRON3, LIPD2 #### [facility] [address] [place] [address] #### ZINC2 #### The performing lab is in the report. #### VD25H #### [address] [place] [address] WBC (Bld) [#/Vol] 7.8 10*3/uL Normal 3.6-10.7 [facility] Comment on above: Performed By: #### B 12, MG3, CMP3, HEMOG, FOLT3, FERR3, IRON3, LIPD2 #### [facility] [address] [place] [address] #### ZINC2 #### The performing lab is in the report. #### VD25H #### [address] [address] IronOrdered By: Nicky Marr on 05-31-2021 Iron [Mass/Vol] 108 ug/dL 37 - 170 ug/dL [facility] Work Phone: Test Performed by [facility], [address] [place] [address]. , [address] Work Phone: [facility] Work Phone: Iron, Totalon 05-31-2021 Iron, Total 108 ug/dL Normal 37-170 [facility] Comment on above: Performed By: #### B 12, HEMOG, FOLT3, FERR3, MG3, IRON3, CMP3 #### [address] [place] [address] #### ZINC2 #### The performing lab is in the report. Lipid Panelon 05-31-2021 Chol/HDL 3 Normal [facility] Comment on above: Result Comment: Ref Range: < 3 Low Risk for CHD 3-6 Mod Risk for CHD > 6 High Risk for CHD Performed By: #### B 12, HEMOG, FOLT3, FERR3, MG3, IRON3, CMP3 #### [address] [place] [address] #### ZINC2 #### The performing lab is in the report. Cholesterol in HDL [Mass/Vol] 49 mg/dL Normal 40-60 [facility] Comment on above: Performed By: #### B 12, HEMOG, FOLT3, FERR3, MG3, IRON3, CMP3 #### [place] [address] #### ZINC2 #### The performing lab is in the report. Low Density Lipoprotein 71 mg/dL Normal <100 [facility] Comment on above: Performed By: #### B 12, HEMOG, FOLT3, FERR3, MG3, IRON3, CMP3 #### [place] [address] #### ZINC2 #### The performing lab is in the report. Triglyceride [Mass/Vol] 97 mg/dL Normal <150 [facility] Comment on above: Performed By: #### B 12, HEMOG, FOLT3, FERR3, MG3, IRON3, CMP3 #### [address] [place] [address] #### ZINC2 #### The performing lab is in the report. Cholesterol [Mass/Vol] 139 mg/dL Normal < 200 [facility] Comment on above: Performed By: #### B 12, HEMOG, FOLT3, FERR3, MG3, IRON3, CMP3 #### [facility] [address] [place] [address] #### ZINC2 #### The performing lab is in the report. Lipid PanelOrdered By: Nicky Marr on 05-31-2021 Cholesterol [Mass/Vol] 139 mg/dL <200 [facility] Work Phone: [phone] Cholesterol in HDL [Mass/Vol] 49 mg/dL 40 - 60 mg/dL [facility] Work Phone: [phone] Cholesterol in LDL [Mass/Vol] 71 mg/dL <100 [facility] Work Phone: [phone] Cholesterol.total/Choles terol in HDL [Mass ratio] 3 {ratio} [facility] Work Phone: [phone] Comment on above: Ref Range: < 3 Low Risk for CHD 3-6 Mod Risk for CHD > 6 High Risk for CHD Triglyceride [Mass/Vol] 97 mg/dL <150 [facility] Work Phone: [phone] Magnesiumon 05-31-2021 Magnesium [Mass/Vol] 1.9 mg/dL Normal 1.6-2.3 [facility] Comment on above: Performed By: #### B 12, HEMOG, FOLT3, FERR3, MG3, IRON3, CMP3 #### [facility] [address] [place] [address] #### ZINC2 #### The performing lab is in the report. MagnesiumOrdered By: Nicky coronado on 05-31-2021 Magnesium [Mass/Vol] 1.9 mg/dL 1.6 - 2 .3 mg/dL [facility] Work Phone: [phone] Panel InformationOrdered By: Nicky Marr on 05-31-2021 Test Performed by [facility] [employer] [facility], [address] , [address] Work Phone: [phone] [facility] Work Phone: [phone] Test Performed by [facility], [address] , [place], [place] [address] [employer] Work Phone: [phone] [facility] Work Phone: [phone] Vit D 25-OH, Totalon 021 Vit D 25-OH, Total 54 ng/mL Normal 30-100 [facility] Comment on above: Result Comment: Ther apy is based on measurement of Total 25-OHD with the following classification levels: Less than 20 ng/mL: Indicative of Vit D deficiency 20-30 ng/mL: Suggests Vit D insufficiency Optimal: Greater than or equal to 30 ng/mL Test performed by [employer], measuring Total Vitamin D, not individual fractions. Performed By: #### B 12, HEMOG, FOLT3, FERR3, MG3, IRON3, CMP3 #### [address] [place] [address] #### ZINC2 #### The performing lab is in the report. Vitamin B12on 05-31-2021 Cobalamin (Vitamin B12) [Mass/Vol] 555 pg/mL Normal 239-931 [facility] Comment on above: Performed By: #### B 12, HEMOG, FOLT3, FERR3, MG3, IRON3, CMP3 #### [address] [place] [address] #### ZINC2 #### The performing lab is in the report. Vitamin [id number] By: Nicky Marr on 05-31-2021 Cobalamin (Vitamin B12) [Mass/Vol] 555 pg/mL 239 - 931 pg/mL [facility] Work Phone: [phone] Vitamin D 25 HydroxyOrdered By: Nicky Marr on 05-31-2021 Vit D, 25-Hydroxy 54 ng/mL 30 - 100 ng/mL [facility] Work Phone: [phone] Comment on above: Therapy is based on measurement of Total 25-OHD with the following classification levels: Less than 20 ng/mL: Indicative of Vit D deficiency 20-30 ng/mL: Suggests Vit D insufficiency Optimal: Greater than or equal to 30 ng/mL Test performed by [employer] Immuno[employer], measuring Total Vitamin D, not individual fractions. Test Performed by [facility], [address], [place], [place] [address] [employer] Work Phone: [phone] [employer] Work Phone: [phone] Zinc, Serumon 03-07-2021 Zinc, Serum 90.6 ug/dL Normal 60.0-120.0 [facility] Comment on above: Result Comment: INTE RPRETIVE INFORMATION: Zinc, Serum or Plasma Elevated results may be due to skin or collection-related contamination, including the use of a noncertified metal-free collection/transport tube. If contamination concerns exist due to elevated levels of serum/plasma zinc, confirmation with a second specimen collected in a certified metal-free tube is recommended. Circulating zinc concentrations are dependent on albumin status and are depressed with malnutrition. Zinc may also be lowered with infection, inflammation, stress, oral contraceptives, and . Zinc may be elevated with zinc supplementation or fasting. Elevated zinc concentrations may interfere with copper absorption. This test was developed and its performance characteristics determined by [employer]. It has not been cleared or approved by the [place] Food and Drug Administration. This test was performed in a CLIA certified laboratory and is intended for clinical purposes. Performed By: [facility] [address] [place] [address] Account Development Specialist: Briseyda Meier MD Performed By: #### B 12, HEMOG, FOLT3, FERR3, MG3, IRON3, CMP3 #### [facility] [address] [place] [address] #### ZINC2 #### The performing lab is in the report. CBCOrdered By: Nicky Marr on 03-05-2021 Hematocrit (Bld) [Volume fraction] 38.2 % 35.0 - 47.0 % [employer] Work Phone: [phone] Hemoglobin.gastrointesti nal spec 1 Ql (Stl) 12.5 g/dL 11.7 - 16.0 g/dL [facility] Work Phone: [phone] MCH (RBC) [Entitic mass] 29.3 pg 26. 0 - 34.0 pg [employer] Work Phone: [phone] MCHC (RBC) [Mass/Vol] 32.7 % 32.0 - 36.0 % [employer] Work Phone: 1 MCV (RBC) [Entitic vol] 89.7 fL 79.0 - 98.0 fL [employer] Work Phone: 1 Platelet distribution width (Bld) [Ratio] 14.0 % 11.5 - 14.5 % [employer] Work Phone: 1 Platelet mean volume (Bld) [Entitic vol] 8.1 fL 7.4 - 10.4 fL [employer] Work Phone: 1 Platelets (Bld) [#/Vol] 252 10*3/uL 140 - 440 10*3/uL [employer] Work Phone: 1 RBC (Bld) [#/Vol] 4.25 10*6/uL 3.80 - 5.2 0 10*6/uL [employer] Work Phone: 1 WBC (Bld) [#/Vol] 7.0 10*3/uL 3.6 - 10.7 10*3/uL [employer] Work Phone: 1 Test Performed by [facility] [employer] [facility], [address] [place] [address] [employer] Work Phone: 1 [employer] Work Phone: [phone] Comp Metabolic Panelon 03-05 Calcium [Mass/Vol] 9.6 mg/dL Normal 8.4-10.4 [facility] Comment on above: Performed By: #### B 12, HEMOG, FOLT3, FERR3, MG3, IRON3, CMP3 #### [facility] [address] [place] [address] #### ZINC2 #### The performing lab is in the report. Glucose [Mass/Vol] 94 mg/dL Normal 70-100 [facility] Comment on above: Performed By: #### B 12, HEMOG, FOLT3, FERR3, MG3, IRON3, CMP3 #### [facility] [address] [place] [address] #### ZINC2 #### The performing lab is in the report. ALP [Catalytic activity/Vol] 100 U/L Normal 38-126 [facility] Comment on above: Performed By: #### B 12, HEMOG, FOLT3, FERR3, MG3, IRON3, CMP3 #### [facility] [address] [place] [address] #### ZINC2 #### The performing lab is in the report. ALT [Catalytic activity/Vol] 19 U/L Normal 0-34 [facility] Comment on above: Result Comment: The ALT test is performed by an updated assay method. Please note that the reference intervals have been changed and are now sex specific. Performed By: #### B 12, HEMOG, FOLT3, FERR3, MG3, IRON3, CMP3 #### [facility] [address] [place] [address] #### ZINC2 #### The performing lab is in the report. Anion gap [Moles/Vol] 6 mmol/L Normal 3-13 [facility] Comment on above: Performed By: #### B 12, HEMOG, FOLT3, FERR3, MG3, IRON3, CMP3 #### [facility] [address] [place] [address] #### ZINC2 #### The performing lab is in the report. AST [Catalytic activity/Vol] 24 U/L Normal 15-46 [facility] Comment on above: Performed By: #### B 12, HEMOG, FOLT3, FERR3, MG3, IRON3, CMP3 #### [facility] [address] [place] [address] #### ZINC2 #### The performing lab is in the report. Bilirubin [Mass/Vol] 0.5 mg/dL Normal 0.2-1.3 [facility] Comment on above: Performed By: #### B 12, HEMOG, FOLT3, FERR3, MG3, IRON3, CMP3 #### [facility] [address] [place] [address] #### ZINC2 #### The performing lab is in the report. CO2 [Moles/Vol] 28 mmol/L Normal 22-30 [facility] Comment on above: Performed By: #### B 12, HEMOG, FOLT3, FERR3, MG3, IRON3, CMP3 #### [address] [place] [address] #### ZINC2 #### The performing lab is in the report. Creatinine [Mass/Vol] 0.64 mg/dL Normal 0.52-1.25 [facility] Comment on above: Performed By: #### B 12, HEMOG, FOLT3, FERR3, MG3, IRON3, CMP3 #### [address] [place] [address] #### ZINC2 #### The performing lab is in the report. eGFR OTHER > 90.0 Normal >60 [facility] Comment on above: Result Comment: KDIG O guidelines provide the following GFR categories: Stage GFR(ml/min/1.73 m2) Terms G1 >=90 Normal or high G2 60-89 Mildly decreased* G3a 45-59 Mildly to moderately decreased G3b 30-44 Moderately to severely decreased G4 15-29 Severely decreased G5 <15 Kidney failure *Relative to young adult level. In the absence of evidence of kidney damage, neither GFR category G1 nor G2 fulfill the criteria for CKD. The CKD-EPI equation is validated in individuals 18 years of age and older. Currently the best equation for estimating glomerular filtration rate (GFR) from serum creatinine in children is the Bedside Bean equation. It is less accurate in patients with extremes of muscle mass, restriction of dietary protein, ingestion of creatine, extra-renal metabolism of creatinine, or treatment with medications that affect renal tubular creatinine secretion. Performed By: #### B 12, HEMOG, FOLT3, FERR3, MG3, IRON3, CMP3 #### [address] [place] [address] #### ZINC2 #### The performing lab is in the report. GFR/1.73 sq M.predicted among blacks MDRD (S/P/Bld) [Vol rate/Area] mL/min/{1.73_m2} Normal >60 [facility] Comment on above: Performed By: #### B 12, HEMOG, FOLT3, FERR3, MG3, IRON3, CMP3 #### [address] [place] [address] #### ZINC2 #### The performing lab is in the report. Protein [Mass/Vol] 7.3 g/dL Normal 6.3-8.2 [facility] Comment on above: Performed By: #### B 12, HEMOG, FOLT3, FERR3, MG3, IRON3, CMP3 #### [address] [place] [address] #### ZINC2 #### The performing lab is in the report. Urea nitrogen [Mass/Vol] 9 mg/dL Normal 7-20 [facility] Comment on above: Performed By: #### B 12, HEMOG, FOLT3, FERR3, MG3, IRON3, CMP3 #### [address] [place] [address] #### ZINC2 #### The performing lab is in the report. Potassium [Moles/Vol] 4.4 mmol/L Normal 3.5-5.1 [facility] Comment on above: Performed By: #### B 12, HEMOG, FOLT3, FERR3, MG3, IRON3, CMP3 #### [address] [place] [address] #### ZINC2 #### The performing lab is in the report. Sodium [Moles/Vol] 140 mmol/L Normal 135-145 [facility] Comment on above: Performed By: #### B 12, HEMOG, FOLT3, FERR3, MG3, IRON3, CMP3 #### [address] [place] [address] #### ZINC2 #### The performing lab is in the report. Albumin [Mass/Vol] 4.3 g/dL Normal 3.5-5.0 [facility] Comment on above: Performed By: #### B 12, HEMOG, FOLT3, FERR3, MG3, IRON3, CMP3 #### [address] [place] [address] #### ZINC2 #### The performing lab is in the report. Chloride [Moles/Vol] 106 mmol/L Normal 98-107 [facility] Comment on above: Performed By: #### B 12, HEMOG, FOLT3, FERR3, MG3, IRON3, CMP3 #### [facility] [address] [place] [address] #### ZINC2 #### The performing lab is in the report. Comprehensive Metabolic Pane lOrdered By: Nicky Marr on 03-05-2021 Albumin [Mass/Vol] 4.3 g/dL 3.5 - 5.0 g/dL [facility] Work Phone: [phone] ALP (Bld) [Catalytic activity/Vol] 100 U/L 38 - 126 U/L [facility] Work Phone: [phone] ALT [Catalytic activity/Vol] 19 U/L 0 - 34 U/L [facility] Work Phone: [phone] Comment on above: The ALT test is perf ormed by an updated assay method. Please note that the reference intervals have been changed and are now sex specific. Anion gap [Moles/Vol] 6 mmol/L 3 - 13 mmol/L [facility] Work Phone: [phone] [Catalytic activity/Vol] 24 U/L 15 - 46 U/L [facility] Work Phone: [phone] Bilirubin [Mass/Vol] 0.5 mg/dL 0.2 - 1 .3 mg/dL [facility] Work Phone: [phone] Calcium [Mass/Vol] 9.6 mg/dL 8.4 - 10. 4 mg/dL [facility] Work Phone: [phone] Chloride [Moles/Vol] 106 mmol/L 98 - 10 7 mmol/L [facility] Work Phone: CO2 [Moles/Vol] 28 mmol/L 22 - 30 mmol/L [facility] Work Phone: [phone] Creatinine [Mass/Vol] 0.64 mg/dL 0.52 - 1.25 mg/dL [facility] Work Phone: [phone] EGFR IF NonAfrican Swedish >90.0 >60 mL/min [facility] Work Phone: [phone] Comment on above: KDIGO guidelines pro vide the following GFR categories: Stage GFR(ml/min/1.73 m2) Terms G1 >=90 Normal or high G2 60-89 Mildly decreased* G3a 45-59 Mildly to moderately decreased G3b 30-44 Moderately to severely decreased G4 15-29 Severely decreased G5 <15 Kidney failure *Relative to young adult level. In the absence of evidence of kidney damage, neither GFR category G1 nor G2 fulfill the criteria for CKD. The CKD-EPI equation is validated in individuals 18 years of age and older. Currently the best equation for estimating glomerular filtration rate (GFR) from serum creatinine in children is the Bedside Bean equation. It is less accurate in patients with extremes of muscle mass, restriction of dietary protein, ingestion of creatine, extra-renal metabolism of creatinine, or treatment with medications that affect renal tubular creatinine secretion. Free PSA/Total PSA [Mass fraction] 7.3 g/dL 6.3 - 8.2 g/dL [facility] Work Phone: GFR/1.73 sq M.predicted among blacks MDRD (S/P/Bld) [Vol rate/Area] mL/min/{1.73_m2} >60 mL/min [facility] Work Phone: Glucose [Mass/Vol] 94 mg/dL 70 - 100 mg/dL [facility] Work Phone: Potassium [Moles/Vol] 4.4 mmol/L 3.5 - 5.1 mmol/L [facility] Work Phone: Sodium [Moles/Vol] 140 mmol/L 135 - 145 mmol/L [facility] Work Phone: Urea nitrogen (BldV) [Mass/Vol] 9 mg/dL 7 - 20 mg/dL [facility] Work Phone: Ferritinon 03-05-2021 Ferritin [Mass/Vol] 59 ng/mL Normal 8-252 [facility] Comment on above: Performed By: #### B 12, HEMOG, FOLT3, FERR3, MG3, IRON3, CMP3 #### [facility] [employer] [facility] [address] [place] [address] #### ZINC2 #### The performing lab is in the report. FerritinOrdered By: Nicky ordonez on 03-05-2021 Ferritin [Mass/Vol] 59 ng/mL 8 - 252 ng/mL [facility] Work Phone: Test Performed by [facility], [address] [facility]. , [address] Work Phone: [facility] Work Phone: Folateon 03-05-2021 Folate 15.7 ng/mL Normal 2.8-20.0 [facility] Comment on above: Performed By: #### B 12, HEMOG, FOLT3, FERR3, MG3, IRON3, CMP3 #### [address] [place] [address] #### ZINC2 #### The performing lab is in the report. FolateOrdered By: Nicky miranda on 03-05-2021 Folate 15.7 ng/mL 2.8 - 20.0 ng/mL [facility] Work Phone: Hemogramon 03-05-2021 Erythrocyte distribution width (RBC) [Ratio] 14.0 % Normal 11.5-14.5 [facility] Comment on above: Performed By: #### B 12, HEMOG, FOLT3, FERR3, MG3, IRON3, CMP3 #### [address] [place] [address] #### ZINC2 #### The performing lab is in the report. Hematocrit (Bld) [Volume fraction] 38.2 % Normal 35.0-47.0 [facility] Comment on above: Performed By: #### B 12, HEMOG, FOLT3, FERR3, MG3, IRON3, CMP3 #### [facility] [address] [facility] [place] [address] #### ZINC2 #### The performing lab is in the report. Hemoglobin (Bld) [Mass/Vol] 12.5 g/dL Normal 11.7-16.0 [facility] Comment on above: Performed By: #### B 12, HEMOG, FOLT3, FERR3, MG3, IRON3, CMP3 #### [facility] [address] [facility] [place] [address] #### ZINC2 #### The performing lab is in the report. MCH (RBC) [Entitic mass] 29.3 pg Normal 26.0-34.0 [facility] Comment on above: Performed By: #### B 12, HEMOG, FOLT3, FERR3, MG3, IRON3, CMP3 #### [address] [place] [address] #### ZINC2 #### The performing lab is in the report. MCHC 32.7 % Normal 32.0-36.0 [facility] Comment on above: Performed By: #### B 12, HEMOG, FOLT3, FERR3, MG3, IRON3, CMP3 #### [address] [place] [address] #### ZINC2 #### The performing lab is in the report. MCV (RBC) [Entitic vol] 89.7 fL Normal 79.0-98.0 [facility] Comment on above: Performed By: #### B 12, HEMOG, FOLT3, FERR3, MG3, IRON3, CMP3 #### [address] [place] [address] #### ZINC2 #### The performing lab is in the report. Platelet mean volume (Bld) [Entitic vol] 8.1 fL Normal 7.4-10.4 [facility] Comment on above: Performed By: #### B 12, HEMOG, FOLT3, FERR3, MG3, IRON3, CMP3 #### [address] [place] [address] #### ZINC2 #### The performing lab is in the report. Platelets (Bld) [#/Vol] 252 10*3/uL Normal 140-440 [facility] Comment on above: Performed By: #### B 12, HEMOG, FOLT3, FERR3, MG3, IRON3, CMP3 #### [address] [place] [address] #### ZINC2 #### The performing lab is in the report. RBC (Bld) [#/Vol] 4.25 10*6/uL Normal 3.80-5.20 [facility] Comment on above: Performed By: #### B 12, HEMOG, FOLT3, FERR3, MG3, IRON3, CMP3 #### [facility] [address] [place] [address] #### ZINC2 #### The performing lab is in the report. WBC (Bld) [#/Vol] 7.0 10*3/uL Normal 3.6-10.7 [facility] Comment on above: Performed By: #### B 12, HEMOG, FOLT3, FERR3, MG3, IRON3, CMP3 #### [address] [place] [address] #### ZINC2 #### The performing lab is in the report. IronOrdered By: Nicky Marr on 03-05-2021 Iron [Mass/Vol] 56 ug/dL 37 - 170 ug/dL [facility] Work Phone: Test Performed by [facility], [address] [place] [address]. [address] Work Phone: [facility] Work Phone: Iron, Totalon 03-05-2021 Iron, Total 56 ug/dL Normal 37-170 [facility] Comment on above: Performed By: #### B 12, HEMOG, FOLT3, FERR3, MG3, IRON3, CMP3 #### [facility] [address] [facility] [place] [address] #### ZINC2 #### The performing lab is in the report. Magnesiumon 03-05-2021 Magnesium [Mass/Vol] 2.0 mg/dL Normal 1.6-2.3 [facility] Comment on above: Performed By: #### B 12, HEMOG, FOLT3, FERR3, MG3, IRON3, CMP3 #### [address] [place] [address] #### ZINC2 #### The performing lab is in the report. MagnesiumOrdered By: Nicky coronado on 03-05-2021 Magnesium [Mass/Vol] 2.0 mg/dL 1.6 - 2 .3 mg/dL [facility] Work Phone: [phone] Panel InformationOrdered By: Nicky Marr on 03-05-2021 Test Performed by [facility] [employer] [facility], [address] , [address] Work Phone: [phone] [facility] Work Phone: 1 Test Performed by [facility], [address] , [place] [address] [employer] Work Phone: 1 [facility] Work Phone: 1 Vitamin B12on 03-05-2021 Cobalamin (Vitamin B12) [Mass/Vol] 849 pg/mL Normal 239-931 [facility] Comment on above: Performed By: #### B 12, HEMOG, FOLT3, FERR3, MG3, IRON3, CMP3 #### [facility] [address] [place] [address] #### ZINC2 #### The performing lab is in the report. Vitamin [id number] By: Nicky Marr on 03-05-2021 Cobalamin (Vitamin B12) [Mass/Vol] 849 pg/mL 239 - 931 pg/mL [facility] Work Phone: [phone] Zinc, Serumon 01-04-2021 Zinc, Serum 102.5 ug/dL Normal 60.0-120.0 [facility] Comment on above: Result Comment: INTE RPRETIVE INFORMATION: Zinc, Serum or Plasma Elevated results may be due to skin or collection-related contamination, including the use of a noncertified metal-free collection/transport tube. If contamination concerns exist due to elevated levels of serum/plasma zinc, confirmation with a second specimen collected in a certified metal-free tube is recommended. Circulating zinc concentrations are dependent on albumin status and are depressed with malnutrition. Zinc may also be lowered with infection, inflammation, stress, oral contraceptives, and . Zinc may be elevated with zinc supplementation or fasting. Elevated zinc concentrations may interfere with copper absorption. This test was developed and its performance characteristics determined by [employer]. It has not been cleared or approved by the [place] Food and Drug Administration. This test was performed in a CLIA certified laboratory and is intended for clinical purposes. Performed By: [employer] [address] [place] [address] Account Development Specialist: Briseyda Meire MD Performed By: #### B 12, HEMOG, FOLT3, FERR3, MG3, IRON3, CMP3 #### [facility] [address] [place] [address] #### ZINC2 #### The performing lab is in the report. CBCOrdered By: Nicky Marr on 01-01-2021 Hematocrit (Bld) [Volume fraction] 37.4 % 35.0 - 47.0 % [facility] Work Phone: [phone] Hemoglobin.gastrointesti nal spec 1 Ql (Stl) 12.4 g/dL 11.7 - 16.0 g/dL [facility] Work Phone: MCH (RBC) [Entitic mass] 28.9 pg 26. 0 - 34.0 pg [facility] Work Phone: MCHC (RBC) [Mass/Vol] 33.0 % 32.0 - 36.0 % [facility] Work Phone: MCV (RBC) [Entitic vol] 87.4 fL 79.0 - 98.0 fL [facility] Work Phone: Platelet distribution width (Bld) [Ratio] 13.9 % 11.5 - 14.5 % [facility] Work Phone: Platelet mean volume (Bld) [Entitic vol] 8.0 fL 7.4 - 10.4 fL [facility] Work Phone: [phone] Platelets (Bld) [#/Vol] 259 10*3/uL 140 - 440 10*3/uL [facility] Work Phone: RBC (Bld) [#/Vol] 4.28 10*6/uL 3.80 - 5.2 0 10*6/uL [employer] Work Phone: WBC (Bld) [#/Vol] 7.0 10*3/uL 3.6 - 10.7 10*3/uL [facility] Work Phone: Test Performed by [facility], [address] , [address] Work Phone: [facility] Work Phone: Comp Metabolic Panelon 01-01 Calcium [Mass/Vol] 9.1 mg/dL Normal 8.4-10.4 [facility] Comment on above: Performed By: #### B 12, HEMOG, FOLT3, FERR3, MG3, IRON3, CMP3 #### [facility] [address] [facility] [place] [address] #### ZINC2 #### The performing lab is in the report. ALP [Catalytic activity/Vol] 82 U/L Normal 38-126 [facility] Comment on above: Performed By: #### B 12, HEMOG, FOLT3, FERR3, MG3, IRON3, CMP3 #### [facility] [address] [place] [address] #### ZINC2 #### The performing lab is in the report. ALT [Catalytic activity/Vol] 23 U/L Normal 0-34 [facility] Comment on above: Result Comment: The ALT test is performed by an updated assay method. Please note that the reference intervals have been changed and are now sex specific. Performed By: #### B 12, HEMOG, FOLT3, FERR3, MG3, IRON3, CMP3 #### [facility] [address] [facility] [place] [address] #### ZINC2 #### The performing lab is in the report. Anion gap [Moles/Vol] 7 mmol/L Normal 3-13 [facility] Comment on above: Performed By: #### B 12, HEMOG, FOLT3, FERR3, MG3, IRON3, CMP3 #### [facility] [address] [place] [address] #### ZINC2 #### The performing lab is in the report. AST [Catalytic activity/Vol] 26 U/L Normal 15-46 [facility] Comment on above: Performed By: #### B 12, HEMOG, FOLT3, FERR3, MG3, IRON3, CMP3 #### [address] [place] [address] #### ZINC2 #### The performing lab is in the report. Bilirubin [Mass/Vol] 0.6 mg/dL Normal 0.2-1.3 [facility] Comment on above: Performed By: #### B 12, HEMOG, FOLT3, FERR3, MG3, IRON3, CMP3 #### [address] [place] [address] #### ZINC2 #### The performing lab is in the report. CO2 [Moles/Vol] 28 mmol/L Normal 22-30 [facility] Comment on above: Performed By: #### B 12, HEMOG, FOLT3, FERR3, MG3, IRON3, CMP3 #### [address] [place] [address] #### ZINC2 #### The performing lab is in the report. Glucose [Mass/Vol] 100 mg/dL Normal 70-100 [facility] Comment on above: Performed By: #### B 12, HEMOG, FOLT3, FERR3, MG3, IRON3, CMP3 #### [address] [place] [address] #### ZINC2 #### The performing lab is in the report. Protein [Mass/Vol] 7.2 g/dL Normal 6.3-8.2 [facility] Comment on above: Performed By: #### B 12, HEMOG, FOLT3, FERR3, MG3, IRON3, CMP3 #### [address] [place] [address] #### ZINC2 #### The performing lab is in the report. Urea nitrogen [Mass/Vol] 12 mg/dL Normal 7-20 [facility] Comment on above: Performed By: #### B 12, HEMOG, FOLT3, FERR3, MG3, IRON3, CMP3 #### [address] [place] [address] #### ZINC2 #### The performing lab is in the report. Creatinine [Mass/Vol] 0.65 mg/dL Normal 0.52-1.25 [facility] Comment on above: Performed By: #### B 12, HEMOG, FOLT3, FERR3, MG3, IRON3, CMP3 #### [facility] [address] [place] [address] #### ZINC2 #### The performing lab is in the report. eGFR OTHER > 90.0 Normal >60 [facility] Comment on above: Result Comment: KDIG O guidelines provide the following GFR categories: Stage GFR(ml/min/1.73 m2) Terms G1 >=90 Normal or high G2 60-89 Mildly decreased* G3a 45-59 Mildly to moderately decreased G3b 30-44 Moderately to severely decreased G4 15-29 Severely decreased G5 <15 Kidney failure *Relative to young adult level. In the absence of evidence of kidney damage, neither GFR category G1 nor G2 fulfill the criteria for CKD. The CKD-EPI equation is validated in individuals 18 years of age and older. Currently the best equation for estimating glomerular filtration rate (GFR) from serum creatinine in children is the Bedside Bean equation. It is less accurate in patients with extremes of muscle mass, restriction of dietary protein, ingestion of creatine, extra-renal metabolism of creatinine, or treatment with medications that affect renal tubular creatinine secretion. Performed By: #### B 12, HEMOG, FOLT3, FERR3, MG3, IRON3, CMP3 #### [facility] [address] [place] [address] #### ZINC2 #### The performing lab is in the report. GFR/1.73 sq M.predicted among blacks MDRD (S/P/Bld) [Vol rate/Area] mL/min/{1.73_m2} Normal >60 [facility] Comment on above: Performed By: #### B 12, HEMOG, FOLT3, FERR3, MG3, IRON3, CMP3 #### [facility] [address] [place] [address] #### ZINC2 #### The performing lab is in the report. Albumin [Mass/Vol] 4.3 g/dL Normal 3.5-5.0 [facility] Comment on above: Performed By: #### B 12, HEMOG, FOLT3, FERR3, MG3, IRON3, CMP3 #### [address] [place] [address] #### ZINC2 #### The performing lab is in the report. Chloride [Moles/Vol] 104 mmol/L Normal 98-107 [facility] Comment on above: Performed By: #### B 12, HEMOG, FOLT3, FERR3, MG3, IRON3, CMP3 #### [address] [place] [address] #### ZINC2 #### The performing lab is in the report. Potassium [Moles/Vol] 4.2 mmol/L Normal 3.5-5.1 [facility] Comment on above: Performed By: #### B 12, HEMOG, FOLT3, FERR3, MG3, IRON3, CMP3 #### [address] [place] [address] #### ZINC2 #### The performing lab is in the report. Sodium [Moles/Vol] 139 mmol/L Normal 135-145 [facility] Comment on above: Performed By: #### B 12, HEMOG, FOLT3, FERR3, MG3, IRON3, CMP3 #### [address] [place] [address] #### ZINC2 #### The performing lab is in the report. Comprehensive Metabolic Pane lOrdered By: Nicky Marr on 01-01-2021 Albumin [Mass/Vol] 4.3 g/dL 3.5 - 5.0 g/dL [facility] Work Phone: [phone] ALP (Bld) [Catalytic activity/Vol] 82 U/L 38 - 126 U/L [facility] Work Phone: [phone] ALT [Catalytic activity/Vol] 23 U/L 0 - 34 U/L [facility] Work Phone: [phone] Comment on above: The ALT test is perf ormed by an updated assay method. Please note that the reference intervals have been changed and are now sex specific. Anion gap [Moles/Vol] 7 mmol/L 3 - 13 mmol/L [facility] Work Phone: [phone] AST [Catalytic activity/Vol] 26 U/L 15 - 46 U/L [facility] Work Phone: [phone] Bilirubin [Mass/Vol] 0.6 mg/dL 0.2 - 1 .3 mg/dL [facility] Work Phone: [phone] Calcium [Mass/Vol] 9.1 mg/dL 8.4 - 10. 4 mg/dL [facility] Work Phone: [phone] Chloride [Moles/Vol] 104 mmol/L 98 - 10 7 mmol/L [facility] Work Phone: [phone] CO2 [Moles/Vol] 28 mmol/L 22 - 30 mmol/L [facility] Work Phone: [phone] Creatinine [Mass/Vol] 0.65 mg/dL 0.52 - 1.25 mg/dL [facility] Work Phone: [phone] EGFR IF NonAfrican Swedish >90.0 >60 mL/min [facility] Work Phone: Comment on above: KDIGO guidelines pro vide the following GFR categories: Stage GFR(ml/min/1.73 m2) Terms G1 >=90 Normal or high G2 60-89 Mildly decreased* G3a 45-59 Mildly to moderately decreased G3b 30-44 Moderately to severely decreased G4 15-29 Severely decreased G5 <15 Kidney failure *Relative to young adult level. In the absence of evidence of kidney damage, neither GFR category G1 nor G2 fulfill the criteria for CKD. The CKD-EPI equation is validated in individuals 18 years of age and older. Currently the best equation for estimating glomerular filtration rate (GFR) from serum creatinine in children is the Bedside Bean equation. It is less accurate in patients with extremes of muscle mass, restriction of dietary protein, ingestion of creatine, extra-renal metabolism of creatinine, or treatment with medications that affect renal tubular creatinine secretion. Free PSA/Total PSA [Mass fraction] 7.2 g/dL 6.3 - 8.2 g/dL [facility] Work Phone: GFR/1.73 sq M.predicted among blacks MDRD (S/P/Bld) [Vol rate/Area] mL/min/{1.73_m2} >60 mL/min [facility] Work Phone: Glucose [Mass/Vol] 100 mg/dL 70 - 100 mg/dL [facility] Work Phone: Potassium [Moles/Vol] 4.2 mmol/L 3.5 - 5.1 mmol/L [facility] Work Phone: Sodium [Moles/Vol] 139 mmol/L 135 - 145 mmol/L [facility] Work Phone: Urea nitrogen (BldV) [Mass/Vol] 12 mg/dL 7 - 20 mg/dL [facility] Work Phone: Ferritinon 01-01-2021 Ferritin [Mass/Vol] 48 ng/mL Normal 8-252 [facility] Comment on above: Performed By: #### B 12, HEMOG, FOLT3, FERR3, MG3, IRON3, CMP3 #### [place] [address] #### ZINC2 #### The performing lab is in the report. FerritinOrdered By: Nicky ordonez on 01-01-2021 Ferritin [Mass/Vol] 48 ng/mL 8 - 252 ng/mL [facility] Work Phone: 1 Test Performed by [facility], [address] [place] [address] Work Phone: [facility] Work Phone: 1 FolateOrdered By: Nicky miranda on 01-01-2021 Folate >20.0 Normal 2.8-20.0 [facility] Work Phone: Comment on above: Performed By: #### B 12, HEMOG, FOLT3, FERR3, MG3, IRON3, CMP3 #### [facility] [employer] [address] [place] [address] #### ZINC2 #### The performing lab is in the report. Hemogramon 01-01-2021 Erythrocyte distribution width (RBC) [Ratio] 13.9 % Normal 11.5-14.5 [facility] Comment on above: Performed By: #### B 12, HEMOG, FOLT3, FERR3, MG3, IRON3, CMP3 #### [address] [place] [address] #### ZINC2 #### The performing lab is in the report. Hematocrit (Bld) [Volume fraction] 37.4 % Normal 35.0-47.0 [facility] Comment on above: Performed By: #### B 12, HEMOG, FOLT3, FERR3, MG3, IRON3, CMP3 #### [place] [address] #### ZINC2 #### The performing lab is in the report. Hemoglobin (Bld) [Mass/Vol] 12.4 g/dL Normal 11.7-16.0 [facility] Comment on above: Performed By: #### B 12, HEMOG, FOLT3, FERR3, MG3, IRON3, CMP3 #### [place] [address] #### ZINC2 #### The performing lab is in the report. MCH (RBC) [Entitic mass] 28.9 pg Normal 26.0-34.0 [facility] Comment on above: Performed By: #### B 12, HEMOG, FOLT3, FERR3, MG3, IRON3, CMP3 #### [place] [address] #### ZINC2 #### The performing lab is in the report. MCHC 33.0 % Normal 32.0-36.0 [facility] Comment on above: Performed By: #### B 12, HEMOG, FOLT3, FERR3, MG3, IRON3, CMP3 #### [place] [address] #### ZINC2 #### The performing lab is in the report. MCV (RBC) [Entitic vol] 87.4 fL Normal 79.0-98.0 [facility] Comment on above: Performed By: #### B 12, HEMOG, FOLT3, FERR3, MG3, IRON3, CMP3 #### [address] [place] [address] #### ZINC2 #### The performing lab is in the report. Platelet mean volume (Bld) [Entitic vol] 8.0 fL Normal 7.4-10.4 [facility] Comment on above: Performed By: #### B 12, HEMOG, FOLT3, FERR3, MG3, IRON3, CMP3 #### [address] [place] [address] #### ZINC2 #### The performing lab is in the report. Platelets (Bld) [#/Vol] 259 10*3/uL Normal 140-440 [facility] Comment on above: Performed By: #### B 12, HEMOG, FOLT3, FERR3, MG3, IRON3, CMP3 #### [address] [place] [address] #### ZINC2 #### The performing lab is in the report. RBC (Bld) [#/Vol] 4.28 10*6/uL Normal 3.80-5.20 [facility] Comment on above: Performed By: #### B 12, HEMOG, FOLT3, FERR3, MG3, IRON3, CMP3 #### [address] [place] [address] #### ZINC2 #### The performing lab is in the report. WBC (Bld) [#/Vol] 7.0 10*3/uL Normal 3.6-10.7 [facility] Comment on above: Performed By: #### B 12, HEMOG, FOLT3, FERR3, MG3, IRON3, CMP3 #### [address] [place] [address] #### ZINC2 #### The performing lab is in the report. IronOrdered By: Nicky Marr on 01-01-2021 Iron [Mass/Vol] 73 ug/dL 37 - 170 ug/dL [facility] Work Phone: Test Performed by [facility], [address] , [address] [facility] Work Phone: 1 [facility] Work Phone: 1 Iron, Totalon 01-01-2021 Iron, Total 73 ug/dL Normal 37-170 [facility] Comment on above: Performed By: #### B 12, HEMOG, FOLT3, FERR3, MG3, IRON3, CMP3 #### [facility] [address] [place] [address] #### ZINC2 #### The performing lab is in the report. Magnesiumon 01-01-2021 Magnesium [Mass/Vol] 1.8 mg/dL Normal 1.6-2.3 [facility] Comment on above: Performed By: #### B 12, HEMOG, FOLT3, FERR3, MG3, IRON3, CMP3 #### [facility] [address] [place] [address] #### ZINC2 #### The performing lab is in the report. MagnesiumOrdered By: Nicky coronado on 01-01-2021 Magnesium [Mass/Vol] 1.8 mg/dL 1.6 - 2 .3 mg/dL [facility] Work Phone: [phone] No Panel InformationOrdered By: Nicky Marr on 01-01-2021 Test Performed by [facility], [address] Work Phone: 1 [facility] Work Phone: 1 Test Performed by [facility], [address] Work Phone: 1 [facility] Work Phone: 1 Vitamin B12on 01-01-2021 Cobalamin (Vitamin B12) [Mass/Vol] pg/mL High [id number] [facility] Comment on above: Performed By: #### B 12, HEMOG, FOLT3, FERR3, MG3, IRON3, CMP3 #### [facility] [address] [place] [address] #### ZINC2 #### The performing lab is in the report. Vitamin [id number] By: Nicky Marr on 01-01-2021 Cobalamin (Vitamin B12) [Mass/Vol] pg/mL High 239 - 931 pg/mL [facility] Work Phone: Interpretation and review of laboratory results Abnormal [facility] Work Phone: [phone] Basic Metabolic PanelOrdered By: Tomy Brand on 11-30-2020 Anion gap [Moles/Vol] 12 mmol/L 3 - 13 mmol/L [facility] Work Phone: [phone] Calcium [Mass/Vol] 8.4 mg/dL 8.4 - 10. 4 mg/dL [facility] Work Phone: [phone] Chloride [Moles/Vol] 104 mmol/L 98 - 10 7 mmol/L [facility] Work Phone: [phone] CO2 [Moles/Vol] 23 mmol/L 22 - 30 mmol/L [facility] Work Phone: [phone] Creatinine [Mass/Vol] 0.8 mg/dL 0.52 - 1.25 mg/dL [facility] Work Phone: [phone] EGFR IF NonAfrican Swedish 88.6 mL/min >60 [facility] Work Phone: Comment on above: KDIGO guidelines pro vide the following GFR categories: Stage GFR(ml/min/1.73 m2) Terms G1 >=90 Normal or high G2 60-89 Mildly decreased* G3a 45-59 Mildly to moderately decreased G3b 30-44 Moderately to severely decreased G4 15-29 Severely decreased G5 <15 Kidney failure *Relative to young adult level. In the absence of evidence of kidney damage, neither GFR category G1 nor G2 fulfill the criteria for CKD. The CKD-EPI equation is validated in individuals 18 years of age and older. Currently the best equation for estimating glomerular filtration rate (GFR) from serum creatinine in children is the Bedside Bean equation. It is less accurate in patients with extremes of muscle mass, restriction of dietary protein, ingestion of creatine, extra-renal metabolism of creatinine, or treatment with medications that affect renal tubular creatinine secretion. GFR/1.73 sq M.predicted among blacks MDRD (S/P/Bld) [Vol rate/Area] mL/min/{1.73_m2} >60 mL/min [facility] Work Phone: 1 Glucose [Mass/Vol] 127 mg/dL High 70 - 100 mg/dL [facility] Work Phone: 1 Interpretation and review of laboratory results Abnormal [facility] Work Phone: 1 Potassium [Moles/Vol] 3.4 mmol/L Low 3.5 - 5.1 mmol/L [facility] Work Phone: Sodium [Moles/Vol] 139 mmol/L 135 - 145 mmol/L [facility] Work Phone: Urea nitrogen (BldV) [Mass/Vol] 15 mg/dL 7 - 20 mg/dL [facility] Work Phone: Test Performed by [facility], [address] [place] [address] [facility] Work Phone: CBC auto differentialOrdered By: Tomy Brand on 11-30-2020 Absolute Baso # 0.0 10*3/uL 0.0 - 0.2 10*3/uL [facility] Work Phone: Absolute Neut # 10.3 10*3/uL High 1.8 - 7.0 10*3/uL [facility] Work Phone: Basophils/100 WBC (Bld) 0.1 % 0.0 - 2.0 % [facility] Work Phone: Eosinophils (Bld) [#/Vol] 0.0 10*3/uL 0.0 - 0.5 10*3/uL [facility] Work Phone: Eosinophils/100 WBC (Bld) 0.1 % Low 1.0 - 6.0 % [facility] Work Phone: Granulocytes/100 WBC (Bld) 77.8 % 40.0 - 80.0 % [facility] Work Phone: Hematocrit (Bld) [Volume fraction] 31.9 % Low 35.0 - 47.0 % [facility] Work Phone: Hemoglobin.gastrointesti nal spec 1 Ql (Stl) 10.7 g/dL Low 11.7 - 16.0 g/dL [facility] Work Phone: 1 Interpretation and review of laboratory results Abnormal [facility] Work Phone: Lymphocytes (Bld) [#/Vol] 2.0 10*3/uL 1.0 - 4.3 10*3/uL [facility] Work Phone: Lymphocytes/100 WBC (Bld) 15.2 % Low 20.0 - 40.0 % [facility] Work Phone: 1 MCH (RBC) [Entitic mass] 29.6 pg 26. 0 - 34.0 pg [facility] Work Phone: MCHC (RBC) [Mass/Vol] 33.5 % 32.0 - 36.0 % [facility] Phone: MCV (RBC) [Entitic vol] 88.4 fL 79.0 - 98.0 fL [facility] Work Phone: Monocytes (Bld) [#/Vol] 0.9 10*3/uL High 0.0 - 0.8 10*3/uL [facility] Work Phone: Monocytes/100 WBC (Bld) 6.8 % 2.0 - 10.0 % [facility] Phone: Platelet distribution width (Bld) [Ratio] 14.0 % 11.5 - 14.5 % [facility] Phone: Platelet mean volume (Bld) [Entitic vol] 8.6 fL 7.4 - 10.4 fL [facility] Work Phone: Platelets (Bld) [#/Vol] 236 10*3/uL 140 - 440 10*3/uL [facility] Work Phone: RBC (Bld) [#/Vol] 3.61 10*6/uL Low 3.80 - 5.2 0 10*6/uL [facility] Work Phone: WBC (Bld) [#/Vol] 13.2 10*3/uL High 3.6 - 10.7 10*3/uL [facility] Work Phone: [phone] Test Performed by [facility], [address] [place] [address] [facility] Work Phone: [phone] Basic Metabolic PanelOrdered By: Tomy Brand on 11-29-2020 Anion gap [Moles/Vol] 11 mmol/L 3 - 13 mmol/L [facility] Work Phone: [phone] Calcium [Mass/Vol] 8.8 mg/dL 8.4 - 10. 4 mg/dL [facility] Work Phone: [phone] Chloride [Moles/Vol] 101 mmol/L 98 - 10 7 mmol/L [facility] Work Phone: [phone] [phone] [Moles/Vol] 22 mmol/L 22 - 30 mmol/L [facility] Work Phone: [phone] Creatinine [Mass/Vol] 0.66 mg/dL 0.52 - 1.25 mg/dL [facility] Work Phone: [phone] EGFR IF NonAfrican Swedish >90.0 >60 mL/min [facility] Work Phone: [phone] Comment on above: KDIGO guidelines pro vide the following GFR categories: Stage GFR(ml/min/1.73 m2) Terms G1 >=90 Normal or high G2 60-89 Mildly decreased* G3a 45-59 Mildly to moderately decreased G3b 30-44 Moderately to severely decreased G4 15-29 Severely decreased G5 <15 Kidney failure *Relative to young adult level. In the absence of evidence of kidney damage, neither GFR category G1 nor G2 fulfill the criteria for CKD. The CKD-EPI equation is validated in individuals 18 years of age and older. Currently the best equation for estimating glomerular filtration rate (GFR) from serum creatinine in children is the Bedside Bean equation. It is less accurate in patients with extremes of muscle mass, restriction of dietary protein, ingestion of creatine, extra-renal metabolism of creatinine, or treatment with medications that affect renal tubular creatinine secretion. GFR/1.73 sq M.predicted among blacks MDRD (S/P/Bld) [Vol rate/Area] mL/min/{1.73_m2} >60 mL/min [facility] Work Phone: [phone] Glucose [Mass/Vol] 241 mg/dL High 70 - 100 mg/dL [facility] Work Phone: [phone] Interpretation and review of laboratory results Abnormal [facility] Work Phone: 1 Potassium [Moles/Vol] 3.9 mmol/L 3.5 - 5.1 mmol/L [facility] Work Phone: Sodium [Moles/Vol] 134 mmol/L Low 135 - 145 mmol/L [facility] Work Phone: 1 Urea nitrogen (BldV) [Mass/Vol] 11 mg/dL 7 - 20 mg/dL [facility] Work Phone: Test Performed by [facility], [address] [place] [address] [facility] Work Phone: CBC auto differentialOrdered By: Tomy Brand on 11-29-2020 Absolute Baso # 0.0 10*3/uL 0.0 - 0.2 10*3/uL [facility] Work Phone: Absolute Neut # 15.7 10*3/uL High 1.8 - 7.0 10*3/uL [facility] Work Phone: Basophils/100 WBC (Bld) 0.0 % 0.0 - 2.0 % [facility] Work Phone: Eosinophils (Bld) [#/Vol] 0.0 10*3/uL 0.0 - 0.5 10*3/uL [facility] Work Phone: Eosinophils/100 WBC (Bld) 0.0 % Low 1.0 - 6.0 % [facility] Work Phone: Granulocytes/100 WBC (Bld) 89.3 % High 40.0 - 80.0 % [facility] Work Phone: Hematocrit (Bld) [Volume fraction] 35.7 % 35.0 - 47.0 % [facility] Work Phone: Hemoglobin.gastrointesti nal spec 1 Ql (Stl) 11.9 g/dL 11.7 - 16.0 g/dL [facility] Work Phone: Interpretation and review of laboratory results Abnormal [facility] Work [phone] Lymphocytes (Bld) [#/Vol] 0.9 10*3/uL Low 1.0 - 4.3 10*3/uL [facility] Work Phone: [phone] Lymphocytes/100 WBC (Bld) 5.0 % Low 20.0 - 40.0 % [facility] Work Phone: 1 MCH (RBC) [Entitic mass] 29.3 pg 26. 0 - 34.0 pg [facility] Work Phone: MCHC (RBC) [Mass/Vol] 33.4 % 32.0 - 36.0 % [facility] Work Phone: 1 MCV (RBC) [Entitic vol] 87.6 fL 79.0 - 98.0 fL [facility] Work Phone: Monocytes (Bld) [#/Vol] 1.0 10*3/uL High 0.0 - 0.8 10*3/uL [facility] Work Phone: Monocytes/100 WBC (Bld) 5.7 % 2.0 - 10.0 % [facility] Work Phone: Platelet distribution width (Bld) [Ratio] 13.5 % 11.5 - 14.5 % [facility] Work Phone: Platelet mean volume (Bld) [Entitic vol] 8.0 fL 7.4 - 10.4 fL [facility] Work Phone: Platelets (Bld) [#/Vol] 240 10*3/uL 140 - 440 10*3/uL [facility] Work Phone: RBC (Bld) [#/Vol] 4.07 10*6/uL 3.80 - 5.2 0 10*6/uL [facility] Work Phone: WBC (Bld) [#/Vol] 17.6 10*3/uL High 3.6 - 10.7 10*3/uL [facility] Work Phone: Test Performed by [facility], [address] [place] [address] [facility] Work Phone: MagnesiumOrdered By: Enedina Brand on 11-29-2020 Interpretation and review of laboratory results Abnormal [facility] Work Phone: [phone] Magnesium [Mass/Vol] 1.5 mg/dL Low 1.6 - 2 .3 mg/dL [facility] Work Phone: 1 Test Performed by [facility], [facility] [email or web address] [address] [facility] Work Phone: 1 POCT GlucoseOrdered By: Clemencia Crenshaw on 11-29-2020 Glucose [Mass/Vol] 118 mg/dL High 70 - 100 mg/dL [facility] Work Phone: 1 Comment on above: Test performed by gl ucose meter. Results may be 10%-15% lower than serum/plasma values. (CLIA ID [id number]) Interpretation and review of laboratory results Abnormal [facility] Work Phone: [phone] Test Performed by [facility], [facility] [email or web address] [address] [facility] Work Phone: 1 Glucose [Mass/Vol] 138 mg/dL High 70 - 100 mg/dL [facility] Work Phone: 1 Comment on above: Test performed by gl ucose meter. Results may be 10%-15% lower than serum/plasma values. (CLIA ID [id number]) Interpretation and review of laboratory results Abnormal [facility] Work Phone: [phone] Test Performed by [facility], [facility] [email or web address] [address] [facility] Work Phone: 1 Glucose [Mass/Vol] 127 mg/dL High 70 - 100 mg/dL [facility] Work Phone: 1 Comment on above: Test performed by gl ucose meter. Results may be 10%-15% lower than serum/plasma values. (CLIA ID [id number]) Interpretation and review of laboratory results Abnormal [facility] Work Phone: [phone] Test Performed by [facility], [facility] [email or web address] [address] [facility] Work Phone: 1 Glucose [Mass/Vol] 171 mg/dL High 70 - 100 mg/dL [facility] Work Phone: Comment on above: Test performed by gl ucose meter. Results may be 10%-15% lower than serum/plasma values. (CLIA ID [id number]) Interpretation and review of laboratory results Abnormal [facility] Work Phone: Test Performed by [facility], [address] [place] [address] [facility] Work Phone: Surgical PathologyOrdered By : Darion Crenshaw on 11-29-2020 Surgical Pathology Report SEE BELOW [facility] Work Phone: [phone] DEPARTME NT OF [facility] PATHOLOGY AND LABORATORY MEDICINE [address] [place] [address] FINAL SURGICAL PATHOLOGY REPORT NAME: CHARISMA JUDGE : 1975 45 Y F BILLING NO.: [id number] LOCATION: [place] [id number] 01 PROCEDURE 11/28/2020 DATE: SURGEON: DARION CRENSHAW M.D. RECEIVED 11/28/2020 DATE: ATTENDING: DARION CRENSHAW M.D. REPORT DATE: 11/29/2020 COPIES TO: DIAGNOSIS: LIVER, WEDGE BIOPSY - MILD STEATOSIS (GRADE 1) Comment: Sections demonstrate an intact liver architecture with mild macrovesicular steatosis occupying approximately 20% of the liver volume. There is no evidence of ballooning degeneration, lobular activity, or Chastity's hyaline. The portal tracts contain all normal structures without any significant inflammatory infiltrate. Special stains (iron and trichrome) are negative for increased iron storage and fibrosis, respectively. JAW/JAW Signature> JOSÉ MIGUEL BOYCE M.D. CLINICAL INFORMATION: Morbid obesity SPECIMEN: LIVER NEEDLE OR WEDGE BIOPSY, MEDICAL GROSS DESCRIPTION: Received in formalin labeled liver biopsy is one, irregular-shaped segment of red-brown, soft tissue measuring 0.7 x 0.3 x 0.2 cm. Entirely submitted in one cassette. BSC/JAF Disclaimer: The following statement applies to all immunohistochemistry, in situ hybridization, molecular studies, and immunofluorescence testing. The use of one or more reagents in the above tests is regulated as an analyte specific reagent (ASR). These tests were developed and their performance characteristics determined by the clinical laboratories of [facility]. They have not been cleared by the US Food and Drug Administration (FDA). The FDA has determined that such clearance or approval is not necessary. All the above immunostains were performed on paraffin embedded tissue. Appropriate positive and negative controls (where applicable) were run in parallel with the patient's specimen; these controls showed expected staining pattern, with acceptable intensity of staining. Immunohistochemical assays have not been validated on decalcified tissues. Results should be interpreted with caution given the raised possibility of false negativity on decalcified specimens. Professional Performing Location: [address] [address]. DEPARTMENT OF PATHOLOGY AND LABORATORY MEDICINE [place], [place] [address] [facility] Work Phone: Basic Metabolic PanelOrdered By: Tomy Brand on 11-28-2020 Anion gap [Moles/Vol] 15 mmol/L High 3 - 13 mmol/L [facility] Work Phone: Calcium [Mass/Vol] 8.6 mg/dL 8.4 - 10. 4 mg/dL [facility] Work Phone: [phone] Chloride [Moles/Vol] 100 mmol/L 98 - 10 7 mmol/L [facility] Work Phone: [phone] CO2 [Moles/Vol] 21 mmol/L Low 22 - 30 mmol/L [facility] Work Phone: [phone] Creatinine [Mass/Vol] 0.93 mg/dL 0.52 - 1.25 mg/dL [facility] Work Phone: [phone] EGFR IF NonAfrican Swedish 73.9 mL/min >60 [facility] Work Phone: [phone] Comment on above: KDIGO guidelines pro vide the following GFR categories: Stage GFR(ml/min/1.73 m2) Terms G1 >=90 Normal or high G2 60-89 Mildly decreased* G3a 45-59 Mildly to moderately decreased G3b 30-44 Moderately to severely decreased G4 15-29 Severely decreased G5 <15 Kidney failure *Relative to young adult level. In the absence of evidence of kidney damage, neither GFR category G1 nor G2 fulfill the criteria for CKD. The CKD-EPI equation is validated in individuals 18 years of age and older. Currently the best equation for estimating glomerular filtration rate (GFR) from serum creatinine in children is the Bedside Bean equation. It is less accurate in patients with extremes of muscle mass, restriction of dietary protein, ingestion of creatine, extra-renal metabolism of creatinine, or treatment with medications that affect renal tubular creatinine secretion. GFR/1.73 sq M.predicted among blacks MDRD (S/P/Bld) [Vol rate/Area] 85.6 mL/min/{1.73_m2} >60 [facility] Work Phone: [phone] Glucose [Mass/Vol] 224 mg/dL High 70 - 100 mg/dL [facility] Work Phone: [phone] Interpretation and review of laboratory results Abnormal [facility] Work Phone: [phone] Potassium [Moles/Vol] 3.8 mmol/L 3.5 - 5.1 mmol/L [facility] Work Phone: [phone] Sodium [Moles/Vol] 136 mmol/L 135 - 145 mmol/L [facility] Work Phone: [phone] Urea nitrogen (BldV) [Mass/Vol] 13 mg/dL 7 - 20 mg/dL [facility] Work Phone: 1 Test Performed by [place] [address] [facility] Work Phone: Hemoglobin and Hematocrit, B loodOrdered By: Tomy Brand on 11-28-2020 Hematocrit (Bld) [Volume fraction] 38.1 % 35.0 - 47.0 % [facility] Work Phone: Hemoglobin.gastrointesti nal spec 1 Ql (Stl) 12.4 g/dL 11.7 - 16.0 g/dL [facility] Work Phone: Test Performed by [facility], [facility] [email or web address] [address] [facility] Work Phone: , urine POCTOrdered By: Darion Crenshaw on 11-28-2020 Beta HCG ( test) Ql (U) Negative Negative [facility] Work Phone: Beta HCG ( test) Ql (U) [id number] [facility] Work Phone: Interpretation and review of laboratory results Normal [facility] Work Phone: Negative QC Pass/Fail Pass [facility] Work Phone: Positive QC Pass/Fail Pass [facility] Work Phone: 1 Albuminon 11-15-2020 Albumin [Mass/Vol] 4.5 g/dL 3.5 - 5.0 g/dL [facility] Work Phone: Basic Metabolic Panelon Anion gap [Moles/Vol] 9 mmol/L 3 - 13 mmol/L [facility] Work Phone: Calcium [Mass/Vol] 9.5 mg/dL 8.4 - 10. 4 mg/dL [facility] Work Phone: Chloride [Moles/Vol] 102 mmol/L 98 - 10 7 mmol/L [facility] Work Phone: CO2 [Moles/Vol] 29 mmol/L 22 - 30 mmol/L [facility] Work Phone: [phone] Creatinine [Mass/Vol] 0.7 mg/dL 0.52 - 1.25 mg/dL [facility] Work Phone: [phone] EGFR IF NonAfrican Swedish >90.0 >60 mL/min [facility] Phone: [phone] Comment on above: KDIGO guidelines pro vide the following GFR categories: Stage GFR(ml/min/1.73 m2) Terms G1 >=90 Normal or high G2 60-89 Mildly decreased* G3a 45-59 Mildly to moderately decreased G3b 30-44 Moderately to severely decreased G4 15-29 Severely decreased G5 <15 Kidney failure *Relative to young adult level. In the absence of evidence of kidney damage, neither GFR category G1 nor G2 fulfill the criteria for CKD. The CKD-EPI equation is validated in individuals 18 years of age and older. Currently the best equation for estimating glomerular filtration rate (GFR) from serum creatinine in children is the Bedside Bean equation. It is less accurate in patients with extremes of muscle mass, restriction of dietary protein, ingestion of creatine, extra-renal metabolism of creatinine, or treatment with medications that affect renal tubular creatinine secretion. GFR/1.73 sq M predicted among blacks MDRD (S/P/Bld) [Vol rate/Area] mL/min/{1.73_m2} >60 mL/min [facility] Phone: [phone] Glucose [Mass/Vol] 76 mg/dL 70 - 100 mg/dL [facility] Phone: [phone] Potassium [Moles/Vol] 3.7 mmol/L 3.5 - 5.1 mmol/L [facility] Phone: [phone] Sodium [Moles/Vol] 140 mmol/L 135 - 145 mmol/L [facility] Phone: [phone] Urea nitrogen [Mass/Vol] 12 mg/dL 7 - 20 mg/d L [facility] Phone: [phone] CBCon 11-15-2020 Erythrocyte distribution width (RBC) [Ratio] 13.6 % 11.5 - 14.5 % [facility] Phone: [phone] Hematocrit (Bld) [Volume fraction] 38.3 % 35.0 - 47.0 % [facility] Work Phone: Hemoglobin (Bld) [Mass/Vol] 12.7 g/dL 11.7 - 16.0 g/dL [facility] Work Phone: Interpretation and review of laboratory results Abnormal [facility] Work Phone: MCH (RBC) [Entitic mass] 28.8 pg 26. 0 - 34.0 pg [facility] Work Phone: MCHC (RBC) [Mass/Vol] 33.1 % 32.0 - 36.0 % [facility] Work Phone: MCV (RBC) [Entitic vol] 87.0 fL 79.0 - 98.0 fL [facility] Work Phone: Platelet mean volume (Bld) [Entitic vol] 8.2 fL 7.4 - 10.4 fL [facility] Work Phone: Platelets (Bld) [#/Vol] 276 10*3/uL 140 - 440 10*3/uL [facility] Work Phone: RBC (Bld) [#/Vol] 4.41 10*6/uL 3.80 - 5.2 0 10*6/uL [facility] Work Phone: WBC (Bld) [#/Vol] 10.9 10*3/uL High 3.6 - 10.7 10*3/uL [facility] Work Phone: Test Performed by [employer] [address] [address] [facility] Work Phone: Hemoglobin A1Con 11-15-2020 eAG 137 mg/dL [facility] Work Phone: HbA1c (Bld) [Mass fraction] 6.4 % Abnormal [facility] Work Phone: Comment on above: Normal less than 5.7 % Prediabetes 5.7% to 6.4% Diabetes 6.5% or higher --HgbA1C levels may not be accurate in patients who have renal disease, received recent blood transfusions, are anemic, or who have dyshemoglobinemia. Interpretation and review of laboratory results Abnormal [facility] Work Phone: Test Performed by [facility], [address] [place] [address] [facility] Work Phone: Otheron 11-15-2020 Test Performed by [facility], [address] [place] [address] [facility] Work Phone: XR CHEST (2 VW)on 11-15-2020 Александр, [facility] Incoming Radiology Results From [facility] - 11/15/2020 4:23 PM EDT Patient Name: CHARISMA JUDGE Diagnostic Radiology ACCESSION EXAM DATE/TIME PROCEDURE ORDERING PROVIDER [id number] 11/15/2020 12:46 EDT CR Chest PA & LAT SONIYA MARR LEISA R. CPT code 62404 Reason For Exam (CR Chest PA & LAT) PRE-OP Report CHEST, PA & LATERAL: INDICATION: Preop COMPARISON: No previous studies are available for comparison. PA and lateral views of the chest were obtained. The heart is normal in size. The mediastinal silhouette is normal. The lungs are clear. There are no effusions or infiltrates. There is no pleural thickening. The osseous structures are unremarkable. IMPRESSION: Negative chest. Report Dictated on --- Final --- Dictated: 11/15/2020 4:21 pm Dictating Physician: DO MALIN ALFRED Signed Date and Time: 11/15/2020 4:22 pm Signed by: DO MALIN ALFRED Transcribed Date and Time: 11/15/2020 4:21 [facility] Work Phone: Patient Name: CHARISMA JUDGE Diagnostic Radiology ACCESSION EXAM DATE/TIME PROCEDURE ORDERING PROVIDER [id number] 11/15/2020 12:46 EDT CR Chest PA & LAT SONIYA MARR LEISA R. CPT code 87792 Reason For Exam (CR Chest PA & LAT) PRE-OP Report CHEST, PA & LATERAL: INDICATION: Preop COMPARISON: No previous studies are available for comparison. PA and lateral views of the chest were obtained. The heart is normal in size. The mediastinal silhouette is normal. The lungs are clear. There are no effusions or infiltrates. There is no pleural thickening. The osseous structures are unremarkable. IMPRESSION: Negative chest. Report Dictated on --- Final --- Dictated: 11/15/2020 4:21 pm Dictating Physician: DO MALIN ALFRED Signed Date and Time: 11/15/2020 4:22 pm Signed by: DO MALIN ALFRED Transcribed Date and Time: 11/15/2020 4:21 [facility] Work Phone: Echo 2D Doppler Coloron 08-11 TRANSTHORACIC ECHOCARDIOGRAM PATIENT: Charisma Judge STUDY DATE: 08/21/2020 : 1975 AGE: 45 HT/WT: 160 cm (63 104.3 kg in) (229.5 lb) GENDER: F BP: 146 / 75 LOCATION: [facility] PATIENT Outpatient [facility] STATUS: *ORDERING PHYSICIAN: * Thomas Mathew *READING PHYSICIAN: * Paco Bowser, *FERRIS WHEEL OPERATOR: * Rebeca BELTRAN MD ----- INDICATIONS: Hypertension. ----- CONCLUSIONS SUMMARY: 1. Left ventricle: There is mild concentric hypertrophy. Systolic function is normal by the biplane method of disks. The estimated ejection fraction is 68%. Doppler parameters are consistent with abnormal left ventricular relaxation (grade 1 diastolic dysfunction). 2. Right ventricle: Systolic function is normal. Right ventricular systolic pressure is mildly increased. 3. Left atrium: The atrium is mildly dilated. 4. Right atrium: The atrium is mildly dilated. 5. Mitral valve: Not well visualized.Grossly normal There is trivial, less than 1+ regurgitation. 6. Aortic valve: Not well visualized. Trileaflet. There is no regurgitation. 7. Tricuspid valve: Not well visualized.Grossly normal 8. Technically difficult study. ----- STUDY DATA: Complete transthoracic echocardiogram. Procedure: Image quality was suboptimal. The study was technically limited due to body habitus. M-mode, complete 2D, complete spectral Doppler, and color flow Doppler images were acquired and archived for permanent storage and are available for subsequent review. Study status: Routine. Patient status: Outpatient. ----- FINDINGS LEFT VENTRICLE: The cavity size is normal. Wall thickness is mildly increased. There is mild concentric hypertrophy. Systolic function is normal by the biplane method of disks. The estimated ejection fraction is 68%. There are no regional wall motion abnormalities. Doppler parameters are consistent with abnormal left ventricular relaxation (grade 1 diastolic dysfunction). RIGHT VENTRICLE: The cavity size is normal. Systolic function is normal. Right ventricular systolic pressure is mildly increased. VENTRICULAR SEPTUM: There is no evidence of a ventricular septal defect. LEFT ATRIUM: The atrium is mildly dilated. RIGHT ATRIUM: The atrium is mildly dilated. ATRIAL SEPTUM: Color Doppler shows no shunt. MITRAL VALVE: Not well visualized.Grossly normal Doppler: There is trivial, less than 1+ regurgitation. The peak diastolic gradient is 4 mm Hg. AORTIC VALVE: Not well visualized. Trileaflet. Doppler: There is no regurgitation. Dimensionless index: 0.76. The valve area by the velocity-time integral method is 3.3 cm^2. The valve area index by the velocity-time integral method is 1.5 cm^2/m^2. The mean systolic gradient is 6 mm Hg. The peak systolic gradient is 11 mm Hg. The peak systolic velocity is 1.7 m/sec. TRICUSPID VALVE: Not well visualized.Grossly normal Doppler: There is trivial, less than 1+ regurgitation. PULMONIC VALVE: Not visualized. Doppler: There is no regurgitation. AORTA: The aorta is normal. PULMONARY ARTERY: Main pulmonary artery: Normal. PERICARDIUM: There is no pericardial effusion. SYSTEMIC VEINS: Inferior vena cava: The vessel is normal. The IVC collapses by greater than 50% with inspiration. Hepatic veins: The flow pattern is normal. ----- Measurements Value Reference Aortic root ID 2.9 cm <4.3 Aortic root ID, STJ, ED 2.7 cm 2.0 - 3.2 Aortic root ID/bsa, STJ, ED 1.2 cm/m^2 1.1 - 1.9 Value Reference Ascending aorta ID 3.1 cm 1.9 - 3.5 Ascending aorta ID/bsa, A-P 1.4 cm/m^2 1.0 - 2.2 Ascending aorta ID, A-P, S 3.1 cm --------- Ascending aorta ID/bsa, A-P, S 1.4 cm/m^2 --------- IVC Value Reference ID 2.1 cm --------- Left ventricle Value Reference LV ID, ED 4.0 cm 3.8 - 5.2 LV ID, ES 2.8 cm 2.2 - 3.5 LV ID/bsa, ED (L) 1.8 cm/m^2 2.3 - 3.1 LV ID/bsa, ES 1.3 cm/m^2 1.3 - 2.1 LV PW thickness, ED (H) 1.2 cm 0.6 - 0.9 LV PW/LV ID ratio, ED 0.3 --------- LV wall mass (H) 176 g 66 - 150 LV wall mass/bsa 80 g/m^2 44 - 88 Stroke volume/bsa, 1-p A2C 44.1 ml/m^2 --------- LV end-diastolic volume, 1-p A4C (H) 155 ml 48 - 140 LV end-systolic volume, 1-p A4C (H) 66 ml 12 - 60 LV end-diastolic volume, 2-p (H) 150 ml 46 - 106 LV end-systolic volume, 2-p (H) 48 ml 14 - 42 LV ejection fraction, 2-p 68 % 54 - 74 LV E/e', lateral 10.1 --------- LV E/e', medial 18 --------- LV E/e', average 12.9 --------- Ventricular septum Value Reference IVS thickness, ED (H) 1.3 cm 0.6 - 0.9 LVOT Value Reference LVOT ID, A-P 2.4 cm --------- LVOT mean velocity, S 0.8 m/sec --------- LVOT peak gradient, S 7 mm Hg --------- Stroke volume (SV), LVOT DP 112 ml --------- Stroke index (SV/bsa), LVOT DP 51 ml/m^2 --------- Aortic valve Value Reference Aortic valve peak velocity, S 1.7 m/sec --------- Aortic valve mean velocity, S 1.1 m/sec --------- Aortic mean gradient, S 6 mm Hg --------- Aortic peak gradient, S 11 mm Hg --------- DI 0.76 --------- Aortic valve area, VTI 3.3 cm^2 --------- Aortic valve area/bsa, VTI 1.5 cm^2/m^2 --------- Left atrium Value Reference LA volume/bsa, ES, 2-p 29 ml/m^2 16 - 34 Mitral valve Value Reference Mitral E-wave peak velocity 1.1 m/sec --------- Mitral A-wave peak velocity 0.9 m/sec --------- Mitral deceleration time 259 ms --------- Mitral peak gradient, D 4 mm Hg --------- Mitral E/A ratio, peak 1.2 --------- Tricuspid valve Value Reference Tricuspid regurg peak velocity (H) 3.1 m/sec <=2.8 Tricuspid peak RV-RA gradient 40 mm Hg --------- Right atrium Value Reference RA area, ES, A4C (H) 26 cm^2 10 - 18 Systemic veins Value Reference Estimated RAP 3 mm Hg --------- Right ventricle Value Reference RV ID, minor axis, ED, A4C base 3.4 cm 2.5 - 4.1 RV ID, minor axis, ED, A4C mid 3.1 cm 1.9 - 3.5 TAPSE, 2D 2.8 cm 1.7 - 3.1 RV pressure, S, DP 43 mm Hg --------- Legend: (L) and (H) scooby values outside specified reference range. Electronically signed by Paco Bowser MD 08/21/2020 16:33 Prior Signatures: [facility], [facility] Incoming Cardiology Results From [facility] - 08/21/2020 4:33 PM EST TRANSTHORACIC ECHOCARDIOGRAM PATIENT: Charisma Judge STUDY DATE: 08/21/2020 : 1975 AGE: 45 HT/WT: 160 cm (63 104.3 kg in) (229.5 lb) GENDER: F BP: 146 / 75 LOCATION: [facility] PATIENT Outpatient [facility] STATUS: *ORDERING PHYSICIAN: * Thomas Mathew *READING PHYSICIAN: * Paco Bowser, *FERRIS WHEEL OPERATOR: * Rebeca BELTRAN MD ----- INDICATIONS: Hypertension. ----- CONCLUSIONS SUMMARY: 1. Left ventricle: There is mild concentric hypertrophy. Systolic function is normal by the biplane method of disks. The estimated ejection fraction is 68%. Doppler parameters are consistent with abnormal left ventricular relaxation (grade 1 diastolic dysfunction). 2. Right ventricle: Systolic function is normal. Right ventricular systolic pressure is mildly increased. 3. Left atrium: The atrium is mildly dilated. 4. Right atrium: The atrium is mildly dilated. 5. Mitral valve: Not well visualized.Grossly normal There is trivial, less than 1+ regurgitation. 6. Aortic valve: Not well visualized. Trileaflet. There is no regurgitation. 7. Tricuspid valve: Not well visualized.Grossly normal 8. Technically difficult study. ----- STUDY DATA: Complete transthoracic echocardiogram. Procedure: Image quality was suboptimal. The study was technically limited due to body habitus. M-mode, complete 2D, complete spectral Doppler, and color flow Doppler images were acquired and archived for permanent storage and are available for subsequent review. Study status: Routine. Patient status: Outpatient. ----- FINDINGS LEFT VENTRICLE: The cavity size is normal. Wall thickness is mildly increased. There is mild concentric hypertrophy. Systolic function is normal by the biplane method of disks. The estimated ejection fraction is 68%. There are no regional wall motion abnormalities. Doppler parameters are consistent with abnormal left ventricular relaxation (grade 1 diastolic dysfunction). RIGHT VENTRICLE: The cavity size is normal. Systolic function is normal. Right ventricular systolic pressure is mildly increased. VENTRICULAR SEPTUM: There is no evidence of a ventricular septal defect. LEFT ATRIUM: The atrium is mildly dilated. RIGHT ATRIUM: The atrium is mildly dilated. ATRIAL SEPTUM: Color Doppler shows no shunt. MITRAL VALVE: Not well visualized.Grossly normal Doppler: There is trivial, less than 1+ regurgitation. The peak diastolic gradient is 4 mm Hg. AORTIC VALVE: Not well visualized. Trileaflet. Doppler: There is no regurgitation. Dimensionless index: 0.76. The valve area by the velocity-time integral method is 3.3 cm^2. The valve area index by the velocity-time integral method is 1.5 cm^2/m^2. The mean systolic gradient is 6 mm Hg. The peak systolic gradient is 11 mm Hg. The peak systolic velocity is 1.7 m/sec. TRICUSPID VALVE: Not well visualized.Grossly normal Doppler: There is trivial, less than 1+ regurgitation. PULMONIC VALVE: Not visualized. Doppler: There is no regurgitation. AORTA: The aorta is normal. PULMONARY ARTERY: Main pulmonary artery: Normal. PERICARDIUM: There is no pericardial effusion. SYSTEMIC VEINS: Inferior vena cava: The vessel is normal. The IVC collapses by greater than 50% with inspiration. Hepatic veins: The flow pattern is normal. ----- Measurements Value Reference Aortic root ID 2.9 cm <4.3 Aortic root ID, STJ, ED 2.7 cm 2.0 - 3.2 Aortic root ID/bsa, STJ, ED 1.2 cm/m^2 1.1 - 1.9 Value Reference Ascending aorta ID 3.1 cm 1.9 - 3.5 Ascending aorta ID/bsa, A-P 1.4 cm/m^2 1.0 - 2.2 Ascending aorta ID, A-P, S 3.1 cm --------- Ascending aorta ID/bsa, A-P, S 1.4 cm/m^2 --------- IVC Value Reference ID 2.1 cm --------- Left ventricle Value Reference LV ID, ED 4.0 cm 3.8 - 5.2 LV ID, ES 2.8 cm 2.2 - 3.5 LV ID/bsa, ED (L) 1.8 cm/m^2 2.3 - 3.1 LV ID/bsa, ES 1.3 cm/m^2 1.3 - 2.1 LV PW thickness, ED (H) 1.2 cm 0.6 - 0.9 LV PW/LV ID ratio, ED 0.3 --------- LV wall mass (H) 176 g 66 - 150 LV wall mass/bsa 80 g/m^2 44 - 88 Stroke volume/bsa, 1-p A2C 44.1 ml/m^2 --------- LV end-diastolic volume, 1-p A4C (H) 155 ml 48 - 140 LV end-systolic volume, 1-p A4C (H) 66 ml 12 - 60 LV end-diastolic volume, 2-p (H) 150 ml 46 - 106 LV end-systolic volume, 2-p (H) 48 ml 14 - 42 LV ejection fraction, 2-p 68 % 54 - 74 LV E/e', lateral 10.1 --------- LV E/e', medial 18 --------- LV E/e', average 12.9 --------- Ventricular septum Value Reference IVS thickness, ED (H) 1.3 cm 0.6 - 0.9 LVOT Value Reference LVOT ID, A-P 2.4 cm --------- LVOT mean velocity, S 0.8 m/sec --------- LVOT peak gradient, S 7 mm Hg --------- Stroke volume (SV), LVOT DP 112 ml --------- Stroke index (SV/bsa), LVOT DP 51 ml/m^2 --------- Aortic valve Value Reference Aortic valve peak velocity, S 1.7 m/sec --------- Aortic valve mean velocity, S 1.1 m/sec --------- Aortic mean gradient, S 6 mm Hg --------- Aortic peak gradient, S 11 mm Hg --------- DI 0.76 --------- Aortic valve area, VTI 3.3 cm^2 --------- Aortic valve area/bsa, VTI 1.5 cm^2/m^2 --------- Left atrium Value Reference LA volume/bsa, ES, 2-p 29 ml/m^2 16 - 34 Mitral valve Value Reference Mitral E-wave peak velocity 1.1 m/sec --------- Mitral A-wave peak velocity 0.9 m/sec --------- Mitral deceleration time 259 ms --------- Mitral peak gradient, D 4 mm Hg --------- Mitral E/A ratio, peak 1.2 --------- Tricuspid valve Value Reference Tricuspid regurg peak velocity (H) 3.1 m/sec <=2.8 Tricuspid peak RV-RA gradient 40 mm Hg --------- Right atrium Value Reference RA area, ES, A4C (H) 26 cm^2 10 - 18 Systemic veins Value Reference Estimated RAP 3 mm Hg --------- Right ventricle Value Reference RV ID, minor axis, ED, A4C base 3.4 cm 2.5 - 4.1 RV ID, minor axis, ED, A4C mid 3.1 cm 1.9 - 3.5 TAPSE, 2D 2.8 cm 1.7 - 3.1 RV pressure, S, DP 43 mm Hg --------- Legend: (L) and (H) scooby values outside specified reference range. Electronically signed by Paco Bowser MD 08/21/2020 16:33 Prior Signatures: [email or web address] [facility] 05-10-2020 Erythrocyte distribution width (RBC) [Ratio] 13.1 % 11.5 - 14.5 % [email or web address] Hematocrit (Bld) [Volume fraction] 35.9 % 35 - 47 % [email or web address] Hemoglobin (Bld) [Mass/Vol] 12.4 g/dL 11.7 - 16 g/dL [place], [place] Interpretation and review of laboratory results Abnormal [place] MCH (RBC) [Entitic mass] 29.8 pg 26 - 34 pg [place] MCHC (RBC) [Mass/Vol] 34.5 % 32 - 36 % [place], [place] MCV (RBC) [Entitic vol] 86.3 fL 79 - 98 fL [place], [place] Platelet mean volume (Bld) [Entitic vol] 7.5 fL 7.4 - 10.4 fL [place], [place] Platelets (Bld) [#/Vol] 285 10*3/uL 140 - 440 10*3/uL [place] RBC (Bld) [#/Vol] 4.16 10*6/uL 3.8 - 5.2 10*6/uL [place] WBC (Bld) [#/Vol] 12.3 10*3/uL High 3.6 - 10.7 10*3/uL [place], [place] Test Performed by [facility], [address] , [address] Lipid Panelon 05-04-2020 Cholesterol [Mass/Vol] 186 mg/dL <200 [place], [place] Cholesterol in HDL [Mass/Vol] 54 mg/dL 40 - 60 mg/dL [place], [place] Cholesterol in LDL [Mass/Vol] 98 mg/dL <100 [place] Cholesterol.total/Choles terol in HDL [Mass ratio] 3 {ratio} [place], [place] Comment on above: Ref Range: < 3 Low Risk for CHD 3-6 Mod Risk for CHD > 6 High Risk for CHD Interpretation and review of laboratory results Abnormal [place], [place] Triglyceride [Mass/Vol] 172 mg/dL Abnormal <150 [place], [place] Test Performed by [facility], [address] , [address] US ABDOMEN COMPLETEon 2019 Patient Name: CHARISMA JUDGE ---Ultrasound--- Exam Date/Time 05/04/2020 11:13:01 EDT Exam US Abdomen Complete Ordering Physician SONIYA MARR LEISA R. Accession Number [id number] CPT4 Codes 98898 () Reason For Exam abdomen pain Report ULTRASOUND ABDOMEN COMPLETE EXAM DATE AND TIME: 05/04/2020 11:13 AM EDT INDICATION: 45 years Female with abdominal pain COMPARISON: None TECHNIQUE: Complete ultrasound of abdomen FINDINGS: Liver: Generalized increased echogenicity likely corresponding to fatty infiltration. The liver is enlarged. No focal lesion identified. Gallbladder: Status post cholecystectomy. Bile ducts: No intrahepatic and extrahepatic biliary dilatation Common bile duct: 5 mm Pancreas: The visualized portions of the pancreatic head and body are unremarkable. The remainder of the pancreas is obscured by bowel gas Right kidney: Normal size measuring 13.4 cm. Normal parenchymal echogenicity without solid mass or hydronephrosis. Left kidney: Normal size measuring 14.0 cm. Normal parenchymal echogenicity without solid mass or hydronephrosis. Spleen: Enlarged measuring 13.5 x 6.5 x 9.2 cm. The splenic index is 807; a normal splenic index is considered equal to or less than 480. Normal echogenicity without a lesion. Aorta and Inferior vena cava: Visualized portions are normal Ascites: None IMPRESSION: 1. No acute process. 2. Hepatosplenomegaly. Echogenic liver suggesting hepatic steatosis. Report Dictated on --- Final --- Dictating Physician: MD HUSTON NICHOLAS Signed Date and Time: 05/04/2020 6:27 pm Signed by: MD HUSTON NICHOLAS Transcribed Date and Time: 05/04/2020 6:28 [facility] [place] Александр, Summ Incoming Radiology Results From [facility] - 05/04/2020 6:28 PM EDT Patient Name: CHARISMA JUDGE ---Ultrasound--- Exam Date/Time 05/04/2020 11:13:01 EDT Exam US Abdomen Complete Ordering Physician SONIYA MARR LEISA R. Accession Number [id number] CPT4 Codes 84331 () Reason For Exam abdomen pain Report ULTRASOUND ABDOMEN COMPLETE EXAM DATE AND TIME: 05/04/2020 11:13 AM EDT INDICATION: 45 years Female with abdominal pain COMPARISON: None TECHNIQUE: Complete ultrasound of abdomen FINDINGS: Liver: Generalized increased echogenicity likely corresponding to fatty infiltration. The liver is enlarged. No focal lesion identified. Gallbladder: Status post cholecystectomy. Bile ducts: No intrahepatic and extrahepatic biliary dilatation Common bile duct: 5 mm Pancreas: The visualized portions of the pancreatic head and body are unremarkable. The remainder of the pancreas is obscured by bowel gas Right kidney: Normal size measuring 13.4 cm. Normal parenchymal echogenicity without solid mass or hydronephrosis. Left kidney: Normal size measuring 14.0 cm. Normal parenchymal echogenicity without solid mass or hydronephrosis. Spleen: Enlarged measuring 13.5 x 6.5 x 9.2 cm. The splenic index is 807; a normal splenic index is considered equal to or less than 480. Normal echogenicity without a lesion. Aorta and Inferior vena cava: Visualized portions are normal Ascites: None IMPRESSION: 1. No acute process. 2. Hepatosplenomegaly. Echogenic liver suggesting hepatic steatosis. Report Dictated on --- Final --- Dictating Physician: MD HUSTON NICHOLAS Signed Date and Time: 05/04/2020 6:27 pm Signed by: MD HUSTON NICHOLAS Transcribed Date and Time: 05/04/2020 6:28 [place], [place] Comprehensive Metabolic Pane darrell 04-21-2020 Albumin [Mass/Vol] 4.4 g/dL 3.5 - 5 g/dL [place], [place] ALP [Catalytic activity/Vol] 80 U/L 38 - 126 U/L [place], [place] ALT [Catalytic activity/Vol] 21 U/L 0 - 34 U/L [place] Comment on above: The ALT test is perf ormed by an updated assay method. Please note that the reference intervals have been changed and are now sex specific. Anion gap [Moles/Vol] 10 mmol/L [place], [place] AST [Catalytic activity/Vol] 24 U/L 15 - 46 U/L [place] Bilirubin Ql (U) 0.2 mg/dL 0.2 - 1.3 mg/dL [place] Calcium [Mass/Vol] 9.6 mg/dL 8.4 - 10. 4 mg/dL [place] Chloride [Moles/Vol] 103 mmol/L 98 - 10 7 mmol/L [place] CO2 [Moles/Vol] 26 mmol/L 22 - 30 mmol/L [place] Creatinine [Mass/Vol] 0.81 mg/dL 0.52 - 1.25 mg/dL [place], [place] EGFR IF NonAfrican [place] 87.7 mL/min >60 [place], [place] Comment on above: KDIGO guidelines pro vide the following GFR categories: Stage GFR(ml/min/1.73 m2) Terms G1 >=90 Normal or high G2 60-89 Mildly decreased* G3a 45-59 Mildly to moderately decreased G3b 30-44 Moderately to severely decreased G4 15-29 Severely decreased G5 <15 Kidney failure *Relative to young adult level. In the absence of evidence of kidney damage, neither GFR category G1 nor G2 fulfill the criteria for CKD. The CKD-EPI equation is validated in individuals 18 years of age and older. Currently the best equation for estimating glomerular filtration rate (GFR) from serum creatinine in children is the Bedside Bean equation. It is less accurate in patients with extremes of muscle mass, restriction of dietary protein, ingestion of creatine, extra-renal metabolism of creatinine, or treatment with medications that affect renal tubular creatinine secretion. GFR/1.73 sq M predicted among blacks MDRD (S/P/Bld) [Vol rate/Area] mL/min/{1.73_m2} >60 mL/min [place], [place] Glucose [Mass/Vol] 107 mg/dL High 70 - 100 mg/dL [place] Interpretation and review of laboratory results Abnormal [place] Potassium [Moles/Vol] 3.8 mmol/L 3.5 - 5.1 mmol/L [place] Protein [Mass/Vol] 7.4 g/dL 6.3 - 8.2 g/dL [place] Sodium [Moles/Vol] 139 mmol/L 135 - 145 mmol/L [place] Urea nitrogen [Mass/Vol] 17 mg/dL 7 - 20 mg/d L [place] Ferritinon 04-21-2020 Ferritin [Mass/Vol] 42 ng/mL 8 - 252 ng/mL [place] Test Performed by [facility], [address] , [address] Folateon 04-21-2020 Folate 13.7 ng/mL 2.8 - 20 ng/mL [place], [place] Ironon 04-21-2020 Iron [Mass/Vol] 82 ug/dL 37 - 170 ug/dL [place] Test Performed by [facility], [address] , [address] Magnesiumon 04-21-2020 Magnesium [Mass/Vol] 1.8 mg/dL 1.6 - 2 .3 mg/dL [place] Otheron 04-21-2020 Test Performed by [facility], [address] , [address] Test Performed by [facility], [address] , [address] TSH without Reflexon 020 TSH Qn 2.011 u[IU]/mL 0.465 - 4.68 u[IU]/mL [place], [place] Test Performed by [facility], [address] , [address] Vitamin B12on 04-21-2020 Cobalamin (Vitamin B12) [Mass/Vol] 304 pg/mL 239 - 931 pg/mL [place], [place] Vitamin D 25 Hydroxyon 04-21 Vit D, 25-Hydroxy 44 ng/mL 30 - 100 ng/mL [place], [place] Comment on above: Therapy is based on measurement of Total 25-OHD with the following classification levels: Less than 20 ng/mL: Indicative of Vit D deficiency 20-30 ng/mL: Suggests Vit D insufficiency Optimal: Greater than or equal to 30 ng/mL Test performed by [employer] Immuno[employer], measuring Total Vitamin D, not individual fractions. Test Performed by [facility], [address], [address] Culture, urine Bacteria identified Cx Nom (U) GNR lactose it systems administrator [facility] Work Phone: Bacteria identified Cx Nom (U) Positive [facility] Work Phone: Bacteria identified Cx Nom (U) Culture exhibits no growth. [facility] Work Phone: Laboratory - Microbiology an d Antimicrobial susceptibility Bacteria identified Cx Nom (Bld) Klebsiella pneumoniae sp pneum [facility] Work Phone: Vital Signs Date Time Vital Sign Value Performing Clinician Facility 02-26-2023 14:27-0400 Body height 162.6 cm Veronica Campos MD Work Phone: [facility] 02-26-2023 14:27-0400 Body mass index (BMI) [Ratio] 29.28 kg/m2 Veronica Campos MD Work Phone: [facility] 02-26-2023 14:27-0400 Body weight 77.38 kg Veronica Campos MD Work Phone: [facility] 02-26-2023 14:27-0400 Diastolic blood pressure 84 mm[Hg] Veronica Campos MD Work Phone: [facility] 02-26-2023 14:27-0400 Heart rate 78 /min Veronica Campos MD Work Phone: [facility] 02-26-2023 14:27-0400 Systolic blood pressure 144 mm[Hg] Veronica Campos MD Work Phone: [facility] 02-10-2023 16:14-0400 Diastolic blood pressure 84 mm[Hg] [facility] 02-10-2023 16:14-0400 Heart rate 75 /min [facility] 02-10-2023 16:14-0400 Respiratory rate 16 /min [facility] 02-10-2023 16:14-0400 Systolic blood pressure 163 mm[Hg] [facility] 02-10-2023 13:07-0400 Body height 160.02 cm [facility] 02-10-2023 13:07-0400 SaO2% (BldA) [Mass fraction] 99 % [facility] 01-27-2023 15:31-0400 Diastolic blood pressure 77 mm[Hg] [facility] 01-27-2023 15:31-0400 Heart rate 64 /min [facility] 01-27-2023 15:31-0400 Systolic blood pressure 156 mm[Hg] [facility] 01-27-2023 13:12-0400 Body mass index (BMI) [Ratio] 28 kg/m2 [facility] 01-27-2023 13:12-0400 Body temperature 97.5 [degF] [facility] 01-27-2023 13:12-0400 Body weight 71.66 kg [facility] 01-27-2023 13:12-0400 Respiratory rate 16 /min [facility] 01-27-2023 13:12-0400 SaO2% (BldA) [Mass fraction] 100 % [facility] 01-13-2023 16:07-0400 Diastolic blood pressure 90 mm[Hg] [facility] 01-13-2023 16:07-0400 Respiratory rate 16 /min [facility] 01-13-2023 16:07-0400 Systolic blood pressure 153 mm[Hg] [facility] 01-13-2023 13:02-0400 Body height 160.02 cm [facility] 01-13-2023 13:02-0400 Body mass index (BMI) [Ratio] 28 kg/m2 [facility] 01-13-2023 13:02-0400 Body weight 71.66 kg [facility] 01-13-2023 13:02-0400 Heart rate 62 /min [facility] 01-13-2023 13:02-0400 SaO2% (BldA) [Mass fraction] 100 % [facility] 12-30-2022 16:30-0400 Body temperature 97.2 [degF] [facility] 12-30-2022 16:30-0400 Diastolic blood pressure 87 mm[Hg] [facility] 12-30-2022 16:30-0400 Heart rate 76 /min [facility] 12-30-2022 16:30-0400 Respiratory rate 16 /min [facility] 12-30-2022 16:30-0400 SaO2% (BldA) [Mass fraction] 100 % [facility] 12-30-2022 16:30-0400 Systolic blood pressure 155 mm[Hg] [facility] 12-30-2022 13:49-0400 Body mass index (BMI) [Ratio] 28 kg/m2 [facility] 12-30-2022 13:49-0400 Body weight 71.66 kg [facility] 12-16-2022 16:13-0400 Body temperature 97.7 [degF] [facility] 12-16-2022 16:13-0400 Diastolic blood pressure 83 mm[Hg] [facility] 12-16-2022 16:13-0400 Heart rate 90 /min [facility] 12-16-2022 16:13-0400 Respiratory rate 16 /min [facility] 12-16-2022 16:13-0400 SaO2% (BldA) [Mass fraction] 100 % [facility] 12-16-2022 16:13-0400 Systolic blood pressure 167 mm[Hg] [facility] 12-16-2022 13:15-0400 Body mass index (BMI) [Ratio] 28 kg/m2 [facility] 12-16-2022 13:15-0400 Body weight 71.66 kg [facility] 03-07-2022 15:00-0400 Body temperature 99.6 [degF] [facility] Work Phone: 03-07-2022 15:00-0400 Diastolic blood pressure 62 mm[Hg] [facility] Work Phone: 03-07-2022 15:00-0400 Heart rate 82 /min [facility] Work Phone: 03-07-2022 15:00-0400 Respiratory rate 16 /min [facility] Work Phone: 03-07-2022 15:00-0400 SaO2% (BldA) [Mass fraction] 99 % [facility] Work Phone: 03-07-2022 15:00-0400 Systolic blood pressure 124 mm[Hg] [facility] Work Phone: 03-07-2022 11:08-0400 Body height 160.02 cm [facility] Work Phone: 03-07-2022 11:08-0400 Body mass index (BMI) [Ratio] 25 kg/m2 [facility] Work Phone: 03-07-2022 11:08-0400 Body weight 64 kg [facility] Work Phone: 02-21-2022 06:48-0400 Body temperature 98.9 [degF] [facility] Work Phone: 02-21-2022 06:48-0400 Diastolic blood pressure 85 mm[Hg] [facility] Work Phone: 02-21-2022 06:48-0400 Heart rate 93 /min [facility] Work Phone: 02-21-2022 06:48-0400 Respiratory rate 16 /min [facility] Work Phone: 02-21-2022 06:48-0400 SaO2% (BldA) [Mass fraction] 94 % [facility] Work Phone: 02-21-2022 06:48-0400 Systolic blood pressure 172 mm[Hg] [facility] Work Phone: 02-21-2022 04:23-0400 Body height 160.02 cm [facility] Work Phone: 02-21-2022 04:23-0400 Body mass index (BMI) [Ratio] 28.5 kg/m2 [facility] Work Phone: 02-21-2022 04:23-0400 Body weight 73 kg [facility] Work Phone: 02-19-2022 14:24-0400 Body temperature 99.1 [degF] [facility] Work Phone: 02-19-2022 14:24-0400 Diastolic blood pressure 80 mm[Hg] [facility] Work Phone: 02-19-2022 14:24-0400 Heart rate 110 /min [facility] Work Phone: 02-19-2022 14:24-0400 Respiratory rate 18 /min [facility] Work Phone: 02-19-2022 14:24-0400 SaO2% (BldA) [Mass fraction] 97 % [facility] Work Phone: 02-19-2022 14:24-0400 Systolic blood pressure 134 mm[Hg] [facility] Work Phone: 02-18-2022 14:21-0400 Body mass index (BMI) [Ratio] 25.8 kg/m2 [facility] Work Phone: 02-18-2022 14:21-0400 Body weight 66.22 kg [facility] Work Phone: 02-18-2022 12:23-0400 Body temperature 97.6 [degF] [facility] Work Phone: 02-18-2022 12:23-0400 Diastolic blood pressure 68 mm[Hg] [facility] Work Phone: 02-18-2022 12:23-0400 Heart rate 81 /min [facility] Work Phone: 02-18-2022 12:23-0400 Respiratory rate 16 /min [facility] Work Phone: 02-18-2022 12:23-0400 Systolic blood pressure 124 mm[Hg] [facility] Work Phone: 02-18-2022 10:10-0400 Body height 160.02 cm [facility] Work Phone: 02-18-2022 10:10-0400 Body mass index (BMI) [Ratio] 25.8 kg/m2 [facility] Work Phone: 02-18-2022 10:10-0400 Body weight 66.22 kg [facility] Work Phone: 02-18-2022 10:10-0400 SaO2% (BldA) [Mass fraction] 99 % [facility] Work Phone: 02-16-2022 18:56-0400 Diastolic blood pressure 82 mm[Hg] [facility] Work Phone: 02-16-2022 18:56-0400 Heart rate 80 /min [facility] Work Phone: 02-16-2022 18:56-0400 Respiratory rate 17 /min [facility] Work Phone: 02-16-2022 18:56-0400 Systolic blood pressure 130 mm[Hg] [facility] Work Phone: 02-16-2022 17:29-0400 Body height 160.02 cm [facility] Work Phone: 02-16-2022 17:29-0400 Body mass index (BMI) [Ratio] 25.8 kg/m2 [facility] Work Phone: 02-16-2022 17:29-0400 Body temperature 97.9 [degF] [facility] Work Phone: 02-16-2022 17:29-0400 Body weight 66.22 kg [facility] Work Phone: 02-16-2022 17:29-0400 SaO2% (BldA) [Mass fraction] 99 % [facility] Work Phone: 11-30-2020 12:45-0400 Body temperature 98.8 [degF] Darion Crenshaw MD Work Phone: [facility] Work Phone: 11-30-2020 12:45-0400 Diastolic blood pressure 71 mm[Hg] Darion Crenshaw MD Work Phone: [facility] Work Phone: 11-30-2020 12:45-0400 Heart rate 73 /min Darion Crenshaw MD Work Phone: [facility] Work Phone: 11-30-2020 12:45-0400 Respiratory rate 18 /min Darion Crenshaw MD Work Phone: [facility] Work Phone: 11-30-2020 12:45-0400 SaO2% (BldA) [Mass fraction] 96 % Darion Crenshaw MD Work Phone: [facility] Work Phone: 11-30-2020 12:45-0400 Systolic blood pressure 136 mm[Hg] Darion Crenshaw MD Work Phone: [facility] Work Phone: 11-28-2020 05:47-0400 Body height 162.6 cm Darion Crenshaw MD Work Phone: [facility] Work Phone: 11-28-2020 05:47-0400 Body mass index (BMI) [Ratio] 39.82 kg/m2 Darion Crenshaw MD Work Phone: [facility] Work Phone: 11-28-2020 05:47-0400 Body weight 105.23 kg Darion Crenshaw MD Work Phone: [facility] Work Phone: 11-21-2020 10:29-0400 BMI (Body Mass Index) 39.96 kg/m2 Darion Crenshaw [facility] Work Phone: 11-21-2020 10:29-0400 Body Temperature 97.39 [degF] Darion Crenshaw [facility] Work Phone: 11-21-2020 10:29-0400 Body weight 105.6 kg Darion Crenshaw [employer] Work Phone: 11-21-2020 10:29-0400 BP Diastolic 74 mm[Hg] Darion Crenshaw [facility] Work Phone: 11-21-2020 10:29-0400 BP Systolic 137 mm[Hg] Darion STONER Work Phone: 11-21-2020 10:29-0400 Height 162.6 cm Darion STONER Work Phone: 11-21-2020 10:29-0400 Pulse (Heart Rate) 75 /min Draion STONER Work Phone: 11-21-2020 10:29-0400 Pulse Oximetry 98 % Darion STONER Work Phone: 11-21-2020 10:29-0400 Respiratory Rate 20 /min Darion STONER Work Phone: 07-03-2020 10:42-0500 BP Diastolic 78 mm[Hg] [facility] [place] 07-03-2020 10:42-0500 BP Systolic 136 mm[Hg] [facility] [place] 07-03-2020 10:42-0500 Pulse (Heart Rate) 89 /min [facility] [place] 07-03-2020 10:42-0500 Pulse Oximetry 94 % Darion Crenshaw [employer] [facility] , [place] 07-03-2020 10:42-0500 Respiratory Rate 16 /min [facility]ion [facility]renshaw [employer] [place] [place] 07-03-2020 09:01-0500 BMI (Body Mass Index) 41.63 kg/m2 Darion [facility] [place] 07-03-2020 09:01-0500 Body Temperature 98.01 [degF] Darion Crenshaw [employer] [place] 07-03-2020 09:01-0500 Body weight 106.59 kg [facility] [place] 07-03-2020 09:01-0500 Height 160 cm [facility] [place] Encounters Encounter Date Encounter Type Care Provider Facility Start: 04-08-2025 ambulatory Scooby Garay Facility: [facility] Start: 04-07-2025 Encounter for other preprocedural examination Bowen Cramer [facility] Start: 01-27-2025 Encounter for genera l adult medical examination without abnormal findings [facility]ooby [facility] Start: 01-21-2025 End: 01-21-[address] Scooby Garay DO Work Phone: [facility] Work Phone: Start: 01-21-2025 End: 01-21-[address] Scooby Garay DO -Laboratory Work Phone: Start: 01-21-2025 End: 01-21-2025 ambulatory Scooby Garay Facility:[facility] Start: 05-07-2024 End: 05-07-2024 ambulatory Scooby Tanisha Facility:[facility] Start: 11-21-2023 End: 11-21-2023 ambulatory [facility] Work Phone: Start: 11-21-2023 End: 11-21-2023 Patient encounter procedure [facility]-Outpatient Breast Imaging Work Phone: Start: 10-28-2023 End: 10-28-2023 ambulatory [facility] Work Phone: Start: 10-28-2023 End: 10-28-2023 Patient encounter procedure [facility] Work Phone: Start: 03-11-2023 End: 03-11-2023 ambulatory [facility] Work Phone: Start: 03-11-2023 End: 03-11-2023 Patient encounter procedure [facility] Start: 02-26-2023 End: 02-26-2023 ambulatory [facility] Start: 02-26-2023 End: 02-26-2023 Office outpatient visit 25 minutes Veronica Campos MD Work Phone: [facility] [place] Comment on above: S/P bariatric surger y (Primary Dx); Deficiency of multiple nutrient elements; Other specified intestinal malabsorption; Overweight (BMI 25.0-29.9); BMI 29.0-29.9,adult; Weight gain Start: 02-10-2023 End: 02-10-2023 ambulatory [facility] Work Phone: Start: 02-10-2023 End: 02-10-2023 Patient encounter procedure [facility]-Medical Out Work Phone: Start: 01-27-2023 End: 01-27-2023 Patient encounter procedure [facility]-Medical Out Work Phone: Start: 01-13-2023 End: 01-13-2023 ambulatory [facility] Work Phone: Start: 01-13-2023 End: 01-13-2023 Patient encounter procedure [facility]-Medical Out Start: 12-30-2022 End: 12-30-2022 Patient encounter procedure [facility]-Medical Out Start: 12-16-2022 End: 12-16-2022 Patient encounter procedure [facility]-Medical Out Start: 11-28-2022 End: 11-28-2022 ambulatory [facility] Work Phone: Start: 11-28-2022 End: 11-28-2022 [facility] Start: 11-18-2022 End: 11-18-2022 Patient encounter procedure [facility]-Outpatient Breast Imaging Start: 03-07-2022 End: 03-07-2022 Admission to same day surgery center [facility]-Surgical Day Care Start: 02-21-2022 End: 02-21-2022 Emergency department patient visit [facility]-Emergency Department Start: 02-18-2022 End: 02-19-2022 Evaluation and management of inpatient [facility]-Medical Surgical 3 Start: 02-16-2022 End: 02-16-2022 Emergency department patient visit [facility]-Emergency Department Start: 01-11-2022 End: 01-11-2022 Patient encounter procedure [facility]-Radiology, [place] Start: 11-28-2021 End: 11-28-2021 Subsequent hospital visit by physician Darion Crenshaw MD Work Phone: [facility] Start: 06-05-2021 End: 06-05-2021 Subsequent hospital visit by physician Nicky Marr APRN - PAID SEARCH MARKETING ANALYST Work Phone: [facility] Start: 05-31-2021 End: 05-31-2021 Subsequent hospital visit by physician Nicky Marr [employer] Work Phone: [facility] Laboratory Comment on above: Intestinal malabsorp tion, unspecified type; Deficiency of multiple nutrient elements; Essential hypertension; Obstructive sleep apnea; Class 1 obesity due to excess calories with serious comorbidity and body mass index (BMI) of 30.0 to 30.9 in adult Start: 03-05-2021 End: 03-05-2021 Subsequent hospital visit by physician Nicky Marr [employer] Work Phone: [facility] Laboratory Comment on above: Hypertension, unspec ified type; Deficiency of multiple nutrient elements; Obstructive sleep apnea; Intestinal malabsorption, unspecified type; Difficult intravenous access; Class 1 obesity due to excess calories with serious comorbidity and body mass index (BMI) of 34.0 to 34.9 in adult Start: 01-03-2021 End: 01-03-2021 Subsequent hospital visit by physician Darion Crenshaw MD Work Phone: [facility] Start: 01-01-2021 End: 01-01-2021 Subsequent hospital visit by physician Nicky Marr [employer] Work Phone: [facility] Laboratory Comment on above: Hypertension, unspec ified type; Class 2 severe obesity due to excess calories with serious comorbidity and body mass index (BMI) of 37.0 to 37.9 in adult ([facility]); Deficiency of multiple nutrient elements; Intestinal malabsorption, unspecified type; Obstructive sleep apnea Start: 11-28-2020 End: 11-30-2020 Evaluation and management of inpatient Darion Crenshaw MD Work Phone: [facility] H6 TELEMETRY Comment on above: S/P gastric bypass ( Primary Dx) Start: 11-21-2020 End: 11-21-2020 Subsequent hospital visit by physician Darion Crenshaw Work Phone: [facility] Pre-Admit Testing Comment on above: Arrived Start: 11-15-2020 End: 11-15-2020 Subsequent hospital visit by physician Nicky Marr Work Phone: [facility] [address] X-RAY Comment on above: Pre-operative exam; Screening for viral disease; Morbid obesity (HCC); Essential hypertension; Obstructive sleep apnea; Prediabetes Start: 11-15-2020 End: 11-15-2020 Subsequent hospital visit by physician [facility]shaw [facility] Start: 09-29-2020 End: 09-29-2020 Subsequent hospital visit by physician Veronica Campos Work Phone: [facility] Dept Start: 08-25-2020 End: 08-25-2020 Subsequent hospital visit by physician Veronica Campos Work Phone: [facility] Dept Start: 08-21-2020 End: 08-21-2020 Subsequent hospital visit by physician Thomas Mathew Work Phone: [facility] ECHO Comment on above: Preop cardiovascular exam; Hypertension, unspecified type; DORA (obstructive sleep apnea) Start: 07-28-2020 End: 07-28-2020 Subsequent hospital visit by physician Veronica Campos Work Phone: [facility] [place] Dept Start: 07-03-2020 End: 07-03-2020 Subsequent hospital visit by physician Darion Crenshaw Work Phone: [facility] [address] Endoscopy Comment on above: Arrived Start: 06-30-2020 End: 06-30-2020 Subsequent hospital visit by physician Veronica Campos Work Phone: [facility] [place] Dept Start: 06-19-2020 End: 06-19-2020 Subsequent hospital visit by physician Scooby Garay [facility] Start: 06-08-2020 End: 06-08-2020 Subsequent hospital visit by physician Scooby Garay [facility] Dept Start: 06-02-2020 End: 06-02-2020 Subsequent hospital visit by physician Veronica Campos Work Phone: [facility] [place] Dept Start: 05-17-2020 End: 05-17-2020 Subsequent hospital visit by physician Scooby Garay [facility] Start: 05-10-2020 End: 05-10-2020 Subsequent hospital visit by physician Nicky Marr Work Phone: [facility] Laboratory Start: 05-04-2020 End: 05-04-2020 Subsequent hospital visit by physician Nicky Marr Work Phone: [facility] [place] Comment on above: Arrived Start: 04-21-2020 End: 04-21-2020 Subsequent hospital visit by physician Veronica Cmapos Work Phone: [facility] [place] Dept Start: 04-12-2020 End: 04-12-2020 Subsequent hospital visit by physician Darion Crenshaw Work Phone: [facility] [place] Dept Start: 03-22-2020 End: 03-22-2020 Subsequent hospital visit by physician Darion Crenshaw Work Phone: [facility] Dept Procedures Date Procedure Procedure Detail Performing Clinician Start: 11-21-2023 Screening mammography Start: 11-18-2022 End: 11-18-2022 Screening mammography Start: 03-07-2022 Cystoscopy and retro grade pyelography Start: 03-07-2022 Fluoroscopic guidance Start: 02-21-2022 Plain X-ray abdomen Start: 02-18-2022 Fluoroscopic guidance Start: 02-18-2022 Introduction to urin jolie tract Start: 02-16-2022 CT of abdomen and pe lvis without contrast Start: 01-11-2022 Radiologic examinati on of knee Start: 11-22-2021 Lipid 1996 panel - S ethan or Plasma Veronica Campos MD Work Phone: Start: 05-31-2021 End: 05-31-2021 Comprehensive metabolic panel Nicky R Bridle [employer] - PAID SEARCH MARKETING ANALYST Work Phone: Start: 05-31-2021 Lipid panel Nicky R Br idle [employer] - PAID SEARCH MARKETING ANALYST Work Phone: Start: 03-05-2021 End: 03-05-2021 Comprehensive metabolic panel Nicky R Bridle [employer] - PAID SEARCH MARKETING ANALYST Work Phone: Start: 01-01-2021 Comprehensive metabo lic panel Nicky R Bridle [employer] - PAID SEARCH MARKETING ANALYST Work Phone: Start: 11-30-2020 Basic metabolic pane l calcium total Tomy A Brand MD Work Phone: Start: 11-29-2020 Gluc bld gluc mntr d ev cleared fda spec home use Darion Crenshaw MD Work Phone: Start: 11-29-2020 Gluc bld gluc mntr d ev cleared fda spec home use Darion Crenshaw MD Work Phone: Start: 11-29-2020 Gluc bld gluc mntr d ev cleared fda spec home use Darion Crenshaw MD Work Phone: Start: 11-29-2020 OPERATIVE REPORT 3m Sca nning Start: 11-29-2020 Gluc bld gluc mntr d ev cleared fda spec home use Darion Crenshaw MD Work Phone: Start: 11-29-2020 Basic metabolic pane l calcium total Tomy Bradn MD Work Phone: Start: 11-28-2020 Basic metabolic pane l calcium total Tomy Brand MD Work Phone: Start: 11-28-2020 Level iv surg pathol ogy gross&microscopic exam Darion Crenshaw MD Work Phone: Start: 11-28-2020 ANN STUDIO 3 Darion Crenshaw MD Work Phone: Start: 11-28-2020 Urine test visual color cmprsn meths Patrick Barrientos MD Work Phone: Start: 11-15-2020 Radiologic exam ches t 2 views Nicky R Bridle Work Phone: Start: 11-15-2020 Albumin serum plasma /whole blood Nicky R Bridle Work Phone: Start: 11-15-2020 Basic metabolic pane l calcium total Nicky R Bridle Work Phone: Start: 11-15-2020 Blood count complete automated Nicky R Bridle Work Phone: Start: 11-15-2020 Hemoglobin glycosylated a1c Nicky R Bridle Work Phone: Start: 08-21-2020 Echo tthrc r-t 2d w/wom-mode compl spec&colr d Thomas Mathew Work Phone: Start: 07-03-2020 HM ENDOSCOPY REPORT 3m Scanning Start: 05-10-2020 Blood count complete automated Nicky R Bridle Work Phone: Start: 05-04-2020 Lipid panel Nicky R Br idle Work Phone: Start: 05-04-2020 Us abdominal real ti me w/image documentation Nicky R Bridle Work Phone: Start: 04-21-2020 25 hydroxy includes fractions if performed Nicky R Bridle Work Phone: Start: 04-21-2020 Assay of ferritin Nicky R Bridle Work Phone: Start: 04-21-2020 Assay of folic acid serum Nicky R Bridle Work Phone: Start: 04-21-2020 Assay of iron Nicky R B ridle Work Phone: Start: 04-21-2020 Assay of magnesium Leis a R Bridle Work Phone: Start: 04-21-2020 Assay of thyroid stimulating hormone tsh Nicky R Bridle Work Phone: Start: 04-21-2020 Comprehensive metabo lic panel Nicky R Bridle Work Phone: Start: 04-21-2020 Cyanocobalamin vitamin b-12 Nicky R Bridle Work Phone: Bacteria identified in Blood by Culture Bacteria identified in Urine by Culture Urine culture Viral antigen assay Plan of Treatment Date Care Activity Detail Author Start: 11-22-2026 Lipid panel [facility] Start: 05-31-2026 Lipid panel Lipid screen [facility] Work Phone: Start: 05-04-2025 Lipid panel Lipid screen Melanie El th- [place], [place] Start: 2025 Zoster Vaccines (1 o f 2) Zoster Vaccines (1 of 2) [employer] Start: 01-21-2025 Nicotine measurement [facility] Start: 11-19-2023 Screening for malign ant neoplasm of breast Mammogram [facility] Start: 11-16-2023 Diabetes mellitus screening Diabetes Screening [facility] Start: 04-11-2023 End: 04-11-2023 Patient encounter procedure 04/11/2023 3:30 PM EDT Office Visit [facility] [address] [place] [id number] Veronica Campos MD [address] [place] [address] [facility] Start: 04-11-2023 Influenza vaccination Influenza Vacc ine (#1) [facility] Start: 02-10-2023 Iv infusion therapy prophylaxis/dx ea hour THER/PROPH/DIAG IV INF [facility] Start: 02-10-2023 Iv infusion therapy/prophylaxis /dx 1st to 1 hr THER/PROPH/DIAG IV INF [facility] Start: 01-27-2023 Iv infusion therapy prophylaxis/dx ea hour THER/PROPH/DIAG IV INF [facility] Start: 01-27-2023 Iv infusion therapy/prophylaxis /dx 1st to 1 hr THER/PROPH/DIAG IV INF [facility] Start: 12-30-2022 Iv infusion therapy prophylaxis/dx ea hour THER/PROPH/DIAG IV INF [facility] Start: 12-30-2022 Iv infusion therapy/prophylaxis /dx 1st to 1 hr THER/PROPH/DIAG IV INF [facility] Start: 06-12-2022 End: 06-12-2022 Patient encounter procedure 06/12/2022 Office Visit Weight Management Veronica Campos MD [address] [facility] [address] [place] [address] [facility] Start: 04-11-2022 Influenza vaccination Flu vaccine (S sara Ended) [facility] Start: 03-07-2022 Patient discharge [facility] Work Phone: Start: 02-21-2022 End: 02-21-2022 Blood culture [facility] Work Phone: Start: 02-21-2022 End: 02-21-2022 [facility] Work Phone: Start: 02-19-2022 Patient discharge [facility] Work Phone: Start: 02-19-2022 [facility] Work Phone: Start: 02-18-2022 Application of intermittent pneumatic compression device [facility] Work Phone: Start: 02-18-2022 Following clinical pathway protocol [facility] Work Phone: Start: 02-18-2022 Collection of urine and strain for calculus [facility] Work Phone: Start: 02-18-2022 Incentive spirometry [facility] Work Phone: Start: 02-18-2022 Measuring intake and output [facility] Work Phone: Start: 02-18-2022 Provision of activit y privileges [facility] Work Phone: Start: 02-18-2022 Taking patient vital signs [facility] Work Phone: Start: 02-18-2022 Vital signs measurements [facility] Work Phone: Start: 02-18-2022 Anes transurethral w/urethrocystoscopy nos ANESTH BLADDER SURGERY [facility] Work Phone: Start: 02-18-2022 Cysto w/insert urete ral stent CYSTOSCOPY AND TREATMENT [facility] Work Phone: Start: 02-18-2022 Admission procedure [facility] Work Phone: Start: 02-18-2022 Introduction to urin jolie tract Cysto,Insertion Stent (Not Applicable) [facility] Work Phone: Start: 02-18-2022 [facility] Work Phone: Start: 11-30-2021 Creatinine measurement Creatinine mo nitoring [facility] Work Phone: Start: 11-30-2021 Potassium monitoring Potassium monit oring [facility] Work Phone: Start: 11-28-2021 End: 11-28-2021 Patient encounter procedure 11/28/2021 Office Visit Darion Ernst MD [address] [place], [place] [id number] [facility] Start: 11-15-2021 Creatinine measurement [facility] mo [facility] Work Phone: Start: 11-15-2021 HbA1c (Bld) [Mass fraction] A1C test (Diabetic or Prediabetic) [facility] Work Phone: Start: 11-15-2021 Hemoglobin A1c measurement A1C test (Diabetic or Prediabetic) [facility] Start: 11-15-2021 Potassium monitoring [facility] monit [facility]ing [facility] Work Phone: Start: 06-05-2021 End: 06-05-2021 Patient encounter procedure 06/05/2021 Office Visit Nicky Escobar, [employer] - PAID SEARCH MARKETING ANALYST [address] [place] [address] Bariatric [facility] Start: 04-21-2021 Creatinine measurement Creatinine mo nitoring [place], [place] Start: 04-21-2021 Potassium monitoring Potassium monit [place], [place] Start: 04-11-2021 Influenza vaccination [facility] Work Phone: Start: 03-09-2021 End: 03-09-2021 Patient encounter procedure 03/09/2021 Office Visit Nicky Escobar [employer] - PAID SEARCH MARKETING ANALYST [address] [place] [id number] [facility] Start: 01-03-2021 End: 01-03-2021 Office Visit 01/03/2021 Office Visit Darion Ernst MD [address], [address] [place], [place] [id number] [facility] Start: 12-06-2020 End: 12-06-2020 Office Visit 12/06/2020 Office Visit Bariatrics Darion Crenshaw MD [address], [address] [place] [address] [phone] [facility] Start: 11-28-2020 End: 11-28-2020 Appointment 11/28/2020 Appointment General Surgery Darion Crenshaw MD [address], [address] [place] [address] [phone] [facility] Start: 11-21-2020 End: 11-21-2020 Appointment 11/21/2020 Appointment Pre-Admission Testing Darion Crenshaw MD [address], [address] [place] [address] [phone] [facility] Pre-Admit Testing Start: 11-01-2020 End: 11-01-2020 Virtual Visit 11/01/2020 Virtual Visit Weight Management Veronica Campos MD [address] [place] [address] [facility] Start: 09-29-2020 End: 09-29-2020 Office Visit 09/29/2020 Office Visit Weight Management Veronica Campos MD [address] [place] [address] [facility] Start: 08-25-2020 End: 08-25-2020 Office Visit 08/25/2020 Office Visit Weight Management Veronica Campos MD [address] [place] [address] [facility] Start: 08-21-2020 End: 08-21-2020 Appointment 08/21/2020 Appointment Echocardiography [facility] Start: 07-28-2020 End: 07-28-2020 Office Visit 07/28/2020 Office Visit Weight Management Veronica Campos MD [address] [place] [address] [facility] Start: 07-13-2020 End: 07-13-2020 Appointment 07/13/2020 Appointment Echocardiography Thomas Mathew MD [address] [place], [place] [id number] [facility] Start: 07-03-2020 End: 07-03-2020 Appointment 07/03/2020 Appointment IP Unit Darion Crenshaw MD [address] [place], [place] [id number] [facility] Start: 06-30-2020 End: 06-30-2020 Office Visit 06/30/2020 Office Visit Weight Management Veronica Campos MD [address] [place], [place] [id number] [facility] Start: 06-19-2020 End: 06-19-2020 Office Visit 06/19/2020 Office Visit Psychology Zuri Hollingsworth, PhD [address] [place], [place] [id number] [facility] Start: 06-07-2020 End: 06-07-2020 Office Visit 06/07/2020 Office Visit Weight Management Argelia Milton, RD, LD [address] [id number] [facility] Start: 06-05-2020 End: 06-05-2020 Office Visit 06/05/2020 Office Visit Cardiology Thomas Mathew MD [address] [place], [place] [phone] [facility] Start: 04-11-2020 Influenza vaccination Flu vaccine (# 1) [place], [place] Start: 2020 Screening for malign ant neoplasm of colon [facility] Start: 2015 Diabetes screen Diabetes screen [place], [place] Start: 2015 Lipid panel Lipid screen [place], [place] Start: 05-21-2007 DTaP/Tdap/Td Vaccine s (1 - Tdap) DTaP/Tdap/Td Vaccines (1 - Tdap) [facility] Start: 2005 Screening for malign ant neoplasm of cervix [facility] Start: 1996 Screening for malign ant neoplasm of cervix [facility] Start: 1994 DTaP/Tdap/Td vaccine (1 - Tdap) DTaP/Tdap/Td vaccine (1 - Tdap) [facility] Start: 1993 Hepatitis C screening [facility] Start: 1991 COVID-19 Vaccine (1) COVID-19 Vaccin e (1) [facility] Work Phone: Start: 1990 HIV screening [facility] Start: 1987 COVID-19 Vaccine (1) COVID-19 Vaccin e (1) [facility] Work Phone: Start: 1987 Depression Screen Depression Screen [facility] Start: 1987 Depression Screening Depression Scre ening [facility] Start: 1980 COVID-19 Vaccine (1) COVID-19 Vaccin e (1) [facility] Start: 1976 MMR Vaccines (1 of 1 - Standard series) MMR Vaccines (1 of 1 - Standard series) [facility] Start: 1975 COVID-19 Vaccine (#1) COVID-19 Vacci ne (#1) [facility] Start: 1975 [place]: 1975 Hepatitis B Vaccines (1 of 3 - 3-dose series) Hepatitis B Vaccines (1 of 3 - 3-dose series) [facility] Start: 1975 Hepatitis C screening Hepatitis C sc reen [place], [place] Start: 1975 HIV screening HIV Screening [facility] Start: 1975 Potassium monitoring Potassium monit [place], [place] Start: 1975 Screening for malign ant neoplasm of colon [facility] Bacteria identified in Blood by Culture Blood Culture [facility] Work Phone: Bacteria identified in Urine by Culture Urine Culture [facility] Work Phone: Basic metabolic 2000 panel - Serum or Plasma Basic Metabolic Panel Lab Routine Daily until discontinued starting 11/29/2020, 2 completed [facility] Work Phone: Comment on above: Daily until disconti nued starting 11/29/2020, 2 completed Blood culture [facility] Work Phone: CBC W Auto Different ial panel - Blood CBC auto differential Lab Routine Daily until discontinued starting 11/29/2020, 2 completed [facility] Work Phone: Comment on above: Daily until disconti nued starting 11/29/2020, 2 completed Cotinine measurement [facility] Home BIPAP or CPAP Home BIPAP or CPAP Respiratory Care Routine Daily until discontinued starting 11/28/2020 [facility] Work Phone: Comment on above: Daily until disconti nued starting 11/28/2020 End: 11-29-2020 Magnesium [Mass/volume] in Serum or Plasma Magnesium Lab Add-On One Time for 1 Occurrences starting 11/29/2020 until 11/29/2020 [facility] Work Phone: Comment on above: One Time for 1 Occur rences starting 11/29/2020 until 11/29/2020 Nebulizer therapy [facility] Treatment Respiratory Care Routine Every 4hr while awake until discontinued starting 11/28/2020 [facility] Work Phone: Comment on above: Every 4hr while awak e until discontinued starting 11/28/2020 Nicotine [Mass/volum e] in Serum or Plasma [facility] End: 04-21-2020 Nicotine, Blood Nicotine, Blood Lab Routine Once for 1 Occurrences starting 04/21/2020 until 04/21/2020 [facility] [place] Comment on above: Once for 1 Occurrenc es starting 04/21/2020 until 04/21/2020 Nicotine, Blood Nicotine, Blood Lab Routine 04/21/2020 3:29 PM EDT [facility] [place] Oxygen therapy [[facility] Data Set] Initiate Oxygen Therapy Protocol Respiratory Care Routine Daily until discontinued starting 11/29/2020 [facility] Work Phone: Comment on above: Daily until disconti nued starting 11/29/2020 Patient Education [facility] Work Phone: Patient referral [facility] Work Phone: Spirometry panel Incentive otilia metry Respiratory Care Routine Every 1hr while awake until discontinued starting 11/29/2020 [facility] Work Phone: Comment on above: Every 1hr while awak e until discontinued starting 11/29/2020 End: 04-21-2020 Vitamin B1, Whole Blood Vitamin B1, Whole Blood Lab Routine Once for 1 Occurrences starting 04/21/2020 until 04/21/2020 [facility] [place] Comment on above: Once for 1 Occurrenc es starting 04/21/2020 until 04/21/2020 Vitamin B1, Whole Blood Vitamin B1, Whole Blood Lab Routine 04/21/2020 3:29 PM EDT [facility] [place] End: 04-21-2020 Zinc Zinc Lab Routine Once for 1 Occurrences starting 04/21/2020 until 04/21/2020 [facility] [place] Comment on above: Once for 1 Occurrenc es starting 04/21/2020 until 04/21/2020 [facility]inc [facility] [place] End: 01-01-2021 Zinc Zinc Lab Routine Hypertension, unspecified type Class 2 severe obesity due to excess calories with serious comorbidity and body mass index (BMI) of 37.0 to 37.9 in adult (HCC) Deficiency of multiple nutrient elements Intestinal malabsorption, unspecified type Obstructive sleep apnea 1 Occurrences starting 01/01/2021 until 01/01/2021 [facility] Work Phone: Comment on above: 1 Occurrences starti ng 01/01/2021 until 01/01/2021 End: 03-05-2021 Zinc Zinc Lab Routine Hypertension, unspecified type Deficiency of multiple nutrient elements Obstructive sleep apnea Intestinal malabsorption, unspecified type Difficult intravenous access Class 1 obesity due to excess calories with serious comorbidity and body mass index (BMI) of 34.0 to 34.9 in adult 1 Occurrences starting 03/05/2021 until 03/05/2021 [facility] Work Phone: Comment on above: 1 Occurrences starti ng 03/05/2021 until 03/05/2021 End: 05-31-2021 Zinc Zinc Lab Routine Intestinal malabsorption, unspecified type Deficiency of multiple nutrient elements Essential hypertension Obstructive sleep apnea Class 1 obesity due to excess calories with serious comorbidity and body mass index (BMI) of 30.0 to 30.9 in adult 1 Occurrences starting 05/31/2021 until 05/31/2021 [facility] Work Phone: Comment on above: 1 Occurrences starti ng 05/31/2021 until 05/31/2021 Payers Date Payer Category Payer Self-pay [id number] 2024 Unknown [id number] 2022 Medicaid [id number] 2022 [place] [id number] 2022-Present [address] [place] [address] Medicaid [id number] 2021 Unknown [id number] 2019 Unknown [employer] [id number] 2019-Present [phone] [address] [place] [address] [id number] Unknown [id number] Unknown [id number] Unknown [id number] Unknown [id number] Unknown [id number] Social History Date Type Detail Facility Start: 03-22-2020 End: 03-01-2022 Tobacco smoking status NEIS Never smoker [place], [place] Start: 03-22-2020 End: 06-05-2021 Tobacco use and exposure Never used Melanie [facility] NIKHIL ORTEGA Start: 03-22-2020 End: 02-26-2023 Alcohol intake [facility] (finding[facility] 1975 Sex Assigned At Not on file M savanna Lucio NIKHIL ORTEGA Start: 02-16-2023 End: 02-26-2023 Exposure to SARS-CoV-2 (event) Not sure [facility] Start: 09-08-2019 End: 03-01-2022 Tobacco smoking status NHIS Unknown if ever smoked [facility] Start: 09-08-2019 None [facility] Start: 09-08-2019 Alone [facility] Start: 1975 Sex Assigned At Female [facility] Start: 07-30-2022 End: 02-26-2023 History of Social function [facility] Start: 07-30-2022 End: 02-26-2023 Tobacco use panel [facility] Start: 02-22-2023 Gender identity Identifies as female gender (finding) [facility] Medical Equipment Procedure Code Equipment Code Equipment Origin al Text Equipment Identifier Dates Cystoscopic insertion of stent STENT,URETERAL PIGTAIL [id number] FDA Start: 02-18-2022 Cystoscopic insertion of stent STENT,URETERAL PIGTAIL [id number] FDA Start: 02-18-2022 Cystoscopic insertion of stent STENT,URETERAL PIGTAIL [id number] FDA Start: 02-18-2022 Cystoscopic insertion of stent STENT,URETERAL PIGTAIL [id number] FDA Start: 02-18-2022 Cystoscopic insertion of stent STENT,URETERAL PIGTAIL [id number] FDA Start: 02-18-2022 Cystoscopic insertion of stent STENT,URETERAL PIGTAIL [id number] FDA Start: 02-18-2022 Cystoscopic insertion of stent STENT,URETERAL PIGTAIL [id number] FDA Start: 02-18-2022 Cystoscopic insertion of stent STENT,URETERAL PIGTAIL [id number] FDA Start: 02-18-2022 Cystoscopic insertion of stent STENT,URETERAL PIGTAIL [id number] FDA Start: 02-18-2022 Goals Date Patient Goal Desired Activity /State Functional Status Date Assessment Result Facility 02-19-2022 Functional status Ambulates;Up ad santi [facility] Work Phone: 02-18-2022 Functional status Tolerates Activity Well [facility] Work Phone: Mental Status Date Assessment Result Facility 02-10-2023 Cognitive function Voice/Name [facility] Work Phone: 01-27-2023 Cognitive function Voice/Name [facility] Work Phone: 01-13-2023 Cognitive function Voice/Name [facility] Work Phone: 12-30-2022 Cognitive function Voice/Name [facility] Work Phone: 12-16-2022 Cognitive function Voice/Name [facility] Work Phone: 03-07-2022 Cognitive function Touch/Shaking [facility] Work Phone: 02-19-2022 Cognitive function Voice/Name [facility] Work Phone: Clinical Notes 11-28-2020 to 02-26-2023 Amparo Stone LPN - 02/26/2023 2:20 PM Yasmin Campos MD - 02/26/2023 2:20 PM Sherita Bang, WHOLESALE ACCOUNT MANAGER - 11/30/2020 8:54 AM Gwendolyn Mejía RN - 11/28/2020 12:23 PM EDTInstructions Note Date & Type Note Facility 02-26-2023 Note BARIATRIC CARE [facility] PROGRESS NOTE POST WEIGHT LOSS SURGERY FOLLOW UP Patient: Charisma Judge Service Date: 02/26/2023 Patient is 18 month(s) s/p RnY Gastric Bypass Post-op Weight Metrics: %EBWL: % EBWL: Weight Change Since Last Visit: Weight Change: Recorded> Weight Change from Highest Pre-op Weight: Total Weight Change: Weight on File> Patient has the following questions: None Reported Pain: Patient rates pain on scale 0-10 as: 0 Exercise Compliance: Exercising: yes If yes: Type: walking Times per week: 3 Min per session: 30 Falls Risk Assessment Patient does not take medications which affect BP or mental status Patient does not t have newly prescribed or changed dosage of medications within past 30 days which affect BP or mental status Patient has not fallen in the past 2 months Patient does not t demonstrate unsteady gait Patient uses the following ambulatory assistive devices: none Patient states the presence of the following traits which increases risk of fall: none Patient is not on home O2 Pre-op Weight Metrics: Labs Completed: no - If NO, patient instructed to get labs drawn today or MARYCARMEN If YES: Labs completed at [facility]? no If yes see Labs Tab [facility] no If yes see Encounters Tab - Orders only - Historical Provider - Date: Completed by: Amparo Stone LPN [facility] 02-26-2023 Note BARIATRIC CARE [facility] POST-OPERATIVE WEIGHT LOSS MANAGEMENT PROGRESS NOTE - FOLLOW UP HPI: Patient here today for 18 month post-weight loss surgery follow up The patient is a pleasant 47 y.o. year old female. The patient is feeling well. Denies nausea, vomiting, dysphagia, or any GERD Sx. Currently is not taking a PPI. Patient states diet and exercise is going poorly. Currently is eating 65-75 gm/day protein, and is compliant with prescribed multivitamins and supplements. Weight trend since last visit: gained 20 lbs over 15 month Per pt bernard is 130s Labs were Not completed. All labs were: ordered Social History Tobacco Use Smoking status: Never Smokeless tobacco: Never Substance Use Topics Alcohol use: Not Currently This patient's excess weight is causing the following co-morbid conditions at this time: Other weight regain after bariatric surgery PLAN Physical Examination: BP (!) 144/84 Pulse 78 Ht 5' 4 (1.626 m) Wt 170 lb 9.6 oz (77.4 kg) BMI 29.28 kg/m? Vital signs are stable. General: This patient is awake, alert, and oriented, and is in no apparent distress. Current Diet This patient?s current diet is: off the meal plan portions and composition Her diet contains adequate amounts of protein, adequate amounts of healthy fats, adequate amounts of green, leafy vegetables, and adequate amounts of fruits. Her comfort foods include:sweets and savory Current Activity Does not exercise Current Eating Behaviors This patients demonstrates the following behaviors as they relate to her eating: no meal planning, eating and drinking at the same time She eats approximately 3-4 times per day. Her last meal/snack was at 6-7 am/pm. Progress Made Towards Goals: 3 month weight goal: 30 6 month weight goal: 40 12 month weight goal: 50 Plan: This patient's excess weight is causing the following co-morbid conditions at this time: S/p bariatric surgery stable Continue current management, continue weight loss program Discuss how to go back on the meal plan Healthy eating guidelines after bariatric surgery [x] Protein goal of 1g protein per 1 kg of ideal body weight: 75 grams [x] Patient advised to maintain a food/exercise/behavior diary until next physician visit. Pt to bring the completed diary to next visit [x] Lab order provided to patient for labs to be drawn for next visit Patient instructed to continue post-weight loss surgery diet recommendations. Patient instructed to continue to monitor for signs and symptoms of GERD Psych concerns : No Excessive skin concerns: No Refer to Dr. Oneal/Tyree Other: got after surgery Physician Diet Recommendations given to patient See Follow up Section of today's encounter for next visit and additional scheduling orders Medications ordered during this encounter: Outpatient Encounter Medications as of 02/26/2023 Medication Sig Dispense Refill adalimumab (Humira) 40 MG/0.8ML Prefilled Syringe Kit prefilled syringe 40 mg. biotin 5 MG capsule Take 1 capsule by mouth. Calcium Citrate-Vitamin D (CALCIUM CITRATE + PO) Take 500 mg by mouth. DULoxetine (Cymbalta) [address] capsule Take by mouth. ferrous gluconate (Fergon) 324 (38 Fe) MG tablet gabapentin (Neurontin) 600 MG tablet Take 600 mg by mouth. multivitamin with minerals (Cerovite) 18-400 mg-mcg tablet tablet Take 2 Doses by mouth. Ariton-28 0.15-30 MG-MCG tablet Semaglutide-Weight Management (Wegovy) 0.25 MG/0.5ML solution auto-injector Inject 0.5 mL (0.25 mg) under the skin every 7 days. 2 mL 0 No facility-administered encounter medications on file as of 02/26/2023. Visit Diagnoses: 1. 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 Overweight (BMI 25.0-29.9) 5. BMI 29.0-29.9,adult Current Medications: Patient's Medications New Prescriptions SEMAGLUTIDE-WEIGHT MANAGEMENT (WEGOVY) 0.25 MG/0.5ML SOLUTION AUTO-INJECTOR Inject 0.5 mL (0.25 mg) under the skin every 7 days. Previous Medications ADALIMUMAB (HUMIRA) 40 MG/0.8ML PREFILLED SYRINGE KIT PREFILLED SYRINGE 40 mg. BIOTIN 5 MG CAPSULE Take 1 capsule by mouth. CALCIUM CITRATE-VITAMIN D (CALCIUM CITRATE + PO) Take 500 mg by mouth. DULOXETINE (CYMBALTA) [address] CAPSULE Take by mouth. FERROUS GLUCONATE (FERGON) 324 (38 FE) MG TABLET GABAPENTIN (NEURONTIN) 600 MG TABLET Take 600 mg by mouth. MULTIVITAMIN WITH MINERALS (CEROVITE) 18-400 MG-MCG TABLET TABLET Take 2 Doses by mouth. CLARA-28 0.15-30 MG-MCG TABLET Modified Medications No medications on file Discontinued Medications No medications on file I spent a total of 30 minutes on the day of the visit discussing/counseling the patient regarding the post operative management listed below. 1. Adherence to nutrient-dense foods,containing sufficient amounts of lean proteins and fibers. Fluid 30 minutes before or after (more content not included)... [facility] 02-26-2023 History of Present illness Narrative [facility] PROGRESS NOTE POST WEIGHT LOSS SURGERY FOLLOW UP Patient: Charisma Judge Service Date: 02/26/2023 Patient is 18 month(s) s/p RnY Gastric Bypass Post-op Weight Metrics: %EBWL: % EBWL: <UNK> Weight Change Since Last Visit: Weight Change: <No Weight/Pre-Surgical Weight Recorded> Weight Change from Highest Pre-op Weight: Total Weight Change: <No Pre-Surgical Weight on File> Patient has the following questions: None Reported Pain: Patient rates pain on scale 0-10 as: 0 Exercise Compliance: Exercising: yes If yes: Type: walking Times per week: 3 Min per session: 30 Falls Risk Assessment Patient does not take medications which affect BP or mental status Patient does not t have newly prescribed or changed dosage of medications within past 30 days which affect BP or mental status Patient has not fallen in the past 2 months Patient does not t demonstrate unsteady gait Patient uses the following ambulatory assistive devices: none Patient states the presence of the following traits which increases risk of fall: none Patient is not on home O2 Pre-op Weight Metrics: Labs Completed: no - If NO, patient instructed to get labs drawn today or MARYCARMEN If YES: Labs completed at [facility]? no If yes see Labs Tab Labs completed at Non[facility] facility? no If yes see Encounters Tab - Orders only - Historical Provider - Date: Completed by: Amparo Stone LPN [facility] POST-OPERATIVE WEIGHT LOSS MANAGEMENT PROGRESS NOTE - FOLLOW UP HPI: Patient here today for 18 month post-weight loss surgery follow up The patient is a pleasant 47 y.o. year old female. The patient is feeling well. Denies nausea, vomiting, dysphagia, or any GERD Sx. Currently is not taking a PPI. Patient states diet and exercise is going poorly. Currently is eating 65-75 gm/day protein, and is compliant with prescribed multivitamins and supplements. Weight trend since last visit: gained 20 lbs over 15 month Per pt bernard is 130s Labs were Not completed. All labs were: ordered Social History Tobacco Use Smoking status: Never Smokeless tobacco: Never Substance Use Topics Alcohol use: Not Currently This patient's excess weight is causing the following co-morbid conditions at this time: Other weight regain after bariatric surgery PLAN Physical Examination: BP (!) 144/84 Pulse 78 Ht 5' 4 (1.626 m) Wt 170 lb 9.6 oz (77.4 kg) BMI 29.28 kg/m Vital signs are stable. General: This patient is awake, alert, and oriented, and is in no apparent distress. Current Diet This patient s current diet is: off the meal plan portions and composition Her diet contains adequate amounts of protein, adequate amounts of healthy fats, adequate amounts of green, leafy vegetables, and adequate amounts of fruits. Her comfort foods include:sweets and savory Current Activity Does not exercise Current Eating Behaviors This patients demonstrates the following behaviors as they relate to her eating: no meal planning, eating and drinking at the same time She eats approximately 3-4 times per day. Her last meal/snack was at 6-7 am/pm. Progress Made Towards Goals: 3 month weight goal: 30 6 month weight goal: 40 12 month weight goal: 50 Plan: This patient's excess weight is causing the following co-morbid conditions at this time: S/p bariatric surgery stable Continue current management, continue weight loss program Discuss how to go back on the meal plan Healthy eating guidelines after bariatric surgery [x] Protein goal of 1g protein per 1 kg of ideal body weight: 75 grams [x] Patient advised to maintain a food/exercise/behavior diary until next physician visit. Pt to bring the completed diary to next visit [x] Lab order provided to patient for labs to be drawn for next visit Patient instructed to continue post-weight loss surgery diet recommendations. Patient instructed to continue to monitor for signs and symptoms of GERD Psych concerns : No Excessive skin concerns: No Refer to Dr. Oneal/Tyree Other: got after surgery Physician Diet Recommendations given to patient See Follow up Section of today's encounter for next visit and additional scheduling orders Medications ordered during this encounter: Outpatient Encounter Medications as of 02/26/2023 Medication Sig Dispense Refill adalimumab (Humira) 40 MG/0.8ML Prefilled Syringe Kit prefilled syringe 40 mg. biotin 5 MG capsule Take 1 capsule by mouth. Calcium Citrate-Vitamin D (CALCIUM CITRATE + PO) Take 500 mg by mouth. DULoxetine (Cymbalta) [address] capsule Take by mouth. ferrous gluconate (Fergon) 324 (38 Fe) MG tablet gabapentin (Neurontin) 600 MG tablet Take 600 mg by mouth. multivitamin with minerals (Cerovite) 18-400 mg-mcg tablet tablet Take 2 Doses by mouth. Ariton-28 0.15-30 MG-MCG tablet Semaglutide-Weight Management (Wegovy) 0.25 MG/0.5ML solution auto-injector Inject 0.5 mL (0.25 mg) under the skin every 7 days. 2 mL 0 No facility-administered encounter medications on file as of 02/26/2023. Visit Diagnoses: 1. 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 Overweight (BMI 25.0-29.9) 5. BMI 29.0-29.9,adult Current Medications: Patient's Medications New Prescriptions SEMAGLUTIDE-WEIGHT MANAGEMENT (WEGOVY) 0.25 MG/0.5ML SOLUTION AUTO-INJECTOR Inject 0.5 mL (0.25 mg) under the skin every 7 days. Previous Medications ADALIMUMAB (HUMIRA) 40 MG/0.8ML PREFILLED SYRINGE KIT PREFILLED SYRINGE 40 mg. BIOTIN 5 MG CAPSULE Take 1 capsule by mouth. CALCIUM CITRATE-VITAMIN D (CALCIUM CITRATE + PO) Take 500 mg by mouth. DULOXETINE (CYMBALTA) [address] CAPSULE Take by mouth. FERROUS GLUCONATE (FERGON) 324 (38 FE) MG TABLET GABAPENTIN (NEURONTIN) 600 MG TABLET Take 600 mg by mouth. MULTIVITAMIN WITH MINERALS (CEROVITE) 18-400 MG-MCG TABLET TABLET Take 2 Doses by mouth. CLARA-28 0.15-30 MG-MCG TABLET Modified Medications No medications on file Discontinued Medications No medications on file I spent a total of 30 minutes on the day of the visit discussing/counseling the patient regarding the post operative management listed below. 1. Adherence to nutrient-dense foods,containing sufficient amounts of lean proteins and fibers. Fluid 30 minutes before or after meals. 1 cup is the maximum meal size. 2.Food intolerance (vomiting and regurgitation,GERD, diarrhea, dumping snd and hypoglycemia) discussed 3.Micronutrient supplementation discussed 4. Physical activity - aerobic physical activity 150-300 min/wk and strength training 2-3 times per wk. 5. Counseling on no nicotine, NSAIDs, excessive caffeine and alcohol after surgery 6.weight regain Is associated with obesity and weight loss/ weight maintenance is discussed as a treatment option for weight regain 7. Weight maintenance after bariatric surgery discussed 8. Weight regain prevention after bariatric surgery discussed Wegovy is a good option The patient was seen and a full chart review was performed.Clinical documentation is updated and completed. documented in this encounter [facility] 11-18-2021 Note HNO ID: [id number] Author: Nettie Lang APRN.CHITRA Service: ? Author Type: Nurse Practitioner Type: Progress Notes Filed: 11/20/2021 5:56 PM Note Text: This note was created using [employer]. Subjective Charisma Judge is a 46 year old female. 46 year old female with PMH gastric bypass (1 year ago) presents with complaints of possible strep throat. Acute onset 2 days ago +sore throat +cough Denies accompanying URI sx. Denies fever or chills. Denies cough. Denies SOB or CP. Utilized x2 tylenol and cold She works at [employer]. The history is provided by the patient. No educational sign language interpreter was used. Sore Throat This is a new problem. Episode onset: 2 days ago. The problem has been unchanged. Neither side of throat is experiencing more pain than the other. There has been no fever. The pain is at a severity of 5/10. The pain is moderate. Associated symptoms include coughing. Pertinent negatives include no abdominal pain, congestion, diarrhea, drooling, ear discharge, ear pain, headaches, hoarse voice, plugged ear sensation, neck pain, shortness of breath, stridor, swollen glands, trouble swallowing or vomiting. She has had no exposure to strep or mono. She has tried acetaminophen for the symptoms. The treatment provided no relief. PAST MEDICAL HISTORY Diagnosis Date - Abdominal [...] low cervical - COLONOSCOP W/ OR W/O [facility] SPEC 12/22/2013 Colonoscopy - EGD W/O [facility] SPECIMEN W/BX 05/11/10 - ENDOMETRIAL BIOPSY 09/10/2013 - PAST SURGICAL HISTORY OF 06/15/10 Lap [facility], intra-op cholangiogram -- Dr. Chin - PAST SURGICAL HISTORY OF lumbar injections - REDUCTION OF LARGE BREAST 2001 [place] - REMOVAL OF HEEL SPUR LIGAMENT CUT; Foot[facility]le [facility] ALLERGIES Patient has no known allergies. MEDICATIONS FLUoxetine (PROZAC) 20 mg capsule 20mg + 40mg =60mg daily FLUoxetine HCl (PROZAC) 40 mg capsule 20mg + 40mg =60mg daily CPAP UTO CPAP DEVICE, chin strap, humidity. Lifetime supplies.Please Autopap 4-20 cmH2O with download in 2 weeks faxed to [phone] /Pt without insurance FAMILY HISTORY Problem Relation [...] Grandfather - Arthritis Maternal Grandmother - other (dora [Other]) Paternal Aunt Social History Tobacco Use - Smoking status: Never Smoker - Smokeless tobacco: Never Used Substance Use Topics - Alcohol use: No - Drug use: No Review of Systems Constitutional: Negative for chills, diaphoresis, fatigue and fever. HENT: Positive for sore throat. Negative for congestion, drooling, ear discharge, ear pain, hoarse voice, postnasal drip, rhinorrhea, sinus pain and trouble swallowing. Eyes: Negative for photophobia, pain, discharge, redness, itching and visual disturbance. Respiratory: Positive for cough. Negative for apnea, choking, chest tightness, shortness of breath and stridor. Cardiovascular: Negative for chest pain, palpitations and leg swelling. Gastrointestinal: Negative for abdominal pain, diarrhea, nausea and vomiting. Musculoskeletal: Negative for arthralgias, back pain, gait problem and neck pain. Skin: Negative for color change, pallor, rash and wound. Allergic/Immunologic: Negative for environmental allergies, food allergies and immunocompromised state. Neurological: Negative for dizziness, facial asymmetry, light-headedness, numbness and headaches. Hematological: Negative for adenopathy. Does not bruise/bleed easily. Psychiatric/Behavioral: Negative for agitation and behavioral problems. Objective BP 122/82 Pulse 85 Temp 37.7 ?C (99.8 ?F) Resp 16 Wt 69.4 kg (153 lb) LMP 09/27/2014 SpO2 98% BMI 27.10 kg/m? Physical Exam Vitals and nursing note reviewed. Constitutional: General: She is not in acute distress. Appearance: Normal appearance. She is normal weight. She is not ill-appearing, toxic-appearing or diaphoretic. HENT: Head: Normocephalic and atraumatic. Right Ear: Ear canal and external ear normal. Left Ear: Ear canal and external ear normal. Nose: Nose nor (more content not included)... [facility] 11-30-2020 Note Physician Discharge Summary Patient ID: Charisma Judge [id number] y.o. 1975 Admit date: 11/28/2020 Discharge date: 11/30/20 Admitting Physician: Darion Crenshaw MD Discharge Physician: Darion Crenshaw MD Admission Diagnoses: Active Problems: Morbid obesity (HCC) Hypertension Back pain Dyspepsia Delayed emergence from anesthesia S/P gastric bypass Resolved Problems: * No resolved hospital problems. * Discharge Diagnoses: Active Problems: Morbid obesity (HCC) Hypertension Back pain Dyspepsia Delayed emergence from anesthesia S/P gastric bypass Resolved Problems: * No resolved hospital problems. * Admission Condition: good Discharged Condition: good Indication for Admission: S/P gastric bypass [Z98.84] Hospital Course: Pt taken to OR 11/[address] Crenshaw and tolerated procedure without any complications. Immediately post-op, pt was extubated and transferred to PACU in stable condition. After PACU criteria met and within 24 hrs of procedure, patient was transferred to floor. Throughout jovan-operative course, there was monitoring of vital signs, urine output and clinical status of patient. Laboratory values were reviewed and the patients electrolytes were repleted as necessary. Diet was subsequently advanced and by the day of discharge patient was ambulating, voiding and tolerating PO without difficulty. Pain was well controlled with oral medications by time of discharge. Disposition: home Patient Instructions: Charisma Judge Home Medication Instructions ANTHONY:[id number] Printed on:11/30/20 1106 Medication Information amLODIPine (NORVASC) 10 MG tablet Take 10 mg by mouth daily HTN Ascorbic Acid (VITAMIN C ADULT GUMMIES PO) Take 3 each by mouth daily Biotin 5000 MCG CAPS Take 1 capsule by mouth daily Cholecalciferol (VITAMIN D3 GUMMIES PO) Take 3 each by mouth daily CPAP Machine MISC by Does not apply route Indications: Sleep Apnea 10cm DORA FLUoxetine (PROZAC) 40 MG capsule Take 40 mg by mouth daily gabapentin (NEURONTIN) 300 MG capsule Take 300 mg by mouth 3 times daily. hydroCHLOROthiazide (HYDRODIURIL) 25 MG tablet Take 25 mg by mouth daily Indications: BP/water retention omeprazole (PRILOSEC) 20 MG delayed release capsule Take 1 capsule by mouth daily ondansetron (ZOFRAN) 4 MG tablet Take 1 tablet by mouth daily as needed for Nausea or Vomiting oxyCODONE-acetaminophen (PERCOCET) 5-325 MG per tablet Take 1 tablet by mouth every 6 hours as needed for Pain for up to 7 days. Intended supply: 7 days. Take lowest dose possible to manage pain Activity: activity as tolerated and no driving for today Diet: [place]onzo CLD Wound Care: Steri strips will be present. These can be removed 5 days after surgery if they do not fall off on their own. Ok to shower, but no baths or swimming pools. Allow soap and water to run over incision site and pat dry. Follow-up with your surgeon within 2 weeks for post-operative follow up. Call office phone number to schedule your appointment. Signed: Karime Lopez 11/30/2020 11:06 AM [facility] 11-30-2020 History of Present illness Narrative Patient Evaluation Form The patient is currently receiving qid Points 0 1 2 3 4 Points Totals Pulmonary Status (-/+) History Smoking history < 20 pack years Smoking history > 20 pack years Pulmonary Disorder (acute or chronic) Severe or Chronic with Exacerbation 3 Surgical Status No Surgery Trach PEG General Surgery Lower Abdominal Thoracic or Upper Abdominal Thoracic with Pulmonary Disorder 2 Chest X-ray Clear None Ordered Chronic Changes CXR results Pending Infiltrates, atelectasis, pleural effusion, or edema Infiltrates in more than one lobe Infiltrate + Atelectasis, &/or pleural effusion 0 Respiratory Pattern Regular, RR = 12-20 Increased, RR = 21-25 ROSEN, irregular, or RR = 26-30 Decreased FEV1 or RR = 31-35 Severe SOB, used of of accessory muscles, or RR = > 35 0 Mental Status Alert, oriented, cooperative Confused, but follows commands Lethargic or un-able to follow commands Obtunded Comatose 0 Breath Sounds Clear to auscultation Decreased unilaterally or in bases only Decreased bilaterally Crackles or intermittent wheezes Wheezes 1 Cough Strong, spontaneous, & nonproductive Strong, spontaneous, & productive Weak, nonproductive Weak, productive or with wheezes No spontaneous cough or may require suctioning 0 Level of Activity Ambulatory Ambulatory with Assist Non-ambulatroy Paraplegic Quadriplegic 0 Triage 1 > 20 pts Triage 2 16-20 pts Triage 3 11- 15 pts Triage 4 6 - 10 pts Triage 5 0 - 5 pts TOTAL POINTS = 6 Triage Score = 5 Changing Therapy to bid Patient to be admitted to [facility]. Telephone report given to JESSICA Gamble with all questions answered at this time. Vital signs returned to baseline, patient awakens easily to voice, oriented x4. Monitoring completed. Patient transported via bed with Transporters x2, oxygen at 2L via NC, and LR @ 100ml/hr. Family notified of room number and transport. Patient's mother Ariella updated of patient's condition and room number that patient will be admitted to. Will notify her when patient transports. documented in this encounter [facility] Work Phone: 11-28-2020 Hospital Discharge instructions Shoshana Chaudhry RD, LD - 11/28/2020 [facility] DIETITIAN DISCHARGE INSTRUCTIONS The following information was reviewed with the patient, and the patient was given a hard copy of these instructions by the Bariatric Registered Dietitian. Overview of Post-Op Diet Protocol for Patients Following Gastric Bypass or Sleeve Gastrectomy Your dietitian will meet with you in the hospital before you are discharged to review the diet in more details and to answer any questions you may have, Day of Surgery (after you wake up from surgery) Nothing to eat or drink Post-op Day 1 If you are having an UGI xray, you will begin your clear liquids after you are notified that the results are back and you are cleared to begin If you are NOT having an UGI xray, you will begin your clear liquids as soon as your nurse notifies you that it is OK to start. Post-Op Day 2 Continue your bariatric clear liquid diet Post-op Day 3 Begin full liquid diet and continue until after your 1 week post-op visit Full Liquid DietGeneral Guidelines: 1. Divide food into three (3) small meals and three (3) small snacks. 2. Eat the food Very slowly, using smaller size utensils. If you feel full, STOP eating. 3. Drink liquids 30 minutes before or 30 minutes after meals and snacks. 4.Do not use a straw. 5. Start tracking your protein intake - 65-75 grams daily should be your total. Foods Allowed In addition to all foods permitted on the clear liequid diet, you may have: 1.Diluted fruit juices that are pulp-free. 2. Low-fat, strained cream soups. 3. Sugar-free strained creamed soups 4. Sugar-free pudding with protein powder 5. Sugar substitutes 6. Thin cooked cereals 7. Low-sugar yogurt without fruit 8. Skim milk or 1% milk 9. Lactaid, soy or almond milk 10. Low-fat or nonfat cottage cheese )mashed with a fork and then chewed thoroughly before swallowing) 11. Protein powder 12. High protein, low-sugar beverages and shakes (see list in Patient Education Manual) You will continue to follow the full liquid diet until after you meet with your dietitian during your 1 week post-op office visit. The next diet phases will be reviewed and discussed with your during that visit, If you have questions about your diet(s), please contact the Bariatric Dietitians at [phone]. Reviewed by Shoshana Chaudhry RD [facility] DISCHARGE INSTRUCTIONS The following information was reviewed with the patient, the patient was given a hard copy of these instructions by the Bariatric credit risk management director, and the instructions were signed by the patient. Post-Operative Patient Instructions Laparoscopic Rodo-en-Y Gastric Bypass Procedure 1. You may shower at any point, just blot the incisions dry when you are done. Use only soap and water on the wounds, do not use ointments, lotions, powders or antibiotic ointment. Use elastic binder as you desire. 2. Leave the steri-strips in place (white paper tape over the incisions). They may come off on their own, do not replace if they come off. The stitches are buried under the skin and will dissolve on their own. Cover the left lower laparoscopic incision with dry gauze until it is no longer draining. Change the dressing daily. 3. If incisions begin to look infected (swelling, redness, drainage, pain) please notify brand manager. 4. Take your temperature twice a day for the first post-operative week. Call if temperature is >101 F. 5. If you are discharged home with a drain, it will be removed at your first office visit. Daily dressing changes and twice daily emptying of the grenade is required at home. Milking or stripping the tubing should be done 2-3 times daily. You will be given the supplies needed to perform these tasks. 6. If you have a drain, it is also important to observe the color of the drainage in the grenade. The color will liner roll changer time. Normal color changes include Red ? [place] ? [place]/Yellow ? [place] and will always be clear in appearance. Abnormal color changes include a caramel color (dunbar and cloudy), a brown or black appearance or a color change matching the color of what you just drank. (mix up your flavors) An abnormal color change requires an immediate phone call to the [facility]. 7. Resume your home medications as directed by your surgeon and your nurse case aide. Make an appointment with your prescribing physician if you are taking medication for your blood pressure or diabetes. You will need close follow-up regarding your medical conditions, as you will soon be off many of these medications. 8. No aspirin or aspirin containing medications should be taken at all. 9. Do not take multiple medications at one time. Take 2-3 at a time, wait 20-30 minutes before taking additional medications. 10. Do not take any time release, control release, or extended release medications. This includes any enteric coated medications. Your anatomy has been altered and you no longer have the ability to absorb these medications efficiently. If you have been prescribed any of these types of medications you should contact the prescribing physician for direction. It will not harm you to take these medications in the interim, however, absorption is questionable. 11. Follow our food guidelines closely. Remember, clear liquids for the first two days after surgery. No sugar, caffeine or carbonation. Your fluid requirement is 64 oz. per day. You may advance to full liquids on post-op day three. This is in addition to the clear liquid diet. 12. Do not take your calcium, B12, or multivitamin with iron until after your one week appointment. 13. No alcoholic beverages at all during the first 18 months post-op. 14. No lifting, pushing, or pulling over 15 lbs. for one month. You may go up and down stairs. No driving for 1 week after surgery. Do not drive if you are taking prescription pain medication. 15. Walking as part of your daily activities is required immediately. Walking extensively for exercise is not permitted until you are cleared by your surgeon (usually 4-6 weeks after surgery). 16. You will be able to begin exercising in 4- 6 weeks, but must be cleared by your surgeon at your one month appointment. 17. Use your incentive spirometer from the hospital for the first post-operative week as instructed, 10 times every other hour while awake. 18. Prior to returning to work, you will be seen, evaluated and cleared by your surgeon. 19.Remember, you will have pain!!! Take your pain medicine so that you are comfortable enough to cough, deep breath and walk. It is not unusual for lower left abdominal pain to return 10-14 days after surgery. Ice to the area can reduce the discomfort. 20. Fatigue is quite common in the first post- operative week. Rest appropriately in response to this fatigue. Remember that mobility after surgery is very important. You must not remain in a sitting or recumbent position for long periods of time. 21. If you have obstructive sleep apnea and have been prescribed a CPAP machine, you must continue to use this device after surgery. 22. Please call the [facility] at [phone] if you have any questions or concerns during business hours: Mon.-Fri. 8:00 a.m. - 4:30 p.m. The answering service may be called during non-business hours at [phone] 23. If you have a medical emergency, call 911 or go to the closest hospital emergency room. 24. Call your surgeon for problems, or if you have any of the following: * Temperature>101 F. (Take your temperature twice a day in the morning and evening until your first office visit) * Redness, pain, swelling or drainage from any of the incisions * Inability to pass urine or have bowel movements * ANY shortness of breath, chest pain, leg swelling or leg pain (in one or both of your legs) * Rapid heart rate * Nausea and/or vomiting with inability to keep liquids down * Bleeding from your rectum * Frequently feeling dizzy or light headed, inability to walk * Abnormal drain color appearance if you have a drain 25. Your one week and one month follow- up office visits with your surgeon at the [facility] are located in the discharge folder. documented in this encounter [facility] Work Phone: Evaluation note Diagnosis S/P gastric bypass- Primary Bariatric surgery status Morbid obesity (HCC) Morbid obesity Hypertension Unspecified essential hypertension Back pain Backache, unspecified Dyspepsia Dyspepsia and other specified disorders of function of stomach Delayed emergence from anesthesia documented in this encounter [facility] Work Phone: Evaluation note* Diagnosis Hypertension, unspecified type Class 2 severe obesity due to excess calories with serious comorbidity and body mass index (BMI) of 37.0 to 37.9 in adult (HCC) Deficiency of multiple nutrient elements Other nutritional deficiency Intestinal malabsorption, unspecified type Obstructive sleep apnea Obstructive sleep apnea (adult) (pediatric) documented in this encounter [facility] Work Phone: Evaluation note* Diagnosis Hypertension, unspecified type Deficiency of multiple nutrient elements Other nutritional deficiency Obstructive sleep apnea Obstructive sleep apnea (adult) (pediatric) Intestinal malabsorption, unspecified type Difficult intravenous access Other specified conditions influencing health status Class 1 obesity due to excess calories with serious comorbidity and body mass index (BMI) of 34.0 to 34.9 in adult documented in this encounter [facility] Work Phone: Evaluation note* Diagnosis Intestinal malabsorption, unspecified type Deficiency of multiple nutrient elements Other nutritional deficiency Essential hypertension Unspecified essential hypertension Obstructive sleep apnea Obstructive sleep apnea (adult) (pediatric) Class 1 obesity due to excess calories with serious comorbidity and body mass index (BMI) of 30.0 to 30.9 in adult documented in this encounter [facility] Work Phone: Evaluation noteNo assessment information available [facility] Work Phone: Evaluation note* Diagnosis Onset Date Resolution Status FANI (acute kidney injury) [place] Complicated UTI (urinary tract infection) acute Ureterolithiasis acute [facility] Work Phone: Evaluation note* Diagnosis Onset Date Resolution Status FANI (acute kidney injury) [place] Complicated UTI (urinary tract infection) acute Hydronephrosis acute Ureterolithiasis acute [facility] Work Phone: Evaluation note* Diagnosis Onset Date Resolution Status Ureterolithiasis acute FANI (acute kidney injury) re solved Complicated UTI (urinary tract infection) resolved Hydronephrosis resolved Ureterolithiasis acute [facility] Work Phone: Evaluation note* Diagnosis S/P bariatric surgery- Primary Deficiency of multiple nutrient elements Other nutritional deficiency Other specified intestinal malabsorption Overweight (BMI 25.0-29.9) Overweight BMI 29.0-29.9,adult Weight gain Other symptoms concerning nutrition, metabolism, and development documented in this encounter [facility] for referral (narrative)No reason for referral information available[facility] Work Phone: Advance Directives No Advanced Directives Records FoundDocuments on File Type Date Recorded Patient 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 Advance Directives and Living Will Power of Loan Operations Specialist Documents on File Type Date Recorded Patient Jewelry Sales Expl anation ACP-Advance Directive ACP-Power of Loan Operations Specialist Latest Code Status on File Code Status Date Activated Date Inactivated Comments Full Code 07/03/2020 8:47 AM 07/03/2020 1:09 PM Documents on File Type Date Recorded Patient Jewelry Sales Expl anation ACP-Advance Directive ACP-Power of Loan Operations Specialist Latest Code Status on File Code Status Date Activated Date Inactivated Comments Full Code 07/03/2020 8:47 AM 07/03/2020 1:09 PM Latest Code Status on File Code Status Date Activated Date Inactivated Comments Full Code 07/03/2020 8:47 AM Latest Code Status on File Code Status Date Activated Date Inactivated Comments Full Code 11/29/2020 8:11 AM Full Code 11/28/2020 12:36 PM 11/29/2020 8:11 AM Full Code 11/28/2020 5:42 AM 11/28/2020 12:29 PM Full Code 07/03/2020 8:47 AM 07/03/2020 1:09 PM Latest Code Status on File Code Status Date Activated Date Inactivated Comments Full Code 11/29/2020 8:11 AM 11/30/2020 5:18 PM Advance Directive Response Recorded Date/ Time Advance Directives No September 2:07pm Living Will No September 08 4:42pm Power of Loan Operations Specialist No September 08, 2019 4:42pm Advance Directive Response Recorded Date/ Time Advance Directives No September 2:07pm Living Will No February 16, 2022 5 :49pm Power of Loan Operations Specialist No February 16, 2022 5:49pm Advance Directive Response Recorded Date/ Time Advance Directives No September 2:07pm Living Will No February 18, 2022 10:22am Power of Loan Operations Specialist No February 18 2 10:22am Advance Directive Response Recorded Date/ Time Advance Directives No September 2:07pm Living Will No February 21, 2022 4:28am Power of Loan Operations Specialist No February 21 2 4:28am Advance Directive Response Recorded Date/ Time Advance Directives No September 2:07pm Living Will No March 01, 2022 10:17am Power of Loan Operations Specialist No March 01 2 10:17am Advance Directive Response Recorded Date/ Time Advance Directives No September 2:07pm Reason for Referral Status Reason Specialty Diagnoses / Procedures Re ferred By Contact Referred To Contact Closed Cardiology Diagnoses Preop cardiovascular exam Hypertension, unspecified type DORA (obstructive sleep apnea) Procedures Echo 2D Doppler Color Thomas Mathew MD [address] [place] [address]. [address] [place] [id number] Assessments Diagnosis Preop cardiovascular exam Pre-operative cardiovascular examination Hypertension, unspecified type DORA (obstructive sleep apnea) Obstructive sleep apnea (adult) (pediatric) Diagnosis Pre-operative exam Preoperative examination, unspecified Screening for viral disease Special screening examination for unspecified viral disease Morbid obesity (HCC) Morbid obesity Essential hypertension Unspecified essential hypertension Obstructive sleep apnea Obstructive sleep apnea (adult) (pediatric) Prediabetes Other abnormal glucose Discharge Instructions * Instructions* Satish Desir, JESSICA - 07/03/2020 Upper GI Endoscopy: What to expect at home ACTIVITY: DO NOT DRIVE, OPERATE MACHINERY, OR DRINK ANY ALCOHOL TODAY. Avoid making critical decisions, signing legal documents, or performing any activity that requires alertness for the rest of the day. You may be bloated or have gas pains since air was introduced into the stomach for the procedure. You may need to pass the gas throughout the day. You may experience a mild sore throat. You may use an cryx-gxz-xeerpkv chloraseptic spray, gargle with warm salt water, or use throat lozenges. Notify your physician if this feeling lasts more than 48 hours. Rest the remainder of the day. You may resume normal activity tomorrow. You may return to work tomorrow. DIET: You may resume a normal diet unless notified or recommended by your physician. You may be eager to eat a large meal after fasting, but it is a good idea to start with light mealsand ease into solid foods the first day. (*) If your stomach is upset, try clear liquids and bland, low-fat foods like plain toast or rice. Drink plenty of fluids for the first 24 hours (unless your physician states otherwise). MEDICATION: Resume your normal home medications unless notified or recommended by your physician. If you take blood thinners (such as Coumadin, Eliquis, Plavix, Aspirin, etc.) or anti-inflammatory medications (Advil, Motrin, Aleve, etc.), ask your physician when you may resume these medications. FOLLOW-UP APPOINTMENT: Follow up with or call your physician as needed. When to call for help: Call your doctor IMMEDIATELY or seek medical care if you experience: ? Severe pain or vomiting ? Coughing up more than a teaspoon of blood ? You pass a large amount of tar-like stools ? Your belly is swollen and firm with severe pain ? A fever greater than 101 degrees ? Redness or swelling of arm from the IV site for more than 48 hours ? Sudden onset of chest pain or shortness of breath ? If you become extremely dizzy or pass out (lose consciousness) IF YOU ARE UNABLE TO REACH YOUR PHYSICIAN GO TO NEAREST EMERGENCY DEPARTMENT documented in this encounter* Instructions* Jolly Villareal, RN - 11/21/2020 FOLLOW {lesly single:[id number]::Darion Crenshaw MD} DIET AND MEDICATION INSTRUCTIONS GIVEN TO YOU IN BARIATRIC CLASS. SHOWER USING HIBICLENS OR DIRECTED BY YOUR SURGEON THE MORNING OF SURGERY. OTHER SPECIAL INSTRUCTIONS - Follow all instructions given to you by Dr. Crenshaw. IF YOU HAVE SPECIFIC QUESTIONS, PLEASE CALL THE BARIATRIC CENTER. As a reminder you will be asked to provide a urine sample upon arrival at Same Day Surgery. Please do not void prior to arrival. Please bring your CPAP/BiPAP device, mask, and equipment with you on the day of surgery. Do not bring water for your machine, it will be provided. * Attachments The following attachments cannot be sent through Care Everywhere. * Gastric Bypass: [id number]: Pre-op (Lao) documented in this encounter Summary Purpose Family History No Family History Records FoundNo Family History Records FoundNo Family History Records FoundNo Family History Records FoundNo Family History Records Found Chief Complaint and Reason for Visit Chief Complaint RIGHT FLANK Chief Complaint RIGHT FLANK INFECTED KIDNEY STONE, FANI Reason for Visit FANI (acute kidney in jury) Complicated UTI (urinary tract infection) Ureterolithiasis Chief Complaint RIGHT FLANK RIGHT URETERAL CALCULUS W INFECTION AND FEVER Reason for Visit FANI (acute kidney in jury) Complicated UTI (urinary tract infection) Hydronephrosis Ureterolithiasis Chief Complaint RIGHT FLANK RIGHT URETERAL CALCULUS W INFECTION AND FEVER CYSTO, URETEROSCOPY, RETRO, LASER, STENT RT Reason for Visit Ureterolithiasis FANI (acute kidney injury) Complicated UTI (urinary tract infection) Hydronephrosis Ureterolithiasis Chief Complaint SCREENING Chief Complaint SCREENING FERRLECIT 250MG FERRLECIT 250MG FERRLECIT 250MG Chief Complaint SCREENING FERRLECIT 250MG FERRLECIT 250MG FERRLECIT 250MG FERRLECIT 250MG FERRLICIT Chief Complaint SCREENING Additional Source Comments Ordered Prescriptions (unrec ognized section and content) Prescription Sig Dispensed Refills Start Date End Da ondansetron (ZOFRAN) 4 MG tablet Take 1 tablet by mouth daily as needed for Nausea or Vomiting 30 tablet 0 11/28/2020 oxyCODONE-acetaminophen (PERCOCET) 5-325 MG per tabletIndications:S/P gastric bypass Take 1 tablet by mouth every 6 hours as needed for Pain for up to 7 days. Intended supply: 7 days. Take lowest dose possible to manage pain 28 tablet 0 11/28/2020 12/05/2020 INFORMATION SOURCE (unrecogn ized section and content) DATE CREATED AUTHOR 11/22/2021 [facility] DATE CREATED AUTHOR AUTHOR'S ORGANIZ ATION 11/29/2021 [facility] [employer] [facility] DATE CREATED AUTHOR AUTHOR'S ORGANIZ ATION 11/30/2021 [facility] [employer] [facility] DATE CREATED AUTHOR AUTHOR'S ORGANIZ ATION 03/28/2023 [facility] [employer] [facility] DATE CREATED AUTHOR AUTHOR'S ORGANIZ ATION 04/08/2025 [facility] Care Teams (unrecognized sec tion and content) Bookmobile Clerk Relationship Specialty Start Date End Date Scooby Garay PCP - General Family Medicine 03/07/20 Team Status: Active Member Role Status Dates Dr. Scooby Garay DO Family Provider Active Dr. Scooby Garay DO Primary Care Provider Active Team Status: Inactive Member Role Status Dates Dr. Scooby Garay DO Primary Care Provider, Attendin g Provider Active Team Status: Inactive Member Role Status Dates Dr. Scooby Garay DO Primary Care Prov ider, Attending Provider, Referring Provider Active Team Status: Inactive Member Role Status Dates Dr. Scooby Garay DO Primary Care Provider Active Dr. Vinnie Stephens , DO Attending Provider, Referring Provider Active Bookmobile Clerk Relationship Specialty Start Date End Date Scooby Garay [address] [facility] [place] [phone] PCP - General 03/07/20 Team Status: Inactive Member Role Status Dates Dr. Scooby Garay DO Primary Care Provider Active Start: January 21, 2025 End: January 21, 2025 Dr. Scooby Garay DO Attending Provider Active Start: January 21, 2025 End: January 21, 2025 Dr. Scooby Garay DO Referring Provider Active Start: January 21, 2025 End: January 21, 2025 Goals (unrecognized section and content) Goals may be documented in a n alternate sectionGoals may be documented in an alternate sectionGoals may be documented in an alternate sectionGoals may be documented in an alternate sectionGoals may be documented in an alternate sectionGoals may be documented in an alternate sectionGoals may be documented in an alternate sectionGoals may be documented in an alternate sectionGoals may be documented in an alternate section Reason for Visit (unrecogniz ed section and content) Reason Comments Weight Loss 18m POP FOR RECORDS PERTAINING TO PATIENTS WHO ARE OR HAVE BEEN ENROLLED IN A CHEMICAL DEPENDENCY/SUBSTANCEABUSE PROGRAM, SOME INFORMATION MAY BE OMITTED. This clinical summary was aggregated from multiple sources. Caution should be exercised in using it in the provision of clinical care. This summary normalizes information from multiple sources, and as a consequence, information in this document may materially change the coding, format and clinical context of patient data. In addition, data may be omitted in some cases. CLINICAL DECISIONS SHOULD BE BASED ON THE PRIMARY CLINICAL RECORDS. [facility] [employer] [facility]. provides no warranty or guarantee of the accuracy or completeness of information in this document.
[2025-04-08] MEDS: Lactated Ringers 1,000 ML 15 ML IV (07:33)
--- NOTE | 2025-04-08 08:16 | PCM.HP.STD ---
HPI - General General Date of Admission: 04/08/25 Date of Service: 04/08/25 Chief Complaint: Screening colonoscopy HPI Baldo CISSE, is a 50 F who presents for screening colonoscopy. Her last colonoscopy was about 10 years ago. She has no previous history of polyps. No family history of colon polyps or colon cancers that she is aware of. She denies any GI symptoms such as blood in her stools. No black or tarry stools etc. [facility] Medical History (Updated 04/08/25 @ 08:[address] Bowen Cramer MD) Encounter for screening colonoscopy Rheumatoid arthritis Kidney stones Back pain Wears contact lenses Wears glasses Arthritis Non-smoker Leg cramps History of edema Cardiology follow-up encounter Hydronephrosis Hypertension Ureterolithiasis Home Medications ?Medication ?Instructions ?Recorded ?Last Taken ?Type ascorbic acid (vitamin C) 1,000 mg 1,000 mg PO DAILY SUPPLEMENT 11/10/17 Unknown History tablet (Vitamin C) duloxetine 30 mg capsule,delayed 1 cap PO DAILY 02/18/22 Unknown History release amlodipine 10 mg tablet 10 mg PO DAILY 04/04/25 04/08/25 06:15 History bimekizumab-bkzx 320 mg/2 mL 320 mg subcut .Q4 WEEKS 04/04/25 Unknown History subcutaneous auto-injector (Bimzelx Autoinjector) cholecalciferol (vitamin D3) 25 25 mcg PO DAILY 04/04/25 Unknown History mcg (1,000 unit) capsule (Vitamin D3) cyanocobalamin (vitamin B-12) 1,000 mcg PO DAILY 04/04/25 Unknown History 1,000 mcg tablet (Vitamin B-12) ferrous gluconate 324 mg (38 mg 324 mg PO BID 04/04/25 03/30/25 History iron) tablet levonorgestrel 0.15 mg-ethinyl 1 tab PO DAILY 04/04/25 Unknown History estradiol 0.03 mg tablet (Kurvelo (28)) losartan 50 mg-hydrochlorothiazide 1 tab PO BID 04/04/25 Unknown History 12.5 mg tablet phentermine 37.5 mg tablet 37.5 mg PO DAILY 04/04/25 03/30/25 History topiramate 25 mg tablet 25 mg PO DAILY 04/04/25 03/30/25 History tramadol 50 mg tablet 50 - 100 mg PO Q8H PRN PRN pain 04/04/25 Unknown History Allergy/AdvReac Type Severity Reaction Status Date / Time hydrogen peroxide Allergy Rash Verified 04/08/25 07:32 Surgical History (Updated 04/04/25 @ 15:59 by Ella Couch) History of cystoscopy Hx of breast reduction, elective History of cholecystectomy History of H/O gastric bypass Social History Smoking Status: Never smoker Vital Signs Vital Signs Vital Signs: 04/08/25 07:35 04/08/25 07:35 Temperature 97.7 F L Temperature Source Temporal Pulse Rate 62 Respiratory Rate 16 Respiratory Pattern Normal Blood Pressure 102/72 Blood Pressure Mean 82 Blood Pressure Source Monitor Blood Pressure Position Semi-Fowlers Blood Pressure Location Left Arm Pulse Ox 100 Oxygen Delivery Method Room Air Weight Weight: 165 lb 12.602 oz Body Mass Index (BMI) 29.3 Physical Exam Const alert, oriented x3 and no apparent distress Assessment & Plan Assessment/Plan (1) Encounter for screening colonoscopy: PLAN: Plan The patient is a 50-year-old female in need of a screening colonoscopy. Her last colonoscopy was 10 years ago. She has no symptoms. We discussed the details of the planned procedure including the risks benefits and alternatives. She wishes to proceed. This will begin momentarily Charges/Coding Visit Charges Inpatient E&M: 88792 Init Hosp L2
--- NOTE | 2025-04-08 08:59 | PCM.POST.ANE ---
Anesthesia: Postop Eval I Current Vital Signs Temperature: 97.7 F Pulse Rate: 67 Blood Pressure: 134/112 Respiratory Rate: 18 Pulse Ox: 99 Assessment Airway patent: Yes Spontaneous unlabored respirations: Yes nausea: No Vomiting: No Anesthesia Complication: No Fluid Hydration Crystalloid volume administer (ml): 400 Total IV fluid infused: 400 Progress Note Anesthesia document: Postop Eval 1 completed: Yes
--- NOTE | 2025-04-08 09:05 | OP.PROVAT_ITS ---
04/08/2025 Florentin Garay [address] [place] [address] Re : Colonoscopy procedure for Charisma Jimmy Dear Dr. Garay This procedure was performed on Tuesday, April 08, 2025. My impressions and recommendations are as follows: Impressions : - The entire examined colon is normal on direct and retroflexion views. - No specimens collected. Recommendations : - Discharge patient to home (ambulatory). - High fiber diet. - Repeat colonoscopy in 10 years for screening purposes. - Return to my office PRN. - Continue present medications. My findings are described in the full procedure note, which is enclosed. If I can be of further assistance, please feel free to contact me at . Sincerely, Bowen Cramer MD 04/08/2025 9:05:10 AM This report has been signed electronically.
--- NOTE | 2025-04-08 09:05 | OP.COLON_ITS ---
Patient Name: Charisma Marquez Procedure Date: 04/08/2025 8:05 AM Date of : 1975 Age: 50 Procedure: Colonoscopy Indications: Screening for colorectal malignant neoplasm Providers: Bowen Cramer MD Referring MD: Florentin Garay Medicines: Monitored Anesthesia Care Patient Profile: Last Colonoscopy: more than 10 years ago. Complications: No immediate complications. Estimated blood loss: None. Procedure: Pre-Anesthesia Assessment: - Prior to the procedure, a History and Physical was performed, and patient medications and allergies were reviewed. The patient's tolerance of previous anesthesia was also reviewed. The risks and benefits of the procedure and the sedation options and risks were discussed with the patient. All questions were answered, and informed consent was obtained. Prior Anticoagulants: The patient has taken no anticoagulant or antiplatelet agents. ASA Grade Assessment: II - A patient with mild systemic disease. After reviewing the risks and benefits, the patient was deemed in satisfactory condition to undergo the procedure. After I obtained informed consent, the scope was passed under direct vision. Throughout the procedure, the patient's blood pressure, pulse, and oxygen saturations were monitored continuously. The adult colonoscope was introduced through the anus and advanced to the cecum, identified by appendiceal orifice and ileocecal valve. The ileocecal valve, appendiceal orifice, and rectum were photographed. The entire colon was well visualized. The colonoscopy was performed without difficulty. The patient tolerated the procedure well. The quality of the bowel preparation was adequate. Moderate Sedation: See the other procedure note for documentation of moderate sedation with intraservice time. Scope In: 8:38:47 AM Scope Withdrawal Time 0 hours 8 minutes 8 seconds Scope Out: 8:51:42 AM Total Procedure Duration Time 0 hours 12 minutes 55 seconds Findings: The perianal and digital rectal examinations were normal. The entire examined colon appeared normal on direct and retroflexion views. Internal hemorrhoids were found during retroflexion. The hemorrhoids were moderate. Impression: - The entire examined colon is normal on direct and retroflexion views. - No specimens collected. Recommendation: - Discharge patient to home (ambulatory). - High fiber diet. - Repeat colonoscopy in 10 years for screening purposes. - Return to my office PRN. - Continue present medications. Procedure Code(s): --- Professional --- 86255, Colonoscopy, flexible; diagnostic, including collection of specimen(s) by brushing or washing, when performed (separate procedure) Diagnosis Code(s): --- Professional --- Z12.11, Encounter for screening for malignant neoplasm of colon CPT copyright 2021 [employer]. All rights reserved. The codes documented in this report are preliminary and upon palm and back forger review may be revised to meet current compliance requirements. Bowen Cramer MD 04/08/2025 9:05:10 AM This report has been signed electronically. Number of Addenda: 0 Note Initiated On: 04/08/2025 8:05 AM
--- NOTE | 2025-04-08 09:35 | POSTOPAN2_ITS ---
Anesthesia Postop Eval I Sum Postop Eval Completion status Anesthesia document: Postop Eval 1 completed: Yes Anesthesia Postop Eval I Summary Anesthesia Postop Eval I Summary: Anesthesia Postop Eval I: Assessment Summary Airway patent Yes 04/08/25 08:59 WEDDING CAKE DESIGNER.CSIR Spontaneous unlabored Yes 04/08/25 08:59 WEDDING CAKE DESIGNER.CSIR respirations Mental status nausea No 04/08/25 08:59 WEDDING CAKE DESIGNER.CSIR Vomiting No 04/08/25 08:59 WEDDING CAKE DESIGNER.CSIR Anesthesia Postop Eval I: Fluid Summary Crystalloid volume administer 400 04/08/25 08:59 WEDDING CAKE DESIGNER.CSIR (ml) Colloids volume administered ( ml) Blood Product volume administered (ml) Total IV fluid infused 400 04/08/25 08:59 WEDDING CAKE DESIGNER.CSIR Anesthesia Postop Eval I: Summary Notes Anesthesia Complication No 04/08/25 08:59 WEDDING CAKE DESIGNER.CSIR Anesthesia Complication Comment: Post-operative progress note Anesthesia: Postop Eval II Evaluation Mental status: Awake Pain Level: 0 nausea: No Vomiting: No
--- NOTE | 2025-04-08 09:35 | PCM.POSTANE2 ---
Anesthesia Postop Eval I Sum Postop Eval Completion status Anesthesia document: Postop Eval 1 completed: Yes Anesthesia Postop Eval I Summary Anesthesia Postop Eval I Summary: Anesthesia Postop Eval I: Assessment Summary Airway patent Yes 04/08/25 08:59 DIRECTOR STERILE PROCESSING.CSIR Spontaneous unlabored Yes 04/08/25 08:59 DIRECTOR STERILE PROCESSING.CSIR respirations Mental status nausea No 04/08/25 08:59 DIRECTOR STERILE PROCESSING.CSIR Vomiting No 04/08/25 08:59 DIRECTOR STERILE PROCESSING.CSIR Anesthesia Postop Eval I: Fluid Summary Crystalloid volume administer 400 04/08/25 08:59 DIRECTOR STERILE PROCESSING.CSIR (ml) Colloids volume administered ( ml) Blood Product volume administered (ml) Total IV fluid infused 400 04/08/25 08:59 DIRECTOR STERILE PROCESSING.CSIR Anesthesia Postop Eval I: Summary Notes Anesthesia Complication No 04/08/25 08:59 DIRECTOR STERILE PROCESSING.CSIR Anesthesia Complication Comment: Post-operative progress note Anesthesia: Postop Eval II Evaluation Mental status: Awake Pain Level: 0 nausea: No Vomiting: No
== END 2025-04-08 09:58 | disposition home or self-care (01) ==
LOC: EN 07:02 → AC 07:03
PROVIDERS: PCP Family Medicine; Referring Provider Family Medicine; Visit Provider Surgery
PROC: 0DJD8ZZ Inspection of Lower Intestinal Tract, Via Natural or Artificial Opening Endoscopic (ICD-10-PCS; CPT 45378; principal; 2025-04-08 08:10)
DX: Z12.11 Encounter for screening for malignant neoplasm of colon (principal); K64.8 Other hemorrhoids; I10 Essential (primary) hypertension; Z79.899 Other long term (current) drug therapy
CPT/HCPCS: 45378; J2405